=== PATIENT | female | born 1960 | race Caucasian/White ===

== ENCOUNTER → 2016-10-20 | Outpatient (CLI) | payer BC ==
[2016-10-20 17:54] LABS: Blood Urea Nitrogen 11 mg/dL (7-17); Non-African American GFR(MDRD) >60 (>60 ml/min/1.73 sqM)
--- NOTE | 2016-10-20 19:50 | CT ---
EXAMINATION TYPE: CT abdomen pelvis w con DATE OF EXAM: 10/20/2016 7:16 PM COMPARISON: 01/18/2014 HISTORY: Left sided abdominal pain x [address] DLP: 360.00 mGycm CONTRAST: CT scan of the abdomen and pelvis is performed with Oral Contrast and with IV Contrast, patient injec faith with 100 mL of Omnipaque 300. FINDINGS: LUNG BASES-: No visible nodule. No infiltrate. LIVER/GB: The gallbladder is surgically absent. No space occupying hepatic lesion. Biliary tree is of normal caliber. PANCREAS: No inflammation. No distinct mass. SPLEEN: No splenic enlargement. No lesion seen. ADRENALS: No nodule. No thickening. KIDNEYS/BLADDER: No hydronephrosis. No nephrolithiasis. No disctinct renal mass. Urinary bladder g rossly unremarkable. BOWEL: Normal appendix. Normal bowel caliber. No inflammation. GENITAL ORGANS: No gross abnormality. LYMPH NODES: No greater than 1cm abdominal or pelvic lymph nodes are appreciated. AORTA: Atheromatous changes without evidence for aneurysm. OSSEOUS STRUCTURES: Degenerative postoperative changes of the lumbar spine. OTHER: No significant additional abnormality is seen. IMPRESSION: 1. No significant abnormality to account for the patient's symptoms.
== END | disposition home or self-care (01) ==
LOC: RADCTMAIN 17:09
PROVIDERS: ATTEND Family Medicine
DX: R10.12 Left upper quadrant pain (principal); R11.10 Vomiting, unspecified
CPT/HCPCS: 82565; 84520; 74177; 36415; Q9967

== ENCOUNTER 2016-10-28 12:15 | Observation (INO) | payer BC ==
[2016-10-28] MEDS ORDERED: ASPIRIN 81 MG CHEW PO STA (12:43)
[2016-10-28] MEDS ORDERED: NITROGLYCERIN OINT 1 INCH/GM PACKET TOPICAL STA (12:43)
--- NOTE | 2016-10-28 12:46 | ED ---
General Adult HPI - General Chief complaint: Chest Pain Stated complaint: Abnormal Labs Time Seen by Provider: 10/28/16 12:30 Source: patient, RN notes reviewed Mode of arrival: wheelchair Limitations: no limitations - History of Present Illness Initial comments: This is a 55-year-old female who presents emergency Department complaining of chest pain. She has a past medical history significant for smoking which she continues to do also has diabetes and has had a heart attack with 4 stent placements in the past. Patient states this chest pain feels typical of her chest pain which she has had a heart attack. She states it's across her whole chest she has shortness of breath when it occurs and it goes into her back. Patient states currently she is chest pain-free. Patient denies any recent fever chills or cough. Patient denies any diaphoresis per patient denies any nausea. Patient denies abdominal pain patient denies any vomiting or diarrhea. Patient denies any near-syncopal episode dizziness or lightheadedness per patient denies any headache patient denies numbness weakness. - Related Data Home Medications Medication Instructions Recorded Confirmed QUEtiapine FUMARATE [SEROquel] 300 mg PO HS 02/15/14 10/28/16 Zolpidem [Ambien] 10 mg PO HS PRN 02/15/14 10/28/16 sitaGLIPtin PHOS/metFORMIN HCL 1 tab PO HS 02/15/14 10/28/16 [Janumet Xr 100-1,000 mg Tablet] buPROPion HCL [Wellbutrin XL] 300 mg PO QAM 04/10/14 10/28/16 Metaxalone [Skelaxin] 800 mg PO TID PRN 05/24/14 10/28/16 Levothyroxine Sodium [Synthroid] 88 mcg PO QAM 01/31/15 10/28/16 clonazePAM [KlonoPIN] 0.5 mg PO TID 10/23/15 10/28/16 ARIPiprazole [Abilify] 10 mg PO QAM 12/11/15 10/28/16 Calcium Carbonate [Tums] 500 mg PO TID PRN 12/11/15 10/28/16 Aspirin [Adult Low Dose Aspirin EC] 81 mg PO DAILY 03/31/16 10/28/16 Clopidogrel [Plavix] 75 mg PO DAILY 08/30/16 10/28/16 lamoTRIgine [LaMICtal] 200 mg PO BID 09/15/16 10/28/16 HYDROcodone/APAP 7.5-325MG [[place] 1 tab PO Q6H PRN 10/28/16 10/28/16 7.5] Allergies Allergy/AdvReac Type Severity Reaction Status Date / Time codeine Allergy nausea and Verified 10/28/16 13:49 "shakes" NSAIDS (Non-Steroidal Allergy Rash/Hives, Verified 10/28/16 13:49 Anti-Inflamma N/V diazepam [From Valium] AdvReac hallucinations Verified 10/28/16 13:49 and confusion morphine AdvReac Hallucinations Verified 10/28/16 13:49 and confusion Review of Systems ROS Statement: Those systems with pertinent positive or pertinent negative responses have been documented in the HPI. ROS Other: All systems not noted in ROS Statement are negative. Past Medical History Past Medical History: Coronary Artery Disease (CAD), Diabetes Mellitus, GERD/ Reflux, Hyperlipidemia, Myocardial Infarction (CA), Osteoarthritis (OA), Thyroid Disorder Additional Past Medical History / Comment(s): hx migraines, chronic back pain, degenerative disks, spinal stenosis, Last Myocardial Infarction Date:: 2007 History of Any Multi-Drug Resistant Organisms: None Reported Past Surgical History: Back Surgery, Cardiac Valve Replacement, Cholecystectomy , Heart Catheterization With Stent, Tubal Ligation Additional Past Surgical History / Comment(s): aortic valve replacement, 3 lower back surgeries, left carotid endarterectomy, disk replaced in neck, total 4 cardiac stents Past Anesthesia/Blood Transfusion Reactions: Motion Sickness Date of Last Stent Placement:: 01/2015 Past Psychological History: Anxiety, Bipolar, Depression Additional Psychological History / Comment(s): . Smoking Status: Current every day smoker Past Alcohol Use History: None Reported Additional Past Alcohol Use History / Comment(s): STARTED SMOKING 1973- 10 cigarettes daily; QUIT 2014. Past Drug Use History: None Reported - Past Family History Mother Family Medical History: Deep Vein Thrombosis (DVT) Additional Family Medical History / Comment(s): Blood clots in legs, Father Family Medical History: Diabetes Mellitus, Hypertension Additional Family Medical History / Comment(s): heart valve replacement, General Exam - General Exam Comments Initial Comments: GENERAL: Patient is well-developed and well-nourished. Patient is nontoxic and well- hydrated and is in no acute distress. ENT: Neck is soft and supple. No significant lymphadenopathy is noted. Oropharynx is clear. Moist mucous membranes. Neck has full range of motion without eliciting any pain. EYES: The sclera were anicteric and conjunctiva were pink and moist. Extraocular movements were intact and pupils were equal round and reactive to light. Eyelids were unremarkable. PULMONARY: Unlabored respirations. Good breath sounds bilaterally. No audible rales rhonchi or wheezing was noted. CARDIOVASCULAR: There is a regular rate and rhythm without any murmurs gallops or rubs. ABDOMEN: Soft and nontender with normal bowel sounds. No palpable organomegaly was noted. There is no palpable pulsatile mass. SKIN: Skin is clear with no lesions or rashes and otherwise unremarkable. NEUROLOGIC: Patient is alert and oriented x3. Cranial nerves II through XII are grossly intact. Motor and sensory are also intact. Normal speech, volume and content. Symmetrical smile. MUSCULOSKELETAL: Normal extremities with adequate strength and full range of motion. No lower extremity swelling or edema. No calf tenderness. LYMPHATICS: No significant lymphadenopathy is noted PSYCHIATRIC: Normal psychiatric evaluation. Limitations: no limitations Course Vital Signs 10/28/16 10/28/16 12:30 13:29 Temperature 97.8 F Pulse Rate 94 85 Respiratory 20 17 Rate Blood Pressure 140/72 129/72 O2 Sat by Pulse 99 98 Oximetry Medical Decision Making - Medical Decision Making EKG shows normal sinus rhythm at 88 bpm MO interval 270 QRS is 128 QT interval 410 QTC is 496. Patient's EKG shows no ST segment elevation or depression but does have a right bundle branch block which was seen in the last EKG but there are no significant new EKG changes when I compare. Because of the patient's history and clinical presentation that area felt the patient was having unstable angina started the patient on heparin I spoke with Dr. Orellana she agreed to admit the patient admitted the patient I wrote admitting orders and consult cardiology continue the heparin nitroglycerin and aspirin on the floor. - Lab Data Result diagrams: 10/28/16 12:52 10/28/16 12:52 Lab Results 10/28/16 10/28/16 10/28/16 Range/Units 12:52 12:52 12:52 WBC 6.5 (3.8-10.6) k/uL RBC 4.38 (3.80-5.40) m/uL Hgb 14.0 (11.4-16.0) gm/dL Hct 43.2 (34.0-46.0) % MCV 98.5 (80.0-100.0) fL MCH 32.0 (25.0-35.0) pg MCHC 32.5 (31.0-37.0) g/dL RDW 13.2 (11.5-15.5) % Plt Count 209 (150-450) k/uL Neutrophils % 63 % Lymphocytes % 26 % Monocytes % 7 % Eosinophils % 2 % Basophils % 1 % Neutrophils # 4.1 (1.3-7.7) k/uL Lymphocytes # 1.7 (1.0-4.8) k/uL Monocytes # 0.5 (0-1.0) k/uL Eosinophils # 0.1 (0-0.7) k/uL Basophils # 0.1 (0-0.2) k/uL PT (9.0-12.0) sec INR (<1.1) APTT (22.0-30.0) sec Sodium 141 (137-145) mmol/L Potassium 4.1 (3.5-5.1) mmol/L Chloride 106 (98-107) mmol/L Carbon Dioxide 24 (22-30) mmol/L Anion Gap 11 mmol/L BUN 13 (7-17) mg/dL Creatinine 0.70 (0.52-1.04) mg/dL Est GFR (MDRD) Af Amer >60 (>60 ml/min/1.73 sqM) Est GFR (MDRD) Non-Af >60 (>60 ml/min/1.73 sqM) Glucose 124 H (74-99) mg/dL Calcium 9.3 (8.4-10.2) mg/dL Magnesium 1.5 L (1.6-2.3) mg/dL Total Bilirubin 1.2 (0.2-1.3) mg/dL AST 401 H (14-36) U/L ALT 220 H (9-52) U/L Alkaline Phosphatase 270 H (38-126) U/L Total Creatine Kinase 39 (30-135) U/L CK-MB (CK-2) 1.0 (0.0-2.4) ng/mL CK-MB (CK-2) Rel Index 2.6 Troponin I <0.012 (0.000-0.034) ng/mL Total Protein 8.1 (6.3-8.2) g/dL Albumin 4.2 (3.5-5.0) g/dL 10/28/16 Range/Units 12:52 WBC (3.8-10.6) k/uL RBC (3.80-5.40) m/uL Hgb (11.4-16.0) gm/dL Hct (34.0-46.0) % MCV (80.0-100.0) fL MCH (25.0-35.0) pg MCHC (31.0-37.0) g/dL RDW (11.5-15.5) % Plt Count (150-450) k/uL Neutrophils % % Lymphocytes % % Monocytes % % Eosinophils % % Basophils % % Neutrophils # (1.3-7.7) k/uL Lymphocytes # (1.0-4.8) k/uL Monocytes # (0-1.0) k/uL Eosinophils # (0-0.7) k/uL Basophils # (0-0.2) k/uL PT 9.4 (9.0-12.0) sec INR 0.9 (<1.1) APTT 22.8 (22.0-30.0) sec Sodium (137-145) mmol/L Potassium (3.5-5.1) mmol/L Chloride (98-107) mmol/L Carbon Dioxide (22-30) mmol/L Anion Gap mmol/L BUN (7-17) mg/dL Creatinine (0.52-1.04) mg/dL Est GFR (MDRD) Af Amer (>60 ml/min/1.73 sqM) Est GFR (MDRD) Non-Af (>60 ml/min/1.73 sqM) Glucose (74-99) mg/dL Calcium (8.4-10.2) mg/dL Magnesium (1.6-2.3) mg/dL Total Bilirubin (0.2-1.3) mg/dL AST (14-36) U/L ALT (9-52) U/L Alkaline Phosphatase (38-126) U/L Total Creatine Kinase (30-135) U/L CK-MB (CK-2) (0.0-2.4) ng/mL CK-MB (CK-2) Rel Index Troponin I (0.000-0.034) ng/mL Total Protein (6.3-8.2) g/dL Albumin (3.5-5.0) g/dL Critical Care Time Critical Care Time: Yes Total Critical Care Time: 35 Disposition Clinical Impression: Unstable angina pectoris Disposition: ADMITTED IP TO THIS [facility] Time of Disposition: 14:31
[2016-10-28 13:17] LABS: Basophils # (A) 0.1 k/uL (0-0.2); Basophils % (A) 1 %; CH 32.8; CHCM 33.4; Eosinophils # (A) 0.1 k/uL (0-0.7); Eosinophils % (A) 2 %; HCT 43.2 % (34.0-46.0); HDW 2.39; Luc % (Auto) 2; Lymphocytes # (A) 1.7 k/uL (1.0-4.8); Lymphocytes % (A) 26 %; MCHC 32.5 g/dL (31.0-37.0); MCV 98.5 fL (80.0-100.0); Mean Platelet Volume 7.8; Monocytes # (A) 0.5 k/uL (0-1.0); Monocytes % (A) 7 %; Neutrophils # (A) 4.1 k/uL (1.3-7.7); Neutrophils % (A) 63 %; RBC 4.38 m/uL (3.80-5.40); RDW 13.2 % (11.5-15.5); WBC 6.5 k/uL (3.8-10.6); WBC (Perox) 6.32
[2016-10-28 13:27] LABS: INR 0.9 (<1.1); Partial Thromboplastin Time 22.8 sec (22.0-30.0); Prothrombin Time 9.4 sec (9.0-12.0)
[2016-10-28 13:35] LABS: ALT 220 U/L (9-52); AST 401 U/L (14-36); Alkaline Phosphatase 270 U/L (38-126); Anion Gap 11 mmol/L; Blood Urea Nitrogen 13 mg/dL (7-17); Calcium 9.3 mg/dL (8.4-10.2); Carbon Dioxide 24 mmol/L (22-30); Chloride 106 mmol/L (98-107); Glucose 124 mg/dL (74-99); Magnesium 1.5 mg/dL (1.6-2.3); Non-African American GFR(MDRD) >60 (>60 ml/min/1.73 sqM); Potassium 4.1 mmol/L (3.5-5.1); Sodium 141 mmol/L (137-145); Total Bilirubin 1.2 mg/dL (0.2-1.3); Total Protein 8.1 g/dL (6.3-8.2)
[2016-10-28 13:38] LABS: Creatine Kinase 39 U/L (30-135)
[2016-10-28 13:51] LABS: Troponin I <0.012 ng/mL (0.000-0.034)
[2016-10-28] MEDS ORDERED: HEPARIN SODIUM,PORCINE/D5W PMX 25,000 UNIT in DEXTROSE/WATER 1 500ML.BAG IV SCH (14:30)
[2016-10-28] MEDS ORDERED: HEPARIN SODIUM,PORCINE 5,000 UNIT/ML 1 ML VIAL IV ONE (14:30)
[2016-10-28] MEDS ORDERED: NITROGLYCERIN SL TABS 0.4 MG TAB SUBLINGUAL PRN (14:31)
--- NOTE | 2016-10-28 15:26 | XR ---
EXAMINATION TYPE: XR chest 2V DATE OF EXAM: 10/28/2016 1:20 PM COMPARISON: 12/30/2015 INDICATION: Chest pain TECHNIQUE: Frontal and lateral views of the chest are obtained. Images were presented 1520 hours for dictation. FINDINGS: The heart size is normal. The pulmonary vasculature is normal. The lungs are clear. Sternotomy wires from previous cardiac valve surgery are present. IMPRESSION: 1. No acute pulmonary process.
[2016-10-28 20:01] LABS: Creatine Kinase 35 U/L (30-135)
[2016-10-28 20:15] LABS: Creatine Kinase MB 0.9 ng/mL (0.0-2.4); Troponin I <0.012 ng/mL (0.000-0.034)
[2016-10-28 20:40] LABS: Amylase 66 U/L (30-110)
--- NOTE | 2016-10-28 22:23 | HP ---
CHIEF COMPLAINT: Chest pain. HISTORY OF PRESENT ILLNESS: This is a 55-year-old white female seen in my office with chest pain, nonspecific. After doing an EKG in my office, she has some ST depression across V1, V2 and III. Unfortunately, I had nothing to compare it to. So at this time, I sent her to the emergency room for evaluation. After evaluation with the emergency room physician, lab was completed including troponins, which were negative, but because of her long-standing history of coronary artery disease, she was placed in the hospital accordingly. PAST MEDICAL HISTORY: Previous coronary artery disease, diabetes mellitus, hyperlipidemia, previous myocardial infarction, osteoarthritis and ( ) disease. Additional history includes that of severe chronic back pain, including surgery and also spinal stenosis. Her surgery also includes aortic valve replacements, back surgery, cardiac cath with stents and tubal ligation and a left carotid endarterectomy. Her last stents were put in 2014. She also has a history of anxiety, depression, bipolar. She does see Dr. Mckee. SOCIAL HISTORY: She is a nondrinker, but she does smoke up to a pack a day. She stops and she quits, but at this point she is on roughly around 10 cigarettes a day. She has no illicit drug usage, but she does take medication for pain. Most recent medications include: 1. Abilify 5 mg 1/2 daily. 2. Klonopin 0.5 three times a day. 3. Metoprolol 25, 1/2 daily. 4. Furosemide 40. 5. Plavix 75. 6. 10 of Ambien. 7. Skelaxin 800 up to 3 times a day. 8. ( ) up to every 6 hours for severe back pain. 9. Ranexa 20 mg twice a day. 10. 81 aspirin. 11. Levothroid 0.88. 12. Lipitor 80. 13. Janumet XR 100,000 daily. 14. Wellbutrin XL 300 daily. 15. Seroquel 300 mg daily. REVIEW OF SYSTEMS: CARDIOPULMONARY: Describes chest pain, which is some type right in the precordial area and goes through with no radiation to the neck or to the back. GI: No hematemesis. No hematochezia. She does have some GE reflux. No diarrhea. No constipation. GENITOURINARY: She has had urinary tract infections, but no urination problems. NEUROMUSCULAR: She has severe back pain with multiple surgeries per Dr. Art. She is scheduled to have another back surgery sometime soon, according to her. To review the past reports to see if that I have the information about that accordingly. Integumentary has been normal. Physical examination at this time is an alert white female with no chest pain at this period. Her blood pressure is 154/85, her heart rate is in the 60s, temperature is 98.4. EYES: Pupils are equal, round and reactive to light and accommodation. ENT is within normal limits. She does have a carotid incision. NECK: Supple with no palpable masses. No carotid bruits. Chest at this time is essentially clear to auscultation. HEART: Sinus rhythm. She does have an aortic click. ABDOMEN: Soft, nontender. No organomegaly. EXTREMITIES: She does have some arthritis in the hands and the knees. Decreased range of motion of the lower extremities. ASSESSMENT: 1. Acute chest pain, rule out angina. 2. Previous history of cholecystectomy in September of this year with elevated liver function tests. 3. Long-standing history of bipolar disorder. 4. Aortic valve replacement. 5. Coronary artery disease with stent placement. 6. Type 2 diabetes. 7. Gastroesophageal reflux disease. 8. Hyperlipidemia. 9. Myocardial infarction previously. 10. Thyroid disorder. 11. Chronic lumbar stenosis. 12. Degenerative arthritis. 13. Spinal stenosis. PLAN: Will investigate the elevation of the liver function tests with amylase and lipase. Will follow her with troponins, Cardiology consultation. Please refer to my orders.
[2016-10-28] MEDS ORDERED: CALCIUM CARBONATE 500 MG CHEWABLE PO PRN (22:39)
[2016-10-28] MEDS ORDERED: CYCLOBENZAPRINE 10 MG TAB PO PRN (22:39)
[2016-10-28] MEDS ORDERED: ONDANSETRON 4 MG/2 ML VIAL IVP PRN (22:42)
[2016-10-28] MEDS: NITROGLYCERIN OINT 1 INCH/GM PACKET TOPICAL SCH (23:05)
[2016-10-28] MEDS: clonazePAM 0.5 MG TAB PO SCH ×2 (23:07→23:09)
[2016-10-28] MEDS: ZOLPIDEM 10 MG TAB PO PRN (23:09)
[2016-10-28] MEDS: HYDROcodone/APAP 7.5-325MG 1 EACH TAB PO PRN (23:09)
[2016-10-29] MEDS: metFORMIN 500 MG TAB PO SCH ×3 (00:05→17:19)
[2016-10-29] MEDS: lamoTRIgine 100 MG TAB PO SCH ×3 (00:05→19:47)
[2016-10-29] MEDS: LINAGLIPTIN 5 MG TABLET PO SCH ×2 (00:05→19:47)
[2016-10-29] MEDS: QUEtiapine 100 MG TAB PO SCH ×2 (00:05→19:47)
[2016-10-29] MEDS: NITROGLYCERIN OINT 1 INCH/GM PACKET TOPICAL SCH ×2 (00:07→05:17)
[2016-10-29] MEDS ORDERED: HEPARIN SODIUM,PORCINE 5,000 UNIT/ML 1 ML VIAL IV PRN (01:04)
[2016-10-29 02:48] LABS: Creatine Kinase 29 U/L (30-135)
[2016-10-29 03:01] LABS: Creatine Kinase MB 0.9 ng/mL (0.0-2.4); Troponin I <0.012 ng/mL (0.000-0.034)
[2016-10-29] MEDS: LEVOTHYROXINE 88 MCG TAB PO SCH (05:16)
[2016-10-29 06:41] LABS: Glucose,Whole Blood 135 mg/dL (75-99)
[2016-10-29 07:46] LABS: Cholesterol 224 mg/dL (<200); HDL Cholesterol 86 mg/dL (40-60); Triglycerides 167 mg/dL (<150)
[2016-10-29 08:16] LABS: Hemoglobin A1C 5.9 % (4.2-6.1)
[2016-10-29] MEDS ORDERED: REGADENOSON 0.4 MG/5 ML SYRINGE IV ONE (08:39)
[2016-10-29] MEDS ORDERED: AMINOPHYLLINE 500 MG/20 ML VIAL IV PRN (08:39)
--- NOTE | 2016-10-29 09:11 | CONS ---
DATE OF CONSULTATION: Yaz Lawson is a 55-year-old female who was sent by Dr. Mon after she was complaining of chest discomfort all across the chest in his noticed and he noticed ST depression in his office in V1, V2 and lead III. At this time, she is pain free. She denies any dizziness, lightheadedness. REVIEW OF SYSTEMS: No recent fever, chills or rigors. No cough or expectoration. No nausea, vomiting, or diarrhea. No hematuria or dysuria. No strokes or seizure. She simply complained of chest discomfort spreading all across the chest and she thought it was a bit different from when she had her coronary stents placed several years back. Past history of coronary artery disease, status post coronary stenting, adult onset diabetes, dyslipidemia. She also has back pain and had recent spinal surgery. She also has had an aortic valve replacement. PAST SURGERIES: Tubal ligation, carotid endarterectomy and aortic valve replacement. Her last stent was in 2014. She also has a history of bipolar disorder and sees Dr. Mckee. SOCIAL HISTORY: She smokes a 1/2 pack of cigarettes a day. No alcohol. No illicit drug use. She does take medications for pain medication. Medication list is reviewed. Recent medications are Abilify, Klonopin, metoprolol, furosemide, Plavix, Ambien, ( ), Lipitor, Janumet, Wellbutrin, Seroquel. I do not see statins on her medication list. On examination, her blood pressure upon admission was 154/85 mmHg and this morning it is 128/74 and 100/54 mmHg, heart rate is in the 70s. Head and neck examination is normal. Heart sounds S1 is normal. S2 is crisp. No S3 gallop. No murmurs. Breath sounds are reduced bilaterally but no rhonchi, no crackles. No JVD. No carotid bruits. Abdomen is soft, nontender. Extremities are warm. There is no lower extremity edema. The 12-lead ECG shows right bundle branch block secondary ST-T changes. IMPRESSION: 1. Known coronary disease, status post coronary stenting in 2014. 2. Aortic valve replacement for aortic valve disease. 3. Recent spine surgery. 4. Patient presenting with chest discomfort with normal cardiac enzymes and an abnormal ECG. SUGGEST: Lexiscan Cardiolite stress test this morning. If this is normal, she may go home. She should also be on a statin; unless there is a specific contraindication this lady should be on statins.
[2016-10-29] MEDS: ARIPiprazole 10 MG TAB PO SCH (09:30)
[2016-10-29] MEDS: ASPIRIN 81 MG CHEW PO SCH (09:30)
[2016-10-29] MEDS: clonazePAM 0.5 MG TAB PO SCH ×3 (09:30→19:51)
[2016-10-29] MEDS: buPROPion XL 300 MG TAB.ER.24H PO SCH (09:30)
[2016-10-29] MEDS: ASPIRIN 325 MG TAB PO SCH (09:33)
[2016-10-29] MEDS: HYDROcodone/APAP 7.5-325MG 1 EACH TAB PO PRN ×3 (09:36→21:26)
--- NOTE | 2016-10-29 11:09 | EST ---
DATE OF SERVICE: 10/29/2016 AGE: 55Y SEX: F HT: 65" WT: 135 lbs. Protocol [place]: Other: Lexiscan Cardiolite Stage: Dur. of Exercise: *Heart Rate Blood Pressure *Rest: 84 Rest: 116/75 * *Max. Achieved: 96 Maximum BP: 123/74 85% PMHR: 100% PMHR: *METS: INDICATIONS: Chest pain. MEDICATIONS: The test is being done to evaluate symptoms of chest pain. Baseline EKG showed sinus rhythm with a right bundle branch block pattern. Blood pressure at rest is 116/75 with pulse rate of 84. A standard dose of Lexiscan was infused. EKGs taken during and after the infusion did not reveal any significant changes from the baseline. FINAL IMPRESSION: 1. Negative Lexiscan stress test. 2. Report on the nuclear images to be given by the radiologist.
--- NOTE | 2016-10-29 11:20 | NM ---
EXAMINATION TYPE: NM stress lexiscan cardiolite DATE OF EXAM: 10/29/2016 11:04 AM COMPARISON: NONE HISTORY: Chest pain TECHNIQUE: After the intravenous administration of 11 mCi Tc 99m Sestamibi - Cardiolite resting SPEC T images acquired 40 minutes post injection. The patient received 0.4mg Lexiscan, 27.5 mCi Tc 99m Sestamibi - Stress images obtained [address] injection FINDINGS: Review of stress and rest SPECT images demonstrates no distinct perfusion abnormality. Gated analysi s shows reduced wall motion with an estimated left ventricular ejection fraction of 29% %. IMPRESSION: 1. No scintigraphic evidence for reversible ischemia. 2. Ejection fraction of 29% correlate clinically.
[2016-10-29 12:18] LABS: Glucose,Whole Blood 116 mg/dL (75-99)
[2016-10-29] MEDS: ATORVASTATIN 20 MG TAB PO SCH (14:43)
[2016-10-29] MEDS: CLOPIDOGREL 75 MG TAB PO SCH (14:43)
--- NOTE | 2016-10-29 16:35 | P.PN ---
Subjective Principal diagnosis: Chest pain Patient is a 55-year-old white female admitted with nonspecific chest pain and some EKG changes with ST depression across V1, V2 and III in the office setting. Troponins negative 3. Patient has been evaluated by cardiology service and has just returned from her stress test. Currently, patient denies chills, fevers, nausea, vomiting, shortness of breath, chest pain, cough, abdominal pain, or leg swelling. Afebrile. Hemodynamically stable. Objective - Vital Signs Vital signs: Vital Signs Temp 98.6 F 10/29/16 16:00 Pulse 86 10/29/16 16:00 Resp 16 10/29/16 16:00 BP 109/74 10/29/16 16:00 Pulse Ox 96 10/29/16 16:00 Intake & Output 10/28/16 10/29/16 10/29/16 18:59 06:59 18:59 Intake Total 855.888 Balance 855.888 Intake: IV 320 0.9 @ 20 220 Heparin Sodium,Porcine/ 100 D5w Pmx 25,000 unit In Dextrose/Water 1 500ml. bag @ 12 UNITS/KG/HR 14. 69 mls/hr IV .Q24H [facility]INIC Rx #:[id number] Intake, IV Titration 135.888 Amount Heparin Sodium,Porcine/ 135.888 D5w Pmx 25,000 unit In Dextrose/Water 1 500ml. bag @ 12 UNITS/KG/HR 14. 69 mls/hr IV .Q24H [facility]INIC Rx #:[id number] Oral 400 Other: Voiding Method Toilet Toilet # Voids 3 - Exam GENERAL: Pt awake and alert, well-appearing, well-nourished, and in no acute distress. HEAD: Atraumatic, normocephalic. EYES: Pupils equal, round, and reactive to light, extraocular movements intact, sclera anicteric, conjunctiva are normal. ENT: Oropharynx clear without exudates. Moist mucous membranes. NECK:Normal range of motion, supple without lymphadenopathy or JVD. No carotid bruits. Thyroid midline, small and firm without palpable masses. LUNGS: Breath sounds clear to auscultation bilaterally. No wheezes, rales, or rhonchi. HEART: Heart S1, S2, no S3 or S4. Regular rate and rhythm. Systolic murmur. ABDOMEN: Soft, nontender, nondistended, normoactive bowel sounds. No guarding, no rebound. No masses or organomegaly appreciated. EXTREMITIES: 2+ peripheral pulses. No edema. No calf tenderness. NEUROLOGICAL: Pt oriented x 3. Cranial nerves II through XII grossly intact. Strength and sensation grossly intact. PSYCH: Normal mood, normal affect. SKIN: Warm, dry, intact. Normal turgor. No rashes or lesions. - Labs CBC & Chem 7: 10/28/16 12:52 10/28/16 12:52 Labs: Abnormal Lab Results - Last 24 Hours (Table) 10/28/16 10/29/16 10/29/16 Range/Units 22:03 01:41 06:36 APTT 30.7 H (22.0-30.0) sec POC Glucose (mg/dL) 135 H (75-99) mg/dL Total Creatine Kinase 29 L (30-135) U/L Triglycerides (<150) mg/dL Cholesterol (<200) mg/dL LDL Cholesterol, Calc (0-99) mg/dL HDL Cholesterol (40-60) mg/dL 10/29/16 10/29/16 10/29/16 Range/Units 06:47 06:47 12:07 APTT 47.0 H (22.0-30.0) sec POC Glucose (mg/dL) 116 H (75-99) mg/dL Total Creatine Kinase (30-135) U/L Triglycerides 167 H (<150) mg/dL Cholesterol 224 H (<200) mg/dL LDL Cholesterol, Calc 105 H (0-99) mg/dL HDL Cholesterol 86 H (40-60) mg/dL Assessment and Plan Plan: Impression: 1. Acute chest pain, rule out angina, present on admission. 2. Elevated liver function tests, present on admission. Amylase and lipase within normal limits. 3. Coronary artery disease with stent placement. 4. Aortic valve replacement. 5. Long-standing history of bipolar disorder. 6. Type 2 diabetes mellitus. 8. GERD. 9. Hyperlipidemia. 10. History of myocardial infarction. 11. Thyroid disorder. 12. Chronic lumbar stenosis. 13. Degenerative arthritis. 14. Spinal stenosis. Plan: Continue to monitor patient. Await results of Lexiscan stress test with cardiology recommendations. Continue current medications. The above impression and plan have been discussed and directed by Dr. Mon. Dion CHAVEZ acting as scribe for Dr. Mon.
[2016-10-29 17:21] LABS: Glucose,Whole Blood 104 mg/dL (75-99)
[2016-10-29 20:11] LABS: Glucose,Whole Blood 122 mg/dL (75-99)
[2016-10-29] MEDS ORDERED: QUEtiapine 100 MG TAB PO SCH (21:00)
[2016-10-29] MEDS: ZOLPIDEM 10 MG TAB PO PRN (21:26)
[2016-10-30] MEDS: HYDROcodone/APAP 7.5-325MG 1 EACH TAB PO PRN ×2 (03:40→11:14)
[2016-10-30] MEDS: LEVOTHYROXINE 88 MCG TAB PO SCH (06:21)
[2016-10-30 06:51] LABS: Glucose,Whole Blood 159 mg/dL (75-99)
[2016-10-30] MEDS: ARIPiprazole 10 MG TAB PO SCH (08:26)
[2016-10-30] MEDS: metFORMIN 500 MG TAB PO SCH (08:26)
[2016-10-30] MEDS: ASPIRIN 81 MG CHEW PO SCH (08:26)
[2016-10-30] MEDS: buPROPion XL 300 MG TAB.ER.24H PO SCH (08:27)
[2016-10-30] MEDS: lamoTRIgine 100 MG TAB PO SCH (08:27)
[2016-10-30] MEDS: ATORVASTATIN 20 MG TAB PO SCH (08:27)
[2016-10-30] MEDS: CLOPIDOGREL 75 MG TAB PO SCH (08:27)
[2016-10-30] MEDS: clonazePAM 0.5 MG TAB PO SCH (08:34)
[2016-10-30 11:55] LABS: Glucose,Whole Blood 155 mg/dL (75-99)
[2016-10-30 11:58] VITALS: BP 97/64; PULSE 88; RESP 18; TEMP 98.6
[2016-10-30] MEDS: ASPIRIN 325 MG TAB PO SCH (12:58)
--- NOTE | 2016-10-31 10:36 | DS ---
DATE OF ADMISSION: 10/28/2016 DATE OF DISCHARGE: 10/30/2016 A 55-year-old white female that came in with moderately severe chest pain. Some unusual changes on her EKG with some ST depression. EKG showed pretty typical right bundle-branch block. At that period of time she was evaluated with a stress test, which appeared to be within normal limits. She also had history of recent aortic valve replacement and cholecystectomy only a month ago. The patient, at this point, has continued to improve with a minimal amount of a chest pain on follow up. She was with cardiology in follow up. She was also found to have liver function tests that were elevated but normal amylase and lipase. At this point she had some chest pain. DISCHARGE DIAGNOSES: 1. Acute chest pain, noncardiac. 2. Elevated liver function tests of questionable etiology. 3. Aortic valve replacement. 4. Bipolar disorder. 5. Type 2 diabetes. 6. Gastroesophageal reflux disease. 7. Hyperlipidemia. 8. Gout. 9. Previous history of myocardial infarction, thyroid disease and lumbar stenosis. She will be discharged after evaluation by cardiology. Further investigation with elevation of her liver function test will be handled on an outpatient basis. Prognosis is guarded. She will be on an 1500 to 1800 calorie ADA low lipid diet and she will follow up in my office within several days.
== END 2016-10-30 14:45 | disposition home or self-care (01) ==
LOC: EC 12:15 → 3OBS 14:31
PROVIDERS: ADMIT Family Medicine; ATTEND Family Medicine
DX: R07.89 Other chest pain (principal); I25.110 Atherosclerotic heart disease of native coronary artery with unstable angina pectoris; E78.5 Hyperlipidemia, unspecified; F17.210 Nicotine dependence, cigarettes, uncomplicated; E07.9 Disorder of thyroid, unspecified; E11.9 Type 2 diabetes mellitus without complications; F31.9 Bipolar disorder, unspecified; I25.2 Old myocardial infarction; I45.10 Unspecified right bundle-branch block; K21.9 Gastro-esophageal reflux disease without esophagitis; M48.06 Spinal stenosis, lumbar region; Z90.49 Acquired absence of other specified parts of digestive tract; Z95.2 Presence of prosthetic heart valve; Z95.5 Presence of coronary angioplasty implant and graft; R79.89 Other specified abnormal findings of blood chemistry; Z79.02 Long term (current) use of antithrombotics/antiplatelets; Z79.82 Long term (current) use of aspirin; Z88.6 Allergy status to analgesic agent; Z88.5 Allergy status to narcotic agent; G89.29 Other chronic pain; F41.9 Anxiety disorder, unspecified; M10.9 Gout, unspecified; Z79.84 Long term (current) use of oral hypoglycemic drugs; Z79.899 Other long term (current) drug therapy; M19.90 Unspecified osteoarthritis, unspecified site; Z79.890 Hormone replacement therapy
CPT/HCPCS: 99291 ×2; 96365 ×2; 96366 ×3; 96376 ×2; 36415; 93005; 93017; 80061; 80053; 82150; 83036; 82550 ×2; 82553 ×2; 83690; 83735; 84484 ×2; 85025; 85610; 85730 ×2; 71020; 78452; G0378 ×3; A9500; J1644 ×3; J2405; J2785; 96375

== ENCOUNTER → 2017-01-04 | Outpatient (CLI) | payer OTHER ==
--- NOTE | 2017-01-04 15:24 | XR ---
EXAMINATION TYPE: XR lumbar spine 2 or 3V DATE OF EXAM: 01/04/2017 1:38 PM COMPARISON: 08/18/2016 HISTORY: 56-year-old female lumbar spondylosis, chronic low back pain TECHNIQUE: 3 views FINDINGS: There is levoconvex curvature of the lumbar spine fixed with L2-L5 posterior lumbar fusion as well as lateral osseous fusion and corresponding laminectomies. There may be some interval bridging bony ank ylosis between L2 and L3 and anteriorly along L4 and L5. Alignment is stable with a grade 1 anterolis thesis at the fused L3-L4 level. Vertebral body heights are preserved. Dense atherosclerotic aortic c alcifications and a prosthetic cardiac valve. IMPRESSION: Levoconvex scoliosis with L2-L5 posterior lumbar and lateral osseous fusion and corresponding laminec tomies. There may be some interval bony bridging across the L2-L3 vertebral body and anteriorly at L4 -L5. A grade 1 anterolisthesis at L3-L4 is unchanged.
== END | disposition home or self-care (01) ==
LOC: RADXRMAIN 13:24
DX: M41.9 Scoliosis, unspecified (principal); Z98.1 Arthrodesis status
CPT/HCPCS: 72100

== ENCOUNTER → 2017-01-04 | Outpatient (CLI) | payer BC | END | disposition home or self-care (01) | LOC: LABWHC1 13:41 | PROVIDERS: ATTEND Psychiatry & Neurology Psychiatry | DX: F31.81 Bipolar II disorder (principal) | CPT/HCPCS: 36415; 80175 ==

== ENCOUNTER → 2017-02-22 | Outpatient (CLI) | payer BC ==
[2017-02-22 11:19] LABS: Basophils # (A) 0.1 k/uL (0-0.2); Basophils % (A) 1 %; CH 33.1; CHCM 34.2; Eosinophils % (A) 0 %; HCT 44.3 % (34.0-46.0); HDW 2.63; Luc # (Auto) 0.16; Luc % (Auto) 2; Lymphocytes # (A) 2.4 k/uL (1.0-4.8); Lymphocytes % (A) 31 %; MCHC 33.9 g/dL (31.0-37.0); MCV 97.4 fL (80.0-100.0); Mean Platelet Volume 7.3; Monocytes # (A) 0.4 k/uL (0-1.0); Monocytes % (A) 6 %; Neutrophils # (A) 4.7 k/uL (1.3-7.7); Neutrophils % (A) 61 %; RBC 4.55 m/uL (3.80-5.40); RDW 12.8 % (11.5-15.5); WBC 7.6 k/uL (3.8-10.6); WBC (Perox) 7.31
[2017-02-22 11:25] LABS: ALT 23 U/L (9-52); AST 21 U/L (14-36); Alkaline Phosphatase 125 U/L (38-126); Anion Gap 8 mmol/L; Blood Urea Nitrogen 16 mg/dL (7-17); Calcium 9.7 mg/dL (8.4-10.2); Carbon Dioxide 22 mmol/L (22-30); Chloride 111 mmol/L (98-107); Glucose 126 mg/dL (74-99); Non-African American GFR(MDRD) >60 (>60 ml/min/1.73 sqM); Potassium 4.8 mmol/L (3.5-5.1); Sodium 141 mmol/L (137-145); Total Bilirubin 0.6 mg/dL (0.2-1.3); Uric Acid 4.2 mg/dL (3.7-7.4)
== END | disposition home or self-care (01) ==
LOC: LABWHC1 10:47
PROVIDERS: ATTEND Family Medicine
DX: I10 Essential (primary) hypertension (principal); E11.9 Type 2 diabetes mellitus without complications; R07.1 Chest pain on breathing
CPT/HCPCS: 36415; 80053; 84165; 84550; 85025

== ENCOUNTER → 2017-03-18 | Outpatient (CLI) | payer BC ==
--- NOTE | 2017-03-19 15:49 | MR ---
EXAMINATION TYPE: MR lumbar spine wo con DATE OF EXAM: 03/18/2017 COMPARISON: 11/06/2015 HISTORY: other spondylosis w/radiculopathy lsp CONTRAST: 0 mL intravenous MultiHance. TECHNIQUE: Multiplanar, multisequence images of the lumbar spine were acquired. FINDINGS: There is metal artifact from rods and screws fusing posteriorly the lumbar spine from L2 to L5. Normal alignment. There is no sign of spinal stenosis. There is multilevel lumbar laminectomy defect. Detail is limited by the metal artifact. There is no sign of paraspinal mass. I see no focal bone de struction. There is narrowing of lumbar disc spaces from L2 to S1. IMPRESSION: 1. Multilevel posterior fusion surgery. There is additional posterior fusion at L2 level compared to old exam. There is clearing of the large posterior lumbar disc herniation at L2-3 compared to old exa m. No spinal stenosis. No fracture.
== END | disposition home or self-care (01) ==
LOC: RADMRIMAIN 12:03
DX: M47.26 Other spondylosis with radiculopathy, lumbar region (principal); Z98.890 Other specified postprocedural states
CPT/HCPCS: 72148

== ENCOUNTER 2017-05-31 14:33 | Inpatient (IN) | payer BC ==
[2017-05-31] MEDS ORDERED: SODIUM CHLORIDE 0.9% 1,000 ML IV STA (15:18)
[2017-05-31] MEDS ORDERED: SODIUM CHLORIDE 0.9% 500 ML IV STA (15:18)
[2017-05-31] MEDS ORDERED: LORazepam 2 MG/ML SYRINGE IV STA (15:19)
--- NOTE | 2017-05-31 15:23 | ED ---
Weakness HPI - General Chief complaint: Weakness Stated complaint: Weakness Time Seen by Provider: 05/31/17 14:59 Source: patient Mode of arrival: wheelchair Limitations: no limitations - History of Present Illness Initial comments: This 56-year-old white female presents complaining of weakness, shakiness, and diplopia which is been present for the past 4 days. She does relate that she fell out of bed a couple of days ago and may have hit her left head but denies any loss of consciousness. She relates having a recent bronchitis infection but is been off antibiotics for the past 2 weeks and has not had any fever since. She was seen at [facility] 2 days ago for similar symptomatology and had a full workup at that time without any known cause. She did receive some Ativan at that time which helped her shakiness but this then returned by the time she got home. He was sent to the hospital today by her primary care physician. She denies any chest pain or shortness of breath. She denies any other injuries. She denies any previous similar incidents. She denies any changes in her medications or stopping any of her medications. No other complaints or modifying factors. - Related Data Home Medications Medication Instructions Recorded Confirmed QUEtiapine FUMARATE [SEROquel] 300 mg PO HS 02/15/14 05/31/17 Zolpidem [Ambien] 10 mg PO HS PRN 02/15/14 05/31/17 sitaGLIPtin PHOS/metFORMIN HCL 1 tab PO HS 02/15/14 05/31/17 [Janumet Xr 100-1,000 mg Tablet] buPROPion HCL [Wellbutrin XL] 300 mg PO QAM 04/10/14 05/31/17 Metaxalone [Skelaxin] 800 mg PO TID PRN 05/24/14 05/31/17 Levothyroxine Sodium [Synthroid] 88 mcg PO QAM 01/31/15 05/31/17 clonazePAM [KlonoPIN] 0.5 mg PO TID 10/23/15 05/31/17 ARIPiprazole [Abilify] 10 mg PO QAM 12/11/15 05/31/17 Clopidogrel [Plavix] 75 mg PO DAILY 08/30/16 05/31/17 lamoTRIgine [LaMICtal] 200 mg PO BID 09/15/16 05/31/17 HYDROcodone/APAP 10-325MG [[place] 1 tab PO BID PRN 05/31/17 05/31/17 10-325] Allergies Allergy/AdvReac Type Severity Reaction Status Date / Time codeine Allergy nausea and Verified 05/31/17 15:59 "shakes" NSAIDS (Non-Steroidal Allergy Rash/Hives, Verified 05/31/17 15:59 Anti-Inflamma N/V diazepam [From Valium] AdvReac hallucinations Verified 05/31/17 15:59 and confusion morphine AdvReac Hallucinations Verified 05/31/17 15:59 and confusion Review of Systems ROS Statement: Those systems with pertinent positive or pertinent negative responses have been documented in the HPI. ROS Other: All systems not noted in ROS Statement are negative. Past Medical History Past Medical History: Coronary Artery Disease (CAD), Diabetes Mellitus, GERD/ Reflux, Hyperlipidemia, Myocardial Infarction ([place]), Osteoarthritis (OA), Thyroid Disorder Additional Past Medical History / Comment(s): hx migraines, chronic back pain, degenerative disks, spinal stenosis, Last Myocardial Infarction Date:: 2007 History of Any Multi-Drug Resistant Organisms: None Reported Past Surgical History: Back Surgery, Cardiac Valve Replacement, Cholecystectomy , Heart Catheterization With Stent, Tubal Ligation Additional Past Surgical History / Comment(s): aortic valve replacement, 3 lower back surgeries, left carotid endarterectomy, disk replaced in neck, total 4 cardiac stents Past Anesthesia/Blood Transfusion Reactions: Motion Sickness Date of Last Stent Placement:: 01/2015 Past Psychological History: Anxiety, Bipolar Smoking Status: Current every day smoker Past Alcohol Use History: None Reported Past Drug Use History: None Reported - Past Family History Mother Family Medical History: Deep Vein Thrombosis (DVT) Additional Family Medical History / Comment(s): Blood clots in legs Father Family Medical History: Coronary Artery Disease (CAD) Additional Family Medical History / Comment(s): heart valve replacement, General Exam - General Exam Comments Initial Comments: GENERAL: The patient is well nourished and well hydrated. VITAL SIGNS: Heart rate, blood pressure, respiratory rate reviewed as recorded in nurse's notes. EYES: Pupils are round and reactive. Extraocular movements are intact. No conjunctival / lid redness or swelling. ENT: No external evidence of injury, swelling, or ecchymosis. Airway is patent. Throat is clear. NECK: Nontender. No swelling or evidence of injury. No subcutaneous emphysema. Trachea is midline. No thyroid mass. HEART: Regular rate and rhythm. Good peripheral pulses. LUNGS/CHEST: Breath sounds clear and equal bilaterally. No rales, rhonchi, or wheezes. No ecchymosis, subcutaneous emphysema, or tenderness. ABDOMEN: Abdomen soft without tenderness. No palpable masses or organomegaly. No peritoneal signs. No abdominal wall swelling or ecchymosis. EXTREMITIES: No extremity tenderness. Normal muscle tone and function. No thoracolumbar tenderness. NEUROLOGIC: Sensation is grossly intact. Cranial nerve exam reveals face is symmetrical, tongue is midline, speech is clear. There is a mild tremor noted. SKIN: No abrasions or ecchymosis is noted. No induration or masses noted. PSYCHIATRIC: Alert and oriented. Appropriate behavior and judgment. Limitations: no limitations Course Vital Signs 05/31/17 14:41 Temperature 98.3 F Pulse Rate 91 Respiratory 20 Rate Blood Pressure 122/60 O2 Sat by Pulse 99 Oximetry Medical Decision Making - Medical Decision Making The patient was seen and examined. All diagnostics were reviewed. An IV is started and she is hydrated. She does receive some Ativan. The EKG shows a normal sinus rhythm at a rate of 93 with a first-degree AV block. There is a right bundle-branch block with associated ST-T wave changes noted in the anteroseptal leads. The MT interval is 218, the QRS duration is 136, and the QTc interval is elevated at 524. The chest x-ray does not show any acute processes. The computed tomography scan of the brain is negative for any acute processes. Laboratory is reviewed and is essentially within normal limits. The urinalysis shows a urinary tract infection. Her tremors potentially could be related to some Reiger's. She'll be given antibiotics intravenously. The exact cause of the diplopia is not determined. The weakness may be related to the urinary tract infection as well. The case is discussed with her primary care physician and he recommends admission with IV antibiotics and neurology consult. - Lab Data Result diagrams: 05/31/17 15:25 05/31/17 15:25 Lab Results 05/31/17 05/31/17 05/31/17 Range/Units 15:25 15:25 15:25 WBC 6.3 (3.8-10.6) k/uL RBC 4.02 (3.80-5.40) m/uL Hgb 13.7 (11.4-16.0) gm/dL Hct 40.4 (34.0-46.0) % MCV 100.6 H (80.0-100.0) fL MCH 34.1 (25.0-35.0) pg MCHC 33.9 (31.0-37.0) g/dL RDW 12.8 (11.5-15.5) % Plt Count 170 (150-450) k/uL Neutrophils % 75 % Lymphocytes % 19 % Monocytes % 4 % Eosinophils % 0 % Basophils % 1 % Neutrophils # 4.7 (1.3-7.7) k/uL Lymphocytes # 1.2 (1.0-4.8) k/uL Monocytes # 0.3 (0-1.0) k/uL Eosinophils # 0.0 (0-0.7) k/uL Basophils # 0.0 (0-0.2) k/uL PT (9.0-12.0) sec INR (<1.2) APTT (22.0-30.0) sec Sodium 139 (137-145) mmol/L Potassium 4.8 (3.5-5.1) mmol/L Chloride 106 (98-107) mmol/L Carbon Dioxide 25 (22-30) mmol/L Anion Gap 8 mmol/L BUN 15 (7-17) mg/dL Creatinine 0.71 (0.52-1.04) mg/dL Est GFR (MDRD) Af Amer >60 (>60 ml/min/1.73 sqM) Est GFR (MDRD) Non-Af >60 (>60 ml/min/1.73 sqM) Glucose 144 H (74-99) mg/dL Calcium 9.1 (8.4-10.2) mg/dL Phosphorus 3.5 (2.5-4.5) mg/dL Magnesium 1.6 (1.6-2.3) mg/dL Total Bilirubin 0.4 (0.2-1.3) mg/dL AST 228 H (14-36) U/L ALT 224 H (9-52) U/L Alkaline Phosphatase 246 H (38-126) U/L Total Creatine Kinase 53 (30-135) U/L CK-MB (CK-2) 1.2 (0.0-2.4) ng/mL CK-MB (CK-2) Rel Index 2.3 Troponin I <0.012 (0.000-0.034) ng/mL Total Protein 7.0 (6.3-8.2) g/dL Albumin 3.9 (3.5-5.0) g/dL TSH 1.320 (0.465-4.680) mIU/L Urine Color Urine Appearance (Clear) Urine pH (5.0-8.0) Ur Specific [place] (1.001-1.035) Urine Protein (Negative) Urine Glucose (UA) (Negative) Urine Ketones (Negative) Urine Blood (Negative) Urine Nitrite (Negative) Urine Bilirubin (Negative) Urine Urobilinogen (<2.0) mg/dL Ur Leukocyte Esterase (Negative) Urine RBC (0-5) /hpf Urine WBC (0-5) /hpf Ur Squamous Epith Cells (0-4) /hpf Urine Bacteria (None) /hpf Urine Mucus (None) /hpf 05/31/17 05/31/17 Range/Units 15:25 15:39 WBC (3.8-10.6) k/uL RBC (3.80-5.40) m/uL Hgb (11.4-16.0) gm/dL Hct (34.0-46.0) % MCV (80.0-100.0) fL MCH (25.0-35.0) pg MCHC (31.0-37.0) g/dL RDW (11.5-15.5) % Plt Count (150-450) k/uL Neutrophils % % Lymphocytes % % Monocytes % % Eosinophils % % Basophils % % Neutrophils # (1.3-7.7) k/uL Lymphocytes # (1.0-4.8) k/uL Monocytes # (0-1.0) k/uL Eosinophils # (0-0.7) k/uL Basophils # (0-0.2) k/uL PT 9.3 (9.0-12.0) sec INR 0.9 (<1.2) APTT 24.1 (22.0-30.0) sec Sodium (137-145) mmol/L Potassium (3.5-5.1) mmol/L Chloride (98-107) mmol/L Carbon Dioxide (22-30) mmol/L Anion Gap mmol/L BUN (7-17) mg/dL Creatinine (0.52-1.04) mg/dL Est GFR (MDRD) Af Amer (>60 ml/min/1.73 sqM) Est GFR (MDRD) Non-Af (>60 ml/min/1.73 sqM) Glucose (74-99) mg/dL Calcium (8.4-10.2) mg/dL Phosphorus (2.5-4.5) mg/dL Magnesium (1.6-2.3) mg/dL Total Bilirubin (0.2-1.3) mg/dL AST (14-36) U/L ALT (9-52) U/L Alkaline Phosphatase (38-126) U/L Total Creatine Kinase (30-135) U/L CK-MB (CK-2) (0.0-2.4) ng/mL CK-MB (CK-2) Rel Index Troponin I (0.000-0.034) ng/mL Total Protein (6.3-8.2) g/dL Albumin (3.5-5.0) g/dL TSH (0.465-4.680) mIU/L Urine Color Yellow Urine Appearance Clear (Clear) Urine pH 6.5 (5.0-8.0) Ur Specific [place] 1.009 (1.001-1.035) Urine Protein Negative (Negative) Urine Glucose (UA) Negative (Negative) Urine Ketones Negative (Negative) Urine Blood Trace H (Negative) Urine Nitrite Negative (Negative) Urine Bilirubin Negative (Negative) Urine Urobilinogen <2.0 (<2.0) mg/dL Ur Leukocyte Esterase Trace H (Negative) Urine RBC 2 (0-5) /hpf Urine WBC 1 (0-5) /hpf Ur Squamous Epith Cells 3 (0-4) /hpf Urine Bacteria Rare H (None) /hpf Urine Mucus Rare H (None) /hpf Disposition Clinical Impression: Diplopia, Weakness, Tremor, Prolonged Q-T interval on ECG, Head contusion, UTI (urinary tract infection) Disposition: ADMITTED IP TO THIS [facility] Condition: Fair Time of Disposition: 17:12 Decision Date: 05/31/17 Decision Time: 17:12
[2017-05-31 15:51] LABS: Basophils % (A) 1 %; CH 34.7; CHCM 34.7; Eosinophils % (A) 0 %; HCT 40.4 % (34.0-46.0); HDW 2.43; HGB 13.7 gm/dL (11.4-16.0); Luc % (Auto) 2; Lymphocytes # (A) 1.2 k/uL (1.0-4.8); Lymphocytes % (A) 19 %; MCH 34.1 pg (25.0-35.0); MCHC 33.9 g/dL (31.0-37.0); MCV 100.6 fL (80.0-100.0); Mean Platelet Volume 8.3; Monocytes # (A) 0.3 k/uL (0-1.0); Monocytes % (A) 4 %; Neutrophils # (A) 4.7 k/uL (1.3-7.7); Neutrophils % (A) 75 %; RBC 4.02 m/uL (3.80-5.40); RDW 12.8 % (11.5-15.5); WBC 6.3 k/uL (3.8-10.6); WBC (Perox) 6.25
[2017-05-31 15:52] LABS: Appearance,Urine Clear (Clear); Bacteria,Urine Rare /hpf; Bilirubin,Urine Negative (Negative); Glucose,Urine (UA) Negative (Negative); Ketones,Urine Negative (Negative); Leukocyte Esterase,Urine Trace (Negative); Mucus,Urine Rare /hpf; Nitrite,Urine Negative (Negative); PH, Urine 6.5 (5.0-8.0); Particle Count 1412; Protein,Urine Negative (Negative); RBC,Urine 2 /hpf (0-5); Specific Gravity,Urine 1.009 (1.001-1.035); Squamous Epithelial Cell,Urine 3 /hpf (0-4); UA Billing (MACRO vs. MICRO) MICRO; Urobilinogen,Urine <2.0 mg/dL (<2.0); WBC,Urine 1 /hpf (0-5)
[2017-05-31 15:53] LABS: INR 0.9 (<1.2); Partial Thromboplastin Time 24.1 sec (22.0-30.0); Prothrombin Time 9.3 sec (9.0-12.0)
[2017-05-31 15:58] LABS: ALT 224 U/L (9-52); AST 228 U/L (14-36); Alkaline Phosphatase 246 U/L (38-126); Anion Gap 8 mmol/L; Blood Urea Nitrogen 15 mg/dL (7-17); Calcium 9.1 mg/dL (8.4-10.2); Carbon Dioxide 25 mmol/L (22-30); Chloride 106 mmol/L (98-107); Glucose 144 mg/dL (74-99); Magnesium 1.6 mg/dL (1.6-2.3); Non-African American GFR(MDRD) >60 (>60 ml/min/1.73 sqM); Phosphorous 3.5 mg/dL (2.5-4.5); Potassium 4.8 mmol/L (3.5-5.1); Sodium 139 mmol/L (137-145); Total Bilirubin 0.4 mg/dL (0.2-1.3)
[2017-05-31 16:06] LABS: Creatine Kinase 53 U/L (30-135)
[2017-05-31 16:18] LABS: Creatine Kinase MB 1.2 ng/mL (0.0-2.4); Troponin I <0.012 ng/mL (0.000-0.034)
--- NOTE | 2017-05-31 16:22 | CT ---
EXAMINATION TYPE: CT brain wo con DATE OF EXAM: 05/31/2017 COMPARISON: 04/07/2015 HISTORY: Double vision, syncope and tremors x [address] DLP: 979.90 mGycm. Automated Exposure Control for Dose Reduction was Utilized. TECHNIQUE: CT scan of the head is performed without contrast. FINDINGS: There is no acute intracranial hemorrhage, mass effect, or midline shift identified. The ventricles and sulci are within normal limits in size. The globes are intact and the visualized sin uses are clear. Prominent perivascular spaces are noted at the level of the inferior basal ganglia on the right. Minimal atherosclerosis is seen of the intracranial vasculature. IMPRESSION: No acute intracranial hemorrhage, mass effect, or midline shift is seen.
--- NOTE | 2017-05-31 16:38 | XR ---
EXAMINATION TYPE: XR chest 2V DATE OF EXAM: 05/31/2017 COMPARISON: 10/28/2016 HISTORY: Weakness TECHNIQUE: Frontal and lateral views of the chest are obtained. FINDINGS: There is no focal air space opacity, pleural effusion, or pneumothorax seen. The cardiac silhouette size is within normal limits. The osseous structures are intact. Midline sternotomy wire s, cardiac prosthetic valve, and cervical fusion device are noted. Mild degenerative changes of the t horacic spine and partial visualization of lumbar fusion device is noted. IMPRESSION: No acute cardiopulmonary process.
[2017-05-31] MEDS ORDERED: ONDANSETRON 4 MG/2 ML VIAL IVP PRN (17:41)
[2017-05-31] MEDS ORDERED: NALOXONE 0.4 MG/ML 1 ML VIAL IV PRN (17:41)
[2017-05-31] MEDS ORDERED: ACETAMINOPHEN TAB 325 MG TAB PO PRN (17:41)
[2017-05-31] MEDS ORDERED: CYCLOBENZAPRINE 10 MG TAB PO PRN (17:43)
[2017-05-31] MEDS: lamoTRIgine 100 MG TAB PO SCH (20:33)
[2017-05-31] MEDS: LINAGLIPTIN 5 MG TABLET PO SCH (20:33)
[2017-05-31] MEDS: metFORMIN 500 MG TAB PO SCH (20:33)
[2017-05-31] MEDS: QUEtiapine 100 MG TAB PO SCH (20:35)
[2017-05-31] MEDS: HYDROcodone/APAP 10-325MG 1 EACH TAB PO PRN (20:35)
[2017-05-31 20:36] LABS: Glucose,Whole Blood 120 mg/dL (75-99)
[2017-05-31] MEDS: clonazePAM 0.5 MG TAB PO SCH (20:38)
[2017-05-31] MEDS: ZOLPIDEM 10 MG TAB PO PRN (23:26)
[2017-06-01] MEDS: HYDROcodone/APAP 10-325MG 1 EACH TAB PO PRN (05:29)
[2017-06-01 05:55] LABS: Glucose,Whole Blood 81 mg/dL (75-99)
[2017-06-01] MEDS: LEVOTHYROXINE 88 MCG TAB PO SCH (06:27)
[2017-06-01] MEDS: buPROPion XL 300 MG TAB.ER.24H PO SCH (09:05)
[2017-06-01] MEDS: clonazePAM 0.5 MG TAB PO SCH ×3 (09:05→22:17)
[2017-06-01] MEDS: ARIPiprazole 10 MG TAB PO SCH (09:05)
[2017-06-01] MEDS: CLOPIDOGREL 75 MG TAB PO SCH (09:05)
[2017-06-01] MEDS: lamoTRIgine 100 MG TAB PO SCH ×2 (09:06→21:24)
[2017-06-01] MEDS: PANTOPRAZOLE 40 MG/10 ML VIAL IV SCH (09:06)
[2017-06-01] MEDS: ENOXAPARIN 40 MG/0.4 ML SYRINGE SQ SCH (09:06)
[2017-06-01 09:36] LABS: Hepatitis B Surface Ag Index 0.07
[2017-06-01 09:42] LABS: Hepatitis B Core IgM Index 0.02
[2017-06-01 09:53] LABS: Hepatitis C Virus IgG Ab Negative (Negative); Hepatitis C Virus IgG Index 0.28
[2017-06-01] MEDS: HYDROmorphone 1 MG/ML 1 ML SYRINGE IVP PRN ×3 (13:36→21:30)
[2017-06-01 14:51] LABS: Glucose,Whole Blood 85 mg/dL (75-99)
--- NOTE | 2017-06-01 16:34 | US ---
EXAMINATION TYPE: US abdomen complete DATE OF EXAM: 06/01/2017 COMPARISON: CT abdomen and pelvis from October 20, 2016. CLINICAL HISTORY: Elevated liver enzymes. Epigastric pain, LUQ pain, elevated liver enzymes, cholecys tectomy EXAM MEASUREMENTS: Liver Length: 16.4 cm Gallbladder Wall: Surgically absent CBD: 1.0 cm Spleen: 9.7 cm Right Kidney: 10.1 X 4.5 X 4.4 cm Left Kidney: 9.8 X 5.3 X 3.6 cm Pancreas: visualized portions appear wnl Liver: appears wnl Gallbladder: Surgically absent Evidence for sonographic Crow's sign: no CBD: Upper limits of normal after cholecystectomy Spleen: wnl Right Kidney: no evidence of hydronephrosis or mass Left Kidney: no evidence of hydronephrosis or mass Upper IVC: wnl Abd Aorta: calcifications noted, bifurcation obscured The liver is homogenous. The intrahepatic portion of the IVC and visualized abdominal aorta are with in normal limits. Gallbladder is surgically absent. Common bile duct is unremarkable. The visualize d portions of the pancreas are homogenous. The spleen is unremarkable. Kidneys are symmetric and fr ee of hydronephrosis. No renal lesions are seen. IMPRESSION: No worrisome intrahepatic mass or intrahepatic ductal dilatation is seen.
[2017-06-01 17:22] LABS: Glucose,Whole Blood 108 mg/dL (75-99)
[2017-06-01 21:25] LABS: Glucose,Whole Blood 154 mg/dL (75-99)
[2017-06-01] MEDS: metFORMIN 500 MG TAB PO SCH (21:25)
[2017-06-01] MEDS: LINAGLIPTIN 5 MG TABLET PO SCH (21:25)
[2017-06-01] MEDS: QUEtiapine 100 MG TAB PO SCH (21:26)
[2017-06-01] MEDS: ZOLPIDEM 10 MG TAB PO PRN (22:55)
[2017-06-02] MEDS: HYDROmorphone 1 MG/ML 1 ML SYRINGE IVP PRN ×6 (02:25→22:45)
[2017-06-02] MEDS: LEVOTHYROXINE 88 MCG TAB PO SCH (06:22)
--- NOTE | 2017-06-02 08:17 | MR ---
EXAMINATION TYPE: MR brain wo con DATE OF EXAM: 06/02/2017 COMPARISON: 05/31/2017 CT brain HISTORY: Tremors TECHNIQUE: Multiplanar, multisequence images of the brain and brainstem is performed without intravenous contras t. FINDINGS: Diffusion weighted images demonstrate no evidence of a recent infarct or other diffusion ab normality. There is no extra-axial fluid collection. Scattered areas of T2/FLAIR hyperintensity are seen within the subcortical and periventricular white matter. No encephalomalacia is seen. The ventri cular system and cisternal spaces are normal in size and appearance. The brain volume is age appropr iate. Midline structures demonstrate normal morphology. The craniocervical junction appears within normal limits. Major intracranial flow voids are maintained. IMPRESSION: Nonspecific white matter changes, most commonly on the basis of chronic microangiopathy and mild in d egree. In a patient with history of tremors of Parkinson's is considered nuclear medicine VIRY scan co uld be performed for further evaluation.
[2017-06-02] MEDS: PANTOPRAZOLE 40 MG/10 ML VIAL IV SCH (08:19)
[2017-06-02] MEDS: ENOXAPARIN 40 MG/0.4 ML SYRINGE SQ SCH (08:20)
[2017-06-02] MEDS: CLOPIDOGREL 75 MG TAB PO SCH (08:20)
[2017-06-02] MEDS: lamoTRIgine 100 MG TAB PO SCH ×2 (08:20→21:04)
[2017-06-02] MEDS: ARIPiprazole 10 MG TAB PO SCH (08:20)
[2017-06-02] MEDS: buPROPion XL 300 MG TAB.ER.24H PO SCH (08:20)
[2017-06-02 08:21] LABS: Basophils % (A) 1 %; CH 34.1; CHCM 34.4; Eosinophils % (A) 0 %; HCT 39.5 % (34.0-46.0); HDW 2.54; HGB 13.4 gm/dL (11.4-16.0); Luc # (Auto) 0.12; Luc % (Auto) 2; Lymphocytes # (A) 1.6 k/uL (1.0-4.8); Lymphocytes % (A) 28 %; MCH 33.6 pg (25.0-35.0); MCHC 33.8 g/dL (31.0-37.0); MCV 99.6 fL (80.0-100.0); Mean Platelet Volume 7.8; Monocytes # (A) 0.4 k/uL (0-1.0); Monocytes % (A) 6 %; Neutrophils # (A) 3.6 k/uL (1.3-7.7); Neutrophils % (A) 63 %; RBC 3.97 m/uL (3.80-5.40); RDW 12.8 % (11.5-15.5); WBC 5.7 k/uL (3.8-10.6); WBC (Perox) 5.52
[2017-06-02 08:21] LABS: Glucose,Whole Blood 127 mg/dL (75-99)
[2017-06-02] MEDS: clonazePAM 0.5 MG TAB PO SCH ×3 (08:28→21:05)
[2017-06-02 08:34] LABS: Anion Gap 7 mmol/L; Calcium 9.2 mg/dL (8.4-10.2); Carbon Dioxide 23 mmol/L (22-30); Chloride 111 mmol/L (98-107); Glucose 108 mg/dL (74-99); Non-African American GFR(MDRD) >60 (>60 ml/min/1.73 sqM); Sodium 141 mmol/L (137-145); Total Bilirubin 0.5 mg/dL (0.2-1.3)
[2017-06-02 08:36] LABS: ALT 123 U/L (9-52); AST 80 U/L (14-36); Alkaline Phosphatase 190 U/L (38-126); Blood Urea Nitrogen 14 mg/dL (7-17); Potassium 4.8 mmol/L (3.5-5.1); Total Protein 6.6 g/dL (6.3-8.2)
[2017-06-02] MEDS ORDERED: INFLUENZA VACCINE (3YR+) 60 MCG/0.5 ML SYRINGE IM ONE (09:28)
--- NOTE | 2017-06-02 10:58 | HP ---
56 -year-old white female with history of weakness, shakiness and questionable double vision that had been going on for about four days. She had seen the emergency room over at [place]. She came and saw me in the office and neither one of us has found anything positive on her. The blood work was alls normal. The only change that we see on her coming to the emergency room is elevated liver function test. She has a past history of depression, severe manic depressive disorder and she comes from a very dysfunctional home and at periods of times she tends to come into the hospital and get hospitalized just to get away from the situation. At this period of time, she is complaining of weakness, shakiness and diplopia which was very similar to what she was seeing before. She had a recent bronchial infection and had been on antibiotics for two weeks and has felt quite well since that period of time until her complaints in the last four days. She has past medical history of coronary artery disease, diabetes, GERD, hyperlipidemia, myocardial infarction, osteoarthritis, hypothyroidism, Type 2 diabetes with insulin support, migraines, chronic back, degenerative disc disease, spinal stenosis and major depressive disorder. Her last myocardial infarction was 2007. Her past surgery history is that of back surgery. She has had cardiac valve replacement, cholecystectomy, heart catheterization with multiple stent placements and tubal ligation. She has had a left carotid endarterectomy and disc replaced in the neck and a total of four stents. She has had a longstanding history of cigarette smoking greater than 40 years and it is complimented by her stopping for very short periods of time and restarted. She is still an everyday smoker. SOCIAL HISTORY: Nondrinker, non use of drugs other than she is on [place] for pain of which I try to control how many she has. At this time, her and I have an agreement that she only sees me or else our agreement will end. FAMILY HISTORY: Mother has polymyalgia rheumatic, Type 2 diabetes, longstanding hypertension, her father has Type 2 diabetes, hypertension, coronary artery disease advanced along with carotid endarterectomies. Medications upon admission has been: 1. [place] 10/325 twice a day for back pain. 2. Abilify 10 mg daily. 3. Wellbutrin 300 mg daily. 4. Klonopin 0.5 three times a day. 5. Plavix 75 daily. 6. Flexeril 10 mg t.i.d. 7. 200 mg twice a day of Lamictal. 8. Synthroid 0.88 daily. 9. Tradjenta. 10. Januvia 100 mg a day. 11. Glucophage 1000 daily. 12. Protonix 40 mg daily. 13. Seroquel 300 daily. 14. Ambien at bedtime. ALLERGIES: NONSTEROIDAL ANTI-INFLAMMATORIES, in specifics she has hives and rashes. CODEINE SHE HAS HAD NAUSEA AND SHAKES. VALIUM SHE HAS HAD HALLUCINATIONS. MORPHINE WITH HALLUCINATIONS. Review of systems: Cardiopulmonary: No shortness of breath or chest pain. She has no orthopnea. No paroxysmal nocturnal dyspnea. GI: No hematemesis , melena or hematochezia. Decreased appetite. : Within normal limits. Neuromuscular: Just weakness in her legs and arms. Nonspecific back pain. She has severe back pain. She refuses to see Dr. Art anymore because he cannot do any surgery. Integument: Changes of her skin, over tanning. Endocrine: She has hypothyroidism disease which is under control PSYCHIATRIC: History of anxiety and depression. PHYSICAL EXAMINATION: Temperature 97.3, respiratory rate 16, blood pressure 130 /70. Pulse rate 69. Room air is 94. The patient is alert, well oriented to person, place and thing. She has minimal shaking at this period of time. Eyes: Pupils are equal, round and reactive to light and accommodation. ENT: Tympanic membranes and pharynx to be negative. Neck is supple with midline trachea. Chest is essentially clear to auscultation. Heart is sinus rhythm with no murmur. Abdomen soft, nontender with no organomegaly. No palpable masses. Lower extremities arthritis in her knees and hands. Her lower legs decreased pulses below. Lab work shows WBC 6.3, hemoglobin 13.7, sodium 139, potassium 4,8, creatinine 27, liver enzymes very elevated at 228, AST 224, ALT 246, alkaline phos, troponin was normal. ASSESSMENT: 1. Weakness of questionable etiology. 2. Psychosomatic disorder. 3. Elevated liver enzymes to rule out abuse of non-steroidal anti- inflammatories even though she denies. Rule out other causes of elevated liver function tests. 4. History of coronary artery disease. 5. Hypertension. 6. Longstanding Type 2 diabetes with insulin support. 7. Severe depression, depressive disorder. 8. Hypothyroid disease. 9. Previous coronary artery disease with stent placement. 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 11. Severe back pain. 12. Degenerative disc disease, inoperative at this time. PLAN: Ultrasound of the abdomen. We will repeat liver function tests. Complete hepatitis profile. Please refer to my orders. MTDD
[2017-06-02 12:31] LABS: Glucose,Whole Blood 134 mg/dL (75-99)
--- NOTE | 2017-06-02 14:48 | CONS ---
CONSULTATION Date of Consultation: DATE OF SERVICE: 06/01/2017 CHIEF COMPLAINT: Weakness and tremors. HISTORY OF PRESENT ILLNESS: Mrs Lawson is a pleasant 56-year-old, female, who was being evaluated by the Neurology Service per the request of Dr. Mon for the above-mentioned complaints. The patient was brought into [facility] emergency room after she had episodes where her upper and lower extremities were quite tremulous to the point where she was unable to bear weight and stand up. She states that she has been having these episodes for the past few days and they can last minutes to hours. She denies having any altered consciousness or loss of consciousness. In the Emergency Room, a CT scan of the brain was done which was normal. Her CBC, cardiac enzymes, and INR were reviewed and were normal. Her comprehensive metabolic profile showed significant hepatic insufficiency with an AST of 228 and an ALT of 224. A hepatitis panel was done which was negative. The patient denies any alcohol use. Her urinalysis showed 2 WBCs with trace leukocyte esterase. At the time of my evaluation, the patient is sitting in her bed and appears to be in no acute distress. She denies having any involuntary movements since her admission. The patient does take Tylenol as needed at home and also takes Powell as needed. She has a history of chronic low back pain with lower extremity pain. She does have history of lumbar spine surgery done by Dr. Art. She rates her pain at 8/10 in intensity at the time of my evaluation. PAST MEDICAL HISTORY: Bipolar disorder, chronic pain syndrome, history of lumbar spine surgery, coronary artery disease, diabetes, gastroesophageal reflux disease, dyslipidemia, history of myocardial infarction, osteoarthritis, history of spinal stenosis, history of cardiac valve replacement, cholecystectomy, coronary artery stent placement, tubal ligation, left carotid endarterectomy, anxiety disorder. SOCIAL HISTORY: The patient is a current every day smoker. She denies any alcohol or drug use. FAMILY HISTORY: Positive for deep venous thrombosis and heart disease. HOME MEDICATIONS: Reviewed in the chart. ALLERGIES: CODEINE, NSAIDS, VALIUM, MORPHINE. REVIEW OF SYSTEMS: CONSTITUTIONAL: Negative. EYES: Negative. ENT: Negative. CARDIOVASCULAR: Negative. RESPIRATORY: Negative. NEUROLOGICAL: As mentioned above. She denies any lateralizing numbness or weakness. GASTROINTESTINAL: Positive for occasional heartburn. GENITOURINARY: Negative. ENDOCRINE: Negative. MUSCULOSKELETAL: As mentioned above. DERMATOLOGICAL: Negative. PSYCHIATRIC: Positive for bipolar disorder and anxiety disorder. PHYSICAL EXAM: Vital signs show a temperature of 96.6, pulse 78, respirations 16, blood pressure 148/92. GENERAL APPEARANCE: The patient is a thin female who appears to be in no acute distress. HEENT: Normocephalic, atraumatic. No facial asymmetry is seen, extraocular muscles are intact. Neck is supple with no masses felt. CARDIOVASCULAR: Regular rate and rhythm. ABDOMEN: Nontender, nondistended. Extremities showed no edema or clubbing. NEUROLOGICAL EXAM: The patient is alert, aware and oriented x3. Speech and language are normal. Strength is full in all 4 extremities. Sensory exam was normal to light touch in all 4 extremities. No facial asymmetry is seen on cranial nerve testing. Asterixis is noticed in bilateral upper extremities. IMPRESSION: 1. Involuntary movements, recurrent. 2. Hepatic insufficiency. 3. Asterixis. 4. Chronic pain syndrome. 5. History of failed spine surgery. 6. RECOMMENDATION: The patient is not having any tremors that are resting at the time of my evaluation. She is having some asterixis which could be related to her hepatic insufficiency. Her hepatitis panel is negative. I do recommend further hepatic workup. I will discontinue the acetaminophen that the patient is on. I also recommend discontinuing Powell. I do recommend holding any of her home medications that can affect hepatic function. I will order an MRI of the brain and EEG to rule out any other etiologies. As for her chronic pain syndrome, further outpatient neurological workup and management will be discussed. Continue the rest of your current workup and management. I will continue to follow with you. Further recommendations to follow. Thank you, Dr. Mon for allowing me to participate in the care of your patient. If you have any questions, please feel free to contact me. MMODL / IJN: [id number] /
[2017-06-02 17:14] LABS: Glucose,Whole Blood 94 mg/dL (75-99)
--- NOTE | 2017-06-02 18:50 | PN ---
PROGRESS NOTE Date of Service: This is a 56-year-old, white female, complained of weakness, shakiness and diplopia. Came in. She relates that she fell out of bed a couple days ago and since that period of time she said she did hurt her left hip but she had no loss of consciousness since that time. She has felt shaking and sometimes weakness. CT scan of the brain was completed which was basically negative. Due to the shaking and unsteadiness she was placed in the hospital accordingly. She has a history of chronic urinary tract infections in the past. She has insulin-dependent diabetes, diabetic under fair control. Her compliance is questionable. She is still a heavy smoker with moderately severe COPD. She has had a myocardial infarction. GE reflux. Back surgery and she still has moderately severe spinal stenosis. She is not a candidate for surgery. She has also had cardiac valve replacement, cholecystectomy and heart catheterization with a stent. Family history of deep vein thrombosis and father has coronary artery disease, diabetes and valve replacement. She was evaluated by Dr. Clinton who has ordered an MRI. Today his progress notes is not yet in the chart. Still waiting for his dictation to occur. I see he has also ordered an EEG. Blood cultures and urine culture. Urine culture showing a positive gram-negative bacilli. Between 10 and 49,000, report is not back yet. The blood culture so far is negative. Her hepatitis profile that we did was negative. Abdominal ultrasound was within normal limits. She had elevated liver function tests. We will repeat labs today. At this point vital signs were stable. Awaiting for her to return from her MRI. ASSESSMENT: 1. Vertigo and shakiness of questionable etiology. 2. Elevated liver function tests. 3. Jky-hderjai-aohuphgji diabetes mellitus with insulin support. 4. Hypertension. 5. Coronary artery disease. 6. Chronic obstructive pulmonary disease. 7. Cigarette smoker continued. 8. Severe osteoarthritis. PLAN: EEG and MRI of the brain are being completed. See about neurological sequelae. We will repeat her liver enzymes and being the hepatitis is negative, we will consult GI, hepatic for hepatological evaluation. MMODL / IJN: [id number] /
--- NOTE | 2017-06-02 20:29 | P.PN ---
Subjective Principal diagnosis: diplopia, tremors, weakness patient is a 48-year-old female who is being followed by neurology for weakness and tremor. Patient brought to the emergency room after having episodes of upper and lower extremity tremor activity to the point where she is unable to bear weight and stand up. Episodes of been occurring for the past several days and can last minutes to hours. Patient denies any altered mental status or consciousness. CT of the brain was performed which was normal. CBC, cardiac enzymes and INR were reviewed and were normal. Patient was known to have hepatic insufficiency with AST of 228 and ALT of 224. Hepatitis panel was negative. Patient denied alcohol use. UA showed 2 WBCs with trace leukocyte esterase. Patient had MRI of the brain conductedwhich showed nonspecific white matter changes most commonly on the basis of chronic microangiopathy and mild in degree. The patient with a history of tremor of Parkinson's consider nuclear medicine VIRY scan for further evaluation. On contact today, the patient was ambulatory at the bedside, alert and oriented 3 and in no acute distress. Patient states she has returned to baseline and has not had any new or recurrent tremor activity, diplopia. Patient still has lower extremity weakness which she states has been present since her for lumbar surgeries /failed back surgery. Objective - Vital Signs Vital signs: Vital Signs Temp 98.4 F 06/02/17 15:00 Pulse 74 06/02/17 15:00 Resp 16 06/02/17 15:18 BP 153/77 06/02/17 15:00 Pulse Ox 100 06/02/17 15:00 Intake & Output 06/02/17 06/02/17 06/03/17 06:59 18:59 06:59 Intake Total 700 600 Balance 700 600 Intake: Oral 700 600 Other: Voiding Method Toilet Toilet # Voids 1 2 - Exam Constitutional: AOx3, cooperative HEENT: NC/AT, no facial asymmetry is seen. Throat: Supple, no masses Respiratory: No increased work of breathing Cardiac: Regular rate and Rhythm GI: non tender, non distended Musculoskeletal: Package [employer] Supervisor strengths are equal bilaterally in the upper extremities at 4+/5, Lower extremity strengths are equal bilaterally but weak at 4-/5. Neurological: CN II-XII in tact, patient was AOx3, speech and language are normal, no unilateralizing weakness, no seizure activity note on physical exam. Sensation was normal. Integementary: no rash, no erythema Psychiatric: mood and affect appropriate - Labs CBC & Chem 7: 06/02/17 08:02 06/02/17 08:02 Labs: Abnormal Lab Results - Last 24 Hours (Table) 06/01/17 06/02/17 06/02/17 Range/Units 21:09 08:02 08:07 Chloride 111 H (98-107) mmol/L Glucose 108 H (74-99) mg/dL POC Glucose (mg/dL) 154 H 127 H (75-99) mg/dL AST 80 H (14-36) U/L ALT 123 H (9-52) U/L Alkaline Phosphatase 190 H (38-126) U/L Albumin 3.4 L (3.5-5.0) g/dL 06/02/17 Range/Units 12:29 Chloride (98-107) mmol/L Glucose (74-99) mg/dL POC Glucose (mg/dL) 134 H (75-99) mg/dL AST (14-36) U/L ALT (9-52) U/L Alkaline Phosphatase (38-126) U/L Albumin (3.5-5.0) g/dL Microbiology - Last 24 Hours (Table) 05/31/17 15:25 Blood Culture - Preliminary Blood No Growth after 48 hours 05/31/17 15:54 Urine Culture - Final Urine,Voided Klebsiella pneumoniae Assessment and Plan (1) White matter changes Status: Acute (2) Diplopia Status: Acute (3) Tremor Status: Acute (4) Weakness Status: Acute Plan: Patient currently does not have any visible tremor either resting or action. Patient's only remaining complaint is her lower extremity weakness which she states is chronic after a history of 4 failed back surgeries to the lumbar region. Further workup for the patient's tremor etiology can be conducted outpatient which would include a VIRY scan and further diagnostic testing. On exam, the patient did not display evidence of tremor however, the patient stated that tremor in the past had a wax and waned. does appear that most of the patient's complaints are related to her decreased hepatic function. EEG is taken and not read. Status: If the patient's EEG is the only remaining testing prior to discharge, patient can be discharged. Results discussed outpatient. If patient is discharged, notify patient to follow-up in our office within 10-14 days. Any further questions please feel free to contact our office. Insert William Lindsey statement.
[2017-06-02 20:54] LABS: Glucose,Whole Blood 158 mg/dL (75-99)
[2017-06-02] MEDS: NICOTINE 21MG/24HR PATCH TRANSDERM SCH (21:04)
[2017-06-02] MEDS: LINAGLIPTIN 5 MG TABLET PO SCH (21:04)
[2017-06-02] MEDS: metFORMIN 500 MG TAB PO SCH (21:05)
[2017-06-02] MEDS: QUEtiapine 100 MG TAB PO SCH (21:05)
[2017-06-03 01:17] LABS: ANA w/Reflex to Titer NEGATIVE (NEGATIVE)
[2017-06-03] MEDS: HYDROmorphone 1 MG/ML 1 ML SYRINGE IVP PRN ×3 (02:59→11:27)
[2017-06-03] MEDS: LEVOTHYROXINE 88 MCG TAB PO SCH (06:30)
[2017-06-03 07:21] LABS: Glucose,Whole Blood 127 mg/dL (75-99)
[2017-06-03] MEDS ORDERED: PANTOPRAZOLE 40 MG TABLET PO SCH (07:30)
--- NOTE | 2017-06-03 07:40 | P.CONS ---
History of Present Illness - Reason for Consult Consult date: 06/02/17 elevated liver enzymes Requesting physician: Pako Mon - History of Present Illness 56-year-old female admitted with multiple complaints including midepigastric abdominal pain, weakness shakiness diplopia with recent fall. Consultation requested for elevated liver enzymes. Patient reports having an upper respiratory infection possible UTI earlier this month and was placed on azithromycin for 3 weeks. Prior to admission she was provided a different antibiotic which she cannot remember the name for ongoing upper respiratory infection. She has been experiencing mid epigastric pain sometimes radiating to the left upper abdomen since her gallbladder was removed. Interestingly a few weeks ago she had a few bowel movements that appeared white in color. Past medical history of diabetes mellitus, hypertension, hypercholesteremia, bovine aortic valve replacement, anxiety, acalculous cholecystectomy September 2016, nicotine cigarette dependency. No history of hepatitis, EtOH abuse, or IVDA. Hepatitis screen negative. No history of known liver disorders. Presently receiving ceftriaxone for Klebsiella pneumoniae UTI. Admission total bilirubin 0.4. AST 228. ALT 224. Alkaline phosphatase 246. INR 0.9. Hemoglobin her teen 0.7. MCV 100. Platelet 170. White count 6.3. Hepatitis screen negative. Today transaminases are improved total bilirubin 0.5. AST 80. ALT 123. Alkaline phosphatase 190. Upon review of previous medical records transaminases beginning of May were AST 29. ALT 67. alkaline phosphatase 244. Serum protein electrophoresis January 2017 unremarkable. Ultrasound abdomen CBD 1 cm within normal limits postcholecystectomy. liver length 16 cm. Liver appeared normal. No intra-ductal dilation mentioned. Denies fever or chills. No hematemesis hematochezia or melena. Few isolated episodes of nausea with a few nonbloody emesis. EGD prior to cholecystectomy last year with reports of gastritis. Review of Systems Constitutional: Denies fever, chills, sweats, weight gain, or loss. HEENT: History of migraines. Denies dysphagia, or odynophagia. CARDIAC: CAD. AVR. IN. Hyperlipidemia. Hypertension. Negative for chest pain, arrhythmias, or palpitation. RESPIRATORY: Nicotine cigarette dependency. COPD. Negative for shortness of breath, hemoptysis, cough, or sputum production. GI: See HPI for pertinent findings. : Negative for hematuria, urgency, frequency, polyuria, or dysuria. GYNc: Denies possibility of . Negative vaginal discharge. MUSCULOSKELETAL: Chronic back pain. Spinal stenosis. Osteoarthritis. Negative for muscle aches, swelling, arthritis, and arthralgias. NEUROLOGIC: Negative for stroke or TIA. ENDOCRINE: Hypothyroidism. Diabetes.. SKIN: Negative for rash or itching. PSYCHIATRIC: Anxiety bipolar. All systems: negative (see HPI) Past Medical History Past Medical History: Coronary Artery Disease (CAD), Diabetes Mellitus, GERD/ Reflux, Hyperlipidemia, Myocardial Infarction (IN), Osteoarthritis (OA), Thyroid Disorder Additional Past Medical History / Comment(s): hx migraines, chronic back pain, degenerative disks, spinal stenosis, Last Myocardial Infarction Date:: 2007 History of Any Multi-Drug Resistant Organisms: None Reported Past Surgical History: Back Surgery, Cardiac Valve Replacement, Cholecystectomy , Heart Catheterization With Stent, Tubal Ligation Additional Past Surgical History / Comment(s): aortic valve replacement, 3 lower back surgeries, left carotid endarterectomy, disk replaced in neck, total 4 cardiac stents Past Anesthesia/Blood Transfusion Reactions: Motion Sickness Date of Last Stent Placement:: 01/2015 Past Psychological History: Anxiety, Bipolar Additional Psychological History / Comment(s): . Smoking Status: Current some day smoker Past Alcohol Use History: None Reported Additional Past Alcohol Use History / Comment(s): STARTED SMOKING 1974- 10 cigarettes daily Past Drug Use History: None Reported - Past Family History Mother Family Medical History: Deep Vein Thrombosis (DVT) Additional Family Medical History / Comment(s): Blood clots in legs Father Family Medical History: Coronary Artery Disease (CAD) Additional Family Medical History / Comment(s): heart valve replacement, Medications and Allergies Home Medications Medication Instructions Recorded Confirmed Type QUEtiapine FUMARATE [SEROquel] 300 mg PO HS 02/15/14 05/31/17 History Zolpidem [Ambien] 10 mg PO HS PRN 02/15/14 05/31/17 History sitaGLIPtin PHOS/metFORMIN HCL 1 tab PO HS 02/15/14 05/31/17 History [Janumet Xr 100-1,000 mg Tablet] buPROPion HCL [Wellbutrin XL] 300 mg PO QAM 04/10/14 05/31/17 History Metaxalone [Skelaxin] 800 mg PO TID PRN 05/24/14 05/31/17 History Levothyroxine Sodium [Synthroid] 88 mcg PO QAM 01/31/15 05/31/17 History clonazePAM [KlonoPIN] 0.5 mg PO TID 10/23/15 05/31/17 History ARIPiprazole [Abilify] 10 mg PO QAM 12/11/15 05/31/17 History Clopidogrel [Plavix] 75 mg PO DAILY 08/30/16 05/31/17 History lamoTRIgine [LaMICtal] 200 mg PO BID 09/15/16 05/31/17 History HYDROcodone/APAP 10-325MG [[place] 1 tab PO BID PRN 05/31/17 05/31/17 History 10-325] Allergies Allergy/AdvReac Type Severity Reaction Status Date / Time codeine Allergy nausea and Verified 05/31/17 15:59 "shakes" NSAIDS (Non-Steroidal Allergy Rash/Hives, Verified 05/31/17 15:59 Anti-Inflamma N/V diazepam [From Valium] AdvReac hallucinations Verified 05/31/17 15:59 and confusion morphine AdvReac Hallucinations Verified 05/31/17 15:59 and confusion Physical Exam Vitals: Vital Signs Temp Pulse Resp BP Pulse Ox 06/02/17 15:18 16 06/02/17 08:00 16 06/02/17 07:00 97.3 F L 78 16 118/78 94 L 06/01/17 23:00 97.4 F L 77 20 131/79 95 Intake and Output 06/02/17 06/02/17 06/02/17 06:59 14:59 22:59 Intake Total 200 Balance 200 Intake: Oral 200 Other: Voiding Method Toilet Toilet Toilet # Voids 1 General appearance: The patient is alert, oriented, in no acute distress. HET: Head is normocephalic and atraumatic. Pupils are equal and reactive. Oropharynx is clear without lesions. Neck: Supple without lymphadenopathy. Trachea midline. Heart: S1 S2. Regular rate and rhythm. Lungs: No crackles or wheezes are heard. Abdomen: Soft, very mild midepigastric tenderness, nondistended with bowel sounds. No peritoneal signs. No palpable organomegaly or masses. Extremities: Normal skin color and turgor. No cyanosis, rash, ulceration, clubbing, or edema. Radial and pedal pulses are 2/4 bilaterally. Neurological: No focal deficits. Strength and sensation are grossly intact. Results CBC & Chem 7: 06/02/17 08:02 06/02/17 08:02 Labs: Abnormal Lab Results - Last 24 Hours (Table) 06/01/17 06/01/17 06/02/17 Range/Units 17:18 21:09 08:02 Chloride 111 H (98-107) mmol/L Glucose 108 H (74-99) mg/dL POC Glucose (mg/dL) 108 H 154 H (75-99) mg/dL AST 80 H (14-36) U/L ALT 123 H (9-52) U/L Alkaline Phosphatase 190 H (38-126) U/L Albumin 3.4 L (3.5-5.0) g/dL 06/02/17 06/02/17 Range/Units 08:07 12:29 Chloride (98-107) mmol/L Glucose (74-99) mg/dL POC Glucose (mg/dL) 127 H 134 H (75-99) mg/dL AST (14-36) U/L ALT (9-52) U/L Alkaline Phosphatase (38-126) U/L Albumin (3.5-5.0) g/dL Microbiology - Last 24 Hours (Table) 05/31/17 15:54 Urine Culture - Final Urine,Voided Klebsiella pneumoniae 05/31/17 15:25 Blood Culture - Preliminary Blood No Growth after 24 hours US - abdomen: report reviewed (Dr. Stephens) Assessment and Plan (1) Elevated liver enzymes Narrative/Plan: Suspect cholestatic elevation. Possible drug-induced possible nonalcoholic fatty liver disease steatohepatitis with risk factors of hypertension diabetes hypercholesteremia. Underlying chronic liver disease cannot be entirely excluded. Status: Acute (2) UTI (urinary tract infection) Status: Acute (3) Epigastric abdominal pain Narrative/Plan: several months duration Status: Chronic Plan: 1. Transaminases are slowly improving. Will obtain additional serologic workup for evaluation of chronic liver disease. Check lipase in regards to epigastric/LUQ pain to rule out pancreatitis. Avoid hepatotoxic medications. Repeat CMP in the a.m. Will follow closely with you. If transaminases worsen we'll consider MRI. Thank you for this kind referral and the opportunity to participate in the care of your patient. This consultation was discussed with Dr. Stephens. The impression and plan of care have been directed as dictated.
[2017-06-03] MEDS: NICOTINE 21MG/24HR PATCH TRANSDERM SCH (08:09)
[2017-06-03] MEDS: ENOXAPARIN 40 MG/0.4 ML SYRINGE SQ SCH (08:10)
[2017-06-03] MEDS: lamoTRIgine 100 MG TAB PO SCH (08:10)
[2017-06-03] MEDS: clonazePAM 0.5 MG TAB PO SCH (08:11)
[2017-06-03] MEDS: ARIPiprazole 10 MG TAB PO SCH (08:11)
[2017-06-03] MEDS: buPROPion XL 300 MG TAB.ER.24H PO SCH (08:11)
[2017-06-03] MEDS: CLOPIDOGREL 75 MG TAB PO SCH (08:11)
[2017-06-03 08:15] LABS: ALT 96 U/L (9-52); AST 40 U/L (14-36); Alkaline Phosphatase 211 U/L (38-126); Anion Gap 8 mmol/L; Blood Urea Nitrogen 15 mg/dL (7-17); Calcium 9.4 mg/dL (8.4-10.2); Carbon Dioxide 26 mmol/L (22-30); Chloride 108 mmol/L (98-107); Glucose 126 mg/dL (74-99); Non-African American GFR(MDRD) >60 (>60 ml/min/1.73 sqM); Potassium 4.7 mmol/L (3.5-5.1); Sodium 142 mmol/L (137-145); Total Bilirubin 0.3 mg/dL (0.2-1.3)
[2017-06-03 08:24] VITALS: BP 122/69; PULSE 73; RESP 18; TEMP 97.9
--- NOTE | 2017-06-03 10:35 | P.PN ---
Subjective Principal diagnosis: Elevated liver enzymes Liver enzymes improving. Minimal abdominal pain. Anticipate discharge. Tolerating diet. Hepatitis screen negative. Objective - Vital Signs Vital signs: Vital Signs Temp 97.9 F 06/03/17 07:00 Pulse 73 06/03/17 07:00 Resp 18 06/03/17 07:00 BP 122/69 06/03/17 07:00 Pulse Ox 95 06/03/17 07:00 Intake & Output 06/02/17 06/03/17 06/03/17 18:59 06:59 18:59 Intake Total 600 640 Balance 600 640 Intake: Oral 600 640 Other: Voiding Method Toilet Toilet # Voids 2 2 - Exam General appearance: The patient is alert, oriented, in no acute distress. HET: Head is normocephalic and atraumatic. Pupils are equal and reactive. Oropharynx is clear without lesions. Neck: Supple without lymphadenopathy. Trachea midline. Heart: S1 S2. Regular rate and rhythm. Lungs: No crackles or wheezes are heard. Abdomen: Soft, nontender, nondistended with bowel sounds. No peritoneal signs. No palpable organomegaly or masses. Extremities: Normal skin color and turgor. No cyanosis, rash, ulceration, clubbing, or edema. Radial and pedal pulses are 2/4 bilaterally. Neurological: No focal deficits. Strength and sensation are grossly intact. - Labs CBC & Chem 7: 06/02/17 08:02 06/03/17 07:40 Labs: Abnormal Lab Results - Last 24 Hours (Table) 06/02/17 06/02/17 06/03/17 Range/Units 12:29 20:50 07:17 Chloride (98-107) mmol/L Glucose (74-99) mg/dL POC Glucose (mg/dL) 134 H 158 H 127 H (75-99) mg/dL AST (14-36) U/L ALT (9-52) U/L Alkaline Phosphatase (38-126) U/L 06/03/17 Range/Units 07:40 Chloride 108 H (98-107) mmol/L Glucose 126 H (74-99) mg/dL POC Glucose (mg/dL) (75-99) mg/dL AST 40 H (14-36) U/L ALT 96 H (9-52) U/L Alkaline Phosphatase 211 H (38-126) U/L Microbiology - Last 24 Hours (Table) 05/31/17 15:25 Blood Culture - Preliminary Blood No Growth after 48 hours 05/31/17 15:54 Urine Culture - Final Urine,Voided Klebsiella pneumoniae Assessment and Plan (1) Elevated liver enzymes Narrative/Plan: Suspect cholestatic elevation. Possible drug-induced possible nonalcoholic fatty liver disease steatohepatitis with risk factors of hypertension diabetes hypercholesteremia. Underlying chronic liver disease cannot be entirely excluded. Status: Acute (2) UTI (urinary tract infection) Status: Acute (3) Epigastric abdominal pain Narrative/Plan: several months duration Status: Chronic Plan: 1. Discharge per medicine. Follow-up in GI office in 1-2 weeks if LFTs are still elevated. Recommend repeat LFTs in 5-7 days. Avoid hepatotoxic medications. Assessment and plan a care discussed with Dr. Mancilla
[2017-06-03 12:07] LABS: Glucose,Whole Blood 117 mg/dL (75-99)
--- NOTE | 2017-06-03 12:40 | EEG ---
ELECTROENCEPHALOGRAM REPORT Date of Service: DATE OF SERVICE: 06/02/2017. REASON FOR TESTING: Atypical jerking activity, rule out seizures. PROCEDURE: This EEG was performed using a 21 channel digital electroencephalograph, following international 10-20 system. DESCRIPTION OF THE RECORDING: From the beginning of the tracing, with patient's eyes closed, the background rhythm was mostly consisting of 8-9 hertz alpha frequency in the posterior occipital leads. No obvious asymmetry is seen. Photic stimulation was performed with a good driving response seen. No pathological waves were elicited. Occasional movement artifacts are seen. Hyperventilation was not performed. The patient remains awake throughout the tracing. No epileptiform discharges were seen. Her EKG lead showed a regular rate and rhythm. INTERPRETATION: This awake EEG can be considered within normal limits. There was no asymmetry seen. No epileptiform discharges were noticed. The absence of epileptiform discharges does not rule out the diagnosis of epilepsy, therefore clinical correlation is recommended. MMODL / IJN: [id number] /
--- NOTE | 2017-06-04 14:41 | DS ---
DISCHARGE SUMMARY DISCHARGE DIAGNOSIS: 1. Elevated liver enzymes probably secondary to medication. 2. Severe tremor, etiology unknown at this time. 3. Resolving vertigo, questionable viral. 4. Insulin-dependent diabetes mellitus. 5. Resolving diplopia. 6. Severe depression. 7. Anxiety disorder. 8. Euthyroid. 9. Previous transient ischemic attack. 10.Long-standing history of hypertension. 11.Coronary artery disease with stent placement. 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 13.Severe back pain. 14.Degenerative disc disease, inoperable. This is a 56-year-old white female who came in with weakness, shaking and some questionable double vision. She had been in the emergency room at another hospital and in the my office and her symptoms waxed and waned. Came into the emergency room with this weakness, shakiness and diplopia. While in the hospital she was evaluated by Neurology. MRI of the brain showed some demyelinating changes. The EEG was very nonspecific and because of the diplopia and decrease in dizziness she was discharged home. She also had elevated liver enzymes into the 200 range which are now into less than 100 range, of questionable etiology. There is always some suspicion with her, being that she has a very dysfunctional home life and there are times when she tries to be admitted just to get away from home. But with that said, the elevation of liver enzymes still remain a question. Ultrasound was completed which was totally normal. We also did other chemistries including amylase and lipase which were negative and her AST and ALT went from the mid 200s to 40 and 90 respectively. Alkaline phosphatase is still elevated at this time. Her basic CBC shows a WBC of 5.7, hemoglobin 13.4 and a platelet count of 180. REVIEW OF SYSTEMS: CONSTITUTION: She feels better. She is alert, well orientated to person, place, and thing. EYES: Patient's double vision is gone ENT: No complaints. RESPIRATORY: Occasional shortness of breath but she does have occasional wheezing. CARDIOVASCULAR: She is not having any heart pain. No orthopnea, no paroxysmal nocturnal dyspnea. GI: No hematemesis, melena or hematochezia. : Urination is normal without burning and no excessive frequency. ENDOCRINE: She does have thyroid that is being watched carefully. ALLERGY/IMMUNOLOGY: No new problems. MUSCULOSKELETAL: Just the weakness in the arms and legs which has been progressive especially with her degenerative disc disease. NEUROLOGIC: Diplopia is less. She is still having a little bit of dizziness. At this time no headache. HEMATOLOGY: There is no evidence of anemia. She did have some history of that previously. PSYCHIATRIC: She is still anxious about going home but she is not having any depression. PHYSICAL EXAMINATION: Her blood pressure today is 122/69, heart rate is in the 70s temperature is 97.6, respiratory rate is 18. EYES: Pupils are equal, round, react to light and accommodation. Good extraocular movements. EARS: Tympanic membranes are negative. NOSE: Normal. MOUTH: Dry. and no redness of the throat. NECK: Supple with a midline trachea. No palpable thyroid. Good carotid upstroke. HEART: Auscultation is clear, sinus rhythm. Negative S3, negative S4. CHEST: No palpation is completed. The incision is seen of previous cardiovascular surgery with valve replacement. RESPIRATORY: Chest is essentially clear to auscultation. ABDOMEN: Soft, with nontender to palpation. No masses. No organomegaly. No peritonitis type of symptomatology. : She has had normal urination. LYMPHATICS: There are no lymph nodes felt in her groin area at this time. SKIN: She is david so she has very dry skin with some stasis dermatitis in the lower legs. MUSCULOSKELETAL: Decreased range of motion of lower legs with decreased strength, fair amount of atrophy in the calf, hamstrings and quads. NEUROLOGIC: She has no diplopia with evaluation. Cranial nerves 2-12 grossly intact. Deep tendon reflexes are +1 in her lower extremities. PSYCHIATRIC: She is well orientated to person, place, and thing. She does have a fair amount of anxiety today. No depression and not suicidal. PLAN: She is being discharged home. MEDICATIONS ON DISCHARGE: Seroquel 300 mg at bedtime. Going back with her Janumet 100/1000 b.i.d., Ambien 10 at bedtime, Wellbutrin 300 at bedtime, Skelaxin 800 mg up to 3 times daily. Her thyroid is 0.88 mcg daily, Klonopin 0.5 t.i.d., Abilify 10 mg daily, Plavix 75 daily, Lamictal 200 daily and hydrocodone, [place] is 10/325 b.i.d. She will follow up with me in a week to 10 days. She is going to follow up with Dr. Mancilla in a week to 10 days and she will also follow up with neurology, Dr. Martinez and group. Her prognosis is guarded. Please refer to my orders. MMODL / IJN: [id number] /
== END 2017-06-03 13:12 | disposition home or self-care (01) | DRG 690 ==
LOC: EC 14:33 → 6SEL 17:41 → 4MS4W 06-01 10:29
PROVIDERS: ADMIT Family Medicine; ATTEND Family Medicine
DX: N39.0 Urinary tract infection, site not specified (principal); K76.0 Fatty (change of) liver, not elsewhere classified; I10 Essential (primary) hypertension; E11.9 Type 2 diabetes mellitus without complications; B96.1 Klebsiella pneumoniae [K. pneumoniae] as the cause of diseases classified elsewhere; R53.1 Weakness; F45.9 Somatoform disorder, unspecified; I25.10 Atherosclerotic heart disease of native coronary artery without angina pectoris; E03.9 Hypothyroidism, unspecified; F41.1 Generalized anxiety disorder; F17.210 Nicotine dependence, cigarettes, uncomplicated; K21.9 Gastro-esophageal reflux disease without esophagitis; E78.5 Hyperlipidemia, unspecified; M19.90 Unspecified osteoarthritis, unspecified site; H53.2 Diplopia; F31.9 Bipolar disorder, unspecified; R25.1 Tremor, unspecified; M51.34 Other intervertebral disc degeneration, thoracic region; E07.81 Sick-euthyroid syndrome; E78.00 Pure hypercholesterolemia, unspecified; G89.4 Chronic pain syndrome; I45.10 Unspecified right bundle-branch block; I44.0 Atrioventricular block, first degree; J44.9 Chronic obstructive pulmonary disease, unspecified; S00.93XA Contusion of unspecified part of head, initial encounter; R27.8 Other lack of coordination; L72.2 Steatocystoma multiplex; R10.13 Epigastric pain; Z88.6 Allergy status to analgesic agent; Z88.8 Allergy status to other drugs, medicaments and biological substances; Z95.3 Presence of xenogenic heart valve; Z87.440 Personal history of urinary (tract) infections; Z90.49 Acquired absence of other specified parts of digestive tract; Z95.5 Presence of coronary angioplasty implant and graft; Z79.4 Long term (current) use of insulin; Z79.84 Long term (current) use of oral hypoglycemic drugs; Z79.891 Long term (current) use of opiate analgesic; Z79.899 Other long term (current) drug therapy; Z79.02 Long term (current) use of antithrombotics/antiplatelets; Z83.3 Family history of diabetes mellitus; Z82.49 Family history of ischemic heart disease and other diseases of the circulatory system; I25.2 Old myocardial infarction; Z86.73 Personal history of transient ischemic attack (TIA), and cerebral infarction without residual deficits
CPT/HCPCS: 36415; 70450; 70551; 71020; 76700; 80053; 80074; 81001; 82103; 82105; 82390; 82550; 82553; 82728; 83516; 83690; 83735; 84100; 84443; 84484; 85025; 85610; 85730; 86038; 87040; 87077; 87086; 87186; 93005; 95819; 96361; 96365; 96375; 99285

== ENCOUNTER 2017-12-11 19:22 | Observation (INO) | payer BC ==
[2017-12-11] MEDS ORDERED: SODIUM CHLORIDE 0.9% 500 ML IV STA (19:31)
[2017-12-11] MEDS ORDERED: NITROGLYCERIN OINT 1 INCH/GM PACKET TOPICAL STA (19:31)
[2017-12-11 19:40] LABS: Basophils % (A) 1 %; Eosinophils # (A) 0.1 k/uL (0-0.7); Eosinophils % (A) 2 %; HCT 36.3 % (34.0-46.0); HGB 11.7 gm/dL (11.4-16.0); Lymphocytes # (A) 2.2 k/uL (1.0-4.8); Lymphocytes % (A) 33 %; MCH 30.9 pg (25.0-35.0); MCHC 32.1 g/dL (31.0-37.0); MCV 96.2 fL (80.0-100.0); Mean Platelet Volume 7.5; Monocytes # (A) 0.4 k/uL (0-1.0); Monocytes % (A) 5 %; Neutrophils % (A) 58 %; Platelet Count 205 k/uL (150-450); RBC 3.77 m/uL (3.80-5.40); RDW 12.5 % (11.5-15.5); WBC 6.8 k/uL (3.8-10.6)
--- NOTE | 2017-12-11 19:43 | ED ---
General Adult HPI - General Stated complaint: chest pain Time Seen by Provider: 12/11/17 19:22 Source: RN notes reviewed - History of Present Illness Initial comments: This is a 56-year-old female with past medical history significant for smoking high blood pressure high cholesterol and diabetes. Patient states that she started having chest pain for the last 3 days but it's been intermittent. Patient states today he got worse when under her left arm. Patient states she' s also short of breath. Patient states she took nitroglycerin in route and it helped and the morphine helped more. Patient states she still has some mild chest pain but it's much improved from earlier. Patient states she's had a catheterization in the past and had 4 stents placed. Patient denies any abdominal pain patient denies nausea vomiting diarrhea. Patient denies any episodes of diaphoresis. Patient denies any recent fever chills or cough. Eyes any patient denies numbness weakness. Patient denies lightheadedness dizziness or near syncopal episode. - Related Data Home Medications Medication Instructions Recorded Confirmed QUEtiapine FUMARATE [SEROquel] 300 mg PO HS 02/15/14 12/11/17 Zolpidem [Ambien] 10 mg PO HS 02/15/14 12/11/17 buPROPion HCL [Wellbutrin XL] 300 mg PO QAM 04/10/14 12/11/17 Metaxalone [Skelaxin] 800 mg PO TID PRN 05/24/14 12/11/17 Levothyroxine Sodium [Synthroid] 88 mcg PO QAM 01/31/15 12/11/17 clonazePAM [KlonoPIN] 0.5 mg PO BID PRN 10/23/15 12/11/17 ARIPiprazole [Abilify] 10 mg PO QAM 12/11/15 12/11/17 Clopidogrel [Plavix] 75 mg PO DAILY 08/30/16 12/11/17 lamoTRIgine [LaMICtal] 200 mg PO BID 09/15/16 12/11/17 HYDROcodone/APAP 10-325MG [[place] 1 tab PO BID PRN 05/31/17 12/11/17 10-325] Ezetimibe [Zetia] 10 mg PO DAILY 12/11/17 12/11/17 sitaGLIPtin PHOS/metFORMIN HCL 1 tab PO HS 12/11/17 12/11/17 [Janumet Xr 100-1,000 mg Tablet] Allergies Allergy/AdvReac Type Severity Reaction Status Date / Time codeine Allergy nausea and Verified 12/11/17 19:41 "shakes" NSAIDS (Non-Steroidal Allergy Rash/Hives, Verified 12/11/17 19:41 Anti-Inflamma N/V diazepam [From Valium] AdvReac hallucinations Verified 12/11/17 19:41 and confusion morphine AdvReac Hallucinations Verified 12/11/17 19:41 and confusion Review of Systems ROS Statement: Those systems with pertinent positive or pertinent negative responses have been documented in the HPI. ROS Other: All systems not noted in ROS Statement are negative. Past Medical History Past Medical History: Coronary Artery Disease (CAD), Diabetes Mellitus, GERD/ Reflux, Hyperlipidemia, Myocardial Infarction ([place]), Osteoarthritis (OA), Thyroid Disorder Additional Past Medical History / Comment(s): hx migraines, chronic back pain, degenerative disks, spinal stenosis, Last Myocardial Infarction Date:: 2007 History of Any Multi-Drug Resistant Organisms: None Reported Past Surgical History: Back Surgery, Cardiac Valve Replacement, Cholecystectomy , Heart Catheterization With Stent, Tubal Ligation Additional Past Surgical History / Comment(s): aortic valve replacement, 3 lower back surgeries, left carotid endarterectomy, disk replaced in neck, total 4 cardiac stents Past Anesthesia/Blood Transfusion Reactions: Motion Sickness Date of Last Stent Placement:: 01/2015 Past Psychological History: Anxiety, Bipolar Additional Psychological History / Comment(s): . Smoking Status: Current some day smoker Past Alcohol Use History: None Reported Additional Past Alcohol Use History / Comment(s): STARTED SMOKING 1974- 10 cigarettes daily Past Drug Use History: None Reported - Past Family History Mother Family Medical History: Deep Vein Thrombosis (DVT) Additional Family Medical History / Comment(s): Blood clots in legs Father Family Medical History: Coronary Artery Disease (CAD) Additional Family Medical History / Comment(s): heart valve replacement, General Exam - General Exam Comments Initial Comments: GENERAL: Patient is well-developed and well-nourished. Patient is nontoxic and well- hydrated and is in mild distress. ENT: Neck is soft and supple. No significant lymphadenopathy is noted. Oropharynx is clear. Moist mucous membranes. Neck has full range of motion without eliciting any pain. EYES: The sclera were anicteric and conjunctiva were pink and moist. Extraocular movements were intact and pupils were equal round and reactive to light. Eyelids were unremarkable. PULMONARY: Patient has crackles in the left base CARDIOVASCULAR: There is a regular rate and rhythm without any murmurs gallops or rubs. ABDOMEN: Soft and nontender with normal bowel sounds. SKIN: Skin is clear with no lesions or rashes and otherwise unremarkable. NEUROLOGIC: Patient is alert and oriented x3. Cranial nerves II through XII are grossly intact. Motor and sensory are also intact. Normal speech, volume and content. Symmetrical smile. MUSCULOSKELETAL: Normal extremities with adequate strength and full range of motion. LYMPHATICS: No significant lymphadenopathy is noted PSYCHIATRIC: Normal psychiatric evaluation. Course Vital Signs 12/11/17 19:33 Temperature 99.3 F Pulse Rate 96 Respiratory 18 Rate Blood Pressure 149/75 O2 Sat by Pulse 96 Oximetry Medical Decision Making - Medical Decision Making EKG shows normal sinus rhythm at 67 bpm PA interval is 174 QRS is 134 QT interval 444 QTC is 469. Patient's EKG shows no ST segment elevation or depression. Patient has a right bundle branch block. I compared this EKG to an old EKG in no acute abnormalities are noted. Chest x-ray shows no acute abnormality. Because of the patient's symptoms and history I started the patient on heparin for unstable angina admitted the patient and spoke with Dr. Sewell and admitted the patient consult cardiology. I continued heparin Nitropaste and aspirin on the floor. - Lab Data Result diagrams: 12/11/17 19:30 12/11/17 19:30 Lab Results 12/11/17 12/11/17 12/11/17 Range/Units 19:30 19:30 19:30 WBC 6.8 (3.8-10.6) k/uL RBC 3.77 L (3.80-5.40) m/uL Hgb 11.7 (11.4-16.0) gm/dL Hct 36.3 (34.0-46.0) % MCV 96.2 (80.0-100.0) fL MCH 30.9 (25.0-35.0) pg MCHC 32.1 (31.0-37.0) g/dL RDW 12.5 (11.5-15.5) % Plt Count 205 (150-450) k/uL Neutrophils % 58 % Lymphocytes % 33 % Monocytes % 5 % Eosinophils % 2 % Basophils % 1 % Neutrophils # 4.0 (1.3-7.7) k/uL Lymphocytes # 2.2 (1.0-4.8) k/uL Monocytes # 0.4 (0-1.0) k/uL Eosinophils # 0.1 (0-0.7) k/uL Basophils # 0.0 (0-0.2) k/uL PT (9.0-12.0) sec INR (<1.2) APTT (22.0-30.0) sec Sodium 142 (137-145) mmol/L Potassium 4.2 (3.5-5.1) mmol/L Chloride 108 H (98-107) mmol/L Carbon Dioxide 25 (22-30) mmol/L Anion Gap 9 mmol/L BUN 12 (7-17) mg/dL Creatinine 0.70 (0.52-1.04) mg/dL Est GFR (CKD-EPI)AfAm >90 (>60 ml/min/1.73 sqM) Est GFR (CKD-EPI)NonAf >90 (>60 ml/min/1.73 sqM) Glucose 107 H (74-99) mg/dL Calcium 10.4 H (8.4-10.2) mg/dL Magnesium 1.2 L (1.6-2.3) mg/dL Total Bilirubin 0.5 (0.2-1.3) mg/dL AST 88 H (14-36) U/L ALT 89 H (9-52) U/L Alkaline Phosphatase 172 H (38-126) U/L Total Creatine Kinase 78 (30-135) U/L CK-MB (CK-2) 1.5 (0.0-2.4) ng/mL CK-MB (CK-2) Rel Index 1.9 Troponin I <0.012 (0.000-0.034) ng/mL Total Protein 6.9 (6.3-8.2) g/dL Albumin 3.7 (3.5-5.0) g/dL 12/11/17 Range/Units 19:30 WBC (3.8-10.6) k/uL RBC (3.80-5.40) m/uL Hgb (11.4-16.0) gm/dL Hct (34.0-46.0) % MCV (80.0-100.0) fL MCH (25.0-35.0) pg MCHC (31.0-37.0) g/dL RDW (11.5-15.5) % Plt Count (150-450) k/uL Neutrophils % % Lymphocytes % % Monocytes % % Eosinophils % % Basophils % % Neutrophils # (1.3-7.7) k/uL Lymphocytes # (1.0-4.8) k/uL Monocytes # (0-1.0) k/uL Eosinophils # (0-0.7) k/uL Basophils # (0-0.2) k/uL PT 9.5 (9.0-12.0) sec INR 1.0 (<1.2) APTT 21.8 L (22.0-30.0) sec Sodium (137-145) mmol/L Potassium (3.5-5.1) mmol/L Chloride (98-107) mmol/L Carbon Dioxide (22-30) mmol/L Anion Gap mmol/L BUN (7-17) mg/dL Creatinine (0.52-1.04) mg/dL Est GFR (CKD-EPI)AfAm (>60 ml/min/1.73 sqM) Est GFR (CKD-EPI)NonAf (>60 ml/min/1.73 sqM) Glucose (74-99) mg/dL Calcium (8.4-10.2) mg/dL Magnesium (1.6-2.3) mg/dL Total Bilirubin (0.2-1.3) mg/dL AST (14-36) U/L ALT (9-52) U/L Alkaline Phosphatase (38-126) U/L Total Creatine Kinase (30-135) U/L CK-MB (CK-2) (0.0-2.4) ng/mL CK-MB (CK-2) Rel Index Troponin I (0.000-0.034) ng/mL Total Protein (6.3-8.2) g/dL Albumin (3.5-5.0) g/dL Disposition Clinical Impression: Unstable angina pectoris Disposition: ADMITTED IP TO THIS [facility] Referrals: Pako Mon MD [Primary Care Provider] - 1-2 days Time of Disposition: 20:40
[2017-12-11 19:50] LABS: ALT 89 U/L (9-52); AST 88 U/L (14-36); Albumin 3.7 g/dL (3.5-5.0); Alkaline Phosphatase 172 U/L (38-126); Anion Gap 9 mmol/L; Blood Urea Nitrogen 12 mg/dL (7-17); Calcium 10.4 mg/dL (8.4-10.2); Carbon Dioxide 25 mmol/L (22-30); Chloride 108 mmol/L (98-107); Glucose 107 mg/dL (74-99); Magnesium 1.2 mg/dL (1.6-2.3); Potassium 4.2 mmol/L (3.5-5.1); Sodium 142 mmol/L (137-145); Total Bilirubin 0.5 mg/dL (0.2-1.3); Total Protein 6.9 g/dL (6.3-8.2)
[2017-12-11 20:01] LABS: Creatine Kinase 78 U/L (30-135)
--- NOTE | 2017-12-11 20:04 | XR ---
EXAMINATION TYPE: XR chest 2V DATE OF EXAM: 12/11/2017 COMPARISON: 05/31/2017 HISTORY: Chest pain TECHNIQUE: Frontal and lateral views of the chest are obtained. FINDINGS: There is no focal air space opacity, pleural effusion, or pneumothorax seen. There is new interstitial prominence seen throughout in comparison to the prior exam. Post CABG changes are seen o f the chest with prominent cardiac silhouette that is upper limits of normal. Partial visualization o f cervical fusion device is seen. The osseous structures are intact. IMPRESSION: No focal consolidation, however new interstitial prominence is seen in comparison to the prior exam and could represent mild interstitial pulmonary edema or atypical pneumonitis.
[2017-12-11 20:12] LABS: Creatine Kinase MB 1.5 ng/mL (0.0-2.4); Troponin I <0.012 ng/mL (0.000-0.034)
[2017-12-11 20:17] LABS: Prothrombin Time 9.5 sec (9.0-12.0)
[2017-12-11 20:30] LABS: Partial Thromboplastin Time 21.8 sec (22.0-30.0)
[2017-12-11] MEDS ORDERED: MAGNESIUM SULFATE-D5W PMX 1 GM in DEXTROSE/WATER 1 100ML.BAG IVPB ONE (20:36)
[2017-12-11] MEDS ORDERED: HEPARIN SODIUM,PORCINE 5,000 UNIT/ML 1 ML VIAL IV ONE (20:38)
[2017-12-11] MEDS ORDERED: NITROGLYCERIN SL TABS 0.4 MG TAB SUBLINGUAL PRN (20:40)
[2017-12-11] MEDS ORDERED: HEPARIN SOD,PORK IN 0.45% NACL 25,000 UNIT in 0.45% NACL 1 500ML.BAG IV SCH (20:45)
[2017-12-11 21:30] LABS: Glucose,Whole Blood 114 mg/dL (75-99)
[2017-12-11] MEDS ORDERED: CYCLOBENZAPRINE 10 MG TAB PO PRN (21:35)
[2017-12-11] MEDS ORDERED: clonazePAM 0.5 MG TAB PO PRN (21:35)
[2017-12-11] MEDS ORDERED: QUEtiapine 100 MG TAB PO SCH (21:45)
[2017-12-11] MEDS ORDERED: LINAGLIPTIN 5 MG TABLET PO SCH (21:45)
[2017-12-11] MEDS ORDERED: ZOLPIDEM 10 MG TAB PO SCH (21:45)
[2017-12-11 21:54] VITALS: BMI 24.7
[2017-12-11] MEDS: lamoTRIgine 100 MG TAB PO SCH (22:17)
[2017-12-11] MEDS: HYDROcodone/APAP 10-325MG 1 EACH TAB PO PRN (22:21)
[2017-12-11] MEDS: metFORMIN 500 MG TAB PO SCH (22:40)
[2017-12-12 03:49] LABS: Cholesterol 164 mg/dL (<200); HDL Cholesterol 64 mg/dL (40-60); LDL Cholesterol,Calculated 69 mg/dL (0-99); Triglycerides 157 mg/dL (<150)
[2017-12-12 03:54] LABS: Creatine Kinase 60 U/L (30-135)
[2017-12-12] MEDS: NITROGLYCERIN OINT 1 INCH/GM PACKET TOPICAL SCH ×2 (04:01→05:40)
[2017-12-12 04:07] LABS: Creatine Kinase MB 1.3 ng/mL (0.0-2.4); Troponin I <0.012 ng/mL (0.000-0.034)
[2017-12-12 04:39] VITALS: RESP 16; TEMP 98
[2017-12-12] MEDS ORDERED: LEVOTHYROXINE 88 MCG TAB PO SCH (06:30)
[2017-12-12 06:45] LABS: Glucose,Whole Blood 129 mg/dL (75-99)
[2017-12-12 07:45] VITALS: BP 137/72; PULSE 73
[2017-12-12] MEDS ORDERED: AMINOPHYLLINE 500 MG/20 ML VIAL IV PRN (08:41)
[2017-12-12] MEDS ORDERED: REGADENOSON 0.4 MG/5 ML SYRINGE IV ONE (08:41)
[2017-12-12] MEDS ORDERED: buPROPion XL 300 MG TAB.ER.24H PO SCH (09:00)
[2017-12-12] MEDS ORDERED: EZETIMIBE 10 MG TAB PO SCH (09:00)
[2017-12-12] MEDS ORDERED: ASPIRIN 325 MG TAB PO SCH (09:00)
[2017-12-12] MEDS ORDERED: ARIPiprazole 10 MG TAB PO SCH (09:00)
[2017-12-12] MEDS ORDERED: CLOPIDOGREL 75 MG TAB PO SCH (09:00)
[2017-12-12] MEDS: HYDROcodone/APAP 10-325MG 1 EACH TAB PO PRN (09:27)
[2017-12-12 09:41] LABS: Creatine Kinase 63 U/L (30-135)
[2017-12-12 09:53] LABS: Creatine Kinase MB 1.3 ng/mL (0.0-2.4); Troponin I <0.012 ng/mL (0.000-0.034)
[2017-12-12] MEDS ORDERED: ASPIRIN 81 MG PO SCH (10:30)
[2017-12-12] MEDS ORDERED: LISINOPRIL 2.5 MG TAB PO SCH (10:30)
[2017-12-12] MEDS ORDERED: AMINOPHYLLINE 250 MG/10 ML VIAL IV ONE (11:25)
--- NOTE | 2017-12-12 12:27 | P.CRDCN ---
History of Present Illness Consult date: 12/12/17 Consult reason: chest pain History of present illness: Mrs. Lawson is a pleasant 56-year-old female past medical history significant for coronary artery disease s/p stenting of mid and distal RCA, hypertension, bioprosthetic aortic valve replacement 2016, dyslipidemia, diabetes mellitus, peripheral vascular disease, COPD, gastroesophageal reflux disease, carotid artery disease s/p endartectomy left side, anxiety, bipolar and chronic tobacco abuse. She follows with Dr. Elena in the office. We have been asked to see her in consultation for chest pain. She states intermittently for the last 3 days she has felt symptoms of chest pain. The pains are described as sharp and remain localized to anterior chest. However yesterday while sitting on the couch watching TV she felt an acute sharp pain in the left anterior chest wall that radiated around under the left breast and into the left axilla. She became short of breath, nauseated and felt her heart racing. This episode lasted for over an hour until EMS was called and she was given SL nitroglycerin x3 and IV morphine. She has had no reoccurrence of symptoms since admission. EKG on arrival reveals sinus mechanism with right bundle branch block. No evidence of ST or T-wave changes. This is consistent with multiple old EKG's. Chest xray reveals mild pulmonary edema vs pneumonitis. Laboratory data reviewed, hemoglobin 11.7, platelets 205, potassium 4.2, magnesium 1.2, creatinine 0.7, AST 88, ALP 89, alkaline phosphatase 172, cardiac enzymes negative 3, LDL 69, HDL 64. Current cardiac medications include Villa at 10 mg daily, aspirin 81 mg daily, lisinopril 2.5 mg daily and Plavix 75 mg daily. Most recent cardiac catheterization was performed in November 2015 reveals 20% disease in the mid LAD, 100% disease in the distal circumflex artery, 30% disease in the mid RCA. Most recent echocardiogram performed November 2016 revealed normal ejection fraction with prosthetic aortic valve. Most recent stress test performed in October 2016 revealed no evidence of reversible ischemia. Review of Systems At the time of my exam: CONSTITUTIONAL: Denies fever. Denies chills. EYES: Denies blurred vision. Denies vision changes. Denies eye pain. EARS, NOSE, MOUTH & THROAT: Denies headache. Denies sore throat. Denies ear pain. CARDIOVASCULAR: Denies chest pain. Denies shortness of breath. Denies orthopnea. Denies PND. Denies palpitations. RESPIRATORY: Denies cough. GASTROINTESTINAL: Denies abdominal pain. Denies diarrhea. Denies constipation. Denies nausea. Denies vomiting. MUSCULOSKELETAL: Denies myalgias. INTEGUMENTARY: Denies pruitis. Denies rash. NEUROLOGIC: Denies numbness. Denies tingling. Denies weakness. PSYCHIATRIC: Denies anxiety. Denies depression. ENDOCRINE: Denies fatigue. Denies weight change. Denies polydipsia. Denies polyurina. GENITOURINARY: Denies burning, hematuria or urgency with micturation. HEMATOLOGIC: Denies history of anemia. Denies bleeding. Past Medical History Past Medical History: Coronary Artery Disease (CAD), COPD, Diabetes Mellitus, GERD/Reflux, Hyperlipidemia, Myocardial Infarction ([place]), Osteoarthritis (OA), Thyroid Disorder Additional Past Medical History / Comment(s): hx migraines, chronic back pain, degenerative disks, spinal stenosis, Last Myocardial Infarction Date:: 2007 History of Any Multi-Drug Resistant Organisms: None Reported Past Surgical History: Back Surgery, Cardiac Valve Replacement, Cholecystectomy , Heart Catheterization With Stent, Tubal Ligation Additional Past Surgical History / Comment(s): aortic valve replacement, 3 lower back surgeries, left carotid endarterectomy, disk replaced in neck, total 4 cardiac stents Past Anesthesia/Blood Transfusion Reactions: Motion Sickness Date of Last Stent Placement:: 01/2015 Past Psychological History: Anxiety, Bipolar Additional Psychological History / Comment(s): . Smoking Status: Current every day smoker Past Alcohol Use History: None Reported Additional Past Alcohol Use History / Comment(s): STARTED SMOKING 1973- 10 cigarettes daily Past Drug Use History: None Reported - Past Family History Mother Family Medical History: Deep Vein Thrombosis (DVT) Additional Family Medical History / Comment(s): Blood clots in legs Father Family Medical History: Coronary Artery Disease (CAD) Additional Family Medical History / Comment(s): heart valve replacement, Medications and Allergies Home Medications Medication Instructions Recorded Confirmed Type QUEtiapine FUMARATE [SEROquel] 300 mg PO HS 02/15/14 12/11/17 History Zolpidem [Ambien] 10 mg PO HS 02/15/14 12/11/17 History buPROPion HCL [Wellbutrin XL] 300 mg PO QA 04/10/14 12/11/17 History Metaxalone [Skelaxin] 800 mg PO TID PRN 05/24/14 12/11/17 History Levothyroxine Sodium [Synthroid] 88 mcg PO QAM 01/31/15 12/11/17 History clonazePAM [KlonoPIN] 0.5 mg PO BID PRN 10/23/15 12/11/17 History ARIPiprazole [Abilify] 10 mg PO QAM 12/11/15 12/11/17 History Clopidogrel [Plavix] 75 mg PO DAILY 08/30/16 12/11/17 History lamoTRIgine [LaMICtal] 200 mg PO BID 09/15/16 12/11/17 History HYDROcodone/APAP 10-325MG [[place] 1 tab PO BID PRN 05/31/17 12/11/17 History 10-325] Ezetimibe [Zetia] 10 mg PO DAILY 12/11/17 12/11/17 History sitaGLIPtin PHOS/metFORMIN HCL 1 tab PO HS 12/11/17 12/11/17 History [Janumet Xr 100-1,000 mg Tablet] Aspirin [Adult Low Dose Aspirin EC] 81 mg PO 12/12/17 History Lisinopril [Zestril] 2.5 mg PO DAILY 12/12/17 History Allergies Allergy/AdvReac Type Severity Reaction Status Date / Time codeine Allergy nausea and Verified 12/11/17 19:41 "shakes" NSAIDS (Non-Steroidal Allergy Rash/Hives, Verified 12/11/17 19:41 Anti-Inflamma N/V diazepam [From Valium] AdvReac Confusion Verified 12/11/17 21:42 morphine AdvReac Confusion Verified 12/11/17 21:42 Physical Exam Vitals: Vital Signs Temp Pulse Pulse Resp BP BP BP 12/12/17 07:44 73 16 137/72 12/12/17 04:00 98.0 F 69 16 101/60 12/12/17 03:33 64 18 12/12/17 00:00 82 17 12/11/17 23:55 97.9 F 96 17 145/71 12/11/17 22:53 18 12/11/17 21:34 74 18 136/62 12/11/17 21:32 97.7 F 70 15 179/85 12/11/17 19:33 99.3 F 96 18 149/75 Pulse Ox 12/12/17 07:44 97 12/12/17 04:00 97 12/12/17 03:33 12/12/17 00:00 12/11/17 23:55 96 12/11/17 22:53 12/11/17 21:34 98 12/11/17 21:32 96 12/11/17 19:33 96 Intake and Output 12/11/17 12/12/17 12/12/17 22:59 06:59 14:59 Intake Total 720.432 Balance 720.432 Intake: IV 310 0.9 NS @ KVO 160 Heparin Sod,Pork in 0.45% 150 NaCl 25,000 unit In 0.45 % NaCl 1 500ml.bag @ 12 UNITS/KG/HR 16.32 mls/hr IV .Q24H [facility] Rx#: [id number] Intake, IV Titration 210.432 Amount Heparin Sod,Pork in 0.45% 110.432 NaCl 25,000 unit In 0.45 % NaCl 1 500ml.bag @ 12 UNITS/KG/HR 16.32 mls/hr IV .Q24H [facility] Rx#: [id number] Magnesium Sulfate-D5w Pmx 100 1 gm In Dextrose/Water 1 100ml.bag @ 100 mls/hr IVPB ONCE ONE Rx#: [id number] Oral 200 Other: Voiding Method Toilet Toilet # Voids 1 2 Weight 67.9 kg Blood pressure 137/72 heart rate 73 afebrile maintaining oxygen saturation on room air GENERAL: This is a 56-year-old female in no apparent distress at the time of my examination. HEENT: Head is atraumatic, normocephalic. Pupils are equal, round. Sclerae anicteric. Conjunctivae are clear. Mucous membranes of the mouth are moist. Neck is supple. There is no jugular venous distention. No carotid bruit is heard. LUNGS: Clear to auscultation no wheezes, rales or rhonchi. No chest wall tenderness is noted on palpation or with deep breathing. Diminished. HEART: Regular rate and rhythm with systolic ejection murmur at the base, no rubs or gallops. S1 and S2 heard. ABDOMEN: Soft, nontender. Bowel sounds are heard. No organomegaly noted. EXTREMITIES: No evidence of peripheral edema and no calf tenderness noted. VASCULAR: Radial and dorsalis pedis pulses palpated, no evidence of clubbing. NEUROLOGIC: Patient is awake, alert and oriented x3. Results 12/11/17 19:30 12/11/17 19:30 Cardiac Enzymes 12/11/17 12/11/17 12/12/17 Range/Units 19:30 19:30 02:35 AST 88 H (14-36) U/L CK-MB (CK-2) 1.5 1.3 (0.0-2.4) ng/mL Troponin I <0.012 <0.012 (0.000-0.034) ng/mL Coagulation 12/11/17 12/12/17 Range/Units 19:30 03:02 PT 9.5 (9.0-12.0) sec APTT 21.8 L 36.4 H (22.0-30.0) sec Lipids 12/12/17 Range/Units 02:35 Triglycerides 157 H (<150) mg/dL Cholesterol 164 (<200) mg/dL HDL Cholesterol 64 H (40-60) mg/dL CBC 12/11/17 Range/Units 19:30 WBC 6.8 (3.8-10.6) k/uL RBC 3.77 L (3.80-5.40) m/uL Hgb 11.7 (11.4-16.0) gm/dL Hct 36.3 (34.0-46.0) % Plt Count 205 (150-450) k/uL Comprehensive Metabolic Panel 12/11/17 Range/Units 19:30 Sodium 142 (137-145) mmol/L Potassium 4.2 (3.5-5.1) mmol/L Chloride 108 H (98-107) mmol/L Carbon Dioxide 25 (22-30) mmol/L BUN 12 (7-17) mg/dL Creatinine 0.70 (0.52-1.04) mg/dL Glucose 107 H (74-99) mg/dL Calcium 10.4 H (8.4-10.2) mg/dL AST 88 H (14-36) U/L ALT 89 H (9-52) U/L Alkaline Phosphatase 172 H (38-126) U/L Total Protein 6.9 (6.3-8.2) g/dL Albumin 3.7 (3.5-5.0) g/dL Current Medications Generic Name Dose Route Start Last Admin Trade Name Freq PRN Reason Stop Dose Admin Hydrocodone Bitart/Acetaminophen 1 each 12/11/17 21:35 12/11/17 22:21 [place] 10 PO 1 each BID PRN Administration Pain Aripiprazole 10 mg 12/12/17 09:00 Abilify PO QAM [facility] Aspirin 325 mg 12/12/17 09:00 Aspirin PO DAILY [facility] Bupropion HCl 300 mg 12/12/17 09:00 Wellbutrin Xl PO QAM [facility] Clonazepam 0.5 mg 12/11/17 21:35 12/12/17 07:30 Klonopin PO 0.5 mg BID PRN Administration Anxiety Clopidogrel Bisulfate 75 mg 12/12/17 09:00 Plavix PO DAILY [facility] Cyclobenzaprine HCl 10 mg 12/11/17 21:35 12/11/17 22:17 Flexeril PO 10 mg TID PRN Administration Muscle Spasm Ezetimibe 10 mg 12/12/17 09:00 Zetia PO DAILY [facility] Heparin Sodium/Sodium Chloride 500 mls @ 16.32 mls/hr 12/11/17 20:45 03:57 25,000 unit/ Sodium Chloride IV 15 units/kg/hr .Q24H [facility] 20.41 mls/hr Protocol Titration 12 UNITS/KG/HR Lamotrigine 200 mg 12/11/17 21:45 12/11/17 22:17 Lamictal PO 200 mg BID [facility] Administration Levothyroxine Sodium 88 mcg 12/12/17 06:30 12/12/17 05:40 Synthroid PO 88 mcg DAILY@0630 [facility] Administration Linagliptin 5 mg 12/11/17 21:45 12/11/17 22:17 Tradjenta PO 5 mg HS [facility] Administration Metformin HCl 500 mg 12/11/17 22:00 12/11/17 22:40 Glucophage PO 500 mg BID [facility] Administration Nitroglycerin 1 inch 12/12/17 00:00 12/12/17 05:40 Nitro-Bid Oint TOPICAL Not Given Q6HR [facility] Nitroglycerin 0.4 mg 12/11/17 20:40 Nitrostat SUBLINGUAL Q5M PRN Chest Pain Quetiapine Fumarate 300 mg 12/11/17 21:45 12/11/17 22:17 Seroquel PO 300 mg HS [facility] Administration Zolpidem Tartrate 10 mg 12/11/17 21:45 12/11/17 22:21 Ambien PO 10 mg HS [facility] Administration Intake and Output 12/11/17 12/12/17 12/12/17 22:59 06:59 14:59 Intake Total 720.432 Balance 720.432 Intake: IV 310 0.9 NS @ KVO 160 Heparin Sod,Pork in 0.45% 150 NaCl 25,000 unit In 0.45 % NaCl 1 500ml.bag @ 12 UNITS/KG/HR 16.32 mls/hr IV .Q24H [facility] Rx#: [id number] Intake, IV Titration 210.432 Amount Heparin Sod,Pork in 0.45% 110.432 NaCl 25,000 unit In 0.45 % NaCl 1 500ml.bag @ 12 UNITS/KG/HR 16.32 mls/hr IV .Q24H [facility] Rx#: [id number] Magnesium Sulfate-D5w Pmx 100 1 gm In Dextrose/Water 1 100ml.bag @ 100 mls/hr IVPB ONCE ONE Rx#: [id number] Oral 200 Other: Voiding Method Toilet Toilet # Voids 1 2 Weight 67.9 kg 12/11/17 19:30 12/11/17 19:30 Assessment and Plan Assessment: ASSESSMENT 1. Chest pain at rest, atypical for angina. No EKG changes indicative of ischemia and negative cardiac enzymes. 2. History of coronary artery disease 3. Aortic valve replacement 2015 4. Hypertension 5. Dyslipidemia 6. Carotid artery disease s/p left endartectomy 7. Diabetes melltius 8. Hypomagnesemia PLAN Obtain 2D echocardiogram and doppler study to assess cardiac structure and function. Perform Lexiscan stress test to assess for reversible cardiac ischemia. Continue with aspirin, plavix, lisinopril and zetia. Further recommendations to follow based on diagnostic test findings. Thank you kindly for this consultation. Nurse Practitioner note has been reviewed, I agree with a documented findings and plan of care. Patient was seen and examined.
[2017-12-12 12:29] LABS: Glucose,Whole Blood 123 mg/dL (75-99)
[2017-12-12] MEDS: lamoTRIgine 100 MG TAB PO SCH (12:29)
[2017-12-12] MEDS: metFORMIN 500 MG TAB PO SCH (12:30)
--- NOTE | 2017-12-12 12:41 | NM ---
EXAMINATION TYPE: NM stress lexiscan cardiolite DATE OF EXAM: 12/12/2017 COMPARISON: 10/29/2016 HISTORY: 56-year-old female with chest pain TECHNIQUE: After the intravenous administration of 10.44 mCi Tc 99m Sestamibi - Cardiolite resting S PECT images acquired 45 minutes post injection. The patient received 0.4mg Lexiscan, 26.4 mCi Tc 99m Sestamibi - Stress images obtained [address] injection. 100 mg aminophylline was also administered. FINDINGS: Review of stress and rest SPECT images demonstrates decreased perfusion along the lateral apex. Howev er, there appears to be normal wall motion and appropriate wall augmentation here on the gated images . Otherwise, no distinct perfusion abnormality. Gated analysis shows an estimated left ventricular e jection fraction of 48 %. TID is calculated at 1.34, elevated. IMPRESSION: 1. Mildly decreased LVEF of 48%. 2. While no convincing reversibility is seen, TID is elevated at 1.34 and can be seen in the setting of stress-induced multivessel balanced ischemia. Further clinical and EKG correlation recommended.
--- NOTE | 2017-12-12 14:14 | P.HPIM ---
History of Present Illness H&P Date: 12/12/17 Chief Complaint: angina We are covering for Dr. Mon This is a 56-year-old patient being seen examined and evaluated today. The patient came in to the [facility] emergency room complaining of persistent chest pain that had been lasting over the last 3 days and became more sharp and severe in her anterior chest. That radiated to her left axilla. She became short of breath and nauseated and her heart was racing. She had the symptoms for about our EMS was called and she was given sublingual nitroglycerin 3 and IV morphine which did resolve the chest pain. Her EKG on arrival in the emergency room did show sinus with a right bundle branch block. Chest x-ray did show mild pulmonary edema versus pneumonitis. She did have a heart catheterization in November 2015 and echocardiogram in November 2018. She also had a stress test in October 2016 per cardiology. She is follows closely with Dr. Elena in the cardiology office. Of note the patient is a current smoker and has smoked for approximately 30-40 years and she has cut back to half a pack of cigarettes per day. Review of Systems 14 point review of systems was completed and is negative unless noted above in the HPI. Past Medical History Past Medical History: Coronary Artery Disease (CAD), COPD, Diabetes Mellitus, GERD/Reflux, Hyperlipidemia, Myocardial Infarction ([place]), Osteoarthritis (OA), Thyroid Disorder Additional Past Medical History / Comment(s): hx migraines, chronic back pain, degenerative disks, spinal stenosis, Last Myocardial Infarction Date:: 2007 History of Any Multi-Drug Resistant Organisms: None Reported Past Surgical History: Back Surgery, Cardiac Valve Replacement, Cholecystectomy , Heart Catheterization With Stent, Tubal Ligation Additional Past Surgical History / Comment(s): aortic valve replacement, 3 lower back surgeries, left carotid endarterectomy, disk replaced in neck, total 4 cardiac stents Past Anesthesia/Blood Transfusion Reactions: Motion Sickness Date of Last Stent Placement:: 01/2015 Past Psychological History: Anxiety, Bipolar Additional Psychological History / Comment(s): . Smoking Status: Current every day smoker Past Alcohol Use History: None Reported Additional Past Alcohol Use History / Comment(s): STARTED SMOKING 1973- 10 cigarettes daily Past Drug Use History: None Reported - Past Family History Mother Family Medical History: Deep Vein Thrombosis (DVT) Additional Family Medical History / Comment(s): Blood clots in legs Father Family Medical History: Coronary Artery Disease (CAD) Additional Family Medical History / Comment(s): heart valve replacement, Medications and Allergies Home Medications Medication Instructions Recorded Confirmed Type QUEtiapine FUMARATE [SEROquel] 300 mg PO HS 02/15/14 12/11/17 History Zolpidem [Ambien] 10 mg PO HS 02/15/14 12/11/17 History buPROPion HCL [Wellbutrin XL] 300 mg PO QAM 04/10/14 12/11/17 History Metaxalone [Skelaxin] 800 mg PO TID PRN 05/24/14 12/11/17 History Levothyroxine Sodium [Synthroid] 88 mcg PO QAM 01/31/15 12/11/17 History clonazePAM [KlonoPIN] 0.5 mg PO BID PRN 10/23/15 12/11/17 History ARIPiprazole [Abilify] 10 mg PO QAM 12/11/15 12/11/17 History Clopidogrel [Plavix] 75 mg PO DAILY 08/30/16 12/11/17 History lamoTRIgine [LaMICtal] 200 mg PO BID 09/15/16 12/11/17 History HYDROcodone/APAP 10-325MG [[place] 1 tab PO BID PRN 05/31/17 12/11/17 History 10-325] Ezetimibe [Zetia] 10 mg PO DAILY 12/11/17 12/11/17 History sitaGLIPtin PHOS/metFORMIN HCL 1 tab PO HS 12/11/17 12/11/17 History [Janumet Xr 100-1,000 mg Tablet] Aspirin [Adult Low Dose Aspirin EC] 81 mg PO 12/12/17 History Lisinopril [Zestril] 2.5 mg PO DAILY 12/12/17 History Allergies Allergy/AdvReac Type Severity Reaction Status Date / Time codeine Allergy nausea and Verified 12/11/17 19:41 "shakes" NSAIDS (Non-Steroidal Allergy Rash/Hives, Verified 12/11/17 19:41 Anti-Inflamma N/V diazepam [From Valium] AdvReac Confusion Verified 12/11/17 21:42 morphine AdvReac Confusion Verified 12/11/17 21:42 Physical Exam Vitals: Vital Signs Temp Pulse Pulse Resp BP BP BP 12/12/17 12:00 73 16 12/12/17 08:00 73 16 12/12/17 07:44 73 16 137/72 12/12/17 04:00 98.0 F 69 16 101/60 12/12/17 03:33 64 18 12/12/17 00:00 82 17 12/11/17 23:55 97.9 F 96 17 145/71 12/11/17 22:53 18 12/11/17 21:34 74 18 136/62 12/11/17 21:32 97.7 F 70 15 179/85 12/11/17 19:33 99.3 F 96 18 149/75 Pulse Ox 12/12/17 12:00 12/12/17 08:00 12/12/17 07:44 97 12/12/17 04:00 97 12/12/17 03:33 12/12/17 00:00 12/11/17 23:55 96 12/11/17 22:53 12/11/17 21:34 98 12/11/17 21:32 96 12/11/17 19:33 96 Intake and Output 12/11/17 12/12/17 12/12/17 22:59 06:59 14:59 Intake Total 720.432 Balance 720.432 Intake: IV 310 0.9 NS @ KVO 160 Heparin Sod,Pork in 0.45% 150 NaCl 25,000 unit In 0.45 % NaCl 1 500ml.bag @ 12 UNITS/KG/HR 16.32 mls/hr IV .Q24H [facility] Rx#: [id number] Intake, IV Titration 210.432 Amount Heparin Sod,Pork in 0.45% 110.432 NaCl 25,000 unit In 0.45 % NaCl 1 500ml.bag @ 12 UNITS/KG/HR 16.32 mls/hr IV .Q24H [facility] Rx#: [id number] Magnesium Sulfate-D5w Pmx 100 1 gm In Dextrose/Water 1 100ml.bag @ 100 mls/hr IVPB ONCE ONE Rx#: [id number] Oral 200 Other: Voiding Method Toilet Toilet Toilet # Voids 1 2 Weight 67.9 kg GENERAL EXAM: Alert, active, comfortable in no apparent distress. HEAD: Normocephalic. EYES: Normal reaction of pupils, equal size. NOSE: Clear with pink turbinates. THROAT: No erythema or exudates. NECK: No masses, no JVD. CHEST: No chest wall deformity. LUNGS: Equal air entry with no crackles, wheeze, rhonchi or dullness. Bases diminished CVS: S1 and S2 normal with no audible mumurs, regular rhythm. ABDOMEN: No hepatosplenomegaly, normal bowel sounds, no guarding or rigidity. EXTREMITIES: No edema noted, pedal pulses palpable. CENTRAL NERVOUS SYSTEM: No focal deficits, tone is normal in all 4 extremities. Results CBC & Chem 7: 12/11/17 19:30 12/11/17 19:30 Labs: Abnormal Lab Results - Last 24 Hours (Table) 12/11/17 12/11/17 12/11/17 Range/Units 19:30 19:30 19:30 RBC 3.77 L (3.80-5.40) m/uL APTT 21.8 L (22.0-30.0) sec Chloride 108 H (98-107) mmol/L Glucose 107 H (74-99) mg/dL POC Glucose (mg/dL) (75-99) mg/dL Calcium 10.4 H (8.4-10.2) mg/dL Magnesium 1.2 L (1.6-2.3) mg/dL AST 88 H (14-36) U/L ALT 89 H (9-52) U/L Alkaline Phosphatase 172 H (38-126) U/L Triglycerides (<150) mg/dL HDL Cholesterol (40-60) mg/dL 12/11/17 12/12/17 12/12/17 Range/Units 21:28 02:35 02:35 RBC (3.80-5.40) m/uL APTT (22.0-30.0) sec Chloride (98-107) mmol/L Glucose (74-99) mg/dL POC Glucose (mg/dL) 114 H (75-99) mg/dL Calcium (8.4-10.2) mg/dL Magnesium 1.5 L (1.6-2.3) mg/dL AST (14-36) U/L ALT (9-52) U/L Alkaline Phosphatase (38-126) U/L Triglycerides 157 H (<150) mg/dL HDL Cholesterol 64 H (40-60) mg/dL 12/12/17 12/12/17 12/12/17 Range/Units 03:02 06:40 08:46 RBC (3.80-5.40) m/uL APTT 36.4 H 31.6 H (22.0-30.0) sec Chloride (98-107) mmol/L Glucose (74-99) mg/dL POC Glucose (mg/dL) 129 H (75-99) mg/dL Calcium (8.4-10.2) mg/dL Magnesium (1.6-2.3) mg/dL AST (14-36) U/L ALT (9-52) U/L Alkaline Phosphatase (38-126) U/L Triglycerides (<150) mg/dL HDL Cholesterol (40-60) mg/dL 12/12/17 Range/Units 12:23 RBC (3.80-5.40) m/uL APTT (22.0-30.0) sec Chloride (98-107) mmol/L Glucose (74-99) mg/dL POC Glucose (mg/dL) 123 H (75-99) mg/dL Calcium (8.4-10.2) mg/dL Magnesium (1.6-2.3) mg/dL AST (14-36) U/L ALT (9-52) U/L Alkaline Phosphatase (38-126) U/L Triglycerides (<150) mg/dL HDL Cholesterol (40-60) mg/dL Chest x-ray: report reviewed, image reviewed Thrombosis Risk Factor Assmnt - Choose All That Apply Each Factor Represents 1 point: Age 41-60 years Thrombosis Risk Factor Assessment Total Risk Factor Score: 1 Thrombosis Risk Factor Assessment Level: Low Risk Assessment and Plan Assessment: Assessment Unstable angina History of CAD Nicotine dependence COPD Hypertension Dyslipidemia CAD with left endarterectomy Diabetes mellitus Hypomagnesemia Plan Medications have been reviewed and will be continued as ordered. Cardiology on consult and will obtain echo and stress test. Continue with home meds. May be discharged this afternoon pending results and cardiology recommendations. Increase activity as tolerated. Smoking cessation discussed. We'll continue to follow this patient. I performed an examination of the patient and discussed their management with the nurse practitioner. I have reviewed the nurse practitioner's note and agree with the documented findings and plan of care.
--- NOTE | 2017-12-12 14:23 | P.DS ---
Providers Date of admission: 12/11/17 20:40 Expected date of discharge: 12/12/17 Attending physician: Marcus Sewell Consults: 12/11/17 20:40 Consult Physician Urgent Consulting Provider: [facility] Consult Reason/Comments: Unstable angina Do you want consulting provider notified?: Yes Primary care physician: [facility] Course: This is a 56-year-old patient being seen examined and evaluated today. The patient came in to the [facility] emergency room complaining of persistent chest pain that had been lasting over the last 3 days and became more sharp and severe in her anterior chest. That radiated to her left axilla. She became short of breath and nauseated and her heart was racing. She had the symptoms for about our EMS was called and she was given sublingual nitroglycerin 3 and IV morphine which did resolve the chest pain. Her EKG on arrival in the emergency room did show sinus with a right bundle branch block. Chest x-ray did show mild pulmonary edema versus pneumonitis. She did have a heart catheterization in November 2015 and echocardiogram in November 2018. She also had a stress test in October 2016 per cardiology. She is follows closely with Dr. Elena in the cardiology office. Of note the patient is a current smoker and has smoked for approximately 30-40 years and she has cut back to half a pack of cigarettes per day. After patients cardiology work up, echo and stress test were reviewed, she has been cleared from them for discharge and will follow up in office this week. Pertinent Studies: Stress Test Echo Chest Xray Patient Condition at Discharge: Stable Plan - Discharge Summary Discharge Rx Participant: No New Discharge Prescriptions: Continue QUEtiapine FUMARATE [SEROquel] 300 mg PO HS Zolpidem [Ambien] 10 mg PO HS buPROPion HCL [Wellbutrin XL] 300 mg PO QAM Metaxalone [Skelaxin] 800 mg PO TID PRN PRN Reason: Muscle Spasm Levothyroxine Sodium [Synthroid] 88 mcg PO QAM clonazePAM [KlonoPIN] 0.5 mg PO BID PRN PRN Reason: Anxiety ARIPiprazole [Abilify] 10 mg PO QAM Clopidogrel [Plavix] 75 mg PO DAILY lamoTRIgine [LaMICtal] 200 mg PO BID HYDROcodone/APAP 10-325MG [[place] 10-325] 1 tab PO BID PRN PRN Reason: Pain Ezetimibe [Zetia] 10 mg PO DAILY sitaGLIPtin PHOS/metFORMIN HCL [Janumet Xr 100-1,000 mg Tablet] 1 tab PO HS Aspirin [Adult Low Dose Aspirin EC] 81 mg PO Lisinopril [Zestril] 2.5 mg PO DAILY #30 tab Discharge Medication List QUEtiapine FUMARATE [SEROquel] 300 mg PO HS 02/15/14 [History] Zolpidem [Ambien] 10 mg PO HS 02/15/14 [History] buPROPion HCL [Wellbutrin XL] 300 mg PO QAM 04/10/14 [History] Metaxalone [Skelaxin] 800 mg PO TID PRN 05/24/14 [History] Levothyroxine Sodium [Synthroid] 88 mcg PO QAM 01/31/15 [History] clonazePAM [KlonoPIN] 0.5 mg PO BID PRN 10/23/15 [History] ARIPiprazole [Abilify] 10 mg PO QAM 12/11/15 [History] Clopidogrel [Plavix] 75 mg PO DAILY 08/30/16 [History] lamoTRIgine [LaMICtal] 200 mg PO BID 09/15/16 [History] HYDROcodone/APAP 10-325MG [[place] 10-325] 1 tab PO BID PRN 05/31/17 [History] Ezetimibe [Zetia] 10 mg PO DAILY 12/11/17 [History] sitaGLIPtin PHOS/metFORMIN HCL [Janumet Xr 100-1,000 mg Tablet] 1 tab PO HS 08/20 [History] Aspirin [Adult Low Dose Aspirin EC] 81 mg PO 12/12/17 [History] Lisinopril [Zestril] 2.5 mg PO DAILY #30 tab 12/12/17 [Rx] Follow up Appointment(s)/Referral(s): Gloria Elena MD [STAFF PHYSICIAN] - 1 Week (Office will call patient at home..Per [facility]) Pako Mon MD [Primary Care Provider] - 1-2 days Discharge Disposition: HOME SELF-CARE
--- NOTE | 2017-12-13 11:35 | EST ---
- Stress Test Note Stress Test Results/Findings: Exam Performed: NM stress lexiscan cardiolite Exam Date: 12/12/17 Reason for Exam: Chest Oain Height: 5 ft 5 in Weight: 67.9 kg Protocol: Milka Scan Stage: na Duration of Exercise: na Resting Heart Rate: 67 Resting Blood Pressure: 132/68 Maximum Achieved Heart Rate: 85 Maximum Achieved Blood Pressure: 137/65 85% PMHR: na 100% PMHR: na METS: na Technologist Comment: Stress Test Results/Findings: This is a 56-year-old female being evaluated for chest pains and shortness of breath. She has history of hypertension, diabetes, hypercholesterolemia, family history and also smoking history. There is history of a previous cardiac catheterization and stent placement. Baseline EKG showed sinus rhythm with evidence of right bundle-branch block pattern with nonspecific ST-T wave normalities.. A standard dose of Lexiscan was infused .. Patient did not experience any chest pain.EKGs taken during and after the infusion did not reveal any significant changes from baseline. Final impression: #1. Negative Lexiscan stress test #2. Report of the nuclear images to begin with the radiologist. LEO
--- NOTE | 2017-12-13 18:38 | ECHOF ---
Referral Reason:cp MEASUREMENTS -------- HEIGHT: 165.1 cm WEIGHT: 67.6 kg BP: RVIDd: 2.2 cm (< 3.3) IVSd: 1.2 cm (0.6 - 1.1) LVIDd: 4.5 cm (3.9 - 5.3) LVPWd: 1.1 cm (0.6 - 1.1) IVSs: 1.7 cm LVIDs: 3.2 cm LVPWs: 1.5 cm LAESV Index (A-L): 31.20 ml/m Ao Diam: 3.1 cm (2.0 - 3.7) AV Cusp: 1.5 cm (1.5 - 2.6) LA Diam: 2.9 cm (2.7 - 3.8) MV E García: 1.20 m/s MV DecT: 214 ms MV A García: 0.84 m/s MV E/A Ratio: 1.43 AV maxP.30 mmHg AV meanP.72 mmHg RAP: 5.00 mmHg RVSP: 20.40 mmHg FINDINGS -------- Sinus rhythm. This was a technically good study. The left ventricular size is normal. There is mild concentric left ventricular hypertrophy. Overa ll left ventricular systolic function is normal with, an EF between 55 - 60 %. The right ventricle is normal in size and function. LA is midly dilated 29-33ml/m2. The right atrium is normal in size. There is no evidence of aortic regurgitation. There is no evidence of aortic stenosis. Normally f unctioning bioprosthetic valve. The mitral valve leaflets are mildly thickened. There is trace to mild mitral regurgitation. Trace tricuspid regurgitation present. Right ventricular systolic pressure is normal at < 35 mmHg. There is no evidence of pulmonary hypertension. The pulmonic valve is normal. The aortic root size is normal. Normal inferior vena cava with normal inspiratory collapse consistent with estimated right atrial pre ssure of 5 mmHg. The pericardium is normal. There is no pericardial effusion. CONCLUSIONS -------- 1. Sinus rhythm. 2. This was a technically good study. 3. The left ventricular size is normal. 4. There is mild concentric left ventricular hypertrophy. 5. Overall left ventricular systolic function is normal with, an EF between 55 - 60 %. 6. LA is midly dilated 29-33ml/m2. 7. Normally functioning bioprosthetic valve. 8. The mitral valve leaflets are mildly thickened. 9. There is trace to mild mitral regurgitation. 10. Trace tricuspid regurgitation present. 11. Right ventricular systolic pressure is normal at < 35 mmHg. 12. There is no evidence of pulmonary hypertension. 13. The aortic root size is normal. 14. There is no pericardial effusion. PROPERTY ASSISTANT: Jeff Christianson RDCS
== END 2017-12-12 14:16 | disposition home or self-care (01) ==
LOC: EC 19:22 → 3OBS 20:40
PROVIDERS: ADMIT Internal Medicine Pulmonary Disease; ATTEND Internal Medicine Pulmonary Disease
DX: R07.89 Other chest pain (principal); I25.10 Atherosclerotic heart disease of native coronary artery without angina pectoris; Z95.5 Presence of coronary angioplasty implant and graft; Z95.3 Presence of xenogenic heart valve; I10 Essential (primary) hypertension; E78.5 Hyperlipidemia, unspecified; R06.02 Shortness of breath; E83.42 Hypomagnesemia; R00.0 Tachycardia, unspecified; R11.0 Nausea; J44.9 Chronic obstructive pulmonary disease, unspecified; F17.210 Nicotine dependence, cigarettes, uncomplicated; I45.10 Unspecified right bundle-branch block; F31.9 Bipolar disorder, unspecified; F41.9 Anxiety disorder, unspecified; G43.909 Migraine, unspecified, not intractable, without status migrainosus; M48.00 Spinal stenosis, site unspecified; I25.2 Old myocardial infarction; K21.9 Gastro-esophageal reflux disease without esophagitis; M19.90 Unspecified osteoarthritis, unspecified site; M54.9 Dorsalgia, unspecified; E11.51 Type 2 diabetes mellitus with diabetic peripheral angiopathy without gangrene; E07.9 Disorder of thyroid, unspecified; G89.29 Other chronic pain; Z79.899 Other long term (current) drug therapy; Z79.82 Long term (current) use of aspirin; Z88.8 Allergy status to other drugs, medicaments and biological substances; Z79.02 Long term (current) use of antithrombotics/antiplatelets; Z79.84 Long term (current) use of oral hypoglycemic drugs; Z88.5 Allergy status to narcotic agent
CPT/HCPCS: 99285 ×2; 96361 ×2; 96376 ×2; 96368 ×2; 96365 ×2; 96366 ×2; 36415; 93005; 93017; 93306; 80061; 80053; 82550 ×2; 82553 ×2; 83735 ×2; 84484 ×2; 85025; 85610; 85730 ×2; 71046; 78452; G0378 ×2; A9500; J1644 ×2; J3475; J2785; J0280

== ENCOUNTER 2018-01-19 10:40 | Inpatient (IN) | payer BC ==
[2018-01-19] MEDS ORDERED: VANCOMYCIN IV PER PHARMACY 1 EACH MISC MISCELLANE PRN ×2 (15:48)
[2018-01-19] MEDS ORDERED: VANCOMYCIN 1,250 MG in SODIUM CHLORIDE 0.9% 250 ML IVPB ONE (16:00)
[2018-01-19 16:14] VITALS: BMI 23.1
[2018-01-19] MEDS ORDERED: ACETAMINOPHEN TAB 325 MG TAB PO PRN (16:15)
[2018-01-19] MEDS: cefTRIAXone IN SWFI 1,000 MG/10 ML SYRINGE IVP SCH (16:23)
[2018-01-19] MEDS: SODIUM CHLORIDE 0.9% 1,000 ML IV SCH (16:23)
[2018-01-19] MEDS ORDERED: ALBUTEROL NEBULIZED 2.5 MG/3 ML INHALATION PRN (16:25)
[2018-01-19] MEDS: HYDROcodone/APAP 10-325MG 1 EACH TAB PO PRN (16:34)
[2018-01-19] MEDS: clonazePAM 0.5 MG TAB PO PRN (16:34)
[2018-01-19] MEDS: NICOTINE 14MG/24HR PATCH TRANSDERM SCH (16:38)
[2018-01-19 17:11] LABS: Basophils # (A) 0.1 k/uL (0-0.2); Basophils % (A) 1 %; Eosinophils # (A) 0.3 k/uL (0-0.7); Eosinophils % (A) 4 %; HCT 35.9 % (34.0-46.0); HGB 12.3 gm/dL (11.4-16.0); Lymphocytes % (A) 30 %; MCH 31.3 pg (25.0-35.0); MCHC 34.1 g/dL (31.0-37.0); MCV 91.8 fL (80.0-100.0); Mean Platelet Volume 7.3; Monocytes # (A) 0.3 k/uL (0-1.0); Monocytes % (A) 5 %; Neutrophils # (A) 3.8 k/uL (1.3-7.7); Neutrophils % (A) 58 %; Platelet Count 180 k/uL (150-450); RBC 3.91 m/uL (3.80-5.40); RDW 11.8 % (11.5-15.5); WBC 6.6 k/uL (3.8-10.6)
[2018-01-19 17:21] LABS: Albumin 4.3 g/dL (3.5-5.0); Calcium 10.6 mg/dL (8.4-10.2); Total Bilirubin 0.2 mg/dL (0.2-1.3); Total Protein 7.1 g/dL (6.3-8.2)
[2018-01-19 17:36] LABS: Glucose,Whole Blood 136 mg/dL (75-99)
[2018-01-19] MEDS: INSULIN ASPART 100 UNIT/ML 1 ML 10 ML VIAL SQ SCH ×2 (17:42→23:01)
[2018-01-19] MEDS: ASPIRIN 81 MG PO SCH (20:11)
[2018-01-19] MEDS: lamoTRIgine 100 MG TAB PO SCH (20:12)
[2018-01-19] MEDS: ATORVASTATIN 80 MG TAB PO SCH (20:12)
[2018-01-19] MEDS: QUEtiapine 100 MG TAB PO SCH (20:12)
[2018-01-19] MEDS: ZOLPIDEM 10 MG TAB PO PRN (20:20)
[2018-01-19 21:10] LABS: Glucose,Whole Blood 170 mg/dL (75-99)
[2018-01-20] MEDS: SODIUM CHLORIDE 0.9% 1,000 ML IV SCH ×3 (05:40→20:50)
[2018-01-20] MEDS: VANCOMYCIN 1,250 MG in SODIUM CHLORIDE 0.9% 250 ML IVPB SCH (06:27)
[2018-01-20] MEDS: LEVOTHYROXINE 88 MCG TAB PO SCH (06:28)
[2018-01-20 07:07] LABS: Glucose,Whole Blood 160 mg/dL (75-99)
[2018-01-20] MEDS: PANTOPRAZOLE 40 MG TABLET PO SCH (08:13)
[2018-01-20] MEDS: LISINOPRIL 2.5 MG TAB PO SCH (08:13)
[2018-01-20] MEDS: lamoTRIgine 100 MG TAB PO SCH ×2 (08:13→20:07)
[2018-01-20] MEDS: INSULIN ASPART 100 UNIT/ML 1 ML 10 ML VIAL SQ SCH ×4 (08:13→20:49)
[2018-01-20] MEDS: EZETIMIBE 10 MG TAB PO SCH (08:13)
[2018-01-20] MEDS: buPROPion XL 300 MG TAB.ER.24H PO SCH (08:13)
[2018-01-20] MEDS: CLOPIDOGREL 75 MG TAB PO SCH (08:13)
[2018-01-20] MEDS: ARIPiprazole 10 MG TAB PO SCH (08:13)
[2018-01-20] MEDS: HYDROcodone/APAP 10-325MG 1 EACH TAB PO PRN ×3 (08:16→20:50)
--- NOTE | 2018-01-20 08:31 | HP ---
HISTORY AND PHYSICAL CHIEF COMPLAINT: Weakness, rigors and temperature up to 101 over a 48 hour period of time. This 57-year-old white female came to my office 2 days prior to admission with some rigors, weakness, and fatigue. Extensive physical examination was completed in the office, which showed no evidence of infection at that period of time except for perhaps a little cough. Chest x-ray was negative and so was the urine even though there were some white blood cells and some WBCs and some bacteria. Urine was cultured. Blood cultures were completed. The lab was completed and patient was sent home on Levaquin due to the fact that she has had E coli infections in her urine before. She actually returns to the office 2 days later at which time the blood culture came back positive gram-positive cocci in clumps and was placed in the hospital. She was not any worse as far as her condition and yet she was not any better. She did have some nausea. Did have so weakness. She did have some decrease in strength. PAST MEDICAL HISTORY: She has a past medical history of advanced coronary artery disease, COPD, diabetes mellitus, GE reflux, hyperlipidemia. She had a myocardial infarction, osteoarthritis, and thyroid. She has also history of some migraines, chronic back pain, degenerative disc disease, spinal stenosis. Her myocardial infarction was in 2007. PAST SURGICAL HISTORY: Her past surgical history is that of back surgery, cardiac valve. She had an aortic valve replacement. She has had a cholecystectomy, heart catheterization, stent, and tubal ligation. She has also had a left carotid endarterectomy. PAST PSYCHIATRIC HISTORY: Past psychiatric history is that of anxiety and bipolar disorder. She is a current smoker, about a half a pack a day. She does not drink any alcohol. SOCIAL HISTORY: Her social history is that she does live with her who is in poor condition due to his diabetes and severe obesity and their relationship is very dysfunctional. She also has a son who is living with her at this period of time too. FAMILY HISTORY: She has a mother and father with both diabetes mellitus and mother also has hypoadrenalism. Her dad has had carotid endarterectomy and stent placements also. MEDICATIONS: Medications upon admission include: 1. [place] 10/325 p.r.n. for back pain. 2. Albuterol updrafts up to 4 times a day. 3. Abilify 10 mg a day. 4. Aspirin 81 daily. 5. Lipitor 80 daily. 6. Wellbutrin 300 daily. 7. Klonopin 0.5 b.i.d. 8. Plavix 75 daily. 9. Flexeril 10 three times a day. 10.Zetia 10 daily. 11.Insulin to scale. 12.Lamictal 200 b.i.d. 13.Thyroid 0.88 daily. 14.Zestril 2.5 daily. 15.Protonix 40 daily. 16.Seroquel 300 daily. 17.Ambien 10 mg daily. LABORATORY: Her CBC shows a 6.6 white blood cell, 12.5 hemoglobin. Retic count is 3.5. She has a 25 sedimentation rate. Her creatinine is 1.3 with a 23 BUN. Her calcium is at 10.6. Alk is at 194 with a ALT of 66. Sodium 142, potassium is 4. ALLERGIES: Allergies are CODEINE. REVIEW OF SYSTEMS: CONSTITUTIONAL: She is just weak with a decrease in appetite. EYES: The patient is seeing well. ENT: She has a dry mouth. NECK: She has no pain swallowing. CHEST: She has had some cough and some shortness of breath. HEART: No chest pain. No palpitations. GI: Decreased appetite. No hematemesis, melena, hematochezia. No diarrhea. No constipation. URINARY: She is having no problems with urination. MUSCULOSKELETAL: She has decreased strength in her arms, especially over the last few days, but considerable loss of strength in the legs due to her severe lumbar stenosis. INTEGUMENTARY: She has some pigmentation changes throughout, not indicative of melanoma. UPPER CUTTER MACHINE: Just had weakness in general. She has had multiple workups for MS, myasthenia gravis, accordingly, which have all come back negative. PSYCHIATRIC: She is anxious and denies depression at this time. PHYSICAL EXAMINATION: VITAL SIGNS: Blood pressure is 109/69, heart rate is in the 60s, respiratory rate 17, temperature is 97.9. EYES: Pupils are equal, round, react to light accommodation. ENT showed tympanic membranes and pharynx to be negative. NECK: Supple with a midline trachea. Chest is essentially clear except for some rhonchi. HEART: Sinus rhythm with no murmur. The chest incision scar is seen. ABDOMEN: Soft, nontender with no organomegaly. LOWER EXTREMITIES: Just weakness with poor peripheral pulses. INTEGUMENTARY: She has some stasis dermatitis changes on her legs. Also multiple bruises on her arm. ALLERGY: She has a stuffy nose continuously and rhinorrhea, has a long-time problem with allergies. PSYCHIATRIC: She appears to be well orientated to person, place, and thing. No apparent anxiety or depression, but she is very upset because we admitted her directly from the office and she had to sit in the waiting room waiting for a bed hours up to 6 hours before she finally got a bed. ASSESSMENT: 1. Septicemia, questionable bacteremia with a positive blood culture of gram-positive cocci in clusters. 2. Possible urinary tract infection. 3. Pneumonia, still to be ruled out. 4. Advanced coronary artery disease. 5. History of nicotine dependence. 6. Chronic obstructive pulmonary disease. 7. Hypertension. 8. Dyslipidemia. 9. Left carotid endarterectomy. 10.Aortic valve replacement. 11.Type 2 diabetes with insulin support. 12.Bipolar depression. PLAN: Continue with vancomycin and Rocephin. Consultation with Infectious Disease. We will also repeat chest x-ray today and we are still waiting on urine culture. MMODL / IJN: [id number] /
[2018-01-20 09:36] LABS: Basophils # (A) 0.1 k/uL (0-0.2); Basophils % (A) 1 %; Eosinophils # (A) 0.3 k/uL (0-0.7); Eosinophils % (A) 5 %; HCT 34.6 % (34.0-46.0); HGB 11.2 gm/dL (11.4-16.0); Lymphocytes # (A) 1.9 k/uL (1.0-4.8); Lymphocytes % (A) 28 %; MCH 30.5 pg (25.0-35.0); MCHC 32.4 g/dL (31.0-37.0); MCV 94.2 fL (80.0-100.0); Mean Platelet Volume 8.4; Monocytes # (A) 0.3 k/uL (0-1.0); Monocytes % (A) 4 %; Neutrophils # (A) 4.1 k/uL (1.3-7.7); Neutrophils % (A) 61 %; Platelet Count 182 k/uL (150-450); RBC 3.67 m/uL (3.80-5.40); WBC 6.7 k/uL (3.8-10.6)
[2018-01-20 10:13] LABS: Albumin 3.5 g/dL (3.5-5.0); Calcium 9.5 mg/dL (8.4-10.2); Potassium 4.2 mmol/L (3.5-5.1); Total Bilirubin 0.2 mg/dL (0.2-1.3); Total Protein 6.3 g/dL (6.3-8.2)
[2018-01-20] MEDS: clonazePAM 0.5 MG TAB PO PRN (11:27)
[2018-01-20 12:06] LABS: Glucose,Whole Blood 174 mg/dL (75-99)
[2018-01-20] MEDS: CYCLOBENZAPRINE 10 MG TAB PO PRN ×2 (12:17→21:26)
--- NOTE | 2018-01-20 13:57 | XR ---
EXAMINATION TYPE: XR chest 2V DATE OF EXAM: 01/20/2018 COMPARISON: 12/11/2017 HISTORY: Shortness of breath TECHNIQUE: Frontal and lateral views of the chest are obtained. FINDINGS: Scattered senescent parenchymal changes noted. No evidence for infiltrate. No evidence for atelectasis. Heart size is stable. Mediastinal structures are stable and grossly unremarkable. No evidence for hilar prominence. Degenerative changes dorsal spine. IMPRESSION: 1. No evidence for acute pulmonary disease.
[2018-01-20] MEDS: cefTRIAXone IN SWFI 1,000 MG/10 ML SYRINGE IVP SCH (16:05)
[2018-01-20] MEDS: NICOTINE 14MG/24HR PATCH TRANSDERM SCH (16:05)
[2018-01-20 17:33] LABS: Glucose,Whole Blood 163 mg/dL (75-99)
[2018-01-20] MEDS: ASPIRIN 81 MG PO SCH (20:06)
[2018-01-20] MEDS: QUEtiapine 100 MG TAB PO SCH (20:07)
[2018-01-20] MEDS: ATORVASTATIN 80 MG TAB PO SCH (20:07)
[2018-01-20 20:42] LABS: Glucose,Whole Blood 161 mg/dL (75-99)
[2018-01-21] MEDS: HYDROcodone/APAP 10-325MG 1 EACH TAB PO PRN ×3 (06:20→19:56)
[2018-01-21] MEDS: CYCLOBENZAPRINE 10 MG TAB PO PRN ×2 (06:20→15:57)
[2018-01-21] MEDS: VANCOMYCIN 1,250 MG in SODIUM CHLORIDE 0.9% 250 ML IVPB SCH (06:39)
[2018-01-21] MEDS: LEVOTHYROXINE 88 MCG TAB PO SCH (06:40)
[2018-01-21 08:07] LABS: Glucose,Whole Blood 193 mg/dL (75-99)
[2018-01-21] MEDS: INSULIN ASPART 100 UNIT/ML 1 ML 10 ML VIAL SQ SCH ×4 (08:10→21:30)
[2018-01-21] MEDS: buPROPion XL 300 MG TAB.ER.24H PO SCH (08:11)
[2018-01-21] MEDS: lamoTRIgine 100 MG TAB PO SCH ×2 (08:11→19:56)
[2018-01-21] MEDS: PANTOPRAZOLE 40 MG TABLET PO SCH (08:11)
[2018-01-21] MEDS: ARIPiprazole 10 MG TAB PO SCH (08:11)
[2018-01-21] MEDS: LISINOPRIL 2.5 MG TAB PO SCH (08:11)
[2018-01-21] MEDS: CLOPIDOGREL 75 MG TAB PO SCH (08:11)
[2018-01-21] MEDS: EZETIMIBE 10 MG TAB PO SCH (08:11)
[2018-01-21] MEDS: SODIUM CHLORIDE 0.9% 1,000 ML IV SCH ×2 (08:12→18:00)
[2018-01-21] MEDS: NICOTINE 14MG/24HR PATCH TRANSDERM SCH (08:16)
[2018-01-21 12:05] LABS: Glucose,Whole Blood 134 mg/dL (75-99)
[2018-01-21 13:19] LABS: Basophils % (A) 1 %; Eosinophils # (A) 0.3 k/uL (0-0.7); Eosinophils % (A) 5 %; HGB 10.7 gm/dL (11.4-16.0); Lymphocytes # (A) 2.1 k/uL (1.0-4.8); Lymphocytes % (A) 37 %; MCH 30.5 pg (25.0-35.0); MCHC 32.4 g/dL (31.0-37.0); MCV 94.3 fL (80.0-100.0); Mean Platelet Volume 8.3; Monocytes # (A) 0.3 k/uL (0-1.0); Monocytes % (A) 5 %; Neutrophils # (A) 2.8 k/uL (1.3-7.7); Neutrophils % (A) 50 %; Platelet Count 166 k/uL (150-450); WBC 5.6 k/uL (3.8-10.6)
--- NOTE | 2018-01-21 15:24 | PN ---
PROGRESS NOTE DATE OF SERVICE: 01/21/2018. I am covering for Dr. Mon. HISTORY OF PRESENT ILLNESS: This is 57-year-old woman was admitted with possible UTI and possible sepsis. The gram- positive cocci was grown from the cultures. The repeat blood cultures are negative so far. The initial blood cultures showed Staph hominis suspicious. Urine culture showed E coli and Klebsiella last year. No chest pain. No palpitations. No fever. The patient also complains of dysphagia also occasionally. EXAM: Alert and oriented x3. Pulse 59, blood pressure 150/94, respiration 18, temperature 98.2, pulse ox 100% on room air. HEENT: Conjunctivae normal. Examination of the throat, no congestion. NECK: No jugular venous distention. CARDIOVASCULAR: S1, S2. RESPIRATORY: Breath sounds diminished in the bases. No rhonchi, no crackles. ABDOMEN: Soft, nontender. No mass palpable. LEGS: No edema. NERVOUS SYSTEM: No focal deficits. LABS: WBC 5.2, hemoglobin 10.7, creatinine is 1.10. ASSESSMENT: 1. Septicemia with possible bacteremia with gram-positive cocci in clusters and Staph hominis. 2. Possible urinary tract infection. 3. Pneumonia to be ruled out. 4. Advanced coronary disease. 5. Nicotine dependence. 6. Chronic obstructive pulmonary disease. 7. Dysphagia for evaluation. 8. Hypertension. 9. Hyperlipidemia. 10.Left carotid endarterectomy. 11.Aortic valve replacement. 12.Diabetes mellitus type 2. 13.Bipolar depression. RECOMMENDATIONS AND DISCUSSION: I recommend to continue current management, continue symptomatic treatment. Follow closely with Infectious Disease. Await final cultures. Continue the current antibiotics, otherwise monitor the dysphagia closely which is intermittent in character. Dr. Mon will follow tomorrow. MMODL / IJN: [id number] /
[2018-01-21] MEDS: clonazePAM 0.5 MG TAB PO PRN (15:57)
[2018-01-21] MEDS: cefTRIAXone IN SWFI 1,000 MG/10 ML SYRINGE IVP SCH (15:57)
[2018-01-21 17:19] LABS: Glucose,Whole Blood 218 mg/dL (75-99)
--- NOTE | 2018-01-21 17:23 | P.CONS ---
History of Present Illness - Reason for Consult Consult date: 01/20/18 - Chief Complaint fever and weakness - History of Present Illness 57-year-old female who has many medical troubles that include coronary artery disease COPD and diabetes mellitus type 2 presented to the outpatient office not feeling well for a couple of days. She felt that she was having a fever and some chills and generalized malaise. She was seen in the outpatient setting and there was no evidence of any pneumonia, urinalysis is mildly abnormal and blood and urine cultures were sent to the laboratory and the patient was begun on Levaquin with concerns for urinary infection. She relates that she was started feels slightly better however she was then called because of his positive blood culture for admission and further intervention. At this time she is feeling better than she did at home. She's had no further fever or chills. Still has some fatigue and malaise that is not completely resolved. She is denying further high-grade fever and no rigors. Denies other acute symptoms such as nausea or emesis, no melena or hematochezia, and no skin rashes. She is denying flank pain. Review of Systems As per the HPI was having some fever and chill at home that is improving HEENT:Denies headache or acute visual change. Denies sinus or mouth discomforts. Denies neck stiffness or pain. Denies significant oral cavity pain. Denies difficulty on swallowing. Lungs: Denies significant shortness of breath, cough, sputum production, or hemoptysis. Cardiovascular: Denies significant shortness of breath, chest pain, chest wall pain, orthopnea, dyspnea on exertion, syncope Gastrointestinal:Denies nausea, vomiting, diarrhea, constipation, hematemesis, melena, hematochezia. No no significant change of bowel habit noticed. Musculoskeletal: denies significant myalgias or arthralgias. No new joint swelling. Denies new back pain. Skin: Denies new rash or lesions. No new ulcers or wounds are related.. Neuro: Denies headache or visual change. Denies any new onset weakness or difficulty with ambulation. Denies falls or seizures. Psychiatric:Denies anxiety or depression. Endocrine: Significant fatigue but weight is been stable Past Medical History Past Medical History: Coronary Artery Disease (CAD), COPD, Diabetes Mellitus, GERD/Reflux, Hyperlipidemia, Myocardial Infarction ([place]), Osteoarthritis (OA), Thyroid Disorder Additional Past Medical History / Comment(s): hx migraines, chronic back pain, degenerative disks, spinal stenosis, Last Myocardial Infarction Date:: 2007 History of Any Multi-Drug Resistant Organisms: None Reported Past Surgical History: Back Surgery, Cardiac Valve Replacement, Cholecystectomy , Heart Catheterization With Stent, Tubal Ligation Additional Past Surgical History / Comment(s): aortic valve replacement, 3 lower back surgeries, left carotid endarterectomy, disk replaced in neck, total 4 cardiac stents Past Anesthesia/Blood Transfusion Reactions: Motion Sickness Date of Last Stent Placement:: 01/2015 Past Psychological History: Anxiety, Bipolar Smoking Status: Current every day smoker Past Alcohol Use History: None Reported Additional Past Alcohol Use History / Comment(s): STARTED SMOKING 1974- 10 cigarettes daily Past Drug Use History: None Reported - Past Family History Mother Family Medical History: Deep Vein Thrombosis (DVT) Additional Family Medical History / Comment(s): Blood clots in legs Father Family Medical History: Coronary Artery Disease (CAD) Additional Family Medical History / Comment(s): heart valve replacement, Medications and Allergies Home Medications and Allergies Comment(s): Current Medications Acetaminophen (Tylenol Tab) 650 mg PO Q4HR PRN PRN Reason: Fever and/ or Mild Pain Last Admin: 01/20/18 02:42 Dose: 650 mg Hydrocodone Bitart/Acetaminophen ([place] 10) 1 each PO Q6H PRN PRN Reason: Moderate Pain Last Admin: 01/21/18 12:28 Dose: 1 each Albuterol Sulfate (Ventolin Nebulized) 2.5 mg INHALATION RT-Q1H PRN PRN Reason: Shortness Of Breath Or Wheezing [facility]) [facility] [place] Admin: 01/21/18 08:11 Dose: 10 mg Aspirin (Aspirin) 81 mg PO [facility] Last Admin: 01/20/18 20:06 Dose: 81 mg Atorvastatin Calcium (Lipitor) 80 mg PO [facility] Last Admin: 01/20/18 20:07 Dose: 80 mg Bupropion HCl (Wellbutrin Xl) [facility] [place] Admin: 01/21/18 08:11 Dose: 300 mg Ceftriaxone Sodium (Rocephin) 1,000 mg IVP Q24H [facility] Last Admin: 01/21/18 15:57 Dose: 1,000 mg Clonazepam (Klonopin) 0.5 mg PO BID PRN PRN Reason: Anxiety Last Admin: 01/21/18 15:57 Dose: 0.5 mg Clopidogrel Bisulfate (Plavix) 75 mg PO DAILY [facility] Last Admin: 01/21/18 08:11 Dose: 75 mg Cyclobenzaprine HCl (Flexeril) 10 mg PO TID PRN PRN Reason: Muscle Spasm Last Admin: 01/21/18 15:57 Dose: 10 mg Ezetimibe (Zetia) 10 mg PO DAILY [facility] Last Admin: 01/21/18 08:11 Dose: 10 mg Sodium Chloride (Saline 0.9%) 1,000 mls @ 100 mls/hr IV .Q10H [facility] Last Admin: 01/21/18 08:12 Dose: 100 mls/hr Vancomycin HCl 1,250 mg/ (Sodium Chloride) 250 mls @ 125 mls/hr IVPB Q24H [facility] Last Admin: 01/21/18 06:39 Dose: 125 mls/hr Insulin Aspart (Novolog) 0 unit SQ ACHS [facility] PRN Reason: Protocol Last Admin: 01/21/18 12:29 Dose: 1 unit Lamotrigine (Lamictal) 200 mg PO BID [facility] Last Admin: 01/21/18 08:11 Dose: 200 mg Levothyroxine Sodium (Synthroid) 88 mcg PO 0630 [facility] Last Admin: 01/21/18 06:40 Dose: 88 mcg Lisinopril (Zestril) 2.5 mg PO DAILY [facility] Last Admin: 01/21/18 08:11 Dose: 2.5 mg Nicotine (Habitrol 14mg/24hr Patch) 1 patch TRANSDERM Q24H [facility] Last Admin: 01/21/18 08:16 Dose: 1 patch Pantoprazole Sodium (Protonix) 40 mg PO AC-BRKFST [facility] Last Admin: 01/21/18 08:11 Dose: 40 mg Quetiapine Fumarate (Seroquel) 300 mg PO HS [facility] Last Admin: 01/20/18 20:07 Dose: 300 mg Zolpidem Tartrate (Ambien) 10 mg PO HS PRN PRN Reason: Insomnia Last Admin: 01/19/18 20:20 Dose: 10 mg Home Medications Medication Instructions Recorded Confirmed Type QUEtiapine FUMARATE [SEROquel] 300 mg PO HS 02/15/14 01/19/18 History Zolpidem [Ambien] 10 mg PO HS PRN 02/15/14 01/19/18 History buPROPion HCL [Wellbutrin XL] 300 mg PO QAM 04/10/14 01/19/18 History Metaxalone [Skelaxin] 800 mg PO TID PRN 05/24/14 01/19/18 History Levothyroxine Sodium [Synthroid] 88 mcg PO QAM 01/31/15 01/19/18 History clonazePAM [KlonoPIN] 0.5 mg PO BID PRN 10/23/15 01/19/18 History ARIPiprazole [Abilify] 10 mg PO QAM 12/11/15 01/19/18 History Clopidogrel [Plavix] 75 mg PO DAILY 08/30/16 01/19/18 History lamoTRIgine [LaMICtal] 200 mg PO BID 09/15/16 01/19/18 History HYDROcodone/APAP 10-325MG [[place] 1 tab PO BID PRN 05/31/17 01/19/18 History 10-325] Ezetimibe [Zetia] 10 mg PO DAILY 12/11/17 01/19/18 History sitaGLIPtin PHOS/metFORMIN HCL 1 tab PO HS 12/11/17 01/19/18 History [Janumet Xr 100-1,000 mg Tablet] Aspirin [Adult Low Dose Aspirin EC] 81 mg PO HS 12/12/17 01/19/18 History Lisinopril [Zestril] 2.5 mg PO DAILY #30 tab 12/12/17 01/19/18 Rx Allergies Allergy/AdvReac Type Severity Reaction Status Date / Time codeine Allergy nausea and Verified 01/19/18 16:24 "shakes" NSAIDS (Non-Steroidal Allergy Rash/Hives, Verified 01/19/18 16:24 Anti-Inflamma N/V diazepam [From Valium] AdvReac Confusion Verified 01/19/18 16:24 Physical Exam Vitals: Vital Signs Temp Pulse Pulse Resp BP BP Pulse Ox 01/21/18 15:00 97.9 F 76 18 121/67 100 01/21/18 07:00 98.2 F 59 L 18 153/94 100 01/20/18 22:00 97.1 F L 69 16 109/60 98 01/20/18 18:36 67 16 Intake and Output 01/21/18 01/21/18 01/21/18 06:59 14:59 22:59 Intake Total 100 1520 Balance 100 1520 Intake: IV 800 Sodium Chloride 0.9% 1, 800 000 ml @ 100 mls/hr IV . Q10H [facility] Rx#:[id number] Oral 100 720 Other: # Voids 1 HEENT: Anicteric conjunctiva are pink and moist nasal mucosa grossly intact without significant lesions, there is no thrush. Neck: The neck is supple without significant lymphadenopathy or thyromegaly. Lungs: Good bilateral air entry without significant crackles or wheezing. There is no significant bronchial sounds. There is no egophony or dullness. Heart: Regular rate and rhythm with an audible S1-S2, soft S4 click of aortic valve is heard Abdomen: Positive bowel sounds soft and nontender without palpable masses or organomegaly. There was no guarding or rebound. Extremities: The upper extremities have excellent pulses they are symmetric, no significant petechiae or telangiectasia. No splinter hemorrhages were noted. The lower extremities are free from significant edema. The peripheral pulses were 2+ and symmetric. Neuro: Awake alert oriented to person place and time. There are no acute new gross focal sensory motor deficits. Results CBC & Chem 7: 01/21/18 12:52 01/21/18 12:52 Labs: Abnormal Lab Results - Last 24 Hours (Table) 01/20/18 01/20/18 01/21/18 Range/Units 17:05 20:37 06:56 RBC (3.80-5.40) m/uL Hgb (11.4-16.0) gm/dL Hct (34.0-46.0) % Chloride (98-107) mmol/L Creatinine (0.52-1.04) mg/dL Glucose (74-99) mg/dL POC Glucose (mg/dL) 163 H 161 H 193 H (75-99) mg/dL 01/21/18 01/21/18 01/21/18 Range/Units 11:52 12:52 12:52 RBC 3.50 L (3.80-5.40) m/uL Hgb 10.7 L (11.4-16.0) gm/dL Hct 33.0 L (34.0-46.0) % Chloride 112 H (98-107) mmol/L Creatinine 1.10 H (0.52-1.04) mg/dL Glucose 127 H (74-99) mg/dL POC Glucose (mg/dL) 134 H (75-99) mg/dL Microbiology - Last 24 Hours (Table) 01/19/18 17:10 Blood Culture - Preliminary Blood No Growth after 24 hours 01/19/18 16:52 Blood Culture - Preliminary Blood No Growth after 24 hours Laboratory Results WBC 5.6 k/uL (3.8-10.6) 01/21/18 12:52 RBC 3.50 m/uL (3.80-5.40) L 01/21/18 12:52 Hgb 10.7 gm/dL (11.4-16.0) L 01/21/18 12:52 Hct 33.0 % (34.0-46.0) L 01/21/18 12:52 MCV 94.3 fL (80.0-100.0) 01/21/18 12:52 MCH 30.5 pg (25.0-35.0) 01/21/18 12:52 MCHC 32.4 g/dL (31.0-37.0) 01/21/18 12:52 RDW 12.0 % (11.5-15.5) 01/21/18 12:52 Plt Count 166 k/uL (150-450) 01/21/18 12:52 Neutrophils % 50 % 01/21/18 12:52 Lymphocytes % 37 % 01/21/18 12:52 Monocytes % 5 % 01/21/18 12:52 Eosinophils % 5 % 01/21/18 12:52 Basophils % 1 % 01/21/18 12:52 Neutrophils # 2.8 k/uL (1.3-7.7) 01/21/18 12:52 Lymphocytes # 2.1 k/uL (1.0-4.8) 01/21/18 12:52 Monocytes # 0.3 k/uL (0-1.0) 01/21/18 12:52 Eosinophils # 0.3 k/uL (0-0.7) 01/21/18 12:52 Basophils # 0.0 k/uL (0-0.2) 01/21/18 12:52 Sodium 145 mmol/L (137-145) 01/21/18 12:52 Potassium 4.0 mmol/L (3.5-5.1) 01/21/18 12:52 Chloride 112 mmol/L (98-107) H 01/21/18 12:52 Carbon Dioxide 22 mmol/L (22-30) 01/21/18 12:52 Anion Gap 11 mmol/L 01/21/18 12:52 BUN 15 mg/dL (7-17) 01/21/18 12:52 Creatinine 1.10 mg/dL (0.52-1.04) H 01/21/18 12:52 Est GFR (CKD-EPI)AfAm 64 (>60 ml/min/1.73 sqM) 01/21/18 12:52 Est GFR (CKD-EPI)NonAf 55 (>60 ml/min/1.73 sqM) 01/21/18 12:52 Glucose 127 mg/dL (74-99) H 01/21/18 12:52 POC Glucose (mg/dL) 218 mg/dL (75-99) H 01/21/18 17:16 POC Glu Patient Support Partner ID Cherelle Inman 01/21/18 17:[address] Glu mg/dL 183 01/19/18 16:52 Hemoglobin A1c 8.0 % (4.0-6.0) H 01/19/18 16:52 Calcium 9.0 mg/dL (8.4-10.2) 01/21/18 12:52 Total Bilirubin 0.2 mg/dL (0.2-1.3) 01/20/18 08:46 AST 27 U/L (14-36) 01/20/18 08:46 ALT 55 U/L (9-52) H 01/20/18 08:46 Alkaline Phosphatase 165 U/L (38-126) H 01/20/18 08:46 Total Protein 6.3 g/dL (6.3-8.2) 01/20/18 08:46 Albumin 3.5 g/dL (3.5-5.0) 01/20/18 08:46 Microbiology 01/19/18 17:10 Blood Blood Culture - Preliminary No Growth after 24 hours 01/19/18 16:52 Blood Blood Culture - Preliminary No Growth after 24 hours Outpatient blood cultures reveal evidence of coagulase-negative staph Assessment and Plan (1) Fever Current Visit: Yes Status: Acute Code(s): R50.9 - FEVER, UNSPECIFIED SNOMED Code(s): 407733177 (2) UTI (urinary tract infection) Current Visit: No Status: Acute Code(s): N39.0 - URINARY TRACT INFECTION, SITE NOT SPECIFIED SNOMED Code(s): 44827495 (3) Positive blood culture Narrative/Plan: 57-year-old female presents to Hospital from home with several-day history of not feeling well with fever and generalized malaise and chills. She was started feels somewhat better boson evidence of a possible culture and was brought into hospital for further intervention. At this time she is feeling somewhat better but still have an occasional chill. The blood cultures been evaluated and is a coagulase-negative staph will not need further treatment or vancomycin may be discontinued. We will complete a 5 day course of levofloxacin for probable urinary tract infection that was etiology of her symptoms since she is starting to feel better after that treatment. She's not has significant fever here and her white count is normal. For now ongoing supportive care fluids and adequate nutrition will all be helpful. We discussed smoking cessation would be very helpful. Current Visit: No Status: Acute Code(s): R78.81 - BACTEREMIA SNOMED Code(s ): 148055843
[2018-01-21] MEDS: LEVOFLOXACIN 500 MG TAB PO SCH (17:59)
[2018-01-21] MEDS: ATORVASTATIN 80 MG TAB PO SCH (19:56)
[2018-01-21] MEDS: QUEtiapine 100 MG TAB PO SCH (19:56)
[2018-01-21] MEDS: ASPIRIN 81 MG PO SCH (19:56)
[2018-01-21] MEDS: ZOLPIDEM 10 MG TAB PO PRN (21:30)
[2018-01-21 21:31] LABS: Glucose,Whole Blood 95 mg/dL (75-99)
[2018-01-22] MEDS: HYDROcodone/APAP 10-325MG 1 EACH TAB PO PRN ×4 (04:13→21:59)
[2018-01-22] MEDS: LEVOTHYROXINE 88 MCG TAB PO SCH (06:36)
[2018-01-22] MEDS: CYCLOBENZAPRINE 10 MG TAB PO PRN ×2 (06:36→14:32)
[2018-01-22] MEDS: SODIUM CHLORIDE 0.9% 1,000 ML IV SCH ×2 (06:37→14:33)
[2018-01-22 07:09] LABS: Glucose,Whole Blood 145 mg/dL (75-99)
[2018-01-22] MEDS: lamoTRIgine 100 MG TAB PO SCH ×2 (07:53→20:37)
[2018-01-22] MEDS: NICOTINE 14MG/24HR PATCH TRANSDERM SCH (07:53)
[2018-01-22] MEDS: INSULIN ASPART 100 UNIT/ML 1 ML 10 ML VIAL SQ SCH ×4 (07:53→21:55)
[2018-01-22] MEDS: EZETIMIBE 10 MG TAB PO SCH (07:54)
[2018-01-22] MEDS: LISINOPRIL 2.5 MG TAB PO SCH (07:54)
[2018-01-22] MEDS: ARIPiprazole 10 MG TAB PO SCH (07:54)
[2018-01-22] MEDS: CLOPIDOGREL 75 MG TAB PO SCH (07:54)
[2018-01-22] MEDS: buPROPion XL 300 MG TAB.ER.24H PO SCH (07:54)
[2018-01-22] MEDS: PANTOPRAZOLE 40 MG TABLET PO SCH (07:54)
[2018-01-22 09:17] LABS: Basophils % (A) 1 %; Eosinophils # (A) 0.3 k/uL (0-0.7); Eosinophils % (A) 6 %; HCT 31.7 % (34.0-46.0); HGB 10.6 gm/dL (11.4-16.0); Lymphocytes # (A) 1.9 k/uL (1.0-4.8); Lymphocytes % (A) 34 %; MCH 31.4 pg (25.0-35.0); MCHC 33.3 g/dL (31.0-37.0); Mean Platelet Volume 8.3; Monocytes # (A) 0.3 k/uL (0-1.0); Monocytes % (A) 5 %; Neutrophils # (A) 2.9 k/uL (1.3-7.7); Neutrophils % (A) 51 %; Platelet Count 157 k/uL (150-450); RBC 3.37 m/uL (3.80-5.40); WBC 5.6 k/uL (3.8-10.6)
[2018-01-22 09:30] LABS: Calcium 8.6 mg/dL (8.4-10.2); Potassium 4.2 mmol/L (3.5-5.1)
[2018-01-22] MEDS ORDERED: KETOROLAC 30 MG/ML 1 ML VIAL IVP STA (11:45)
[2018-01-22 11:58] LABS: Glucose,Whole Blood 211 mg/dL (75-99)
--- NOTE | 2018-01-22 12:37 | PN ---
PROGRESS NOTE CHIEF COMPLAINT: Today she has severe lower back pain which is in the lower back going down her legs but also having some middle back pain too. This is a 57-year-old admitted from my office post 2 days of admission, where she had walked into my office with rigors, fever, and fatigue at that time. After careful evaluation of her urine and careful evaluation of her chest x-ray was negative with minimal amount of cough, she was sent home on Levaquin. Awaiting results of her CBC, complete metabolic profile, urine culture and blood culture. I received a call that she had gram-positive cocci in clumps and she was re-evaluated in the office 2 days later. She felt minimally better, but she was still very weak, decreased strength with lower blood pressure. At that time, she was placed in the hospital accordingly. PAST MEDICAL HISTORY: Advanced coronary artery disease, COPD, diabetes mellitus, GE reflux, hyperlipidemia, had previous myocardial infarction, osteoarthritis, and thyroid. She has also had a history of chronic migraines, chronic back pain, degenerative disc disease and spinal stenosis and myocardial infarction. PAST SURGICAL HISTORY: Is that of having multiple back surgeries. She recently had an aortic valve replaced. She has had coronary catheterization, stent placement and multiple stent placements and also she had a left carotid endarterectomy. She has had a longstanding history of chronic bipolar disorder, which has been stable. Also a fair amount of anxiety and she has a very dysfunctional relationship at home with her . SOCIAL HISTORY: Smoking: She still smokes about a half a pack of cigarettes a day. No alcohol. No illicit drugs. She lives with her . Again, the condition is poor. He has severe obesity, diabetes, and he is very dysfunctional. She also says son lives with her for a good period of time FAMILY HISTORY: Has a family history of mother and father both have diabetes. Mother also has hypoadrenalism. Father has had carotid endarterectomy and multiple stent placements and he does have type 2 diabetes. MEDICATIONS: Is [place] 10/325 p.r.n. back pain, albuterol updrafts 4 times a day, Abilify 10 mg daily, and aspirin 81 mg daily, Lipitor 80 daily, Wellbutrin 300 daily, Klonopin 0.5 b.i.d., Plavix 75 daily, Flexeril 10 3 times a day, Zetia 10 daily, insulin to scale a.c. meals and bedtime, Lamictal 200 mg b.i.d., Synthroid 0.88 daily, Zestril 2.5 daily, Protonix 40 mg a day. Seroquel 300 mg a day and Ambien 10 at bedtime also. Patient here has been on Levaquin. LABORATORY DATA: There is no new lab today. ALLERGIES: ARE TO CODEINE. REVIEW OF SYSTEMS: Constitutional: Patient is weak, has decrease in appetite, now has lower back and mid back pain. Eyes: Patient is seeing well. ENT: She has a dry mouth. Neck: No pain or swelling. No felt masses. Chest: Some cough, some occasional shortness of breath. Heart: No chest pain or palpitations. GI is decreased appetite. No hematemesis, melena, hematochezia. No diarrhea. No constipation. Urinary: She has had no problems with urination but has a longstanding history of E coli resistant organisms that have grown in her urine in the past. Musculoskeletal: Much decreased strength in her arms with especially over the lower extremities due to severe lumbar stenosis and multiple degenerative disc disease which is nonoperable. Integumentary: She has had had hyperpigmentation throughout. EVENTS SPECIALIST: She has had weakness in her general legs, also some vertigo from time to time of unknown etiology. She has had workup for MS, myasthenia gravis and other mixed collagen disease and rheumatological diseases which have come back negative. Psychiatric: Again she has a longstanding history of bipolar disease. She is anxious and depressed from time to time, but most of . PHYSICAL EXAMINATION: Alert, white female. Constitutional: Also at this time she says she has more back pain in the lower back than she usually does and also into the upper back, upper middle back here. Her blood pressure at this point is 140/70, O2 saturation 100 on room air, 67 heart rate, respiratory rate is 20, temperature is 97.4. EYES: Pupils are equal, round, react to light and accommodation. ENT showed tympanic membranes and pharynx to be negative. NECK: Supple. Midline trachea. Chest at this time, some rhonchi. Minimal wheezes. Heart is sinus rhythm with no murmur. ABDOMEN: Soft, nontender with no organomegaly. She does have pain on palpation of both the right and left kidney with questionable Crow punch. She also has decreased range of motion of lumbar spine, which she refers to her lower back. Straight leg raising positive at 70 degrees on the right, which causes pain go down the right leg. Good great toe strength at this time, poor peripheral lower extremity pulses. Skin has hyperpigmentation throughout. Allergy: She does have a runny nose and she does clear that, allergies seem to be bad right now. Psychiatric: She is alert and oriented to person, place, and thing. She is anxious but there is no manic episode or severe depression at this period. ENDOCRINE: She does have a history of hypothyroid disease. Medications seem to be and her thyroid seem to be doing well. ASSESSMENT: 1. Bacteremia with Staph, felt to be normal hussain per Infectious Disease. 2. History of pyelonephritis, chronic, acute upper back pain to rule out pyelonephritis. 3. Possible urinary tract infection. 4. Pneumonia to be ruled out. 5. Advanced coronary artery disease. 6. Nicotine dependence. 7. Septicemia ruled out. 8. History of chronic obstructive pulmonary disease. 9. Type 2 diabetes. 10.Dyslipidemia. 11.Left carotid endarterectomy. 12.Aortic valve replacement. At this time, we will continue with the antibiotic until I get the ultrasound of the kidneys. We will give her Toradol 1 time for the amount of pain she is having. Please refer to my orders. I doubt that she is having any acute discitis. We will follow her accordingly. Please refer to my orders. MMODL / IJN: [id number] /
--- NOTE | 2018-01-22 13:56 | US ---
EXAMINATION TYPE: US kidneys/renal and bladder DATE OF EXAM: 01/22/2018 COMPARISON: US CLINICAL HISTORY: pyelonephritis. Pt states back pain, admitted for possible infection EXAM MEASUREMENTS: Right Kidney: 9.7 x 5.3 x 4.5 cm Left Kidney: 10.0 x 4.2 x 4.3 cm Right Kidney: Appeared wnl, no hydro, lower pole gassed out Left Kidney: Appeared wnl, no hydro, lower pole gassed out Bladder: Not fully distended, pt voided just prior to exam Bilateral Jets seen: No IMPRESSION: NORMAL RENAL ULTRASOUND.
[2018-01-22] MEDS: cefTRIAXone IN SWFI 1,000 MG/10 ML SYRINGE IVP SCH (15:19)
[2018-01-22] MEDS: LEVOFLOXACIN 500 MG TAB PO SCH (17:04)
[2018-01-22 17:15] LABS: Glucose,Whole Blood 104 mg/dL (75-99)
[2018-01-22] MEDS: QUEtiapine 100 MG TAB PO SCH (20:36)
[2018-01-22] MEDS: clonazePAM 0.5 MG TAB PO PRN (20:36)
[2018-01-22] MEDS: ZOLPIDEM 10 MG TAB PO PRN (20:37)
[2018-01-22] MEDS: ASPIRIN 81 MG PO SCH (20:37)
[2018-01-22 21:11] LABS: Glucose,Whole Blood 247 mg/dL (75-99)
[2018-01-22] MEDS: ATORVASTATIN 80 MG TAB PO SCH (21:55)
[2018-01-23] MEDS: CYCLOBENZAPRINE 10 MG TAB PO PRN ×2 (01:57→09:29)
[2018-01-23] MEDS: SODIUM CHLORIDE 0.9% 1,000 ML IV SCH ×2 (02:18→10:18)
[2018-01-23] MEDS: HYDROcodone/APAP 10-325MG 1 EACH TAB PO PRN ×2 (04:16→09:29)
[2018-01-23] MEDS: LEVOTHYROXINE 88 MCG TAB PO SCH (05:43)
[2018-01-23 05:55] VITALS: BP 140/69; PULSE 74; RESP 14; TEMP 96.4
[2018-01-23 07:08] LABS: Glucose,Whole Blood 120 mg/dL (75-99)
[2018-01-23] MEDS: INSULIN ASPART 100 UNIT/ML 1 ML 10 ML VIAL SQ SCH (07:20)
[2018-01-23] MEDS: CLOPIDOGREL 75 MG TAB PO SCH (07:49)
[2018-01-23] MEDS: PANTOPRAZOLE 40 MG TABLET PO SCH (07:49)
[2018-01-23] MEDS: lamoTRIgine 100 MG TAB PO SCH (07:49)
[2018-01-23] MEDS: buPROPion XL 300 MG TAB.ER.24H PO SCH (07:49)
[2018-01-23] MEDS: NICOTINE 14MG/24HR PATCH TRANSDERM SCH (07:49)
[2018-01-23] MEDS: ARIPiprazole 10 MG TAB PO SCH (07:49)
[2018-01-23] MEDS: LISINOPRIL 2.5 MG TAB PO SCH (07:49)
[2018-01-23] MEDS: EZETIMIBE 10 MG TAB PO SCH (07:50)
[2018-01-23] MEDS: clonazePAM 0.5 MG TAB PO PRN (07:53)
--- NOTE | 2018-01-23 11:17 | P.DS ---
Providers Date of admission: 01/19/18 15:05 Expected date of discharge: 01/23/18 Attending physician: Pako Mon Consults: 01/20/18 07:55 Consult Physician Urgent Consulting Provider: Krunal Cat Reason/Comments: blood culture positive Do you want consulting provider notified?: Yes Primary care physician: Pako Mon [facility] Course: 57-year-old female who was originally seen on an outpatient basis by Dr. Mon for weakness, rigors, and fever. Chest x-ray was completed at that time which was negative and so was the patient's urine although there were some white blood cells and some bacteria. Urine was cultured. Blood cultures were completed. The patient was prescribed Levaquin at that time. She returned to Dr. Mon's office 2 days later at which time her blood cultures were positive for gram-positive cocci. She was directly admitted to [facility]. infectious disease was consulted to evaluate the patient. Her blood cultures revealed coagulase negative staph, likely representing contamination and did not require IV antibiotics. Her vancomycin was discontinued. Repeat blood cultures were ordered during hospitalization and are negative at the 72 hour aneta. the patient complained of back pain during hospitalization and she also has a history of pyelonephritis. An ultrasound of kidneys and bladder was completed which was unremarkable. the patient has been afebrile. Blood pressure has been stable. Heart rate is in the 60s and 70s. She was deemed stable for discharge per Dr. Mon. She is to follow up on an outpatient basis. The patient was given a prescription for Levaquin last week by Dr. Mon. Patient has only taken 2 days of the prescription. Per Dr. Mon, the patient may continue her levaquin script that she has at home and does not require a new prescription at the time of discharge DISCHARGE DIAGNOSIS: Positive blood cultures on an outpatient basis, final report positive for coagulase negative staph, likely contamination Urinary tract infection, present on admission Septicemia, ruled out History of pyelonephritis Coronary artery disease Chronic obstructive pulmonary disease Hypertension Dyslipidemia History of Left carotid endarterectomy History of aortic valve replacement Diabetes mellitus, type II Nurse practitioner note has been reviewed by physician. Signing provider agrees with the documented findings, assessment, and plan of care. Patient Condition at Discharge: Good Plan - Discharge Summary Discharge Rx Participant: Yes New Discharge Prescriptions: New Acetaminophen Tab [Tylenol] 650 mg PO Q4HR PRN tab PRN Reason: Fever and/ or Mild Pain Atorvastatin [Lipitor] 80 mg PO HS tab Continue QUEtiapine FUMARATE [SEROquel] 300 mg PO HS Zolpidem [Ambien] 10 mg PO HS PRN PRN Reason: Insomnia buPROPion HCL [Wellbutrin XL] 300 mg PO QAM Metaxalone [Skelaxin] 800 mg PO TID PRN PRN Reason: Muscle Spasm Levothyroxine Sodium [Synthroid] 88 mcg PO QAM clonazePAM [KlonoPIN] 0.5 mg PO BID PRN PRN Reason: Anxiety ARIPiprazole [Abilify] 10 mg PO QAM Clopidogrel [Plavix] 75 mg PO DAILY lamoTRIgine [LaMICtal] 200 mg PO BID HYDROcodone/APAP 10-325MG [[place] 10-325] 1 tab PO BID PRN PRN Reason: Pain Ezetimibe [Zetia] 10 mg PO DAILY sitaGLIPtin PHOS/metFORMIN HCL [Janumet Xr 100-1,000 mg Tablet] 1 tab PO HS Aspirin [Adult Low Dose Aspirin EC] 81 mg PO HS Lisinopril [Zestril] 2.5 mg PO DAILY #30 tab Discharge Medication List QUEtiapine FUMARATE [SEROquel] 300 mg PO HS 02/15/14 [History] Zolpidem [Ambien] 10 mg PO HS PRN 02/15/14 [History] buPROPion HCL [Wellbutrin XL] 300 mg PO QAM 04/10/14 [History] Metaxalone [Skelaxin] 800 mg PO TID PRN 05/24/14 [History] Levothyroxine Sodium [Synthroid] 88 mcg PO QAM 01/31/15 [History] clonazePAM [KlonoPIN] 0.5 mg PO BID PRN 10/23/15 [History] ARIPiprazole [Abilify] 10 mg PO QAM 12/11/15 [History] Clopidogrel [Plavix] 75 mg PO DAILY 08/30/16 [History] lamoTRIgine [LaMICtal] 200 mg PO BID 09/15/16 [History] HYDROcodone/APAP 10-325MG [[place] 10-325] 1 tab PO BID PRN 05/31/17 [History] Ezetimibe [Zetia] 10 mg PO DAILY 12/11/17 [History] sitaGLIPtin PHOS/metFORMIN HCL [Janumet Xr 100-1,000 mg Tablet] 1 tab PO HS 08/20 [History] Aspirin [Adult Low Dose Aspirin EC] 81 mg PO HS 12/12/17 [History] Lisinopril [Zestril] 2.5 mg PO DAILY #30 tab 12/12/17 [Rx] Acetaminophen Tab [Tylenol] 650 mg PO Q4HR PRN tab 01/23/18 [Rx] Atorvastatin [Lipitor] 80 mg PO HS tab 01/23/18 [Rx] Follow up Appointment(s)/Referral(s): Pako Mon MD [Primary Care Provider] - 01/30/18 11:45 am Patient Instructions/Handouts: How to Stop Smoking (DC), Type 2 Diabetes in Adults (DC) Activity/Diet/Wound Care/Special Instructions: Lipitor is not a new prescription, but was not listed in patients home medication list Patient has a prescription for Levaquin that was filled last week. patient is to continue the rest of the prescription at the time of discharge. Patient does not require a new prescription per Dr. Mon. Discharge Disposition: HOME SELF-CARE
== END 2018-01-23 10:32 | disposition home or self-care (01) | DRG 690 ==
LOC: 4MS4W 15:05
PROVIDERS: ADMIT Family Medicine; ATTEND Family Medicine
DX: N39.0 Urinary tract infection, site not specified (principal); R13.10 Dysphagia, unspecified; F17.200 Nicotine dependence, unspecified, uncomplicated; F31.9 Bipolar disorder, unspecified; I10 Essential (primary) hypertension; I25.10 Atherosclerotic heart disease of native coronary artery without angina pectoris; I25.2 Old myocardial infarction; J44.9 Chronic obstructive pulmonary disease, unspecified; K21.9 Gastro-esophageal reflux disease without esophagitis; E78.5 Hyperlipidemia, unspecified; E11.9 Type 2 diabetes mellitus without complications; Z79.02 Long term (current) use of antithrombotics/antiplatelets; Z79.4 Long term (current) use of insulin; Z79.82 Long term (current) use of aspirin; Z79.899 Other long term (current) drug therapy; Z82.49 Family history of ischemic heart disease and other diseases of the circulatory system; Z83.3 Family history of diabetes mellitus; Z95.2 Presence of prosthetic heart valve; Z95.5 Presence of coronary angioplasty implant and graft; Z87.440 Personal history of urinary (tract) infections; F41.9 Anxiety disorder, unspecified; Z83.2 Family history of diseases of the blood and blood-forming organs and certain disorders involving the immune mechanism; Z88.6 Allergy status to analgesic agent; Z88.5 Allergy status to narcotic agent; M48.00 Spinal stenosis, site unspecified; G89.29 Other chronic pain; E07.9 Disorder of thyroid, unspecified; Z79.890 Hormone replacement therapy
CPT/HCPCS: 71046; 76770; 80048; 80053; 83036; 85025; 87040

== ENCOUNTER 2018-06-23 11:35 | Emergency (ER) | payer BC ==
[2018-06-23 12:18] VITALS: RESP 18
[2018-06-23] MEDS ORDERED: SODIUM CHLORIDE 0.9% 1,000 ML IV STA (14:28)
[2018-06-23 14:42] LABS: Basophils # (A) 0.1 k/uL (0-0.2); Basophils % (A) 1 %; Eosinophils % (A) 1 %; HCT 45.5 % (34.0-46.0); HGB 15.6 gm/dL (11.4-16.0); Lymphocytes % (A) 35 %; MCH 33.1 pg (25.0-35.0); MCHC 34.3 g/dL (31.0-37.0); MCV 96.5 fL (80.0-100.0); Mean Platelet Volume 7.7; Monocytes # (A) 0.3 k/uL (0-1.0); Monocytes % (A) 4 %; Neutrophils # (A) 5.1 k/uL (1.3-7.7); Neutrophils % (A) 59 %; Platelet Count 238 k/uL (150-450); RBC 4.72 m/uL (3.80-5.40); RDW 12.7 % (11.5-15.5); WBC 8.7 k/uL (3.8-10.6)
[2018-06-23 14:43] LABS: Appearance,Urine Clear (Clear); Bilirubin,Urine Negative (Negative); Blood,Urine Negative (Negative); Color,Urine Light Yellow; Glucose,Urine (UA) Negative (Negative); Ketones,Urine Negative (Negative); Leukocyte Esterase,Urine Negative (Negative); Nitrite,Urine Negative (Negative); PH, Urine 6.5 (5.0-8.0); Protein,Urine Negative (Negative); Specific Gravity,Urine 1.008 (1.001-1.035); Urobilinogen,Urine <2.0 mg/dL (<2.0)
--- NOTE | 2018-06-23 14:44 | ED ---
General Adult HPI - General Chief complaint: Nausea/Vomiting/Diarrhea Stated complaint: NVD Time Seen by Provider: 06/23/18 14:32 Source: patient Mode of arrival: ambulatory Limitations: no limitations - History of Present Illness Initial comments: Dictation was produced using [employer] dictation software. please excuse any grammatical, word or spelling errors. Chief Complaint: 57-year-old female past medical history of psychiatric disease, dyslipidemia presents with nausea, vomiting and diarrhea and 20 pound weight loss. History of Present Illness: She is a 57-year-old female states she's been having nausea vomiting diarrhea for the last 2 weeks. Patient states she lost approximately 15-20 pounds within that time. Denies any recent hospitalization. Fever, chills or night sweats. She doesn't complain of any abdominal pain. She states she has some mild back pain however states that she is unable to take her [place] secondary to vomiting. Patient is able to keep ice water down however unable to tolerate solid foods. Denies any constitutional symptoms. The ROS documented in this emergency department record has been reviewed and confirmed by me. Those systems with pertinent positive or negative responses have been documented in the HPI. All other systems are other negative and/or noncontributory. - Related Data Home Medications Medication Instructions Recorded Confirmed QUEtiapine FUMARATE [SEROquel] 300 mg PO HS 02/15/14 01/19/18 Zolpidem [Ambien] 10 mg PO HS PRN 02/15/14 01/19/18 buPROPion HCL [Wellbutrin XL] 300 mg PO QAM 04/10/14 01/19/18 Metaxalone [Skelaxin] 800 mg PO TID PRN 05/24/14 01/19/18 Levothyroxine Sodium [Synthroid] 88 mcg PO QAM 01/31/15 01/19/18 clonazePAM [KlonoPIN] 0.5 mg PO BID PRN 10/23/15 01/19/18 ARIPiprazole [Abilify] 10 mg PO QAM 12/11/15 01/19/18 Clopidogrel [Plavix] 75 mg PO DAILY 08/30/16 01/19/18 lamoTRIgine [LaMICtal] 200 mg PO BID 09/15/16 01/19/18 HYDROcodone/APAP 10-325MG [[place] 1 tab PO BID PRN 05/31/17 01/19/18 10-325] Ezetimibe [Zetia] 10 mg PO DAILY 12/11/17 01/19/18 sitaGLIPtin PHOS/metFORMIN HCL 1 tab PO HS 12/11/17 01/19/18 [Janumet Xr 100-1,000 mg Tablet] Aspirin [Adult Low Dose Aspirin EC] 81 mg PO HS 12/12/17 01/19/18 Previous Rx's Medication Instructions Recorded Lisinopril [Zestril] 2.5 mg PO DAILY #30 tab 12/12/17 Acetaminophen Tab [Tylenol] 650 mg PO Q4HR PRN tab 01/23/18 Atorvastatin [Lipitor] 80 mg PO HS tab 01/23/18 Loperamide [Imodium] 2 mg PO QID PRN #20 capsule 06/23/18 Ondansetron Odt [Zofran Odt] 4 mg PO Q8HR PRN #12 tab 06/23/18 Allergies Allergy/AdvReac Type Severity Reaction Status Date / Time codeine Allergy nausea and Verified 06/23/18 12:18 "shakes" NSAIDS (Non-Steroidal Allergy Rash/Hives, Verified 06/23/18 12:18 Anti-Inflamma N/V Review of Systems ROS Statement: Those systems with pertinent positive or pertinent negative responses have been documented in the HPI. ROS Other: All systems not noted in ROS Statement are negative. Past Medical History Past Medical History: Coronary Artery Disease (CAD), COPD, Diabetes Mellitus, GERD/Reflux, Hyperlipidemia, Myocardial Infarction ([place]), Osteoarthritis (OA), Thyroid Disorder Additional Past Medical History / Comment(s): hx migraines, chronic back pain, degenerative disks, spinal stenosis, Last Myocardial Infarction Date:: 2007 History of Any Multi-Drug Resistant Organisms: None Reported Past Surgical History: Back Surgery, Cardiac Valve Replacement, Cholecystectomy , Heart Catheterization With Stent, Tubal Ligation Additional Past Surgical History / Comment(s): aortic valve replacement, 3 lower back surgeries, left carotid endarterectomy, disk replaced in neck, total 4 cardiac stents Past Anesthesia/Blood Transfusion Reactions: Motion Sickness Date of Last Stent Placement:: 01/2015 Past Psychological History: Anxiety, Bipolar Smoking Status: Current every day smoker Past Alcohol Use History: None Reported Past Drug Use History: None Reported - Past Family History Mother Family Medical History: Deep Vein Thrombosis (DVT) Additional Family Medical History / Comment(s): Blood clots in legs Father Family Medical History: Coronary Artery Disease (CAD) Additional Family Medical History / Comment(s): heart valve replacement, General Exam - General Exam Comments Initial Comments: PHYSICAL EXAM: General Impression: Alert and oriented x3, not in acute distress HEENT: Normocephalic atraumatic, extra-ocular movements intact, pupils equal and reactive to light bilaterally, mucous membranes moist. Cardiovascular: Heart regular rate and rhythm, S1&S2 audible, no murmurs, rubs or gallops Chest: Lungs clear to auscultation bilaterally, no rhonchi, no wheeze, no rales Abdomen: Bowel sounds present, abdomen soft, non-tender, non-distended, no organomegaly Musculoskeletal: Pulses present and equal in all extremities, no peripheral edema Motor: Power 5/5 bilaterally, no focal deficits noted Neurological: CN II-XII grossly intact, no focal motor or sensory deficits noted Skin: Intact with no visualized rashes Psych: Normal affect and mood Limitations: no limitations Course Vital Signs 06/23/18 12:16 Temperature 98.3 F Pulse Rate 103 H Respiratory 18 Rate Blood Pressure 118/74 O2 Sat by Pulse 100 Oximetry Medical Decision Making - Medical Decision Making ED course: 57-year-old female presents with nausea, vomiting diarrhea and weight loss. As upon arrival shows tachycardia 103, rest of vital signs within normal limits.Laboratory evaluation obtained. CBC unremarkable, metabolic panel is unremarkable. Urinalysis is negative. Abdominal x-ray shows no acute processes. Patient tolerating by mouth at bedside. She is given intravenous fluids and Zofran with improvement of symptoms. Patient advised follow up with primary care physician upon discharge. At this point patient not overwhelmingly dehydrated. Patient is comfortable with discharge. Patient provided prescription for by mouth Zofran and loperamide. - Lab Data Result diagrams: 06/23/18 14:10 06/23/18 14:10 Lab Results 06/23/18 06/23/18 06/23/18 Range/Units 14:10 14:10 14:10 WBC 8.7 (3.8-10.6) k/uL RBC 4.72 (3.80-5.40) m/uL Hgb 15.6 (11.4-16.0) gm/dL Hct 45.5 (34.0-46.0) % MCV 96.5 (80.0-100.0) fL MCH 33.1 (25.0-35.0) pg MCHC 34.3 (31.0-37.0) g/dL RDW 12.7 (11.5-15.5) % Plt Count 238 (150-450) k/uL Neutrophils % 59 % Lymphocytes % 35 % Monocytes % 4 % Eosinophils % 1 % Basophils % 1 % Neutrophils # 5.1 (1.3-7.7) k/uL Lymphocytes # 3.0 (1.0-4.8) k/uL Monocytes # 0.3 (0-1.0) k/uL Eosinophils # 0.0 (0-0.7) k/uL Basophils # 0.1 (0-0.2) k/uL Sodium 143 (137-145) mmol/L Potassium 4.7 (3.5-5.1) mmol/L Chloride 112 H (98-107) mmol/L Carbon Dioxide 22 (22-30) mmol/L Anion Gap 9 mmol/L BUN 17 (7-17) mg/dL Creatinine 0.83 (0.52-1.04) mg/dL Est GFR (CKD-EPI)AfAm 90 (>60 ml/min/1.73 sqM) Est GFR (CKD-EPI)NonAf 78 (>60 ml/min/1.73 sqM) Glucose 121 H (74-99) mg/dL Calcium 9.9 (8.4-10.2) mg/dL Total Bilirubin 0.5 (0.2-1.3) mg/dL AST 25 (14-36) U/L ALT 19 (9-52) U/L Alkaline Phosphatase 138 H (38-126) U/L Total Protein 7.6 (6.3-8.2) g/dL Albumin 4.0 (3.5-5.0) g/dL Amylase 58 (30-110) U/L Lipase 35 (23-300) U/L Urine Color Light Yellow Urine Appearance Clear (Clear) Urine pH 6.5 (5.0-8.0) Ur Specific [place] 1.008 (1.001-1.035) Urine Protein Negative (Negative) Urine Glucose (UA) Negative (Negative) Urine Ketones Negative (Negative) Urine Blood Negative (Negative) Urine Nitrite Negative (Negative) Urine Bilirubin Negative (Negative) Urine Urobilinogen <2.0 (<2.0) mg/dL Ur Leukocyte Esterase Negative (Negative) Disposition Clinical Impression: Diarrhea Disposition: HOME SELF-CARE Condition: Good Instructions: Acute Nausea and Vomiting (ED) Prescriptions: Loperamide [Imodium] 2 mg PO QID PRN #20 capsule PRN Reason: Diarrhea Ondansetron Odt [Zofran Odt] 4 mg PO Q8HR PRN #12 tab PRN Reason: Vomiting Is patient prescribed a controlled substance at d/c from ED?: No Referrals: Pako Mon MD [Primary Care Provider] - 1-2 days Time of Disposition: 15:44
[2018-06-23 14:52] LABS: Calcium 9.9 mg/dL (8.4-10.2); Potassium 4.7 mmol/L (3.5-5.1); Total Bilirubin 0.5 mg/dL (0.2-1.3); Total Protein 7.6 g/dL (6.3-8.2)
[2018-06-23] MEDS ORDERED: ONDANSETRON 4 MG/2 ML VIAL IVP STA (14:56)
--- NOTE | 2018-06-23 14:59 | XR ---
EXAMINATION TYPE: XR KUB DATE OF EXAM: 06/23/2018 COMPARISON: NONE HISTORY: Pain TECHNIQUE: Single supine KUB image of the abdomen is obtained FINDINGS: Small bowel demonstrates no evidence for dilatation or air fluid levels. Gas and fecal material is seen in non-distended colon. No convincing evidence for pneumoperitoneum. No unusual calcifications. The lung bases are clear. Scoliotic curvature thoracolumbar spine. Postoperative changes lumbar spine. IMPRESSION: 1. Overall nonobstructive bowel gas pattern.
[2018-06-23 16:14] VITALS: BP 122/70; PULSE 92; TEMP 98
== END 2018-06-23 16:08 | disposition home or self-care (01) ==
LOC: EC 11:35
DX: R19.7 Diarrhea, unspecified (principal); R00.0 Tachycardia, unspecified; R11.2 Nausea with vomiting, unspecified; R63.4 Abnormal weight loss; M54.9 Dorsalgia, unspecified; E78.5 Hyperlipidemia, unspecified; I25.10 Atherosclerotic heart disease of native coronary artery without angina pectoris; E11.9 Type 2 diabetes mellitus without complications; E07.9 Disorder of thyroid, unspecified; M19.90 Unspecified osteoarthritis, unspecified site; F31.9 Bipolar disorder, unspecified; F41.9 Anxiety disorder, unspecified; F17.200 Nicotine dependence, unspecified, uncomplicated; Z88.5 Allergy status to narcotic agent; Z88.6 Allergy status to analgesic agent; Z79.02 Long term (current) use of antithrombotics/antiplatelets; Z79.82 Long term (current) use of aspirin; Z79.84 Long term (current) use of oral hypoglycemic drugs; Z79.899 Other long term (current) drug therapy; Z90.49 Acquired absence of other specified parts of digestive tract; Z98.890 Other specified postprocedural states
CPT/HCPCS: 36415; 80053; 82150; 83690; 85025; 81003; 74018; 99284; 96374; 96361; J2405

== ENCOUNTER 2018-07-13 11:15 | Observation (INO) | payer BC ==
--- NOTE | 2018-07-13 11:58 | ED ---
General Adult HPI - General Chief complaint: Shortness of Breath Stated complaint: Chest pain Time Seen by Provider: 07/13/18 11:22 Source: patient, RN notes reviewed Mode of arrival: ambulatory Limitations: no limitations - History of Present Illness Initial comments: 57-year-old female presented emergency department with chief complaint of chest pain or shortness of breath. Patient has been sick over the last 1 week with cough and cold like symptoms. She does have underlying COPD. Patient states started having chest pain yesterday has been intermittent today. Patient was signed by Dr. stone her PCP for possible EKG changes. Patient states that she has had aortic valve replacement by Dr. Bailey states that she has a history of hyperlipidemia and diabetes. Patient continues to smoke. Patient states she feels fatigued, run down. Patient denies any nausea vomiting, fever or chills. - Related Data Home Medications Medication Instructions Recorded Confirmed QUEtiapine FUMARATE [SEROquel] 300 mg PO HS 02/15/14 07/13/18 buPROPion HCL [Wellbutrin XL] 300 mg PO QAM 04/10/14 07/13/18 Metaxalone [Skelaxin] 800 mg PO TID PRN 05/24/14 07/13/18 clonazePAM [KlonoPIN] 0.5 mg PO TID 10/23/15 07/13/18 Clopidogrel [Plavix] 75 mg PO DAILY 08/30/16 07/13/18 HYDROcodone/APAP 10-325MG [[place] 1 tab PO Q6H PRN 05/31/17 07/13/18 10-325] sitaGLIPtin PHOS/metFORMIN HCL 1 tab PO HS 12/11/17 07/13/18 [Janumet Xr 100-1,000 mg Tablet] Levothyroxine Sodium [Synthroid] 100 mcg PO DAILY 07/13/18 07/13/18 Allergies Allergy/AdvReac Type Severity Reaction Status Date / Time codeine Allergy nausea and Verified 07/13/18 11:30 "shakes" NSAIDS (Non-Steroidal Allergy Rash/Hives, Verified 07/13/18 11:30 Anti-Inflamma N/V Review of Systems ROS Statement: Those systems with pertinent positive or pertinent negative responses have been documented in the HPI. ROS Other: All systems not noted in ROS Statement are negative. Past Medical History Past Medical History: Coronary Artery Disease (CAD), COPD, Diabetes Mellitus, GERD/Reflux, Hyperlipidemia, Myocardial Infarction ([place]), Osteoarthritis (OA), Thyroid Disorder Additional Past Medical History / Comment(s): hx migraines, chronic back pain, degenerative disks, spinal stenosis, Last Myocardial Infarction Date:: 2007 History of Any Multi-Drug Resistant Organisms: None Reported Past Surgical History: Back Surgery, Cardiac Valve Replacement, Cholecystectomy , Heart Catheterization With Stent, Tubal Ligation Additional Past Surgical History / Comment(s): aortic valve replacement, 3 lower back surgeries, left carotid endarterectomy, disk replaced in neck, total 4 cardiac stents Past Anesthesia/Blood Transfusion Reactions: Motion Sickness Date of Last Stent Placement:: 01/2015 Past Psychological History: Anxiety, Bipolar Smoking Status: Current every day smoker Past Alcohol Use History: None Reported Past Drug Use History: None Reported - Past Family History Mother Family Medical History: Deep Vein Thrombosis (DVT) Additional Family Medical History / Comment(s): Blood clots in legs Father Family Medical History: Coronary Artery Disease (CAD) Additional Family Medical History / Comment(s): heart valve replacement, General Exam Limitations: no limitations Head exam: Present: atraumatic, normocephalic, normal inspection Eye exam: Present: normal appearance, PERRL, EOMI. Absent: scleral icterus, conjunctival injection, periorbital swelling ENT exam: Present: normal exam, normal oropharynx, mucous membranes moist, TM's normal bilaterally, normal external ear exam Neck exam: Present: normal inspection, full ROM. Absent: tenderness, meningismus, lymphadenopathy Respiratory exam: Present: wheezes, rhonchi (Mild left). Absent: normal lung sounds bilaterally, respiratory distress, rales, stridor Cardiovascular Exam: Present: regular rate, normal rhythm, normal heart sounds. Absent: systolic murmur, diastolic murmur, rubs, gallop, clicks Course Vital Signs 07/13/18 07/13/18 07/13/18 11:16 13:13 13:37 Temperature 98.3 F Pulse Rate 96 84 82 Respiratory 18 18 19 Rate Blood Pressure 137/76 145/68 148/68 O2 Sat by Pulse 99 96 98 Oximetry EKG Findings - EKG Comments: EKG Findings:: EKG performed at 11:52 normal sinus rhythm with rate of 85 TX 174 QRS 128 QT/QTC 410/487 Medical Decision Making - Lab Data Result diagrams: 07/13/18 11:45 07/13/18 11:45 Lab Results 07/13/18 07/13/18 07/13/18 Range/Units 11:45 11:45 11:45 WBC 9.4 (3.8-10.6) k/uL RBC 4.38 (3.80-5.40) m/uL Hgb 14.1 (11.4-16.0) gm/dL Hct 43.5 (34.0-46.0) % MCV 99.4 (80.0-100.0) fL MCH 32.1 (25.0-35.0) pg MCHC 32.3 (31.0-37.0) g/dL RDW 12.9 (11.5-15.5) % Plt Count 297 (150-450) k/uL Neutrophils % 81 % Lymphocytes % 14 % Monocytes % 3 % Eosinophils % 0 % Basophils % 1 % Neutrophils # 7.6 (1.3-7.7) k/uL Lymphocytes # 1.4 (1.0-4.8) k/uL Monocytes # 0.3 (0-1.0) k/uL Eosinophils # 0.0 (0-0.7) k/uL Basophils # 0.1 (0-0.2) k/uL PT (9.0-12.0) sec INR (<1.2) APTT (22.0-30.0) sec D-Dimer (<0.60) mg/L FEU Sodium 141 (137-145) mmol/L Potassium 4.3 (3.5-5.1) mmol/L Chloride 108 H (98-107) mmol/L Carbon Dioxide 24 (22-30) mmol/L Anion Gap 9 mmol/L BUN 12 (7-17) mg/dL Creatinine 0.84 (0.52-1.04) mg/dL Est GFR (CKD-EPI)AfAm 88 (>60 ml/min/1.73 sqM) Est GFR (CKD-EPI)NonAf 76 (>60 ml/min/1.73 sqM) Glucose 127 H (74-99) mg/dL Calcium 10.4 H (8.4-10.2) mg/dL Magnesium 1.3 L (1.6-2.3) mg/dL Total Bilirubin 0.5 (0.2-1.3) mg/dL AST 26 (14-36) U/L ALT 57 H (9-52) U/L Alkaline Phosphatase 179 H (38-126) U/L Total Creatine Kinase 45 (30-135) U/L CK-MB (CK-2) 1.1 (0.0-2.4) ng/mL CK-MB (CK-2) Rel Index 2.4 Troponin I <0.012 (0.000-0.034) ng/mL Total Protein 8.1 (6.3-8.2) g/dL Albumin 4.3 (3.5-5.0) g/dL 07/13/18 Range/Units 11:45 WBC (3.8-10.6) k/uL RBC (3.80-5.40) m/uL Hgb (11.4-16.0) gm/dL Hct (34.0-46.0) % MCV (80.0-100.0) fL MCH (25.0-35.0) pg MCHC (31.0-37.0) g/dL RDW (11.5-15.5) % Plt Count (150-450) k/uL Neutrophils % % Lymphocytes % % Monocytes % % Eosinophils % % Basophils % % Neutrophils # (1.3-7.7) k/uL Lymphocytes # (1.0-4.8) k/uL Monocytes # (0-1.0) k/uL Eosinophils # (0-0.7) k/uL Basophils # (0-0.2) k/uL PT 9.3 (9.0-12.0) sec INR 0.9 (<1.2) APTT 23.9 (22.0-30.0) sec D-Dimer 2.39 H (<0.60) mg/L FEU Sodium (137-145) mmol/L Potassium (3.5-5.1) mmol/L Chloride (98-107) mmol/L Carbon Dioxide (22-30) mmol/L Anion Gap mmol/L BUN (7-17) mg/dL Creatinine (0.52-1.04) mg/dL Est GFR (CKD-EPI)AfAm (>60 ml/min/1.73 sqM) Est GFR (CKD-EPI)NonAf (>60 ml/min/1.73 sqM) Glucose (74-99) mg/dL Calcium (8.4-10.2) mg/dL Magnesium (1.6-2.3) mg/dL Total Bilirubin (0.2-1.3) mg/dL AST (14-36) U/L ALT (9-52) U/L Alkaline Phosphatase (38-126) U/L Total Creatine Kinase (30-135) U/L CK-MB (CK-2) (0.0-2.4) ng/mL CK-MB (CK-2) Rel Index Troponin I (0.000-0.034) ng/mL Total Protein (6.3-8.2) g/dL Albumin (3.5-5.0) g/dL Disposition Clinical Impression: Chest pain, Hypomagnesemia, COPD (chronic obstructive pulmonary disease) Disposition: ADMITTED IP TO THIS [facility] Condition: Fair Referrals: Pako Mon MD [Primary Care Provider] - 1-2 days
[2018-07-13 12:08] LABS: Basophils # (A) 0.1 k/uL (0-0.2); Basophils % (A) 1 %; Eosinophils % (A) 0 %; HCT 43.5 % (34.0-46.0); HGB 14.1 gm/dL (11.4-16.0); Lymphocytes # (A) 1.4 k/uL (1.0-4.8); Lymphocytes % (A) 14 %; MCH 32.1 pg (25.0-35.0); MCHC 32.3 g/dL (31.0-37.0); MCV 99.4 fL (80.0-100.0); Mean Platelet Volume 7.2; Monocytes # (A) 0.3 k/uL (0-1.0); Monocytes % (A) 3 %; Neutrophils # (A) 7.6 k/uL (1.3-7.7); Neutrophils % (A) 81 %; Platelet Count 297 k/uL (150-450); RBC 4.38 m/uL (3.80-5.40); RDW 12.9 % (11.5-15.5); WBC 9.4 k/uL (3.8-10.6)
[2018-07-13 12:21] LABS: Albumin 4.3 g/dL (3.5-5.0); Calcium 10.4 mg/dL (8.4-10.2); INR 0.9 (<1.2); Magnesium 1.3 mg/dL (1.6-2.3); Partial Thromboplastin Time 23.9 sec (22.0-30.0); Potassium 4.3 mmol/L (3.5-5.1); Prothrombin Time 9.3 sec (9.0-12.0); Total Bilirubin 0.5 mg/dL (0.2-1.3); Total Protein 8.1 g/dL (6.3-8.2)
--- NOTE | 2018-07-13 12:35 | XR ---
EXAMINATION TYPE: XR chest 2V DATE OF EXAM: 07/13/2018 COMPARISON: Prior chest x-ray 01/20/2018, 07/11/2018 HISTORY: Difficulty breathing TECHNIQUE: Frontal and lateral views of the chest are obtained. FINDINGS: Patient is post median sternotomy and aortic valve replacement, postop change noted to the cervical thoracic spine region. Nodular density superimposed over the anterior right second rib is in determinate, may been present on prior exam January 2018, may be superimposed skin lesion. Patient is r otated. No pneumothorax or pleural effusion. Cardiac mediastinal silhouette, pulmonary vascularity an d ekaterina show no significant interval change. IMPRESSION: No acute cardiopulmonary process. Nodular density as described, correlate, follow-up as indicated
[2018-07-13 12:47] LABS: Creatine Kinase 45 U/L (30-135)
[2018-07-13 12:52] LABS: D-Dimer 2.39 mg/L FEU (<0.60)
[2018-07-13 13:01] LABS: Creatine Kinase MB 1.1 ng/mL (0.0-2.4); Troponin I <0.012 ng/mL (0.000-0.034)
[2018-07-13] MEDS ORDERED: MAGNESIUM SULFATE-D5W PMX 1 GM in DEXTROSE/WATER 1 100ML.BAG IVPB ONE (13:05)
[2018-07-13] MEDS ORDERED: SODIUM CHLORIDE 0.9% 500 ML 500 ML IV ONE (13:16)
--- NOTE | 2018-07-13 14:00 | CT ---
EXAMINATION TYPE: CT chest angio for PE DATE OF EXAM: 07/13/2018 COMPARISON: NONE HISTORY: Chest pain, R/O PE CT DLP: 381 mGycm. Automated Exposure Control for Dose Reduction was Utilized. CONTRAST: CTA scan of the thorax is performed without and with IV Contrast, patient injected with 100 ml mL of Isovue 370, pulmonary embolism protocol. MIP Images are created on CT scanner and reviewed. FINDINGS: LUNGS: The lungs are grossly clear, there is no concerning parenchymal mass or nodule identified. T here is left basilar subsegmental dependent atelectasis. There is no pleural effusion or pneumothorax seen. The tracheobronchial tree is patent. MEDIASTINUM: There is satisfactory enhancement of the pulmonary artery and its branches, there is no CT evidence for pulmonary embolism. There are no greater than 1 cm hilar or mediastinal lymph nodes. Ascending thoracic aorta is within normal limits of size measuring 3.9 cm although approaching cri teria for aneurysm. Main pulmonary artery is within normal limits. There are prominent mediastinal ly mph nodes with the largest subcarinal lymph node measuring 1 cm in short axis. No cardiomegaly or per icardial effusion is seen. Severe three-vessel coronary artery calcifications are noted. OTHER: There is partial visualization of a cervical fusion device. Mild multilevel degenerative adame es of the spine are seen. Median sternotomy wires are seen from aortic valvular replacement. Coronary calcifications are noted. IMPRESSION: 1. No evidence of pulmonary embolism. 2. Prominent size of the ascending thoracic aorta approaching aneurysmal dilatation. 3. Left basilar subsegmental atelectasis.
[2018-07-13] MEDS ORDERED: HEPARIN SODIUM,PORCINE 5,000 UNIT/ML 1 ML VIAL IV ONE (14:22)
[2018-07-13] MEDS ORDERED: ASPIRIN 81 MG PO STA (14:22)
[2018-07-13] MEDS ORDERED: NITROGLYCERIN SL TABS 0.4 MG TAB SUBLINGUAL PRN (14:22)
[2018-07-13] MEDS ORDERED: HEPARIN SOD,PORK IN 0.45% NACL 25,000 UNIT in 0.45% NACL 1 500ML.BAG IV SCH (14:30)
[2018-07-13] MEDS: IPRATROPIUM-ALBUTEROL 3 ML NEB INHALATION SCH ×2 (15:45→19:54)
[2018-07-13 18:32] LABS: Creatine Kinase MB 1.2 ng/mL (0.0-2.4); Troponin I 0.023 ng/mL (0.000-0.034)
[2018-07-13] MEDS ORDERED: CYCLOBENZAPRINE 10 MG TAB PO PRN (18:33)
[2018-07-13] MEDS: INSULIN ASPART 100 UNIT/ML 1 ML 10 ML VIAL SQ SCH ×2 (18:53→21:07)
[2018-07-13] MEDS: metFORMIN 500 MG TAB PO SCH (19:56)
[2018-07-13 20:35] LABS: Glucose,Whole Blood 109 mg/dL (75-99)
[2018-07-13] MEDS ORDERED: METFORMIN HCL PO SCH (21:00)
[2018-07-13] MEDS ORDERED: [UNRECOGNIZED DRUG - OTHER] PO SCH (21:00)
[2018-07-13] MEDS ORDERED: LINAGLIPTIN 5 MG TABLET PO SCH (21:00)
[2018-07-13] MEDS ORDERED: SITAGLIPTIN PHOS PO SCH (21:00)
[2018-07-13] MEDS ORDERED: QUEtiapine 100 MG TAB PO SCH (21:00)
[2018-07-13] MEDS: HYDROcodone/APAP 10-325MG 1 EACH TAB PO PRN (21:15)
[2018-07-13] MEDS: clonazePAM 0.5 MG TAB PO SCH (21:16)
[2018-07-13] MEDS: ONDANSETRON 4 MG/2 ML VIAL IVP PRN (21:36)
[2018-07-13] MEDS: lamoTRIgine 100 MG TAB PO SCH (21:36)
[2018-07-14] MEDS: IPRATROPIUM-ALBUTEROL 3 ML NEB INHALATION SCH ×4 (00:10→11:54)
[2018-07-14 00:53] LABS: Creatine Kinase MB 0.9 ng/mL (0.0-2.4); Troponin I 0.027 ng/mL (0.000-0.034)
[2018-07-14 04:49] LABS: Cholesterol 244 mg/dL (<200); HDL Cholesterol 53 mg/dL (40-60); LDL Cholesterol,Calculated 143 mg/dL (0-99); Triglycerides 238 mg/dL (<150)
[2018-07-14] MEDS: HYDROcodone/APAP 10-325MG 1 EACH TAB PO PRN (06:12)
[2018-07-14] MEDS: ONDANSETRON 4 MG/2 ML VIAL IVP PRN (06:13)
[2018-07-14] MEDS ORDERED: LEVOTHYROXINE 100 MCG TAB PO SCH (06:30)
[2018-07-14 06:33] LABS: Glucose,Whole Blood 135 mg/dL (75-99)
[2018-07-14 07:44] VITALS: RESP 18
[2018-07-14] MEDS ORDERED: METOPROLOL TARTRATE 25 MG TAB PO SCH (09:00)
[2018-07-14] MEDS ORDERED: ASPIRIN 325 MG TAB PO SCH (09:00)
[2018-07-14] MEDS ORDERED: ATORVASTATIN 40 MG TAB PO SCH (09:00)
[2018-07-14] MEDS ORDERED: ASPIRIN 81 MG PO SCH (09:00)
[2018-07-14] MEDS ORDERED: CLOPIDOGREL 75 MG TAB PO SCH (09:00)
[2018-07-14] MEDS ORDERED: buPROPion XL 300 MG TAB.ER.24H PO SCH (09:00)
[2018-07-14] MEDS: lamoTRIgine 100 MG TAB PO SCH (09:13)
[2018-07-14] MEDS: INSULIN ASPART 100 UNIT/ML 1 ML 10 ML VIAL SQ SCH ×2 (09:13→12:26)
[2018-07-14] MEDS: clonazePAM 0.5 MG TAB PO SCH (09:13)
[2018-07-14 09:15] LABS: Anion Gap 8 mmol/L; Blood Urea Nitrogen 13 mg/dL (7-17); Calcium 9.2 mg/dL (8.4-10.2); Carbon Dioxide 24 mmol/L (22-30); Chloride 109 mmol/L (98-107); Glucose 109 mg/dL (74-99); Magnesium 1.6 mg/dL (1.6-2.3); Potassium 3.8 mmol/L (3.5-5.1); Sodium 141 mmol/L (137-145)
[2018-07-14] MEDS: metFORMIN 500 MG TAB PO SCH (09:18)
[2018-07-14 11:33] VITALS: BP 97/60; PULSE 61; TEMP 98.8
[2018-07-14 12:08] LABS: Glucose,Whole Blood 101 mg/dL (75-99)
--- NOTE | 2018-07-14 13:06 | CONS ---
CONSULTATION This is a 57-year-old lady with type 2 diabetes, hypertension, hyperlipidemia, known CAD, previous chronic circumflex occlusion. She sees Dr. Elena in the outpatient setting but has not been very compliant. She developed significant aortic stenosis as a result of bicuspid aortic valve and underwent aortic valve replacement with a tissue valve but this was performed sometime in 2016. As recently as December of this year, she had a Lexiscan stress test which did not reveal any clear-cut ischemia. Ejection fraction was about 48%. There was transient ischemic dilatation, but the patient was advised to follow up with Dr. Elena, but did not do so. She presents here to the hospital with complaints of having sharp pain in the chest, lasting about 1 or 2 minutes that came and went unrelated to physical activity consistently. However, the first episode of pain occurred when she was walking. The quality of the pain seems very atypical. She has no recurrence. The troponin profile does not suggest any myocardial injury. She had an elevated D-dimer, but the CT angio was negative for pulmonary embolism and there was mild dilatation of ascending aorta. She has not been compliant with medications. She is not taking a statin and an aspirin on a regular basis. I am recommending that we will initiate her on beta margie, Lopressor 25 mg b.i.d., atorvastatin 40 mg daily, and also aspirin 81 mg daily in addition to Plavix. She is advised smoking cessation and she can be discharged later on today after she ambulates and is asymptomatic and to see Dr. Elena as scheduled next Tuesday in the office. PAST MEDICAL HISTORY: 1. Hypertension. 2. Type 2 diabetes mellitus. 3. Smoking and COPD. 4. Bicuspid aortic valve, status post aortic valve replacement with a tissue valve [place] [address] Hinojosa. 5. History of CAD, known chronic circumflex occlusion. The patient had noncritical CAD, chronically occluded mid circumflex at the time of her aortic valve replacement in December. MEDICATIONS: Medications at home include Plavix 75 mg daily, Wellbutrin, [place], Skelaxin, Synthroid, Janumet, and also takes some Klonopin. ALLERGIES: She is allergic to CODEINE and NON-STEROIDAL ANTI-INFLAMMATORY AGENTS. PHYSICAL EXAMINATION: On examination, blood pressure is 112/70, pulse rate is 80 per minute. HEENT: Unremarkable. Fundus was not examined by me. Neck is supple. There is no JVD. I do not hear a carotid bruit. Heart exam reveals S1, S2 heard normally with a short systolic murmur. Slight tachycardia is noted. Lungs reveal scattered rhonchi. Abdomen and lower extremity exam is unchanged. LABORATORY DATA: Suggests no clear-cut elevation of troponin. IMPRESSION: 1. Atypical chest pain. 2. Known coronary artery disease. 3. Status post aortic valve replacement for bicuspid aortic valve. 4. Diabetes. 5. Hyperlipidemia. RECOMMENDATION: I am recommending that we will initiate her on metoprolol tartrate 25 mg b.i.d., atorvastatin 40 mg daily, and aspirin 81 mg daily. She is advised to increase activity. If she has no further symptoms, she can be discharged and see Dr. Elena as scheduled next Tuesday. Thank you very much for the consult. IRENE / SHORTYN: [id number] /
--- NOTE | 2018-07-14 13:48 | P.HPIM ---
History of Present Illness H&P Date: 07/14/18 Chief Complaint: chest pain document serves as H&P and discharge summary 57-year-old female who presented to emergency room with a chief complaint of chest pain. Patient reports she has been sick over the last week and has had intermittent episodes of nausea and vomiting. She then developed chest pain with mild shortness of breath. Troponins have been negative. Chest x-ray completed in the emergency room was negative for an acute process. CTA of the chest was completed which was negative for pulmonary embolus. The patient did undergo a cardiac catheterization in November 2015 with a stent placement to the mid and distal RCA. She also underwent stress testing in December 2017 which was negative. She was evaluated by cardiology and patient was started on aspirin 81 mg daily, Lipitor 40 mg daily, and metoprolol 25 mg twice a day. The patient states she has not had any further episodes of vomiting but does occasionally feel nauseous. She is tolerating PO intake. The patient was cleared for discharge per Dr. Mon. She is to follow up on an outpatient basis. DISCHARGE DIAGNOSIS: Chest pain, troponins negative 4, acute coronary syndrome ruled out Nausea and vomiting 7 days, possible viral gastroenteritis, improved at discharge History of coronary artery disease with stent placement to the RCA Diabetes mellitus, type II Nurse practitioner note has been reviewed by physician. Signing provider agrees with the documented findings, assessment, and plan of care. Past Medical History Past Medical History: Coronary Artery Disease (CAD), COPD, Diabetes Mellitus, GERD/Reflux, Hyperlipidemia, Myocardial Infarction (MT), Osteoarthritis (OA), Renal Disease, Thyroid Disorder Additional Past Medical History / Comment(s): hx migraines, chronic back pain, degenerative disks, spinal stenosis, Last Myocardial Infarction Date:: 2007 History of Any Multi-Drug Resistant Organisms: Other MDRO Past Surgical History: Back Surgery, Cardiac Valve Replacement, Cholecystectomy , Heart Catheterization With Stent, Tubal Ligation Additional Past Surgical History / Comment(s): aortic valve replacement, 4 lower back surgeries, left carotid endarterectomy, disk replaced in neck, total 4 cardiac stents Past Anesthesia/Blood Transfusion Reactions: Motion Sickness Date of Last Stent Placement:: 01/2015 Smoking Status: Current every day smoker - Past Family History Mother Family Medical History: Deep Vein Thrombosis (DVT) Additional Family Medical History / Comment(s): Blood clots in legs Father Family Medical History: Coronary Artery Disease (CAD) Additional Family Medical History / Comment(s): heart valve replacement, Medications and Allergies Home Medications Medication Instructions Recorded Confirmed Type QUEtiapine FUMARATE [SEROquel] 300 mg PO HS 02/15/14 07/13/18 History buPROPion HCL [Wellbutrin XL] 300 mg PO QAM 04/10/14 07/13/18 History Metaxalone [Skelaxin] 800 mg PO TID PRN 05/24/14 07/13/18 History clonazePAM [KlonoPIN] 0.5 mg PO TID 10/23/15 07/13/18 History Clopidogrel [Plavix] 75 mg PO DAILY 08/30/16 07/13/18 History HYDROcodone/APAP 10-325MG [[place] 1 tab PO Q6H PRN 05/31/17 07/13/18 History 10-325] sitaGLIPtin PHOS/metFORMIN HCL 1 tab PO HS 12/11/17 07/13/18 History [Janumet Xr 100-1,000 mg Tablet] Levothyroxine Sodium [Synthroid] 100 mcg PO DAILY 07/13/18 07/13/18 History lamoTRIgine 200 mg PO BID 07/13/18 07/13/18 History Aspirin 81 mg PO DAILY #30 chew 07/14/18 Rx Atorvastatin [Lipitor] 40 mg PO DAILY #30 tab 07/14/18 Rx Metoprolol Tartrate [Lopressor] 25 mg PO BID #60 tab 07/14/18 Rx Ondansetron Odt [Zofran Odt] 4 mg PO Q8HR PRN #30 tab 07/14/18 Rx Allergies Allergy/AdvReac Type Severity Reaction Status Date / Time codeine Allergy nausea and Verified 07/13/18 11:30 "shakes" NSAIDS (Non-Steroidal Allergy Rash/Hives, Verified 07/13/18 11:30 Anti-Inflamma N/V Physical Exam Vitals: Vital Signs Temp Pulse Pulse Resp BP BP Pulse Ox 07/14/18 11:15 98.8 F 61 18 97/60 96 07/14/18 08:39 89 07/14/18 08:29 88 07/14/18 07:20 98.6 F 74 18 100/65 95 07/14/18 03:40 98.9 F 82 16 100/64 95 07/14/18 03:24 16 07/14/18 00:00 98.2 F 76 16 94/60 94 L 07/13/18 20:00 98.2 F 84 16 158/89 97 07/13/18 15:53 84 07/13/18 15:50 98.2 F 84 18 172/96 99 07/13/18 15:45 80 07/13/18 15:17 77 18 141/83 98 07/13/18 13:37 82 19 148/68 98 07/13/18 13:13 84 18 145/68 96 Intake and Output 07/13/18 07/14/18 07/14/18 22:59 06:59 14:59 Intake Total 347.425 240 Balance 347.425 240 Intake: Intake, IV Titration 107.425 Amount Heparin Sod,Pork in 0.45% 107.425 NaCl 25,000 unit In 0.45 % NaCl 1 500ml.bag @ 12 UNITS/KG/HR 14.26 mls/hr IV .Q24H DOMINIC Rx#: [id number] Oral 240 240 Other: Voiding Method Toilet Toilet # Voids 1 Weight 59.3 kg Results CBC & Chem 7: 07/13/18 11:45 07/14/18 04:06 Labs: Abnormal Lab Results - Last 24 Hours (Table) 07/13/18 07/13/18 07/13/18 Range/Units 11:45 11:45 20:25 APTT (22.0-30.0) sec D-Dimer 2.39 H (<0.60) mg/L FEU Chloride 108 H (98-107) mmol/L Glucose 127 H (74-99) mg/dL POC Glucose (mg/dL) 109 H (75-99) mg/dL Calcium 10.4 H (8.4-10.2) mg/dL Magnesium 1.3 L (1.6-2.3) mg/dL ALT 57 H (9-52) U/L Alkaline Phosphatase 179 H (38-126) U/L Triglycerides (<150) mg/dL Cholesterol (<200) mg/dL LDL Cholesterol, Calc (0-99) mg/dL 07/13/18 07/14/18 07/14/18 Range/Units 20:40 04:06 04:06 APTT 35.4 H 36.8 H (22.0-30.0) sec D-Dimer (<0.60) mg/L FEU Chloride (98-107) mmol/L Glucose (74-99) mg/dL POC Glucose (mg/dL) (75-99) mg/dL Calcium (8.4-10.2) mg/dL Magnesium (1.6-2.3) mg/dL ALT (9-52) U/L Alkaline Phosphatase (38-126) U/L Triglycerides 238 H (<150) mg/dL Cholesterol 244 H (<200) mg/dL LDL Cholesterol, Calc 143 H (0-99) mg/dL 07/14/18 07/14/18 Range/Units 04:06 06:32 APTT (22.0-30.0) sec D-Dimer (<0.60) mg/L FEU Chloride 109 H (98-107) mmol/L Glucose 109 H (74-99) mg/dL POC Glucose (mg/dL) 135 H (75-99) mg/dL Calcium (8.4-10.2) mg/dL Magnesium (1.6-2.3) mg/dL ALT (9-52) U/L Alkaline Phosphatase (38-126) U/L Triglycerides (<150) mg/dL Cholesterol (<200) mg/dL LDL Cholesterol, Calc (0-99) mg/dL Thrombosis Risk Factor Assmnt - Choose All That Apply Each Factor Represents 1 point: Abnormal pulmonary function (COPD), Age 41-60 years Thrombosis Risk Factor Assessment Total Risk Factor Score: 2 Thrombosis Risk Factor Assessment Level: Low Risk
[2018-07-14 15:25] LABS: Hemoglobin A1C 6.2 % (4.0-6.0)
== END 2018-07-14 15:56 | disposition home or self-care (01) ==
LOC: EC 11:15 → 3OBS 14:34
PROVIDERS: ADMIT Family Medicine; ATTEND Family Medicine
DX: R07.89 Other chest pain (principal); E11.9 Type 2 diabetes mellitus without complications; I25.10 Atherosclerotic heart disease of native coronary artery without angina pectoris; F17.200 Nicotine dependence, unspecified, uncomplicated; E78.5 Hyperlipidemia, unspecified; E83.42 Hypomagnesemia; I10 Essential (primary) hypertension; J44.9 Chronic obstructive pulmonary disease, unspecified; K21.9 Gastro-esophageal reflux disease without esophagitis; R79.1 Abnormal coagulation profile; I25.2 Old myocardial infarction; Z79.02 Long term (current) use of antithrombotics/antiplatelets; Z79.82 Long term (current) use of aspirin; Z71.6 Tobacco abuse counseling; Z95.2 Presence of prosthetic heart valve; Z95.5 Presence of coronary angioplasty implant and graft; Z82.49 Family history of ischemic heart disease and other diseases of the circulatory system; Z90.49 Acquired absence of other specified parts of digestive tract; Z79.899 Other long term (current) drug therapy; Z91.14 Patient's other noncompliance with medication regimen; Z95.3 Presence of xenogenic heart valve
CPT/HCPCS: 93005 ×2; 96366 ×2; 96375; 96376 ×2; 96365; 99285; 36415; 94640 ×2; 85379; 80061; 80053; 80048; 82550; 82553; 83735 ×2; 84484 ×2; 85025; 85610; 85730 ×2; 87040; 83036; 71046; 71275; G0378 ×2; J1644 ×2; J2405 ×2; J3475; Q9967

== ENCOUNTER 2021-09-15 12:00 | Day surgery (SDC) | payer BC ==
[2021-09-11 11:47] VITALS: BMI 18.3
[~2021-09-15 12:00] MED LIST: ALBUTEROL NEB (CONC) 2.5 MG/0.5 ML INHALATION ONE; ATROPINE SULFATE 0.4 MG/ML 1 ML VIAL IM ONE; LACTATED RINGERS 1,000 ML IV SCH; LIDOCAINE 2% (PF) 20 MG/ML 5 ML VIAL INHALATION ONE; LIDOCAINE VISCOUS 300 MG/15 ML CUP MUCOUS MEM ONE; SODIUM CHLORIDE 0.9% 1,000 ML IV SCH
[2021-09-15 12:49] VITALS: TEMP 98.7
[2021-09-15] MEDS ORDERED: KETAMINE 10 MG/ML 20 ML VIAL ONE (13:18)
[2021-09-15] MEDS ORDERED: MIDAZOLAM 2 MG/2 ML VIAL ONE (13:18)
[2021-09-15] MEDS ORDERED: GLYCOPYRROLATE 0.2 MG/ML 2 ML VIAL ONE (13:18)
[2021-09-15] MEDS ORDERED: PROPOFOL 10 MG/ML 20 ML VIAL IV ONE (13:18)
[2021-09-15] MEDS ORDERED: LIDOCAINE 1% INJ 10MG/ML (20 ML MDV) ONE (13:18)
[2021-09-15] MEDS ORDERED: LIDOCAINE 2% INJ 20 MG/ML INTRATRACH ONE (13:25)
[2021-09-15 14:13] VITALS: BP 125/94; PULSE 82; RESP 18
[2021-09-15 16:56] LABS: Appearance,BF Cloudy; Color,BF Colorless; Nucleated Cells, Body Fluid 615 /uL; RBC, Body Fluid 150 /uL
[2021-09-15 16:58] LABS: Mononuclear WBC,Body Fluid 21 %; Polynuclear WBC,Body Fluid 79 %; Total Cells Counted,Body Fluid 100
--- NOTE | 2021-09-15 22:07 | PCN ---
PROCEDURE NOTE PULMONARY/CRITICAL CARE PROCEDURE NOTE: PROCEDURE PERFORMED: Bronchoscopy, airway examination, therapeutic lavage, BAL left lower lobe. PREOPERATIVE DIAGNOSIS: Bronchiectasis, left lower lobe. POSTOPERATIVE DIAGNOSIS: Bronchiectasis, left lower lobe. The patient's procedure was done in room #1 [facility]. There was informed consent and universal timeout. SHIPPING HAND: Dr. Mccann. ANESTHESIA: Anesthesia provided general anesthesia. PROCEDURE DESCRIPTION: Once the patient was adequately sedated and being fully monitored, the bronchoscope was inserted through the right nostril. It passed through the right nasopharynx into the oropharynx. The hypopharynx was identified. The hypopharyngeal structures, including anterior commissure, true cords, false cords, arytenoids, piriform sinuses, right and left valleculae and epiglottis all appeared relatively normal. The glottic opening was then topicalized with lidocaine. The bronchoscope was pushed through the glottic opening into the trachea. Trachea appeared normal. Tracheal ranjit was sharp. We did a thorough evaluation of both lungs after topicalization. The right upper lobe and its 3 segments, right middle lobe and its 2 segments, and the right lower lobe and its 5 segments all appeared relatively normal. There was some diffuse airway erythema and hyperemia. I would grade it as being between mild to moderate in severity. There was no mass or tumor. There were some secretions noted on the right side. On the left side, there were thick, very viscous secretions, particularly in the left lower lobe. They were difficult to suction. I had to remove them with the bronchoscope. Next, the bronchoscope was wedged into the left lower lobe. BAL took place. About 30 mL of fluid was recovered. It will be sent to the laboratory for analysis. The left upper lobe proper and lingula appeared relatively normal, although there was diffuse airway erythema and hyperemia throughout the left side. It was slightly more significant than on the right side. There was no mass or tumor. The bronchoscope was withdrawn. The patient tolerated the procedure well. MMODL / IJN: [id number] /
== END 2021-09-15 14:30 | disposition home or self-care (01) ==
LOC: ORWHC2ENDO 12:00
PROVIDERS: ATTEND Internal Medicine Critical Care Medicine
DX: J47.9 Bronchiectasis, uncomplicated (principal); G89.29 Other chronic pain; M54.9 Dorsalgia, unspecified; F31.9 Bipolar disorder, unspecified; M51.36 Other intervertebral disc degeneration, lumbar region; F32.A Depression, unspecified; E03.9 Hypothyroidism, unspecified; I25.10 Atherosclerotic heart disease of native coronary artery without angina pectoris; I35.0 Nonrheumatic aortic (valve) stenosis; I25.2 Old myocardial infarction; Z83.3 Family history of diabetes mellitus; Z82.5 Family history of asthma and other chronic lower respiratory diseases; Z81.8 Family history of other mental and behavioral disorders; F17.210 Nicotine dependence, cigarettes, uncomplicated; Z95.5 Presence of coronary angioplasty implant and graft; Z90.49 Acquired absence of other specified parts of digestive tract; Z98.51 Tubal ligation status; Z79.890 Hormone replacement therapy; Z79.891 Long term (current) use of opiate analgesic; Z79.899 Other long term (current) drug therapy; Z88.5 Allergy status to narcotic agent
CPT/HCPCS: 88108; 88305; 89050; 87252; 87070; 87205; 87116; 87102; 87206; 31624; J2001 ×2; J2250; J2704; 87496; 87498; 87502; 87529; 87634; 87798

== ENCOUNTER 2021-11-11 08:36 | Inpatient (IN) | payer BC ==
[2021-11-11] MEDS ORDERED: SODIUM CHLORIDE 0.9% 1,000 ML IV STA (08:40)
[2021-11-11] MEDS ORDERED: methylPREDNISolone SOD SUCCI 125 MG/2 ML VIAL IV STA (08:40)
[2021-11-11] MEDS ORDERED: SODIUM CHLORIDE 0.9% 500 ML 500 ML IV STA (08:40)
--- NOTE | 2021-11-11 08:47 | ED ---
SOB HPI - General Stated Complaint: EMELIA Time Seen by Provider: 11/11/21 08:36 Source: patient, EMS, RN notes reviewed, old records reviewed Mode of arrival: EMS - History of Present Illness Initial Comments: 60-year-old female with a history of COPD CHF heart valve replacement who states she is quit smoking about one half months ago who presents by EMS with complaints of shortness of breath which started yesterday she also complains of chest heaviness as severe as 8/10 severity no fevers chills sweats a dry cough. She took 4 of her own treatments at home without relief brought in by EMS she did improve after treatment up to 97% but then quickly desaturated down to 90- 93% she is not on home oxygen. She does complain of some sweats with all this. No other modifying factors MD Complaint: shortness of breath - Related Data Home Medications Medication Instructions Recorded Confirmed buPROPion HCL [Wellbutrin XL] 300 mg PO QAM 04/10/14 11/11/21 Levothyroxine Sodium [Synthroid] 100 mcg PO DAILY 07/13/18 11/11/21 lamoTRIgine 200 mg PO BID 07/13/18 11/11/21 oxyCODONE-APAP 10-325MG [Percocet 1 tab PO Q6H PRN 01/02/21 11/11/21 10-325 mg] Albuterol Inhaler [Ventolin Hfa 1 - 2 puff INHALATION RT-QID PRN 11/11/21 11/11/21 Inhaler] Albuterol Nebulized [Ventolin 2.5 mg INHALATION RT-QID PRN 11/11/21 11/11/21 Nebulized] Ipratropium-Albuterol Nebulize 3 ml INHALATION RT-QID 11/11/21 11/11/21 [Duoneb 0.5 mg-3 mg/3 ml Soln] Nitroglycerin Sl Tabs [Nitrostat] 0.4 mg SUBLINGUAL Q5M PRN 11/11/21 11/11/21 Previous Rx's Medication Instructions Recorded Aspirin 81 mg PO DAILY #30 chew 07/14/18 Atorvastatin [Lipitor] 40 mg PO DAILY 30 Days #30 tab 10/12/21 Furosemide [Lasix] 40 mg PO DAILY 30 Days #30 tab 10/12/21 Metoprolol Tartrate [Lopressor] 12.5 mg PO BID 30 Days #60 tab 10/12/21 Nicotine 21Mg/24Hr Patch [Habitrol] 1 patch TRANSDERM DAILY #20 patch 10/12/21 Potassium Chloride ER [K-Dur 10] 10 meq PO DAILY #30 tab 10/12/21 QUEtiapine FUMARATE [SEROquel] 150 mg PO HS #15 tab 10/12/21 Allergies Allergy/AdvReac Type Severity Reaction Status Date / Time NSAIDS (Non-Steroidal Allergy Rash/Hives, Verified 11/11/21 10:24 Anti-Inflamma N/V codeine AdvReac nausea and Verified 11/11/21 10:24 "shakes" Review of Systems ROS Statement: Those systems with pertinent positive or pertinent negative responses have been documented in the HPI. ROS Other: All systems not noted in ROS Statement are negative. Past Medical History Past Medical History: COPD Additional Past Medical History / Comment(s): HX MIGRAINES., CHRONIC BACK PAIN, DDD, SPINAL STENOSIS., STATES PAIN RADIATES TO LEFT HIP AND DOWN BOTH LEGS., MILD COPD-NO RX, DENIES DIABETES-STATES BORDERLINE IN THE PAST., KIDNEY DISEASE STAGE 3, USES ROLLING WALKER. Last Myocardial Infarction Date:: 2007 History of Any Multi-Drug Resistant Organisms: Other MDRO Past Surgical History: Back Surgery, Cardiac Valve Replacement, Cholecystectomy, Heart Catheterization With Stent, Tubal Ligation Additional Past Surgical History / Comment(s): aortic valve replacement, 4 lower back surgeries, left carotid endarterectomy, disk replaced in neck, total 4 cardiac stents Past Anesthesia/Blood Transfusion Reactions: Postoperative Nausea & Vomiting (PONV) Date of Last Stent Placement:: 01/2015 Past Psychological History: Anxiety, Bipolar, Depression Smoking Status: Current every day smoker - Past Family History Mother Family Medical History: Deep Vein Thrombosis (DVT) Additional Family Medical History / Comment(s): Blood clots in legs Father Family Medical History: Coronary Artery Disease (CAD) Additional Family Medical History / Comment(s): heart valve replacement, General Exam - General Exam Comments Initial Comments: This is a well-developed well-thin appearing awake alert oriented 3 female General appearance: alert, anxious, in distress Head exam: Present: atraumatic, normocephalic, normal inspection Eye exam: Present: normal appearance, PERRL, EOMI. Absent: scleral icterus, conjunctival injection, periorbital swelling ENT exam: Present: mucous membranes dry Neck exam: Present: normal inspection, full ROM, other. Absent: tenderness, meningismus, lymphadenopathy Respiratory exam: Present: accessory muscle use, decreased breath sounds (No stridor or bruits). Absent: respiratory distress, wheezes, rales, rhonchi, stridor, chest wall tenderness Cardiovascular Exam: Present: regular rate, normal rhythm, normal heart sounds. Absent: systolic murmur, diastolic murmur, rubs, gallop, clicks GI/Abdominal exam: Present: soft, normal bowel sounds. Absent: distended, tenderness, guarding, rebound, rigid Extremities exam: Present: normal inspection, full ROM, normal capillary refill. Absent: tenderness, pedal edema, joint swelling, calf tenderness Back exam: Present: normal inspection Neurological exam: Present: alert, oriented X3, CN II-XII intact Psychiatric exam: Present: normal affect, normal mood Skin exam: Present: warm, dry, intact, normal color. Absent: rash Course Vital Signs 11/11/21 11/11/21 11/11/21 08:37 09:33 10:27 Temperature 97.8 F Pulse Rate 108 H 114 H Respiratory 16 22 22 Rate Blood Pressure 149/109 O2 Sat by Pulse 85 L Oximetry 11/11/21 11/11/21 11/11/21 10:32 10:36 12:02 Temperature Pulse Rate 113 H 114 H 114 H Respiratory 26 H 22 24 Rate Blood Pressure 179/126 143/103 O2 Sat by Pulse 87 L 94 L Oximetry - Reevaluation(s) Reevaluation #1: 11/11/21 13:40 Patient was reevaluated multiple occasions she was placed on BiPAP some sedation and IV steroids IV magnesium. Medical Decision Making - Medical Decision Making I did discuss the case with Dr. May who did come the emergency department see the patient this time we will continue to see the patient is on BiPAP. She's had a contact family members states patient is at this time a full code - Lab Data Result diagrams: 11/11/21 09:03 11/11/21 09:03 Lab Results 11/11/21 11/11/21 11/11/21 Range/Units 09:03 09:03 09:03 WBC 9.8 (3.8-10.6) k/uL RBC 3.36 L (3.80-5.40) m/uL Hgb 10.8 L (11.4-16.0) gm/dL Hct 34.2 (34.0-46.0) % MCV 101.9 H (80.0-100.0) fL MCH 32.2 (25.0-35.0) pg MCHC 31.6 (31.0-37.0) g/dL RDW 13.0 (11.5-15.5) % Plt Count 195 (150-450) k/uL MPV 8.2 Neutrophils % 83 % Lymphocytes % 9 % Monocytes % 5 % Eosinophils % 2 % Basophils % 1 % Neutrophils # 8.1 H (1.3-7.7) k/uL Lymphocytes # 0.8 L (1.0-4.8) k/uL Monocytes # 0.5 (0-1.0) k/uL Eosinophils # 0.2 (0-0.7) k/uL Basophils # 0.1 (0-0.2) k/uL Macrocytosis Slight PT 9.5 (9.0-12.0) sec INR 0.8 (<1.2) APTT 21.3 L (22.0-30.0) sec D-Dimer 4.50 H (<0.60) mg/L FEU Sodium 135 L (137-145) mmol/L Potassium 4.0 (3.5-5.1) mmol/L Chloride 104 (98-107) mmol/L Carbon Dioxide 26 (22-30) mmol/L Anion Gap 5 mmol/L BUN 24 H (7-17) mg/dL Creatinine 0.86 (0.52-1.04) mg/dL Est GFR (CKD-EPI)AfAm 84 (>60 ml/min/1.73 sqM) Est GFR (CKD-EPI)NonAf 73 (>60 ml/min/1.73 sqM) Glucose 230 H (74-99) mg/dL Plasma Lactic Acid Leandro (0.7-2.0) mmol/L Calcium 8.6 (8.4-10.2) mg/dL Magnesium 1.6 (1.6-2.3) mg/dL Total Bilirubin 0.6 (0.2-1.3) mg/dL AST 90 H (14-36) U/L ALT 37 H (4-34) U/L Alkaline Phosphatase 407 H (38-126) U/L Troponin I (0.000-0.034) ng/mL NT-Pro-B Natriuret Pep pg/mL Total Protein 7.1 (6.3-8.2) g/dL Albumin 3.2 L (3.5-5.0) g/dL Influenza Type A (PCR) (Not Detectd) Influenza Type B (PCR) (Not Detectd) RSV (PCR) (Not Detectd) SARS-CoV-2 (PCR) (Not Detectd) 11/11/21 11/11/21 11/11/21 Range/Units 09:03 09:03 09:03 WBC (3.8-10.6) k/uL RBC (3.80-5.40) m/uL Hgb (11.4-16.0) gm/dL Hct (34.0-46.0) % MCV (80.0-100.0) fL MCH (25.0-35.0) pg MCHC (31.0-37.0) g/dL RDW (11.5-15.5) % Plt Count (150-450) k/uL MPV Neutrophils % % Lymphocytes % % Monocytes % % Eosinophils % % Basophils % % Neutrophils # (1.3-7.7) k/uL Lymphocytes # (1.0-4.8) k/uL Monocytes # (0-1.0) k/uL Eosinophils # (0-0.7) k/uL Basophils # (0-0.2) k/uL Macrocytosis PT (9.0-12.0) sec INR (<1.2) APTT (22.0-30.0) sec D-Dimer (<0.60) mg/L FEU Sodium (137-145) mmol/L Potassium (3.5-5.1) mmol/L Chloride (98-107) mmol/L Carbon Dioxide (22-30) mmol/L Anion Gap mmol/L BUN (7-17) mg/dL Creatinine (0.52-1.04) mg/dL Est GFR (CKD-EPI)AfAm (>60 ml/min/1.73 sqM) Est GFR (CKD-EPI)NonAf (>60 ml/min/1.73 sqM) Glucose (74-99) mg/dL Plasma Lactic Acid Leandro 1.7 (0.7-2.0) mmol/L Calcium (8.4-10.2) mg/dL Magnesium (1.6-2.3) mg/dL Total Bilirubin (0.2-1.3) mg/dL AST (14-36) U/L ALT (4-34) U/L Alkaline Phosphatase (38-126) U/L Troponin I 0.149 H* (0.000-0.034) ng/mL NT-Pro-B Natriuret Pep 52806 pg/mL Total Protein (6.3-8.2) g/dL Albumin (3.5-5.0) g/dL Influenza Type A (PCR) (Not Detectd) Influenza Type B (PCR) (Not Detectd) RSV (PCR) (Not Detectd) SARS-CoV-2 (PCR) (Not Detectd) 11/11/21 Range/Units 09:03 WBC (3.8-10.6) k/uL RBC (3.80-5.40) m/uL Hgb (11.4-16.0) gm/dL Hct (34.0-46.0) % MCV (80.0-100.0) fL MCH (25.0-35.0) pg MCHC (31.0-37.0) g/dL RDW (11.5-15.5) % Plt Count (150-450) k/uL MPV Neutrophils % % Lymphocytes % % Monocytes % % Eosinophils % % Basophils % % Neutrophils # (1.3-7.7) k/uL Lymphocytes # (1.0-4.8) k/uL Monocytes # (0-1.0) k/uL Eosinophils # (0-0.7) k/uL Basophils # (0-0.2) k/uL Macrocytosis PT (9.0-12.0) sec INR (<1.2) APTT (22.0-30.0) sec D-Dimer (<0.60) mg/L FEU Sodium (137-145) mmol/L Potassium (3.5-5.1) mmol/L Chloride (98-107) mmol/L Carbon Dioxide (22-30) mmol/L Anion Gap mmol/L BUN (7-17) mg/dL Creatinine (0.52-1.04) mg/dL Est GFR (CKD-EPI)AfAm (>60 ml/min/1.73 sqM) Est GFR (CKD-EPI)NonAf (>60 ml/min/1.73 sqM) Glucose (74-99) mg/dL Plasma Lactic Acid Leandro (0.7-2.0) mmol/L Calcium (8.4-10.2) mg/dL Magnesium (1.6-2.3) mg/dL Total Bilirubin (0.2-1.3) mg/dL AST (14-36) U/L ALT (4-34) U/L Alkaline Phosphatase (38-126) U/L Troponin I (0.000-0.034) ng/mL NT-Pro-B Natriuret Pep pg/mL Total Protein (6.3-8.2) g/dL Albumin (3.5-5.0) g/dL Influenza Type A (PCR) Not Detected (Not Detectd) Influenza Type B (PCR) Not Detected (Not Detectd) RSV (PCR) Not Detected (Not Detectd) SARS-CoV-2 (PCR) Not Detected (Not Detectd) - EKG Data -: EKG Interpreted by Ut EKG shows normal: sinus rhythm EKG Comments: Sinus rhythm rate 99. Interval 132 QRS 144 QT since QTC 47/463 left atrial enlargement indeterminate axis right bundle-branch block pattern. This is compared with one dated 07/14/18 - Radiology Data Radiology results: report reviewed (Imaging reviewed evidence of left pleural effusion no definitive PE seen evidence of some pulmonary vascular congestion), image reviewed Critical Care Time Critical Care Time: Yes Total Critical Care Time: 47 Critical Care Time: Critical care time includes initial presentation with history physical labs x- rays multiple reevaluation patient responsive therapy review of old charts available discussed with the beta physician admission orders. Admission orders documentation the above Disposition Clinical Impression: Acute respiratory distress syndrome in adult, Pleural effusion, Diastolic congestive heart failure, COPD (chronic obstructive pulmonary disease) Disposition: ADMITTED IP TO THIS [facility] Condition: Serious Referrals: Lizy Soliman DO [Primary Care Provider] - 1-2 days
[2021-11-11] MEDS ORDERED: LORazepam 2 MG/ML INJ IV STA ×2 (09:13→10:20)
[2021-11-11 09:23] LABS: Basophils # (A) 0.1 k/uL (0-0.2); Basophils % (A) 1 %; Eosinophils # (A) 0.2 k/uL (0-0.7); Eosinophils % (A) 2 %; HCT 34.2 % (34.0-46.0); HGB 10.8 gm/dL (11.4-16.0); Lymphocytes # (A) 0.8 k/uL (1.0-4.8); Lymphocytes % (A) 9 %; MCH 32.2 pg (25.0-35.0); MCHC 31.6 g/dL (31.0-37.0); MCV 101.9 fL (80.0-100.0); Macrocytosis Slight; Mean Platelet Volume 8.2; Monocytes # (A) 0.5 k/uL (0-1.0); Monocytes % (A) 5 %; Neutrophils # (A) 8.1 k/uL (1.3-7.7); Neutrophils % (A) 83 %; Platelet Count 195 k/uL (150-450); RBC 3.36 m/uL (3.80-5.40); WBC 9.8 k/uL (3.8-10.6)
[2021-11-11 09:39] LABS: Albumin 3.2 g/dL (3.5-5.0); Calcium 8.6 mg/dL (8.4-10.2); Magnesium 1.6 mg/dL (1.6-2.3); Total Bilirubin 0.6 mg/dL (0.2-1.3); Total Protein 7.1 g/dL (6.3-8.2)
[2021-11-11 10:00] LABS: INR 0.8 (<1.2); Prothrombin Time 9.5 sec (9.0-12.0)
[2021-11-11 10:02] LABS: Influenza A Not Detected (Not Detectd); Influenza B Not Detected (Not Detectd)
[2021-11-11] MEDS ORDERED: IPRATROPIUM-ALBUTEROL 3 ML NEB INHALATION STA (10:11)
[2021-11-11 10:15] LABS: Partial Thromboplastin Time 21.3 sec (22.0-30.0)
--- NOTE | 2021-11-11 10:22 | XR ---
EXAMINATION TYPE: XR chest 2V DATE OF EXAM: 11/11/2021 COMPARISON: 10/10/2021 HISTORY: 60 year-old female shortness of breath, difficulty breathing TECHNIQUE: AP and lateral views FINDINGS: ACDF hardware. Median sternotomy wires prosthetic aortic valve. Heart upper limits of normal in size. Diffuse interstitial passages. There is a [id number] left effusion which persists when left b asilar opacity. No appreciable pneumothorax. IMPRESSION: 1. Borderline heart size and increased diffuse interstitial changes. Correlate for developing interst itial pulmonary edema. 2. Continued small to moderate left effusion with adjacent atelectasis and/or consolidation.
[2021-11-11] MEDS ORDERED: FUROSEMIDE 10 MG/ML 4 ML VIAL IV STA ×2 (10:53→15:29)
[2021-11-11] MEDS: MAGNESIUM SULFATE-D5W PMX 1 GM in DEXTROSE/WATER 1 100ML.BAG IVPB SCH ×2 (11:16→12:45)
--- NOTE | 2021-11-11 12:17 | CT ---
EXAMINATION TYPE: CT angio chest DATE OF EXAM: 11/11/2021 COMPARISON: Radiograph same day HISTORY: 60-year-old female shortness of breath, PE suspected, ELEVATED D DIMER TECHNIQUE: Contiguous axial scanning of the chest performed with IV Contrast, patient injected with 8 0 mL of Isovue 370. Coronal/sagittal MIP reconstructions performed. CT DLP: 302.5 mGycm Automated exposure control for dose reduction was used. FINDINGS: Median sternotomy wires with prosthetic aortic valve. Areas of bony bridging are present inferiorly. Chronic nonunion along the sternotomy at the level of the manubrium. Severe generalized anasarca change. Heart borderline enlarged. No flattening of the interventricular septum. Minimal reflux of contrast i nto the left hepatic vein. Ascending aorta is ectatic at 3.9 cm versus 3.8 cm, previously. Bovine configuration to the aortic ar ch. There is mediastinal edema and suspected underlying mediastinal lymph nodes measuring up to 1.2 cm AP window, 1.0 cm lower right paratracheal, probably up to 1.5 cm lower left paratracheal. 1.8 cm right hilum. Mildly enlarged caliber to the main right and left pulmonary arteries at 2.6 and 2.7 cm, respectively , suggesting underlying pulmonary arterial hypertension. There is breathing motion which degrades assessment for pulmonary embolus. No large central or lobar branch pulmonary embolus. No definite embolus in the upper lungs. Segmental and more distal arterial branches of the lower lungs are nondiagnostic and emboli in these locations would be difficult to exc lude on the basis of this exam. There is significant dynamic narrowing of the mid to lower trachea and mainstem bronchi. Moderate left and [id number] right pleural effusions. There are diffuse septal lines and patch y bilateral groundglass opacities. Prominent atelectasis involving some of the segments of the basilar left lower lobe. Lesser degree of adjacent atelectasis of the right base. Visualized upper abdomen is limited. Unable to exclude gastrohepatic ligament and tammi hepatic lymph adenopathy, reference axial image 165. Bones: Degenerative grade 1 anterolisthesis C7-T1 with ACDF at C6-C7. Additional grade 1 anterolisthe sis T1-T2 and T2-T3. Partially visualized posterior lumbar fusion hardware. IMPRESSION: 1. BREATHING MOTION ARTIFACT. NO LARGE CENTRAL OR LOBAR BRANCH PULMONARY EMBOLUS. NO DEFINITE PULMONA RY EMBOLUS IN THE UPPER OR MID LUNGS. SEGMENTAL AND MORE DISTAL ARTERIAL BRANCHES OF THE LOWER LUNGS ARE NONDIAGNOSTIC AND EMBOLI IN THESE LOCATIONS CANNOT BE EXCLUDED ON THE BASIS OF THIS EXAM. 2. MODERATE LEFT AND [id number] RIGHT PLEURAL EFFUSIONS WITH ADJACENT ATELECTASIS, LEFT GREATE R THAN RIGHT. 3. MARKED GENERALIZED ANASARCA, PULMONARY ARTERIAL HYPERTENSION, DIFFUSE SEPTAL LINES, AND PATCHY YAMINI UNDGLASS OPACITIES. CORRELATE FOR CHF AND DEVELOPING PULMONARY EDEMA. 4. SUGGESTION OF UNDERLYING MEDIASTINAL/HILAR AND UPPER ABDOMINAL LYMPHADENOPATHY MEASURING UP TO 1.8 CM WHICH MAY BE REACTIVE. THREE-MONTH FOLLOW-UP CT TO ENSURE STABILITY/RESOLUTION.
[2021-11-11] MEDS ORDERED: NITROGLYCERIN OINT 1 INCH/GM PACKET TOPICAL STA (12:23)
[2021-11-11] MEDS ORDERED: diphenhydrAMINE 50 MG/ML 1 ML VIAL IVP STA (12:24)
[2021-11-11] MEDS ORDERED: HEPARIN SODIUM 1,000 UN/ML (10ML VL) IV ONE (12:26)
[2021-11-11] MEDS: HEPARIN SOD,PORK IN 0.45% NACL 25,000 UNIT in 0.45% NACL 1 250ML.BAG IV SCH ×2 (12:48→16:18)
--- NOTE | 2021-11-11 13:43 | ED ---
Medical Decision Making - Lab Data Result diagrams: 11/11/21 09:03 11/11/21 09:03 Lab Results 11/11/21 11/11/21 11/11/21 Range/Units 09:03 09:03 09:03 WBC 9.8 (3.8-10.6) k/uL RBC 3.36 L (3.80-5.40) m/uL Hgb 10.8 L (11.4-16.0) gm/dL Hct 34.2 (34.0-46.0) % MCV 101.9 H (80.0-100.0) fL MCH 32.2 (25.0-35.0) pg MCHC 31.6 (31.0-37.0) g/dL RDW 13.0 (11.5-15.5) % Plt Count 195 (150-450) k/uL MPV 8.2 Neutrophils % 83 % Lymphocytes % 9 % Monocytes % 5 % Eosinophils % 2 % Basophils % 1 % Neutrophils # 8.1 H (1.3-7.7) k/uL Lymphocytes # 0.8 L (1.0-4.8) k/uL Monocytes # 0.5 (0-1.0) k/uL Eosinophils # 0.2 (0-0.7) k/uL Basophils # 0.1 (0-0.2) k/uL Macrocytosis Slight PT 9.5 (9.0-12.0) sec INR 0.8 (<1.2) APTT 21.3 L (22.0-30.0) sec D-Dimer 4.50 H (<0.60) mg/L FEU Sodium 135 L (137-145) mmol/L Potassium 4.0 (3.5-5.1) mmol/L Chloride 104 (98-107) mmol/L Carbon Dioxide 26 (22-30) mmol/L Anion Gap 5 mmol/L BUN 24 H (7-17) mg/dL Creatinine 0.86 (0.52-1.04) mg/dL Est GFR (CKD-EPI)AfAm 84 (>60 ml/min/1.73 sqM) Est GFR (CKD-EPI)NonAf 73 (>60 ml/min/1.73 sqM) Glucose 230 H (74-99) mg/dL Plasma Lactic Acid Leandro (0.7-2.0) mmol/L Calcium 8.6 (8.4-10.2) mg/dL Magnesium 1.6 (1.6-2.3) mg/dL Total Bilirubin 0.6 (0.2-1.3) mg/dL AST 90 H (14-36) U/L ALT 37 H (4-34) U/L Alkaline Phosphatase 407 H (38-126) U/L Troponin I (0.000-0.034) ng/mL NT-Pro-B Natriuret Pep pg/mL Total Protein 7.1 (6.3-8.2) g/dL Albumin 3.2 L (3.5-5.0) g/dL Influenza Type A (PCR) (Not Detectd) Influenza Type B (PCR) (Not Detectd) RSV (PCR) (Not Detectd) SARS-CoV-2 (PCR) (Not Detectd) 11/11/21 11/11/21 11/11/21 Range/Units 09:03 09:03 09:03 WBC (3.8-10.6) k/uL RBC (3.80-5.40) m/uL Hgb (11.4-16.0) gm/dL Hct (34.0-46.0) % MCV (80.0-100.0) fL MCH (25.0-35.0) pg MCHC (31.0-37.0) g/dL RDW (11.5-15.5) % Plt Count (150-450) k/uL MPV Neutrophils % % Lymphocytes % % Monocytes % % Eosinophils % % Basophils % % Neutrophils # (1.3-7.7) k/uL Lymphocytes # (1.0-4.8) k/uL Monocytes # (0-1.0) k/uL Eosinophils # (0-0.7) k/uL Basophils # (0-0.2) k/uL Macrocytosis PT (9.0-12.0) sec INR (<1.2) APTT (22.0-30.0) sec D-Dimer (<0.60) mg/L FEU Sodium (137-145) mmol/L Potassium (3.5-5.1) mmol/L Chloride (98-107) mmol/L Carbon Dioxide (22-30) mmol/L Anion Gap mmol/L BUN (7-17) mg/dL Creatinine (0.52-1.04) mg/dL Est GFR (CKD-EPI)AfAm (>60 ml/min/1.73 sqM) Est GFR (CKD-EPI)NonAf (>60 ml/min/1.73 sqM) Glucose (74-99) mg/dL Plasma Lactic Acid Leandro 1.7 (0.7-2.0) mmol/L Calcium (8.4-10.2) mg/dL Magnesium (1.6-2.3) mg/dL Total Bilirubin (0.2-1.3) mg/dL AST (14-36) U/L ALT (4-34) U/L Alkaline Phosphatase (38-126) U/L Troponin I 0.149 H* (0.000-0.034) ng/mL NT-Pro-B Natriuret Pep 04752 pg/mL Total Protein (6.3-8.2) g/dL Albumin (3.5-5.0) g/dL Influenza Type A (PCR) (Not Detectd) Influenza Type B (PCR) (Not Detectd) RSV (PCR) (Not Detectd) SARS-CoV-2 (PCR) (Not Detectd) 11/11/21 Range/Units 09:03 WBC (3.8-10.6) k/uL RBC (3.80-5.40) m/uL Hgb (11.4-16.0) gm/dL Hct (34.0-46.0) % MCV (80.0-100.0) fL MCH (25.0-35.0) pg MCHC (31.0-37.0) g/dL RDW (11.5-15.5) % Plt Count (150-450) k/uL MPV Neutrophils % % Lymphocytes % % Monocytes % % Eosinophils % % Basophils % % Neutrophils # (1.3-7.7) k/uL Lymphocytes # (1.0-4.8) k/uL Monocytes # (0-1.0) k/uL Eosinophils # (0-0.7) k/uL Basophils # (0-0.2) k/uL Macrocytosis PT (9.0-12.0) sec INR (<1.2) APTT (22.0-30.0) sec D-Dimer (<0.60) mg/L FEU Sodium (137-145) mmol/L Potassium (3.5-5.1) mmol/L Chloride (98-107) mmol/L Carbon Dioxide (22-30) mmol/L Anion Gap mmol/L BUN (7-17) mg/dL Creatinine (0.52-1.04) mg/dL Est GFR (CKD-EPI)AfAm (>60 ml/min/1.73 sqM) Est GFR (CKD-EPI)NonAf (>60 ml/min/1.73 sqM) Glucose (74-99) mg/dL Plasma Lactic Acid Leandro (0.7-2.0) mmol/L Calcium (8.4-10.2) mg/dL Magnesium (1.6-2.3) mg/dL Total Bilirubin (0.2-1.3) mg/dL AST (14-36) U/L ALT (4-34) U/L Alkaline Phosphatase (38-126) U/L Troponin I (0.000-0.034) ng/mL NT-Pro-B Natriuret Pep pg/mL Total Protein (6.3-8.2) g/dL Albumin (3.5-5.0) g/dL Influenza Type A (PCR) Not Detected (Not Detectd) Influenza Type B (PCR) Not Detected (Not Detectd) RSV (PCR) Not Detected (Not Detectd) SARS-CoV-2 (PCR) Not Detected (Not Detectd) Disposition Clinical Impression: Acute respiratory distress syndrome in adult, Pleural effusion, Diastolic congestive heart failure, COPD (chronic obstructive pulmonary disease), NSTEMI (non-ST elevated myocardial infarction), Elevated d-dimer Disposition: ADMITTED IP TO THIS HOSP Condition: Serious Referrals: Lizy Soliman DO [Primary Care Provider] - 1-2 days
[2021-11-11] MEDS ORDERED: SODIUM CHLORIDE 0.9% 1,000 ML IV SCH (13:45)
[2021-11-11] MEDS ORDERED: oxyCODONE-APAP 10-325MG 1 EACH TAB PO PRN (14:17)
[2021-11-11] MEDS ORDERED: ALBUTEROL HFA INHALER INHALATION PRN (14:17)
[2021-11-11] MEDS ORDERED: ALBUTEROL NEBULIZED 2.5 MG/3 ML INHALATION PRN (14:17)
[2021-11-11] MEDS ORDERED: propofoL 100 ML IV ONE (14:52)
--- NOTE | 2021-11-11 14:54 | XR ---
EXAMINATION TYPE: XR chest 1V confirm line plcmt, XR chest 1V DATE OF EXAM: 11/11/2021 COMPARISON: Chest x-ray 11/11/2021 and earlier time HISTORY: Postintubation TECHNIQUE: frontal view of the chest is obtained on 2 images. FINDINGS: There has been interval placement of an endotracheal tube, distal tip is in the right main stem bronchus, NG tube is present coursing into the stomach. There is blunting of the right costophre solange angle, diffuse airspace disease on the right, there is obscured left hemidiaphragm, blunting left costophrenic angle as on prior. No evident pneumothorax. Cardiac mediastinal silhouette is likely st able, patient is post aortic valve replacement. Airspace disease may develop somewhat in the interval in the right lung where there may be atelectatic change. Patient is post median sternotomy. Intersti tium is increased. Postop change noted to the cervical thoracic spine level. Postop changes also note d to the lumbar spine. IMPRESSION: Selective intubation right mainstem bronchus, consider interstitial edema Immediate follow-up chest x-ray was performed Frontal view of the chest on 2 images There has been repositioning of the endotracheal tube which is overlying the tracheal air column. Que stion some increased perihilar airspace disease. No other significant interval change. IMPRESSION: Correlate for possible congestive heart failure, pulmonary edema
[2021-11-11 14:56] LABS: Glucose,Whole Blood 359 mg/dL (75-99)
--- NOTE | 2021-11-11 15:22 | XR ---
EXAMINATION TYPE: XR chest 1V portable DATE OF EXAM: 11/11/2021 Comparison: Correlation CT Chest earlier today Clinical History: 60-year-old female ET tube placement Findings: ET tube tip at the medial clavicular heads. NG tube courses below the diaphragm. ACDF hardware. Media n sternotomy wires. Prosthetic aortic valve. Heart borderline in size. Hyperinflation. Right-sided co nsolidation throughout the lung. Interstitial changes throughout the left lung with dense retrocardia c and left basilar opacity. Known underlying moderate effusions better seen on CT. Lumbar fusion hard kwon partially visualized. Impression: 1. Note the dynamic tracheal and mainstem bronchus narrowing seen on CT. Findings can be seen with tr acheobronchomalacia. 2. Overall stable exam with asymmetric pulmonary edema. Moderate effusions with adjacent atelectasis and/or consolidation, greater on the left and better demonstrated on CT.
[2021-11-11] MEDS ORDERED: CISATRACURIUM 2 MG/ML 5 ML VIAL IV ONE ×2 (15:25→15:29)
[2021-11-11 16:00] LABS: ABG Base Excess -0.9 mmol/L; ABG HCO3 27 mmol/L (21-25); ABG Oxygen Saturation 88.6 % (94-97); ABG PO2 73 mmHg (83-108); ABG TCO2 30 mmol/L (19-24)
[2021-11-11 16:02] LABS: ABG PCO2 72 mmHg (35-45); ABG PH 7.19 (7.35-7.45); Allen Test Performed? no
--- NOTE | 2021-11-11 16:08 | P.CNPUL ---
History of Present Illness Consult date: 11/11/21 Requesting physician: Aubree Ferrara Reason for consult: dyspnea History of present illness: This is a 60-year-old white female patient with known extensive cardiac history including severe aortic stenosis with previous history of aortic valve replacement and evidence of restenosis of the bioprosthetic aortic valve, ch ronic CHF with systolic dysfunction although her most recent echocardiogram showed improved left ventricular systolic function with an EF of 55-60%. Other medical history includes hypertension, diabetes with this type II, poorly controlled, coronary artery disease with previous stent placement, hyp othyroidism, ongoing nicotine dependence, anxiety, depression, chronic back pain. Patient was recently hospitalized for acute exacerbation of CHF, bilateral pleural effusions status post thoracentesis of the left lung, pleural fluid was not sent for analysis, although was suspected to be transudate. She was discharged on 10/13/2021 in stable but guarded condition in view of her multiple comorbidities. 11/11/2021 patient was brought in by EMS to the emergency department for evaluation of worsening shortness of breath since yesterday, chest heaviness as severe as 8 out of 10. There were no reported fever, chills, no sweats. Patient apparently did endorse a dry cough. Patient took 4 breathing treatments at home without significant relief. She was brought to the ER, she was noted to be desaturating, and was noted to be diaphoretic. Her chest x-ray showed developing interstitial pulmonary edema, small to moderate left pleural effusion with adjacent atelectasis and/or consolidation. CTA chest showed no evidence of a large central or lobar branch pulmonary embolus, no definite pulmonary embolus in the upper or mid lungs. Segmental and more distal branches of the lower lungs were nondiagnostic. There was moderate left and small to moderate right pleural effusion with adjacent atelectasis. There was marked generalized anasarca, pulmonary arterial hypertension, patchy groundglass opacities correlate for CHF and developing pulmonary edema. There was a suggestion of underlying mediastinal hilar and upper abdominal lymphadenopathy, with a 3 months follow-up CT recommendation. Admission blood work showed white blood cell count 9.8, hemoglobin was 10.8, d-dimer is 4.5, cory ctrolytes and renal profile were unremarkable on admission, proBNP was 30,100, troponin was 0.149, AST was 90, ALT was 37, alk phos was 407, COVID-19 PCR was negative, RSV and influenza screens were also negative. Patient was placed on BiPAP support, she was started on IV Lasix, nebulized bronchodilators, and she was awaiting a bed on monitored bed on 3 S. a short while later she suffered a cardiac arrest, with a bradycardia and PEA, she was emergently intubated, ACLS was administered with CPR, no defibrillation shocks were administered please refer to the code sheet, ROSC was achieved after 15 minutes, patient was admitted to the intensive care unit. Review of Systems ROS unobtainable: due to mental status All systems: negative Constitutional: Denies chills, Denies fever Eyes: denies blurred vision, denies pain Ears, nose, mouth and throat: Denies headache, Denies sore throat Cardiovascular: Denies chest pain, Denies shortness of breath Respiratory: Reports dyspnea, Denies cough Gastrointestinal: Denies abdominal pain, Denies diarrhea, Denies nausea, Denies vomiting Genitourinary: Denies dysuria, Denies hematuria Musculoskeletal: Denies myalgias Integumentary: Denies pruritus, Denies rash Neurological: Denies numbness, Denies weakness Psychiatric: Denies anxiety, Denies depression Endocrine: Denies fatigue, Denies weight change Past Medical History Past Medical History: COPD Additional Past Medical History / Comment(s): HX MIGRAINES., CHRONIC BACK PAIN, DDD, SPINAL STENOSIS., STATES PAIN RADIATES TO LEFT HIP AND DOWN BOTH LEGS., MILD COPD-NO RX, DENIES DIABETES-STATES BORDERLINE IN THE PAST., KIDNEY DISEASE STAGE 3, USES ROLLING WALKER. Last Myocardial Infarction Date:: 2007 History of Any Multi-Drug Resistant Organisms: Other MDRO Past Surgical History: Back Surgery, Cardiac Valve Replacement, Cholecystectomy, Heart Catheterization With Stent, Tubal Ligation Additional Past Surgical History / Comment(s): aortic valve replacement, 4 lower back surgeries, left carotid endarterectomy, disk replaced in neck, total 4 cardiac stents Past Anesthesia/Blood Transfusion Reactions: Postoperative Nausea & Vomiting (PONV) Date of Last Stent Placement:: 01/2015 Past Psychological History: Anxiety, Bipolar, Depression Smoking Status: Current every day smoker - Past Family History Mother Family Medical History: Deep Vein Thrombosis (DVT) Additional Family Medical History / Comment(s): Blood clots in legs Father Family Medical History: Coronary Artery Disease (CAD) Additional Family Medical History / Comment(s): heart valve replacement, Medications and Allergies Home Medications Medication Instructions Recorded Confirmed Type buPROPion HCL [Wellbutrin XL] 300 mg PO QAM 04/10/14 11/11/21 History Levothyroxine Sodium [Synthroid] 100 mcg PO DAILY 07/13/18 11/11/21 History lamoTRIgine 200 mg PO BID 07/13/18 11/11/21 History Aspirin 81 mg PO DAILY #30 chew 07/14/18 11/11/21 Rx oxyCODONE-APAP 10-325MG [Percocet 1 tab PO Q6H PRN 01/02/21 11/11/21 History 10-325 mg] Atorvastatin [Lipitor] 40 mg PO DAILY 30 Days #30 tab 10/12/21 11/11/21 Rx Furosemide [Lasix] 40 mg PO DAILY 30 Days #30 tab 10/12/21 11/11/21 Rx Metoprolol Tartrate [Lopressor] 12.5 mg PO BID 30 Days #60 tab 10/12/21 11/11/21 Rx Nicotine 21Mg/24Hr Patch [Habitrol] 1 patch TRANSDERM DAILY #20 patch 10/12/21 11/11/21 Rx Potassium Chloride ER [K-Dur 10] 10 meq PO DAILY #30 tab 10/12/21 11/11/21 Rx QUEtiapine FUMARATE [SEROquel] 150 mg PO HS #15 tab 10/12/21 11/11/21 Rx Albuterol Inhaler [Ventolin Hfa 1 - 2 puff INHALATION RT-QID PRN 11/11/21 11/11/21 History Inhaler] Albuterol Nebulized [Ventolin 2.5 mg INHALATION RT-QID PRN 11/11/21 11/11/21 History Nebulized] Ipratropium-Albuterol Nebulize 3 ml INHALATION RT-QID 11/11/21 11/11/21 History [Duoneb 0.5 mg-3 mg/3 ml Soln] Nitroglycerin Sl Tabs [Nitrostat] 0.4 mg SUBLINGUAL Q5M PRN 11/11/21 11/11/21 History Allergies Allergy/AdvReac Type Severity Reaction Status Date / Time NSAIDS (Non-Steroidal Allergy Rash/Hives, Verified 11/11/21 10:24 Anti-Inflamma N/V codeine AdvReac nausea and Verified 11/11/21 10:24 "shakes" Physical Exam Vitals: Vital Signs Temp Pulse Resp BP Pulse Ox 11/11/21 12:02 114 H 24 143/103 94 L 11/11/21 10:36 114 H 22 11/11/21 10:32 113 H 26 H 179/126 87 L 11/11/21 10:27 114 H 22 11/11/21 09:33 22 11/11/21 08:37 97.8 F 108 H 16 149/109 85 L Intake and Output 11/11/21 11/11/21 11/11/21 06:59 14:59 22:59 Other: Weight 45.359 kg GENERAL EXAM: Intubated, sedated, cachectic 60-year-old white female, on assist control mode of ventilation with FiO2 100% and PEEP of 5 and his extremely dyssynchronous with the ventilator right now, with tugging respirations and accessory muscle use, ventilator adjustments have been made, patient has been paralyzed with 10 mg of Nimbex, and she will be started on Nimbex drip HEAD: Normocephalic/atraumatic. EYES: Normal reaction of pupils, equal size. Conjunctiva pink, sclera white. NOSE: Clear with pink turbinates. THROAT: No erythema or exudates. NECK: No masses, no JVD, no thyroid enlargement, no adenopathy. CHEST: No chest wall deformity. Symmetrical expansion. LUNGS: Equal air entry with diffuse crackles CVS: Regular rate and rhythm, normal S1 and S2, no gallops, no murmurs, no rubs ABDOMEN: Soft, nontender. No hepatosplenomegaly, normal bowel sounds, no guarding or rigidity. EXTREMITIES: No clubbing, no edema, no cyanosis, 2+ pulses and upper and lower extremities. MUSCULOSKELETAL: Muscle strength and tone normal. SPINE: No scoliosis or deformity SKIN: No rashes CENTRAL NERVOUS SYSTEM: Intubated, and sedated No focal deficits, tone is normal in all 4 extremities. Results - Laboratory Findings CBC and BMP: 11/11/21 09:03 11/11/21 09:03 PT/INR, D-dimer PT 9.5 sec (9.0-12.0) 11/11/21 09:03 INR 0.8 (<1.2) 11/11/21 09:03 D-Dimer 4.50 mg/L FEU (<0.60) H 11/11/21 09:03 Abnormal lab findings: Abnormal Labs 11/11/21 11/11/21 11/11/21 09:03 09:03 09:03 RBC 3.36 L Hgb 10.8 L MCV 101.9 H Neutrophils # 8.1 H Lymphocytes # 0.8 L APTT 21.3 L D-Dimer 4.50 H Sodium 135 L BUN 24 H Glucose 230 H POC Glucose (mg/dL) AST 90 H ALT 37 H Alkaline Phosphatase 407 H Troponin I Albumin 3.2 L 11/11/21 11/11/21 09:03 14:54 RBC Hgb MCV Neutrophils # Lymphocytes # APTT D-Dimer Sodium BUN Glucose POC Glucose (mg/dL) 359 H AST ALT Alkaline Phosphatase Troponin I 0.149 H* Albumin - Diagnostic Findings Chest x-ray: report reviewed, image reviewed CT scan - chest: report reviewed, image reviewed Assessment and Plan Plan: Assessment: #1. Acute cardiac arrest, PEA, witnessed, related to acute decompensated CHF with diastolic dysfunction, and acute on chronic hypoxic respiratory failure, with return of spontaneous circulation after 15 minutes of ACLS interventions. Patient was intubated and placed on mechanical ventilator on 11/11/2021. COVID- 19 PCR is negative, proBNP was significantly elevated at 30,001 100 on admission, chest x-ray is consistent with changes of pulmonary edema, bilateral pleural effusions, right greater than left. CTA chest showed no evidence of a large central pulmonary embolism. #2. Recent hospitalization for acute exacerbation of diastolic CHF, discharged home on 10/13/2021 #3. Severe aortic stenosis, with previous history of aortic valve replacement and recent echocardiogram showed restenosis of the bioprosthetic aortic valve. There was a significant peak and mean gradient of 72 and 42 respectively the most recent echocardiogram #4. Abnormal troponin related to acute exacerbation of CHF, expected to rise related to acute cardiac arrest #5. History of CAD with previous PCI stenting #6. Hyperlipidemia #7. Diabetes mellitus type 2 #8. COPD #9. History of nicotine dependence #10. Hypothyroidism #11. Chronic back pain and spinal stenosis #12. Elevated d-dimer, with no CTA evidence of a large central pulmonary embo lism #13. Anxiety/depression #14. Cachexia #15. Chronic stage III kidney disease Plan: Chest x-ray has been reviewed, ET tube has been adjusted and pulled back 4 cm as it was in the right mainstem bronchus initially Ventilator settings have been adjusted, assist-control rate was increased to 26, tidal volume was 300, FiO2 is 100% and PEEP of 5 Patient was adequately sedated and paralyzed, and is now more synchronous with the ventilator Blood gases pending Right IJ triple-lumen central catheter has been placed and left radial arterial line has been placed Continue with 0.9 at KVO, continue with diuretics at 40 mg twice daily Patient continues on heparin infusion Cardiology has been consulted Nebulized bronchodilators with DuoNeb 4 times a day and every 2 hours when necessary Follow-up chest x-ray, follow-up blood gases, CBC, CMP, serial troponins Overall prognosis is guarded Initiate nutritional support We'll continue to follow I performed a history & physical examination of the patient and discussed their management with my nurse practitioner, Jennifer Craft. I reviewed the nurse practitioner's note and agree with the documented findings and plan of care. Lung sounds are positive for dim breath sounds throughout the lung latif. The findings and the impression was discussed with the patient. I attest to the documentation by the nurse practitioner. Time with Patient: Greater than 30
--- NOTE | 2021-11-11 16:10 | XR ---
EXAMINATION TYPE: XR chest 1V portable DATE OF EXAM: 11/11/2021 Comparison: Earlier today Clinical History: 60-year-old female Line placement Findings: ET tube tip at the level of the medial clavicular head. NG tube courses below the diaphragm. ACDF migdalia dware partially visualized. Right CVC tip in the right atrium. Median sternotomy wires and prosthetic aortic valve. Heart size. Hyperinflation. Moderate left effusion and retrocardiac opacity. Consolidation throughout the right lung. Small right effusion. Impression: 1. New right CVC, tip in the right atrium. 2. Otherwise, similar exam with consolidation throughout the right lung with small effusion. Moderate left effusion with retrocardiac airspace disease.
[2021-11-11 17:00] LABS: Basophils # (A) 0.1 k/uL (0-0.2); Basophils % (A) 0 %; Eosinophils % (A) 0 %; HCT 33.4 % (34.0-46.0); HGB 10.1 gm/dL (11.4-16.0); Hypochromasia Marked; Lymphocytes # (A) 0.5 k/uL (1.0-4.8); Lymphocytes % (A) 4 %; MCH 32.4 pg (25.0-35.0); MCHC 30.1 g/dL (31.0-37.0); Macrocytosis Moderate; Mean Platelet Volume 9.5; Monocytes # (A) 0.3 k/uL (0-1.0); Monocytes % (A) 3 %; Neutrophils # (A) 11.9 k/uL (1.3-7.7); Neutrophils % (A) 93 %; Platelet Count 237 k/uL (150-450); RBC 3.11 m/uL (3.80-5.40); RDW 12.6 % (11.5-15.5); WBC 12.8 k/uL (3.8-10.6)
[2021-11-11 17:10] LABS: Albumin 2.7 g/dL (3.5-5.0); Calcium 7.5 mg/dL (8.4-10.2); Magnesium 2.5 mg/dL (1.6-2.3); Potassium 4.5 mmol/L (3.5-5.1); Total Bilirubin 0.6 mg/dL (0.2-1.3); Total Protein 5.8 g/dL (6.3-8.2)
[2021-11-11 17:18] LABS: MCV 107.6 fL (80.0-100.0)
[2021-11-11] MEDS: CISATRACURIUM 200 MG in SODIUM CHLORIDE 0.9% 180 ML IV SCH (17:20)
[2021-11-11] MEDS: IPRATROPIUM-ALBUTEROL 3 ML NEB INHALATION SCH ×2 (18:12→20:18)
[2021-11-11] MEDS: PANTOPRAZOLE 40 MG/10 ML VIAL IVP SCH (18:12)
[2021-11-11 19:48] LABS: Glucose,Whole Blood 288 mg/dL (75-99)
[2021-11-11] MEDS ORDERED: FUROSEMIDE 40 MG TAB PO SCH (20:00)
--- NOTE | 2021-11-11 20:21 | OP ---
OPERATIVE REPORT OPERATIVE REPORT: Placement of left radial arterial line. PREOPERATIVE DIAGNOSIS: Acute hypoxic respiratory failure and cardiac arrest. This line was placed in an emergent situation. PROCEDURE DESCRIPTION: Patient was placed in supine position. Left wrist was prepared in a sterile fashion and drapes were applied. The left radial artery was palpated, cannulated, and a guidewire was placed. A Cook's catheter was inserted over the guidewire, and the guidewire was removed. Good blood flow and good waveform were noted. No complications. Line was secured using 3.0 silk sutures. MMODL / IJN: [id number] /
--- NOTE | 2021-11-11 20:21 | PCN ---
PROCEDURE NOTE OPERATIVE REPORT: Placement of the right internal jugular triple-lumen catheter. PREOPERATIVE DIAGNOSIS: Acute cardiac arrest and hypoxic respiratory failure. POSTOPERATIVE DIAGNOSIS: Acute cardiac arrest and hypoxic respiratory failure. ANESTHESIA USED: 2 mL of 1% lidocaine. PROCEDURE: The patient was placed in the Trendelenburg position, and this line had to be done in an emergent situation. The right cervical region was prepared in a sterile fashion and drapes were applied. An area behind the posterior belly of the sternocleidomastoid was anesthetized using lidocaine. Then, using the posterior approach, the right internal jugular vein was easily cannulated, and a guidewire was placed. The area of the guidewire was dilated, then a triple-lumen catheter was inserted over the guidewire, and the guidewire was removed. Good blood flow noted in the 3 different ports of the triple-lumen catheter. The line was secured using 3.0 silk sutures. The chest x-ray postoperatively showed no complications and adequate placement of the central line. MMODL / IJN: [id number] /
[2021-11-11] MEDS: CHLORHEXIDINE GLUCONATE 15 ML CUP MUCOUS MEM SCH (21:08)
[2021-11-11] MEDS: FUROSEMIDE 10 MG/ML 4 ML VIAL IV SCH (21:08)
[2021-11-11] MEDS: INSULIN ASPART (NovoLOG) 100 UNIT/ML VIAL SQ SCH (21:08)
[2021-11-11] MEDS: METOPROLOL TARTRATE 12.5 MG TAB PO SCH (21:09)
[2021-11-11] MEDS: lamoTRIgine 100 MG TAB PO SCH (21:09)
[2021-11-11 23:13] LABS: INR 0.9 (<1.2)
[2021-11-11] MEDS: QUEtiapine 50 MG TAB PO SCH (23:16)
[2021-11-12 00:06] LABS: Glucose,Whole Blood 153 mg/dL (75-99)
[2021-11-12] MEDS: HEPARIN SODIUM 1,000 UN/ML (10ML VL) IV PRN ×3 (00:08→16:03)
[2021-11-12 05:16] LABS: Basophils % (A) 0 %; Eosinophils % (A) 0 %; HCT 32.1 % (34.0-46.0); HGB 10.3 gm/dL (11.4-16.0); Lymphocytes # (A) 0.9 k/uL (1.0-4.8); Lymphocytes % (A) 4 %; MCH 33.2 pg (25.0-35.0); MCHC 32.1 g/dL (31.0-37.0); MCV 103.3 fL (80.0-100.0); Macrocytosis Slight; Monocytes % (A) 5 %; Neutrophils % (A) 90 %; Platelet Count 277 k/uL (150-450); RBC 3.11 m/uL (3.80-5.40); WBC 21.1 k/uL (3.8-10.6)
[2021-11-12 05:38] LABS: INR 0.9 (<1.2); Prothrombin Time 9.7 sec (9.0-12.0)
[2021-11-12 05:46] LABS: ABG HCO3 28 mmol/L (21-25); ABG Oxygen Saturation 89.9 % (94-97); ABG PCO2 55 mmHg (35-45); ABG PH 7.32 (7.35-7.45); ABG PO2 64 mmHg (83-108); ABG TCO2 30 mmol/L (19-24); Allen Test Performed? Yes
--- NOTE | 2021-11-12 05:47 | XR ---
EXAMINATION TYPE: XR chest 1V portable DATE OF EXAM: 11/12/2021 CLINICAL HISTORY: Difficulty breathing progress study. TECHNIQUE: Single AP portable semiupright view of the chest is obtained. COMPARISON: Chest x-ray from one day earlier and older studies. FINDINGS: Stable endotracheal and orogastric tubes. Stable right internal jugular central venous cat heter. Overlying sternal wires redemonstrated. Metallic aortic valve again seen. Anterior fusion plate lower cervical spine redemonstrated. Partial visualization of surgical change in the lumbar spine. Underly ing scoliotic curvature. Stable small left pleural effusion. Persistent right midlung central opacity . Cardiac sludge size stable and within normal limits. IMPRESSION: Stable small to moderate-sized left pleural effusion. Stable diffuse central right lung e kirby and/or infiltrates. No significant change from one day earlier.
[2021-11-12] MEDS: LEVOTHYROXINE 100 MCG TAB PO SCH (06:12)
[2021-11-12 06:23] LABS: Glucose,Whole Blood 141 mg/dL (75-99)
[2021-11-12] MEDS: INSULIN ASPART (NovoLOG) 100 UNIT/ML VIAL SQ SCH ×3 (06:24→23:42)
[2021-11-12 06:32] LABS: Albumin 3.1 g/dL (3.5-5.0); Calcium 8.4 mg/dL (8.4-10.2); Potassium 4.8 mmol/L (3.5-5.1); Total Bilirubin 0.5 mg/dL (0.2-1.3); Total Protein 6.6 g/dL (6.3-8.2)
[2021-11-12] MEDS: IPRATROPIUM-ALBUTEROL 3 ML NEB INHALATION SCH ×4 (07:37→21:08)
[2021-11-12] MEDS: ATORVASTATIN 40 MG TAB PO SCH (09:39)
[2021-11-12] MEDS: ASPIRIN 81 MG PO SCH (09:39)
[2021-11-12] MEDS: METOPROLOL TARTRATE 12.5 MG TAB PO SCH ×2 (09:39→21:12)
[2021-11-12] MEDS: buPROPion XL 300 MG TAB.ER.24H PO SCH (09:39)
[2021-11-12] MEDS: POTASSIUM CHLORIDE ER 10 MEQ TAB.ER.PRT PO SCH (09:40)
[2021-11-12] MEDS: NICOTINE 21MG/24HR PATCH TRANSDERM SCH (09:40)
[2021-11-12] MEDS: PANTOPRAZOLE 40 MG/10 ML VIAL IVP SCH (09:40)
[2021-11-12] MEDS: FUROSEMIDE 10 MG/ML 4 ML VIAL IV SCH ×2 (09:40→21:12)
[2021-11-12] MEDS: lamoTRIgine 100 MG TAB PO SCH ×2 (09:40→21:12)
[2021-11-12] MEDS: CHLORHEXIDINE GLUCONATE 15 ML CUP MUCOUS MEM SCH ×2 (09:41→21:12)
--- NOTE | 2021-11-12 10:41 | P.CRDCN ---
History of Present Illness History of present illness: HISTORY OF PRESENTING ILLNESS This is a pleasant 60-year-old female past medical history significant for coronary artery disease status post PCI mid RCA in 2007, PCI to the distal RCA in 2014, severe aortic stenosis status post aortic valve replacement in 2016 with restenosis, hypertension, hyperlipidemia, type 2 diabetes, chronic nicotine dependence, COPD, left-sided carotid endarterectomy, hypothyroidism. She follows in the office with Dr. Elena. Patient has had a number of admissions to the hospital for heart failure as well as COPD exacerbation over the last 2 months. She presented to 06/22/2022 secondary to worsening shortness breath which started the day before as well as reported chest heaviness and 8 out of 10. Patient is currently intubated and sedated and history is supplied by chart. There is apparently no recent fevers, chills however did have a dry cough. She did had prior thoracentesis last admission which was felt related to her heart failure. She had a CTA performed which showed no pulmonary embolism with moderate left and small to moderate right pleural effusion with atelectasis. There is also a report of anasarca and patchy groundglass opacities and correlate for heart failure versus pulmonary edema. There is also mediastinal hilar and abdominal lymphadenopathy. Patient was admitted and placed on BiPAP however apparently decompensated with worsening respiratory distress and bradycardi and loss of pulses and CPR was performed for approximately 15 minutes without any VT noted and eventual ROSC. Patient was having a hard time oxygenating and therefore was paralyzed and on ventilator. Currently on 45% FiO2. Blood work initially showed white blood cell count 9.8, hemoglobin 10.8, d-dimer 4.5, sodium 135, BUN 24, creatinine 0.86, AST 90, ALT 37, troponin 0.149, 0.132, albumin 3.2, proBNP 30,100. Last echo from 10/01/2021 showed EF 55-60%, severe stenosis of the bioprosthetic aortic valve with a mean gradient of 46, mild aortic regurgitation, mild mitral regurgitation, mild tricuspid regurgitation with a small generalized pericardial effusion and a large pleural effusion. Last Cardiac Catheterization 11/2015 revealed normal EF, 20% mid LAD, 100% distal circumflex, 30% mid RCA, right dominant, severe aortic stenosis REVIEW OF SYSTEMS At the time of my exam: Unable to obtain secondary to sedation, paralyzed PHYSICAL EXAMINATION Vital signs reviewed. CONSTITUTIONAL: No apparent distress, sedated and paralyzed on vent, frail HEENT: Head is normocephalic. Pupils are equal, round. Sclerae anicteric. Mucous membranes of the mouth are moist. No JVD. No carotid bruit. CHEST EXAMINATION: Lungs are clear to auscultation. No chest wall tenderness is noted on palpation or with deep breathing. HEART EXAMINATION: Regular rate and rhythm. S1, S2 heard. +3/6 murmur, no gallops or rub. ABDOMEN: Soft, nontender. Positive bowel sounds. EXTREMITIES: 2+ peripheral pulses, no lower extremity edema and no calf tenderness. NEUROLOGIC EXAMINATION: Patient is sedated and ventilated ASSESSMENT 1. Status post cardiac arrest for approximately 15 minutes with bradycardia. Suspect pulmonary etiology with worsening pulmonary status area 2. Acute on chronic respiratory failure likely component of heart failure with chronic COPD component as well as 3. Acute on chronic diastolic heart failure 4. Severe bioprosthetic aortic valve stenosis 5. Non-STEMI likely type II mechanism related to heart failure, hypoxia 6. Coronary artery disease with prior history of PCI 7. Prior small generalized pericardial effusion 8. Bilateral pleural effusions status post previous thoracentesis 9. Hilar adenopathy, no obvious infectious symptoms recently 10. Tobacco abuse 11. Frailty 12. Protein calorie malnutrition PLAN Majority of symptoms appear related to decompensated heart failure. Continue with diuretics. Check 2-D echo. Monitor creatinine closely with increased creatinine likely related to acute tubular necrosis from cardiac arrest. Rule out infectious etiology and check pro-calcitonin given adenopathy noted. Continue to assess if patient would be a good candidate for aortic valve replacement. Continue heart failure regimen, beta margie as able, monitor hemodynamics closely. Prognosis guarded. Past Medical History Past Medical History: COPD Additional Past Medical History / Comment(s): HX MIGRAINES., CHRONIC BACK PAIN, DDD, SPINAL STENOSIS., STATES PAIN RADIATES TO LEFT HIP AND DOWN BOTH LEGS., MILD COPD-NO RX, DENIES DIABETES-STATES BORDERLINE IN THE PAST., KIDNEY DISEASE STAGE 3, USES ROLLING WALKER. Last Myocardial Infarction Date:: 2007 History of Any Multi-Drug Resistant Organisms: Other MDRO Past Surgical History: Back Surgery, Cardiac Valve Replacement, Cholecystectomy, Heart Catheterization With Stent, Tubal Ligation Additional Past Surgical History / Comment(s): aortic valve replacement, 4 lower back surgeries, left carotid endarterectomy, disk replaced in neck, total 4 cardiac stents Past Anesthesia/Blood Transfusion Reactions: Postoperative Nausea & Vomiting (PONV) Date of Last Stent Placement:: 01/2015 Past Psychological History: Anxiety, Bipolar, Depression Smoking Status: Current every day smoker - Past Family History Mother Family Medical History: Deep Vein Thrombosis (DVT) Additional Family Medical History / Comment(s): Blood clots in legs Father Family Medical History: Coronary Artery Disease (CAD) Additional Family Medical History / Comment(s): heart valve replacement, Medications and Allergies Home Medications Medication Instructions Recorded Confirmed Type buPROPion HCL [Wellbutrin XL] 300 mg PO QAM 04/10/14 11/11/21 History Levothyroxine Sodium [Synthroid] 100 mcg PO DAILY 07/13/18 11/11/21 History lamoTRIgine 200 mg PO BID 07/13/18 11/11/21 History Aspirin 81 mg PO DAILY #30 chew 07/14/18 11/11/21 Rx oxyCODONE-APAP 10-325MG [Percocet 1 tab PO Q6H PRN 01/02/21 11/11/21 History 10-325 mg] Atorvastatin [Lipitor] 40 mg PO DAILY 30 Days #30 tab 10/12/21 11/11/21 Rx Furosemide [Lasix] 40 mg PO DAILY 30 Days #30 tab 10/12/21 11/11/21 Rx Metoprolol Tartrate [Lopressor] 12.5 mg PO BID 30 Days #60 tab 10/12/21 11/11/21 Rx Nicotine 21Mg/24Hr Patch [Habitrol] 1 patch TRANSDERM DAILY #20 patch 10/12/21 11/11/21 Rx Potassium Chloride ER [K-Dur 10] 10 meq PO DAILY #30 tab 10/12/21 11/11/21 Rx QUEtiapine FUMARATE [SEROquel] 150 mg PO HS #15 tab 10/12/21 11/11/21 Rx Albuterol Inhaler [Ventolin Hfa 1 - 2 puff INHALATION RT-QID PRN 11/11/21 11/11/21 History Inhaler] Albuterol Nebulized [Ventolin 2.5 mg INHALATION RT-QID PRN 11/11/21 11/11/21 History Nebulized] Ipratropium-Albuterol Nebulize 3 ml INHALATION RT-QID 11/11/21 11/11/21 History [Duoneb 0.5 mg-3 mg/3 ml Soln] Nitroglycerin Sl Tabs [Nitrostat] 0.4 mg SUBLINGUAL Q5M PRN 11/11/21 11/11/21 History Allergies Allergy/AdvReac Type Severity Reaction Status Date / Time NSAIDS (Non-Steroidal Allergy Rash/Hives, Verified 11/11/21 10:24 Anti-Inflamma N/V codeine AdvReac nausea and Verified 11/11/21 10:24 "shakes" Physical Exam Vitals: Vital Signs Temp Pulse Resp BP Pulse Ox 11/12/21 07:46 99 11/12/21 07:38 102 H 11/12/21 07:00 101 H 32 H 94 L 11/12/21 06:30 101 H 32 H 94 L 11/12/21 06:00 101 H 32 H 94 L 11/12/21 05:30 100 32 H 93 L 11/12/21 05:00 99 32 H 96 11/12/21 04:30 98 32 H 143/100 94 L 11/12/21 04:00 98.2 F 98 32 H 95 11/12/21 03:30 97 32 H 98 11/12/21 03:00 96 32 H 97 11/12/21 02:30 95 32 H 98 11/12/21 02:00 94 32 H 97 11/12/21 01:30 93 32 H 97 11/12/21 01:00 92 32 H 99 11/12/21 00:30 91 32 H 99 11/12/21 00:01 99.2 F 90 32 H 99 11/12/21 00:00 99.8 F H 90 32 H 98 11/11/21 23:30 87 32 H 100 11/11/21 23:00 87 32 H 100 11/11/21 22:30 87 32 H 100 11/11/21 22:00 95 32 H 93 L 11/11/21 21:30 105 H 33 H 96 11/11/21 21:00 105 H 33 H 97 11/11/21 20:34 99 11/11/21 20:30 103 H 32 H 97 11/11/21 20:18 105 H 11/11/21 20:00 98.2 F 105 H 26 H 96 11/11/21 19:30 105 H 31 H 146/104 94 L 11/11/21 19:00 105 H 21 99 11/11/21 18:30 104 H 32 H 148/104 98 11/11/21 18:00 102 H 32 H 139/98 96 11/11/21 17:30 99 32 H 139/98 96 11/11/21 17:00 96 38 H 116/83 99 11/11/21 16:30 96 24 116/83 97 11/11/21 16:00 97 25 H 110/75 90 L 11/11/21 15:30 96 26 H 89/71 90 L 11/11/21 15:15 99 17 98/68 83 L 11/11/21 15:00 101 H 16 116/87 72 L 11/11/21 12:02 114 H 24 143/103 94 L 11/11/21 10:36 114 H 22 11/11/21 10:32 113 H 26 H 179/126 87 L 11/11/21 10:27 114 H 22 Intake and Output 11/11/21 11/12/21 11/12/21 22:59 06:59 14:59 Intake Total 146.502 361.234 167.058 Output Total 2090 230 Balance -1943.498 131.234 167.058 Intake: IV 60 180 Sodium Chloride 0.9% 1, 60 180 000 ml @ 20 mls/hr IV . Q24H [facility]IC Rx#:[id number] Intake, IV Titration 86.502 181.234 167.058 Amount Cisatracurium 200 mg In 91.987 Sodium Chloride 0.9% 180 ml @ 2 MCG/KG/MIN 5.443 mls/hr IV .Q24H [facility]INIC Rx#: [id number] Heparin Sod,Pork in 0.45% 19.051 85.751 NaCl 25,000 unit In 0.45 % NaCl 1 250ml.bag @ 12 UNITS/KG/HR 5.443 mls/hr IV .Q24H [facility]INIC Rx#: [id number] propofoL 1,000 mg In 67.451 95.483 75.071 Empty Bag 1 bag @ Titrate IV .Q0M DOMINIC Rx#: [id number] Output: Urine 2089 230 Other: Voiding Method Indwelling Catheter Indwelling Catheter Weight 45.359 kg 45.359 kg ABP, PAP, CO, CI - Last 8 Hours Arterial Blood Pressure 137/84 Arterial Blood Pressure 138/84 Arterial Blood Pressure 139/85 Arterial Blood Pressure 136/82 Arterial Blood Pressure 137/81 Arterial Blood Pressure 139/82 Arterial Blood Pressure 138/80 Arterial Blood Pressure 138/81 Arterial Blood Pressure 139/80 Arterial Blood Pressure 138/80 Results 11/12/21 05:00 11/12/21 05:00 Cardiac Enzymes 11/11/21 11/11/21 11/12/21 Range/Units 14:25 14:52 05:00 AST 68 H 56 H (14-36) U/L Troponin I 0.132 H* (0.000-0.034) ng/mL Coagulation 11/11/21 11/11/21 11/12/21 Range/Units 23:00 23:00 05:00 PT 10.0 9.7 (9.0-12.0) sec APTT 27.1 (22.0-30.0) sec 11/12/21 Range/Units 05:00 PT (9.0-12.0) sec APTT 33.2 H (22.0-30.0) sec CBC 11/11/21 11/12/21 Range/Units 14:25 05:00 WBC 12.8 H 21.1 H (3.8-10.6) k/uL RBC 3.11 L 3.11 L (3.80-5.40) m/uL Hgb 10.1 L 10.3 L (11.4-16.0) gm/dL Hct 33.4 L 32.1 L (34.0-46.0) % Plt Count 237 277 (150-450) k/uL Comprehensive Metabolic Panel 11/11/21 11/12/21 Range/Units 14:25 05:00 Sodium 136 L 139 (137-145) mmol/L Potassium 4.5 4.8 (3.5-5.1) mmol/L Chloride 102 107 (98-107) mmol/L Carbon Dioxide 21 L 25 (22-30) mmol/L BUN 24 H 32 H (7-17) mg/dL Creatinine 1.01 1.21 H (0.52-1.04) mg/dL Glucose 382 H 140 H (74-99) mg/dL Calcium 7.5 L 8.4 (8.4-10.2) mg/dL AST 68 H 56 H (14-36) U/L ALT 30 33 (4-34) U/L Alkaline Phosphatase 310 H 256 H (38-126) U/L Total Protein 5.8 L 6.6 (6.3-8.2) g/dL Albumin 2.7 L 3.1 L (3.5-5.0) g/dL Current Medications Generic Name Dose Route Start Last Admin Trade Name Freq PRN Reason Stop Dose Admin Albuterol Sulfate 2 puff 11/11/21 14:17 Albuterol Hfa Inhaler INHALATION RT-QID PRN Shortness Of Breath Albuterol Sulfate 2.5 mg 11/11/21 14:17 Albuterol Nebulized 2.5 Mg/3 Ml INHALATION RT-QID PRN Shortness Of Breath Albuterol/Ipratropium 3 ml 11/11/21 16:00 11/12/21 07:37 Ipratropium-Albuterol 3 Ml Neb INHALATION 3 ml RT-QID [facility]INIC Administration Aspirin 81 mg 11/12/21 09:00 11/12/21 09:39 Aspirin 81 Mg PO 81 mg DAILY [facility]INIC Administration Atorvastatin Calcium 40 mg 11/12/21 09:00 11/12/21 09:39 Atorvastatin 40 Mg Tab PO 40 mg DAILY [facility]INIC Administration Bupropion HCl 300 mg 11/12/21 09:00 11/12/21 09:39 Bupropion Xl 300 Mg Tab.Er.24h PO 300 mg QAM [facility]IC Administration Chlorhexidine Gluconate 15 ml 11/11/21 21:00 11/12/21 09:41 Chlorhexidine Gluconate 15 Ml Cup MUCOUS MEM 15 ml BID [facility]IC Administration Furosemide 40 mg 11/11/21 21:00 11/12/21 09:40 Furosemide 10 Mg/Ml 4 Ml Vial IV 40 mg BID [facility]IN[facility] Administration Heparin Sodium (Porcine) 0 unit 11/11/21 12:26 11/12/21 06:28 Heparin Sodium 1,000 Un/Ml (10ml Vl) IV 2,250 unit PER PROTOCOL PRN Administration Low PTT Protocol Heparin Sodium/Sodium Chloride 250 mls @ 5.443 mls/hr 11/11/21 12:30 11/12/21 06:28 25,000 unit/ Sodium Chloride IV 18 units/kg/hr .Q24H [facility] 8.165 mls/hr Titration Protocol 12 UNITS/KG/HR Propofol 1,000 mg/ IV Solution 100 mls @ 0 mls/hr 11/11/21 15:45 11/12/21 09:39 IV 50 mcg/kg/min .Q0M [facility] 13.608 mls/hr Administration Protocol Titrate Cisatracurium Besylate 200 mg/ 200 mls @ 5.443 mls/hr 11/11/21 16:00 11/12/21 10:14 Sodium Chloride IV 0 mcg/kg/min .Q24H [facility]IC 0 mls/hr Titration Protocol 2 MCG/KG/MIN Piperacillin Sod/Tazobactam 100 mls @ 25 mls/hr 11/12/21 11:00 Sod 3.375 gm/ Sodium Chloride IVPB Q12H [facility] Insulin Aspart 0 unit 11/11/21 21:00 11/12/21 06:24 Insulin Aspart (Novolog) 100 Unit/Ml Vial SQ 1 unit ACHS [facility] Administration Protocol Lamotrigine 200 mg 11/11/21 21:00 11/12/21 09:40 Lamotrigine 100 Mg Tab PO 200 mg BID [facility] Administration Levothyroxine Sodium 100 mcg 11/12/21 06:30 11/12/21 06:12 Levothyroxine 100 Mcg Tab PO 100 mcg DAILY@0630 [facility] Administration Metoprolol Tartrate 12.5 mg 11/11/21 21:00 11/12/21 09:39 Metoprolol Tartrate 12.5 Mg Tab PO 12.5 mg BID [facility] Administration Nicotine 1 patch 11/12/21 09:00 11/12/21 09:40 Nicotine 21mg/24hr Patch TRANSDERM 1 patch DAILY [facility] Administration Oxycodone/Acetaminophen 1 each 11/11/21 14:17 Oxycodone-Apap 10-325mg 1 Each Tab PO Q6H PRN Pain Pantoprazole Sodium 40 mg 11/11/21 16:15 11/12/21 09:40 Pantoprazole 40 Mg/10 Ml Vial IVP 40 mg DAILY [facility] Administration Potassium Chloride 10 meq 11/12/21 09:00 11/12/21 09:40 Potassium Chloride Er 10 Meq Tab.Er.Prt PO 10 meq DAILY [facility] Administration Quetiapine Fumarate 150 mg 11/11/21 21:00 11/11/21 23:16 Quetiapine 50 Mg Tab PO 150 mg HS [facility] Administration Sodium Chloride 10 ml 11/12/21 21:00 Sodium Chloride 0.9% Flush 10 Ml Syringe IV Q12HR [facility] Sodium Chloride 10 ml 11/12/21 13:52 Sodium Chloride 0.9% Flush 10 Ml Syringe IV DIRECTED PRN FLUSH Intake and Output 11/11/21 11/12/21 11/12/21 22:59 06:59 14:59 Intake Total 146.502 361.234 167.058 Output Total 2090 230 Balance -1943.498 131.234 167.058 Intake: IV 60 180 Sodium Chloride 0.9% 1, 60 180 000 ml @ 20 mls/hr IV . Q24H [facility] Rx#:[id number] Intake, IV Titration 86.502 181.234 167.058 Amount Cisatracurium 200 mg In 91.987 Sodium Chloride 0.9% 180 ml @ 2 MCG/KG/MIN 5.443 mls/hr IV .Q24H [facility] Rx#: [id number] Heparin Sod,Pork in 0.45% 19.051 85.751 NaCl 25,000 unit In 0.45 % NaCl 1 250ml.bag @ 12 UNITS/KG/HR 5.443 mls/hr IV .Q24H [facility] Rx#: [id number] propofoL 1,000 mg In 67.451 95.483 75.071 Empty Bag 1 bag @ Titrate IV .Q0M [facility] Rx#: [id number] Output: Urine 0 230 Other: Voiding Method Indwelling Catheter Indwelling Catheter Weight 45.359 kg 45.359 kg Patient Weight 11/13/21 06:59 Weight 45.359 kg 11/12/21 05:00 11/12/21 05:00
--- NOTE | 2021-11-12 10:48 | P.HPIM ---
History of Present Illness Patient is 60-year-old female came in with comments of shortness of breath patient has a history of severe aortic stenosis patient had any of around 50- 55%. Patient had bilateral pleural effusions and pulmonary edema on the CT kristina os the chest. Patient was started on BiPAP. Patient was receiving IV fluids to discuss reviewed and the patient was started on IV Lasix patient had bilateral pleural effusions patient had a recent hospitalization for which patient underwent thoracentesis. Patient does have history of smoking does have history of COPD. Shortly after my evaluation patient decompensated cold blue was called patient was subsequently intubated and transferred to ICU. ABG was opted at that time which showed hypercapnia. Pulmonary was consulted. REVIEW OF SYSTEMS: Unable to obtain due to her clinical condition PHYSICAL EXAMINATION: GENERAL: Patient on BiPAP and unable to provide any history to me is in respiratory distress in spite of BiPAP . Thin built. HEENT: Pupils are round and equally reacting to light. EOMI. No scleral icterus. No conjunctival pallor. Normocephalic, atraumatic. No pharyngeal erythema. No thyromegaly. CARDIOVASCULAR: S1 and S2 present. No rubs, or gallops. Unable to assess JVD because of BiPAP status and accessory muscle breathing. Patient has a systolic murmur and diuretic area PULMONARY: Diffuse bilateral rhonchi as well as wheezing ABDOMEN: Soft, nontender, nondistended, normoactive bowel sounds. No palpable organomegaly. MUSCULOSKELETAL: No joint swelling or deformity. EXTREMITIES: No cyanosis, clubbing, or pedal edema. NEUROLOGICAL: Gross neurological examination did not reveal any focal deficits. SKIN: No rashes. Assessment and plan Acute hypoxic respiratory failure as well as hypercapnic respiratory failure secondary to congestive heart failure exacerbation and a competent of COPD exacerbation as well respectively. Patient was continued on BiPAP later was intubated. Patient has significantly elevated BNP, patient was started on IV Lasix this can urine IV fluids. -Status post cardiac respiratory arrest with pulseless electrical activity with 15 minutes of CPR and does respond to treatment of spontaneous circulation presently intubated. -Cut his heart failure chronic diastolic dysfunction with acute exacerbation -Severity of stenosis -Mild elevation of troponin secondary to CHF -History of coronary artery disease with stenting in the past -Hyperlipidemia -Diabetes mellitus -COPD with acute exacerbation -Hypothyroidism -Chronic back pain with spinal stenosis -Depression -Cachexia secondary to chronic smoking history patient presently doesn't smoke quit about a month ago. -Chronic kidney disease stage II secondary to diabetic nephropathy -Hyperlipidemia - DVT prophylaxis: Presently IV heparin once cardio evaluates probably can be transitioned to subcutaneous heparin Past Medical History Past Medical History: COPD Additional Past Medical History / Comment(s): HX MIGRAINES., CHRONIC BACK PAIN, DDD, SPINAL STENOSIS., STATES PAIN RADIATES TO LEFT HIP AND DOWN BOTH LEGS., MILD COPD-NO RX, DENIES DIABETES-STATES BORDERLINE IN THE PAST., KIDNEY DISEASE STAGE 3, USES ROLLING WALKER. Last Myocardial Infarction Date:: 2007 History of Any Multi-Drug Resistant Organisms: Other MDRO Past Surgical History: Back Surgery, Cardiac Valve Replacement, Cholecystectomy, Heart Catheterization With Stent, Tubal Ligation Additional Past Surgical History / Comment(s): aortic valve replacement, 4 lower back surgeries, left carotid endarterectomy, disk replaced in neck, total 4 cardiac stents Past Anesthesia/Blood Transfusion Reactions: Postoperative Nausea & Vomiting (PONV) Date of Last Stent Placement:: 01/2015 Past Psychological History: Anxiety, Bipolar, Depression Smoking Status: Current every day smoker - Past Family History Mother Family Medical History: Deep Vein Thrombosis (DVT) Additional Family Medical History / Comment(s): Blood clots in legs Father Family Medical History: Coronary Artery Disease (CAD) Additional Family Medical History / Comment(s): heart valve replacement, Medications and Allergies Home Medications Medication Instructions Recorded Confirmed Type buPROPion HCL [Wellbutrin XL] 300 mg PO QAM 04/10/14 11/11/21 History Levothyroxine Sodium [Synthroid] 100 mcg PO DAILY 07/13/18 11/11/21 History lamoTRIgine 200 mg PO BID 07/13/18 11/11/21 History Aspirin 81 mg PO DAILY #30 chew 07/14/18 11/11/21 Rx oxyCODONE-APAP 10-325MG [Percocet 1 tab PO Q6H PRN 01/02/21 11/11/21 History 10-325 mg] Atorvastatin [Lipitor] 40 mg PO DAILY 30 Days #30 tab 10/12/21 11/11/21 Rx Furosemide [Lasix] 40 mg PO DAILY 30 Days #30 tab 10/12/21 11/11/21 Rx Metoprolol Tartrate [Lopressor] 12.5 mg PO BID 30 Days #60 tab 10/12/21 11/11/21 Rx Nicotine 21Mg/24Hr Patch [Habitrol] 1 patch TRANSDERM DAILY #20 patch 10/12/21 11/11/21 Rx Potassium Chloride ER [K-Dur 10] 10 meq PO DAILY #30 tab 10/12/21 11/11/21 Rx QUEtiapine FUMARATE [SEROquel] 150 mg PO HS #15 tab 10/12/21 11/11/21 Rx Albuterol Inhaler [Ventolin Hfa 1 - 2 puff INHALATION RT-QID PRN 11/11/21 11/11/21 History Inhaler] Albuterol Nebulized [Ventolin 2.5 mg INHALATION RT-QID PRN 11/11/21 11/11/21 History Nebulized] Ipratropium-Albuterol Nebulize 3 ml INHALATION RT-QID 11/11/21 11/11/21 History [Duoneb 0.5 mg-3 mg/3 ml Soln] Nitroglycerin Sl Tabs [Nitrostat] 0.4 mg SUBLINGUAL Q5M PRN 11/11/21 11/11/21 History Allergies Allergy/AdvReac Type Severity Reaction Status Date / Time NSAIDS (Non-Steroidal Allergy Rash/Hives, Verified 11/11/21 10:24 Anti-Inflamma N/V codeine AdvReac nausea and Verified 11/11/21 10:24 "shakes" Physical Exam Vitals: Vital Signs Temp Pulse Resp BP Pulse Ox 11/12/21 07:46 99 11/12/21 07:38 102 H 11/12/21 07:00 101 H 32 H 94 L 11/12/21 06:30 101 H 32 H 94 L 11/12/21 06:00 101 H 32 H 94 L 11/12/21 05:30 100 32 H 93 L 11/12/21 05:00 99 32 H 96 11/12/21 04:30 98 32 H 143/100 94 L 11/12/21 04:00 98.2 F 98 32 H 95 11/12/21 03:30 97 32 H 98 11/12/21 03:00 96 32 H 97 11/12/21 02:30 95 32 H 98 11/12/21 02:00 94 32 H 97 11/12/21 01:30 93 32 H 97 11/12/21 01:00 92 32 H 99 11/12/21 00:30 91 32 H 99 11/12/21 00:01 99.2 F 90 32 H 99 11/12/21 00:00 99.8 F H 90 32 H 98 11/11/21 23:30 87 32 H 100 11/11/21 23:00 87 32 H 100 11/11/21 22:30 87 32 H 100 11/11/21 22:00 95 32 H 93 L 11/11/21 21:30 105 H 33 H 96 11/11/21 21:00 105 H 33 H 97 11/11/21 20:34 99 11/11/21 20:30 103 H 32 H 97 11/11/21 20:18 105 H 11/11/21 20:00 98.2 F 105 H 26 H 96 11/11/21 19:30 105 H 31 H 146/104 94 L 11/11/21 19:00 105 H 21 99 11/11/21 18:30 104 H 32 H 148/104 98 11/11/21 18:00 102 H 32 H 139/98 96 11/11/21 17:30 99 32 H 139/98 96 11/11/21 17:00 96 38 H 116/83 99 11/11/21 16:30 96 24 116/83 97 11/11/21 16:00 97 25 H 110/75 90 L 11/11/21 15:30 96 26 H 89/71 90 L 11/11/21 15:15 99 17 98/68 83 L 11/11/21 15:00 101 H 16 116/87 72 L 11/11/21 12:02 114 H 24 143/103 94 L Intake and Output 11/11/21 11/12/21 11/12/21 22:59 06:59 14:59 Intake Total 146.502 361.234 167.058 Output Total 2090 230 Balance -1943.498 131.234 167.058 Intake: IV 60 180 Sodium Chloride 0.9% 1, 60 180 000 ml @ 20 mls/hr IV . Q24H DOMINIC Rx#:[id number] Intake, IV Titration 86.502 181.234 167.058 Amount Cisatracurium 200 mg In 91.987 Sodium Chloride 0.9% 180 ml @ 2 MCG/KG/MIN 5.443 mls/hr IV .Q24H DOMINIC Rx#: [id number] Heparin Sod,Pork in 0.45% 19.051 85.751 NaCl 25,000 unit In 0.45 % NaCl 1 250ml.bag @ 12 UNITS/KG/HR 5.443 mls/hr IV .Q24H DOMINIC Rx#: [id number] propofoL 1,000 mg In 67.451 95.483 75.071 Empty Bag 1 bag @ Titrate IV .Q0M DOMINIC Rx#: [id number] Output: Urine 2090 230 Other: Voiding Method Indwelling Catheter Indwelling Catheter Weight 45.359 kg 45.359 kg ABP, PAP, CO, CI - Last 8 Hours Arterial Blood Pressure 137/84 Arterial Blood Pressure 138/84 Arterial Blood Pressure 139/85 Arterial Blood Pressure 136/82 Arterial Blood Pressure 137/81 Arterial Blood Pressure 139/82 Arterial Blood Pressure 138/80 Arterial Blood Pressure 138/81 Arterial Blood Pressure 139/80 Results CBC & Chem 7: 11/12/21 05:00 11/12/21 05:00 Labs: Abnormal Lab Results - Last 24 Hours (Table) 11/11/21 11/11/21 11/11/21 Range/Units 14:25 14:25 14:52 WBC 12.8 H (3.8-10.6) k/uL RBC 3.11 L (3.80-5.40) m/uL Hgb 10.1 L (11.4-16.0) gm/dL Hct 33.4 L (34.0-46.0) % MCV 107.6 H D (80.0-100.0) fL MCHC 30.1 L (31.0-37.0) g/dL Neutrophils # 11.9 H (1.3-7.7) k/uL Lymphocytes # 0.5 L (1.0-4.8) k/uL APTT (22.0-30.0) sec ABG pH (7.35-7.45) ABG pCO2 (35-45) mmHg ABG pO2 (83-108) mmHg ABG HCO3 (21-25) mmol/L ABG Total CO2 (19-24) mmol/L ABG O2 Saturation (94-97) % Sodium 136 L (137-145) mmol/L Carbon Dioxide 21 L (22-30) mmol/L BUN 24 H (7-17) mg/dL Creatinine (0.52-1.04) mg/dL Glucose 382 H (74-99) mg/dL POC Glucose (mg/dL) (75-99) mg/dL Calcium 7.5 L (8.4-10.2) mg/dL Magnesium 2.5 H (1.6-2.3) mg/dL AST 68 H (14-36) U/L Alkaline Phosphatase 310 H (38-126) U/L Troponin I 0.132 H* (0.000-0.034) ng/mL Total Protein 5.8 L (6.3-8.2) g/dL Albumin 2.7 L (3.5-5.0) g/dL 11/11/21 11/11/21 11/11/21 Range/Units 14:54 15:59 19:47 WBC (3.8-10.6) k/uL RBC (3.80-5.40) m/uL Hgb (11.4-16.0) gm/dL Hct (34.0-46.0) % MCV (80.0-100.0) fL MCHC (31.0-37.0) g/dL Neutrophils # (1.3-7.7) k/uL Lymphocytes # (1.0-4.8) k/uL APTT (22.0-30.0) sec ABG pH 7.19 L* (7.35-7.45) ABG pCO2 72 H* (35-45) mmHg ABG pO2 73 L (83-108) mmHg ABG HCO3 27 H (21-25) mmol/L ABG Total CO2 30 H (19-24) mmol/L ABG O2 Saturation 88.6 L (94-97) % Sodium (137-145) mmol/L Carbon Dioxide (22-30) mmol/L BUN (7-17) mg/dL Creatinine (0.52-1.04) mg/dL Glucose (74-99) mg/dL POC Glucose (mg/dL) 359 H 288 H (75-99) mg/dL Calcium (8.4-10.2) mg/dL Magnesium (1.6-2.3) mg/dL AST (14-36) U/L Alkaline Phosphatase (38-126) U/L Troponin I (0.000-0.034) ng/mL Total Protein (6.3-8.2) g/dL Albumin (3.5-5.0) g/dL 11/12/21 11/12/21 11/12/21 Range/Units 00:04 05:00 05:00 WBC 21.1 H (3.8-10.6) k/uL RBC 3.11 L (3.80-5.40) m/uL Hgb 10.3 L (11.4-16.0) gm/dL Hct 32.1 L (34.0-46.0) % MCV 103.3 H (80.0-100.0) fL MCHC (31.0-37.0) g/dL Neutrophils # 19.0 H (1.3-7.7) k/uL Lymphocytes # 0.9 L (1.0-4.8) k/uL APTT (22.0-30.0) sec ABG pH (7.35-7.45) ABG pCO2 (35-45) mmHg ABG pO2 (83-108) mmHg ABG HCO3 (21-25) mmol/L ABG Total CO2 (19-24) mmol/L ABG O2 Saturation (94-97) % Sodium (137-145) mmol/L Carbon Dioxide (22-30) mmol/L BUN 32 H (7-17) mg/dL Creatinine 1.21 H (0.52-1.04) mg/dL Glucose 140 H (74-99) mg/dL POC Glucose (mg/dL) 153 H (75-99) mg/dL Calcium (8.4-10.2) mg/dL Magnesium (1.6-2.3) mg/dL AST 56 H (14-36) U/L Alkaline Phosphatase 256 H (38-126) U/L Troponin I (0.000-0.034) ng/mL Total Protein (6.3-8.2) g/dL Albumin 3.1 L (3.5-5.0) g/dL 11/12/21 11/12/21 11/12/21 Range/Units 05:00 05:42 06:20 WBC (3.8-10.6) k/uL RBC (3.80-5.40) m/uL Hgb (11.4-16.0) gm/dL Hct (34.0-46.0) % MCV (80.0-100.0) fL MCHC (31.0-37.0) g/dL Neutrophils # (1.3-7.7) k/uL Lymphocytes # (1.0-4.8) k/uL APTT 33.2 H (22.0-30.0) sec ABG pH 7.32 L (7.35-7.45) ABG pCO2 55 H (35-45) mmHg ABG pO2 64 L (83-108) mmHg ABG HCO3 28 H (21-25) mmol/L ABG Total CO2 30 H (19-24) mmol/L ABG O2 Saturation 89.9 L (94-97) % Sodium (137-145) mmol/L Carbon Dioxide (22-30) mmol/L BUN (7-17) mg/dL Creatinine (0.52-1.04) mg/dL Glucose (74-99) mg/dL POC Glucose (mg/dL) 141 H (75-99) mg/dL Calcium (8.4-10.2) mg/dL Magnesium (1.6-2.3) mg/dL AST (14-36) U/L Alkaline Phosphatase (38-126) U/L Troponin I (0.000-0.034) ng/mL Total Protein (6.3-8.2) g/dL Albumin (3.5-5.0) g/dL Thrombosis Risk Factor Assmnt - Choose All That Apply Any of the Below Risk Factors Present?: Yes Each Factor Represents 1 point: Abnormal pulmonary function (COPD), Heart failure (<1month), Medical pt on bed rest, Serious lung disease incl. pneumonia (< 1month) Other Risk Factors: Yes Each Risk Factor Represents 2 Points: Age 61-74 years, Patient confined to bed Other congenital or acquired thrombophilia - If yes, enter type in comment: No Thrombosis Risk Factor Assessment Total Risk Factor Score: 8 Thrombosis Risk Factor Assessment Level: High Risk
--- NOTE | 2021-11-12 11:00 | ECHOF ---
Referral Reason:acute cardiac arrest MEASUREMENTS -------- HEIGHT: 165.1 cm WEIGHT: 45.4 kg BP: 139/83 RVIDd: 2.9 cm (< 3.3) IVSd: 1.4 cm (0.6 - 1.1) LVIDd: 4.8 cm (3.9 - 5.3) LVPWd: 1.2 cm (0.6 - 1.1) IVSs: 1.6 cm LVIDs: 3.4 cm LVPWs: 1.4 cm LA Diam: 4.0 cm (2.7 - 3.8) LAESV Index (A-L): 45.68 ml/m Ao Diam: 3.4 cm (2.0 - 3.7) MV EXCURSION: 20.347 mm (> 18.000) MV EF SLOPE: 95 mm/s (70 - 150) EPSS: 0.9 cm MV E García: 1.21 m/s MV DecT: 175 ms MV A García: 1.03 m/s MV E/A Ratio: 1.17 AV maxP.16 mmHg AV meanP.18 mmHg RAP: 15.00 mmHg RVSP: 50.81 mmHg FINDINGS -------- Sinus rhythm. This was a technically adequate study. The left ventricular size is normal. There is moderate concentric left ventricular hypertrophy. O verall left ventricular systolic function is mild-moderately impaired with, an EF between 40 - 45 %. Basal inferior LV wall motion is hypokinetic. Mid inferior LV wall motion is hyperkinetic. Mi d inferoseptal LV wall motion is hypokinetic. The right ventricle is normal in size. LA is severely dilated >40 ml/m2 The right atrium is normal in size. Interatrial and interventricular septum intact. Peak/mean gradient across the Aortic Valve is 49.16mmHg / 32.18mmHg. There is mild regurgitation of the bioprosthetic aortic valve. There is mild-moderate stenosis of the bioprosthetic aortic valve. The mitral valve leaflets are mildly thickened. Mild mitral annular calcification present. Mild m itral regurgitation is present. Mild tricuspid regurgitation present. There is moderate pulmonary hypertension. The right ventric ular systolic pressure, as measured by Doppler, is 50.81mmHg. Trace/mild (physiologic) pulmonic regurgitation. The aortic root size is normal. Normal inferior vena cava with less than 50% inspiratory collapse consistent with estimated right atr ial pressure of 15 mmHg. There is no pericardial effusion. Large Pleural Effusion. Pleural Effusion with Fibrin. CONCLUSIONS -------- 1. The left ventricular size is normal. 2. There is moderate concentric left ventricular hypertrophy. 3. Overall left ventricular systolic function is mild-moderately impaired with, an EF between 40 - 45 %. 4. Basal inferior LV wall motion is hypokinetic. 5. Mid inferior LV wall motion is hyperkinetic. 6. Mid inferoseptal LV wall motion is hypokinetic. 7. LA is severely dilated >40 ml/m2 8. Peak/mean gradient across the Aortic Valve is 49.16mmHg / 32.18mmHg. 9. There is mild regurgitation of the bioprosthetic aortic valve. 10. There is mild-moderate stenosis of the bioprosthetic aortic valve. 11. The mitral valve leaflets are mildly thickened. 12. Mild mitral annular calcification present. 13. Mild mitral regurgitation is present. 14. Mild tricuspid regurgitation present. 15. There is moderate pulmonary hypertension. 16. The right ventricular systolic pressure, as measured by Doppler, is 50.81mmHg. 17. Trace/mild (physiologic) pulmonic regurgitation. 18. Normal inferior vena cava with less than 50% inspiratory collapse consistent with estimated right atrial pressure of 15 mmHg. 19. There is no pericardial effusion. 20. Large Pleural Effusion. 21. Pleural Effusion with Fibrin. AML ANALYST: Jaclyn Hartley RDCS
[2021-11-12 11:08] LABS: Glucose,Whole Blood 121 mg/dL (75-99)
[2021-11-12] MEDS: PIPERACILLIN-TAZOBACTAM 3.375 GM in SODIUM CHLORIDE 0.9% 100 ML IVPB SCH ×2 (11:30→22:16)
--- NOTE | 2021-11-12 12:46 | P.PN ---
Subjective Progress Note Date: 11/12/21 Principal diagnosis: Acute hypoxic reported failure and cardiac arrest This is a 60-year-old white female patient with known extensive cardiac history including severe aortic stenosis with previous history of aortic valve replacement and evidence of restenosis of the bioprosthetic aortic valve, chronic CHF with systolic dysfunction although her most recent echocardiogram showed improved left ventricular systolic function with an EF of 55-60%. Other medical history includes hypertension, diabetes with this type II, poorly controlled, coronary artery disease with previous stent placement, hypothyroidism, ongoing nicotine dependence, anxiety, depression, chronic back pain. Patient was recently hospitalized for acute exacerbation of CHF, bilateral pleural effusions status post thoracentesis of the left lung, pleural fluid was not sent for analysis, although was suspected to be transudate. She was discharged on 10/13/2021 in stable but guarded condition in view of her multiple comorbidities. 11/11/2021 patient was brought in by EMS to the emergency department for evaluation of worsening shortness of breath since yesterday, chest heaviness as severe as 8 out of 10. There were no reported fever, chills, no sweats. Patient apparently did endorse a dry cough. Patient took 4 breathing treatments at home without significant relief. She was brought to the ER, she was noted to be desaturating, and was noted to be diaphoretic. Her chest x-ray showed developing interstitial pulmonary edema, small to moderate left pleural effusion with adjacent atelectasis and/or consolidation. CTA chest showed no evidence of a large central or lobar branch pulmonary embolus, no definite pulmonary embolus in the upper or mid lungs. Segmental and more distal branches of the lower lungs were nondiagnostic. There was moderate left and small to moderate right pleural effusion with adjacent atelectasis. There was marked generalized anasarca, pulmonary arterial hypertension, patchy groundglass opacities correlate for CHF and developing pulmonary edema. There was a suggestion of underlying mediastinal hilar and upper abdominal lymphadenopathy, with a 3 months follow-up CT recommendation. Admission blood work showed white blood cell count 9.8, hemoglobin was 10.8, d-dimer is 4.5, electrolytes and renal profile were unremarkable on admission, proBNP was 30,100, troponin was 0.149, AST was 90, ALT was 37, alk phos was 407, COVID-19 PCR was negative, RSV and influenza screens were also negative. Patient was placed on BiPAP support, she was started on IV Lasix, nebulized bronchodilators, and she was awaiting a bed on monitored bed on 3 S. a short while later she suffered a cardiac arrest, with a bradycardia and PEA, she was emergently intubated, ACLS was administered with CPR, no defibrillation shocks were administered please refer to the code sheet, ROSC was achieved after 15 minutes, patient was admitted to the intensive care unit. Reevaluated today on 11/12/2021, patient remains in the ICU, intubated and mechanically ventilated. She is now on assist control rate of 32, tidal volume 325, FiO2 40% and PEEP of 5. ABG showed a pO2 of 64 pCO2 55 pH of 7.32. Patient is on propofol at 50 mcg/kg/m, which is also on Nimbex at 2 mcg/kg/m, I recommended stopping the Nimbex. And hopefully we could assess her mental status today. As the patient sustained a cardiac arrest and she may have sustained anoxic brain injury. Her WBC count today is 21.1 hemoglobin is 10.3 electrolytes are normal renal profile showed a BUN of 32 creatinine 1.21. Patient is sedated, and I plan to hold sedation today, and assess mental status off propofol and off Nimbex. Chest x-ray continues to show pulmonary edema, and possibly some component of pneumonia and I'm recommending adding Zosyn as the patient may have sustained some aspiration. Will also start enteral feeding on this patient today. Objective - Vital Signs Vital signs: Vital Signs Temp 98.2 F 11/12/21 04:00 Pulse 87 11/12/21 11:47 Resp 32 H 11/12/21 07:00 BP 143/100 11/12/21 04:30 Pulse Ox 94 L 11/12/21 07:00 Intake & Output 11/11/21 11/12/21 11/12/21 18:59 06:59 18:59 Intake Total 484.965 167.058 Output Total 1999 320 Balance -1977.229 164.965 167.058 Weight 45.359 kg 45.359 kg Intake: IV 240 Sodium Chloride 0.9% 1, 240 000 ml @ 20 mls/hr IV . Q24H [facility] Rx#:[id number] Intake, IV Titration .77 244.965 167.058 Amount Cisatracurium 200 mg In 91.987 Sodium Chloride 0.9% 180 ml @ 2 MCG/KG/MIN 5.443 mls/hr IV .Q24H [facility] Rx#: [id number] Heparin Sod,Pork in 0.45% 19.051 85.751 NaCl 25,000 unit In 0.45 % NaCl 1 250ml.bag @ 12 UNITS/KG/HR 5.443 mls/hr IV .Q24H [facility] Rx#: [id number] propofoL 1,000 mg In 3.720 159.214 75.071 Empty Bag 1 bag @ Titrate IV .Q0M [facility] Rx#: [id number] Output: Urine 2000 320 Other: Voiding Method Indwelling Catheter ABP, PAP, CO, CI - Last Documented Arterial Blood Pressure 137/84 - Exam GENERAL EXAM: Revealed a 60-year-old female cachectic, intubated, sedated, and paralyzed HEAD: Atraumatic, normocephalic. Endotracheal tube and orogastric tube are in tact. EYES: Normal reaction of pupils, equal size. Conjunctiva pink, sclera white. NOSE: Clear with pink turbinates. THROAT: No erythema or exudates. NECK: No masses, no JVD, no thyroid enlargement, no adenopathy. CHEST:. Symmetrical expansion. LUNGS: Rhonchi bilaterally. CVS: Normal S1 and S2, no S3 gallop. ABDOMEN: Nontender no megaly no rebound. EXTREMITIES: No clubbing, no edema, no cyanosis, 2+ pulses and upper and lower extremities. SKIN: No rashes CENTRAL NERVOUS SYSTEM: Not assessed, patient is sedated and intubated. - Labs CBC & Chem 7: 11/12/21 05:00 11/12/21 05:00 Labs: Abnormal Lab Results - Last 24 Hours (Table) 11/11/21 11/11/21 11/11/21 Range/Units 14:25 14:25 14:52 WBC 12.8 H (3.8-10.6) k/uL RBC 3.11 L (3.80-5.40) m/uL Hgb 10.1 L (11.4-16.0) gm/dL Hct 33.4 L (34.0-46.0) % MCV 107.6 H D (80.0-100.0) fL MCHC 30.1 L (31.0-37.0) g/dL Neutrophils # 11.9 H (1.3-7.7) k/uL Lymphocytes # 0.5 L (1.0-4.8) k/uL APTT (22.0-30.0) sec ABG pH (7.35-7.45) ABG pCO2 (35-45) mmHg ABG pO2 (83-108) mmHg ABG HCO3 (21-25) mmol/L ABG Total CO2 (19-24) mmol/L ABG O2 Saturation (94-97) % Sodium 136 L (137-145) mmol/L Carbon Dioxide 21 L (22-30) mmol/L BUN 24 H (7-17) mg/dL Creatinine (0.52-1.04) mg/dL Glucose 382 H (74-99) mg/dL POC Glucose (mg/dL) (75-99) mg/dL Calcium 7.5 L (8.4-10.2) mg/dL Magnesium 2.5 H (1.6-2.3) mg/dL AST 68 H (14-36) U/L Alkaline Phosphatase 310 H (38-126) U/L Troponin I 0.132 H* (0.000-0.034) ng/mL Total Protein 5.8 L (6.3-8.2) g/dL Albumin 2.7 L (3.5-5.0) g/dL 11/11/21 11/11/21 11/11/21 Range/Units 14:54 15:59 19:47 WBC (3.8-10.6) k/uL RBC (3.80-5.40) m/uL Hgb (11.4-16.0) gm/dL Hct (34.0-46.0) % MCV (80.0-100.0) fL MCHC (31.0-37.0) g/dL Neutrophils # (1.3-7.7) k/uL Lymphocytes # (1.0-4.8) k/uL APTT (22.0-30.0) sec ABG pH 7.19 L* (7.35-7.45) ABG pCO2 72 H* (35-45) mmHg ABG pO2 73 L (83-108) mmHg ABG HCO3 27 H (21-25) mmol/L ABG Total CO2 30 H (19-24) mmol/L ABG O2 Saturation 88.6 L (94-97) % Sodium (137-145) mmol/L Carbon Dioxide (22-30) mmol/L BUN (7-17) mg/dL Creatinine (0.52-1.04) mg/dL Glucose (74-99) mg/dL POC Glucose (mg/dL) 359 H 288 H (75-99) mg/dL Calcium (8.4-10.2) mg/dL Magnesium (1.6-2.3) mg/dL AST (14-36) U/L Alkaline Phosphatase (38-126) U/L Troponin I (0.000-0.034) ng/mL Total Protein (6.3-8.2) g/dL Albumin (3.5-5.0) g/dL 11/12/21 11/12/21 11/12/21 Range/Units 00:04 05:00 05:00 WBC 21.1 H (3.8-10.6) k/uL RBC 3.11 L (3.80-5.40) m/uL Hgb 10.3 L (11.4-16.0) gm/dL Hct 32.1 L (34.0-46.0) % MCV 103.3 H (80.0-100.0) fL MCHC (31.0-37.0) g/dL Neutrophils # 19.0 H (1.3-7.7) k/uL Lymphocytes # 0.9 L (1.0-4.8) k/uL APTT (22.0-30.0) sec ABG pH (7.35-7.45) ABG pCO2 (35-45) mmHg ABG pO2 (83-108) mmHg ABG HCO3 (21-25) mmol/L ABG Total CO2 (19-24) mmol/L ABG O2 Saturation (94-97) % Sodium (137-145) mmol/L Carbon Dioxide (22-30) mmol/L BUN 32 H (7-17) mg/dL Creatinine 1.21 H (0.52-1.04) mg/dL Glucose 140 H (74-99) mg/dL POC Glucose (mg/dL) 153 H (75-99) mg/dL Calcium (8.4-10.2) mg/dL Magnesium (1.6-2.3) mg/dL AST 56 H (14-36) U/L Alkaline Phosphatase 256 H (38-126) U/L Troponin I (0.000-0.034) ng/mL Total Protein (6.3-8.2) g/dL Albumin 3.1 L (3.5-5.0) g/dL 11/12/21 11/12/21 11/12/21 Range/Units 05:00 05:42 06:20 WBC (3.8-10.6) k/uL RBC (3.80-5.40) m/uL Hgb (11.4-16.0) gm/dL Hct (34.0-46.0) % MCV (80.0-100.0) fL MCHC (31.0-37.0) g/dL Neutrophils # (1.3-7.7) k/uL Lymphocytes # (1.0-4.8) k/uL APTT 33.2 H (22.0-30.0) sec ABG pH 7.32 L (7.35-7.45) ABG pCO2 55 H (35-45) mmHg ABG pO2 64 L (83-108) mmHg ABG HCO3 28 H (21-25) mmol/L ABG Total CO2 30 H (19-24) mmol/L ABG O2 Saturation 89.9 L (94-97) % Sodium (137-145) mmol/L Carbon Dioxide (22-30) mmol/L BUN (7-17) mg/dL Creatinine (0.52-1.04) mg/dL Glucose (74-99) mg/dL POC Glucose (mg/dL) 141 H (75-99) mg/dL Calcium (8.4-10.2) mg/dL Magnesium (1.6-2.3) mg/dL AST (14-36) U/L Alkaline Phosphatase (38-126) U/L Troponin I (0.000-0.034) ng/mL Total Protein (6.3-8.2) g/dL Albumin (3.5-5.0) g/dL 11/12/21 Range/Units 11:07 WBC (3.8-10.6) k/uL RBC (3.80-5.40) m/uL Hgb (11.4-16.0) gm/dL Hct (34.0-46.0) % MCV (80.0-100.0) fL MCHC (31.0-37.0) g/dL Neutrophils # (1.3-7.7) k/uL Lymphocytes # (1.0-4.8) k/uL APTT (22.0-30.0) sec ABG pH (7.35-7.45) ABG pCO2 (35-45) mmHg ABG pO2 (83-108) mmHg ABG HCO3 (21-25) mmol/L ABG Total CO2 (19-24) mmol/L ABG O2 Saturation (94-97) % Sodium (137-145) mmol/L Carbon Dioxide (22-30) mmol/L BUN (7-17) mg/dL Creatinine (0.52-1.04) mg/dL Glucose (74-99) mg/dL POC Glucose (mg/dL) 121 H (75-99) mg/dL Calcium (8.4-10.2) mg/dL Magnesium (1.6-2.3) mg/dL AST (14-36) U/L Alkaline Phosphatase (38-126) U/L Troponin I (0.000-0.034) ng/mL Total Protein (6.3-8.2) g/dL Albumin (3.5-5.0) g/dL Microbiology - Last 24 Hours (Table) 11/11/21 09:03 Blood Culture - Preliminary Blood No Growth after 24 hours Assessment and Plan Assessment: Impression: Acute hypoxic respiratory failure, multifactorial secondary to: Cardiac arrest, witnessed pea, requiring CPR of 12 minutes until return of spontaneous circulation. Acute diastolic congestive heart failure Possible aspiration pneumonia Recent hospitalization for diastolic congestive heart failure discharged on 10/13/2021 History of severe aortic stenosis and previous aortic valve replacement History of coronary artery disease with previous PCI stenting Type 2 diabetes. History of underlying COPD presently inactive. Hypothyroidism. Chronic back pain and spinal stenosis. Generalized anxiety disorder severe protein calorie malnutrition, BMI of 16.6. Possible anoxic brain injury secondary to cardiac arrest. And prolonged CPR. Recommendation: Continue ventilatory support. Continue cardiac medications. Continue antibiotics and bronchodilators. Decrease FiO2 to 40%. Enteral feeding/nutritional support. Hemodynamic support if needed/pressors. Daily assessment of mental status off sedation and assessment for potential weaning Continue GI and DVT prophylaxis. Antibiotics in the form of Zosyn for presumptive aspiration pneumonia Prognosis is extremely poor and guarded. Critical care time is over 30 minutes. Time with Patient: Greater than 30
[2021-11-12] MEDS: CISATRACURIUM 200 MG in SODIUM CHLORIDE 0.9% 180 ML IV SCH (16:02)
[2021-11-12 18:44] LABS: Glucose,Whole Blood 168 mg/dL (75-99)
[2021-11-12] MEDS: ACETAMINOPHEN TAB 325 MG TAB PO PRN (18:47)
[2021-11-12] MEDS: QUEtiapine 50 MG TAB PO SCH (21:16)
[2021-11-12 23:12] LABS: Glucose,Whole Blood 149 mg/dL (75-99)
--- NOTE | 2021-11-13 00:48 | P.CNNES ---
History of Present Illness Consult date: 11/12/21 Requesting physician: Amaury Coronel Reason for Consult: Brain injury/cardiac arrest History of Present Illness: Patient is a 60-year-old female came to the hospital yesterday at 8:36 AM by ambulance for evaluation of difficulty breathing that has been going on for 2 hours prior to the EMS arrival. Patient had been having some difficulty breathing on and off all day the day prior. The morning of admission, the breathing got worse. Patient had stopped smoking about 5 weeks ago. Patient has been coughing and it does hurt her to take deep breath. She was otherwise alert and oriented 4 very anxious. Patient's vitals at the scene was blood pressure 208/106, pulse rate 108, respiration 24 saturation 94%. Patient has previous history of severe aortic stenosis with previous history of aortic valve replacement and evidence of restenosis of the bioprosthetic aortic valve, chronic CHF with systolic dysfunction. He also has hypertension, diabetes 2, which is poorly controlled, CAD, hypothyroidism, tobacco use, a nxiety depression, chronic back pain. Patient in the ER was placed on BiPAP support, started her on Lasix, nebulizer treatments. She was awaiting transfer to monitored bed, when patient apparently developed respiratory arrest followed by cardiac arrest in PEA at 2 pm on the same dose of arrival 11/11/2021. Patient was emergently intubated. ACLS was administered with CPR, no defibrillation shocks were administered. ROSC was achieved after 12-15 minutes. Patient was admitted to the intensive care unit. Patient's most recent blood test shows WBC 21.1, hemoglobin 10.3, with elevated MCV 103.3 and platelets 277. ABG with pH 7.32, pCO2 55, saturation 89.9%. Electrolytes are normal, BUN 32, creatinine 1.21. AST is mildly elevated 56, ALT 33. Her hemoglobin A1c 6.2 on 07/13/2018. Ortiz virus PCR negative. Patient's troponin is mildly elevated 0.149. Patient's 2-D echo shows normal left ventricular size. Moderate concentric LVH. Left ventricular systolic function is mild to moderately impaired with EF between 40-45%. Basal inferior, mid inferior, mid inferoseptal LV wall motion is hypokinetic. Left atrium is severely dilated. There is mild to moderate stenosis of the bioprosthetic aortic valve. Mitral valve events are mildly thickened. Large pleural effusion. No pericardial effusion. Patient's was present at the time of this evaluation. He states that cholo frankel has been losing weight and muscle mass. Sometimes she walks, but most of the time she uses a walker for last 2 years. She does fall a lot. Review of Systems ROS unobtainable: due to endotracheal tube, due to mental status Past Medical History Past Medical History: COPD Additional Past Medical History / Comment(s): HX MIGRAINES., CHRONIC BACK PAIN, DDD, SPINAL STENOSIS., STATES PAIN RADIATES TO LEFT HIP AND DOWN BOTH LEGS., MILD COPD-NO RX, DENIES DIABETES-STATES BORDERLINE IN THE PAST., KIDNEY DISEASE STAGE 3, USES ROLLING WALKER. Last Myocardial Infarction Date:: 2007 History of Any Multi-Drug Resistant Organisms: Other MDRO Past Surgical History: Back Surgery, Cardiac Valve Replacement, Cholecystectomy, Heart Catheterization With Stent, Tubal Ligation Additional Past Surgical History / Comment(s): aortic valve replacement, 4 lower back surgeries, left carotid endarterectomy, disk replaced in neck, total 4 cardiac stents Past Anesthesia/Blood Transfusion Reactions: Postoperative Nausea & Vomiting (PONV) Date of Last Stent Placement:: 01/2015 Past Psychological History: Anxiety, Bipolar, Depression Smoking Status: Current every day smoker - Past Family History Mother Family Medical History: Deep Vein Thrombosis (DVT) Additional Family Medical History / Comment(s): Blood clots in legs Father Family Medical History: Coronary Artery Disease (CAD) Additional Family Medical History / Comment(s): heart valve replacement, Medications and Allergies Home Medications Medication Instructions Recorded Confirmed Type buPROPion HCL [Wellbutrin XL] 300 mg PO QAM 04/10/14 11/11/21 History Levothyroxine Sodium [Synthroid] 100 mcg PO DAILY 07/13/18 11/11/21 History lamoTRIgine 200 mg PO BID 07/13/18 11/11/21 History Aspirin 81 mg PO DAILY #30 chew 07/14/18 11/11/21 Rx oxyCODONE-APAP 10-325MG [Percocet 1 tab PO Q6H PRN 01/02/21 11/11/21 History 10-325 mg] Atorvastatin [Lipitor] 40 mg PO DAILY 30 Days #30 tab 10/12/21 11/11/21 Rx Furosemide [Lasix] 40 mg PO DAILY 30 Days #30 tab 10/12/21 11/11/21 Rx Metoprolol Tartrate [Lopressor] 12.5 mg PO BID 30 Days #60 tab 10/12/21 11/11/21 Rx Nicotine 21Mg/24Hr Patch [Habitrol] 1 patch TRANSDERM DAILY #20 patch 10/12/21 11/11/21 Rx Potassium Chloride ER [K-Dur 10] 10 meq PO DAILY #30 tab 10/12/21 11/11/21 Rx QUEtiapine FUMARATE [SEROquel] 150 mg PO HS #15 tab 10/12/21 11/11/21 Rx Albuterol Inhaler [Ventolin Hfa 1 - 2 puff INHALATION RT-QID PRN 11/11/21 11/11/21 History Inhaler] Albuterol Nebulized [Ventolin 2.5 mg INHALATION RT-QID PRN 11/11/21 11/11/21 History Nebulized] Ipratropium-Albuterol Nebulize 3 ml INHALATION RT-QID 11/11/21 11/11/21 History [Duoneb 0.5 mg-3 mg/3 ml Soln] Nitroglycerin Sl Tabs [Nitrostat] 0.4 mg SUBLINGUAL Q5M PRN 11/11/21 11/11/21 History Allergies Allergy/AdvReac Type Severity Reaction Status Date / Time NSAIDS (Non-Steroidal Allergy Rash/Hives, Verified 11/11/21 10:24 Anti-Inflamma N/V codeine AdvReac nausea and Verified 11/11/21 10:24 "shakes" Physical Examination - Vital Signs Vital Signs: Vital Signs Temp Pulse Resp BP Pulse Ox 11/12/21 15:41 90 11/12/21 15:29 97 11/12/21 14:30 94 36 H 165/88 98 11/12/21 14:00 83 34 H 153/84 98 11/12/21 13:30 84 33 H 153/84 98 11/12/21 13:00 84 35 H 97 11/12/21 12:30 86 35 H 97 11/12/21 12:00 100.9 F H 92 37 H 95 11/12/21 11:47 87 11/12/21 11:38 88 11/12/21 11:30 87 37 H 97 11/12/21 11:00 91 35 H 97 11/12/21 10:30 105 H 32 H 96 02/10/22 10:00 104 H 32 H 97 11/12/21 09:30 104 H 32 H 96 11/12/21 09:00 104 H 32 H 142/98 96 11/12/21 08:30 102 H 32 H 96 11/12/21 08:00 99.9 F H 103 H 32 H 143/100 96 11/12/21 07:46 99 11/12/21 07:38 102 H 11/12/21 07:30 102 H 32 H 95 11/12/21 07:00 101 H 32 H 94 L 11/12/21 06:30 101 H 32 H 94 L 11/12/21 06:00 101 H 32 H 94 L 11/12/21 05:30 100 32 H 93 L 11/12/21 05:00 99 32 H 96 11/12/21 04:30 98 32 H 143/100 94 L 11/12/21 04:00 98.2 F 98 32 H 95 11/12/21 03:30 97 32 H 98 11/12/21 03:00 96 32 H 97 11/12/21 02:30 95 32 H 98 11/12/21 02:00 94 32 H 97 11/12/21 01:30 93 32 H 97 11/12/21 01:00 92 32 H 99 11/12/21 00:30 91 32 H 99 11/12/21 00:01 99.2 F 90 32 H 99 11/12/21 00:00 99.8 F H 90 32 H 98 11/11/21 23:30 87 32 H 100 11/11/21 23:00 87 32 H 100 11/11/21 22:30 87 32 H 100 11/11/21 22:00 95 32 H 93 L 11/11/21 21:30 105 H 33 H 96 11/11/21 21:00 105 H 33 H 97 11/11/21 20:34 99 11/11/21 20:30 103 H 32 H 97 11/11/21 20:18 105 H 11/11/21 20:00 98.2 F 105 H 26 H 96 11/11/21 19:30 105 H 31 H 146/104 94 L 11/11/21 19:00 105 H 21 99 11/11/21 18:30 104 H 32 H 148/104 98 11/11/21 18:00 102 H 32 H 139/98 96 11/11/21 17:30 99 32 H 139/98 96 Intake and Output 11/12/21 11/12/21 11/12/21 06:59 14:59 22:59 Intake Total 361.234 167.058 78.384 Output Total 230 Balance 131.234 167.058 78.384 Intake: IV 180 Sodium Chloride 0.9% 1, 180 000 ml @ 20 mls/hr IV . Q24H [facility] Rx#:[id number] Intake, IV Titration 181.234 167.058 78.384 Amount Cisatracurium 200 mg In 91.987 Sodium Chloride 0.9% 180 ml @ 2 MCG/KG/MIN 5.443 mls/hr IV .Q24H [facility] Rx#: [id number] Heparin Sod,Pork in 0.45% 85.751 78.384 NaCl 25,000 unit In 0.45 % NaCl 1 250ml.bag @ 12 UNITS/KG/HR 5.443 mls/hr IV .Q24H [facility] Rx#: [id number] propofoL 1,000 mg In 95.483 75.071 Empty Bag 1 bag @ Titrate IV .Q0M [facility] Rx#: [id number] Output: Urine 230 Other: Voiding Method Indwelling Catheter Indwelling Catheter Indwelling Catheter Weight 45.359 kg ABP, PAP, CO, CI - Last 8 Hours Arterial Blood Pressure 167/100 Arterial Blood Pressure 133/81 Arterial Blood Pressure 129/78 Arterial Blood Pressure 124/77 Arterial Blood Pressure 127/80 Arterial Blood Pressure 154/97 Arterial Blood Pressure 139/90 Arterial Blood Pressure 140/89 Arterial Blood Pressure 142/86 Arterial Blood Pressure 138/87 Arterial Blood Pressure 133/82 Patient is an elderly female, appears somewhat cachectic, decreased muscle mass all over. Patient is intubated and sedated on propofol 45 mcg/kg/m. Patient also on Zosyn and heparin IV. Speech, language functions cannot be assessed. On cranial examination, pupils are round and reacting to light, visual latif ca nnot be tested, oculocephalics are absent. Corneals are absent. Patient does have a gag and cough reflexes on suctioning. She does breathe over the ventilator, when she is suctioned. Otherwise not breathing over the vent. Muscle strength cannot be tested. Patient does not respond to painful stimuli. Deep tendon reflexes are absent and plantars are flat. Sensory patient does not respond to painful stimuli. Cerebellar function and gait cannot be checked. On general examination, there is no carotid bruit or murmur, S1-S2 audible. Abdomen is soft nontender. No peripheral edema. No cyanosis. Patient is somewhat cachectic. Results - Laboratory Findings CBC and BMP: 11/14/21 05:00 11/14/21 12:45 Abnormal Lab Findings: Abnormal Labs 11/11/21 11/11/21 11/11/21 09:03 09:03 09:03 WBC RBC 3.36 L Hgb 10.8 L Hct MCV 101.9 H MCHC Neutrophils # 8.1 H Lymphocytes # 0.8 L APTT 21.3 L D-Dimer 4.50 H ABG pH ABG pCO2 ABG pO2 ABG HCO3 ABG Total CO2 ABG O2 Saturation Sodium 135 L Carbon Dioxide BUN 24 H Creatinine Glucose 230 H POC Glucose (mg/dL) Calcium Magnesium AST 90 H ALT 37 H Alkaline Phosphatase 407 H Troponin I Total Protein Albumin 3.2 L 11/11/21 11/11/21 11/11/21 09:03 14:25 14:25 WBC 12.8 H RBC 3.11 L Hgb 10.1 L Hct 33.4 L MCV 107.6 H D MCHC 30.1 L Neutrophils # 11.9 H Lymphocytes # 0.5 L APTT D-Dimer ABG pH ABG pCO2 ABG pO2 ABG HCO3 ABG Total CO2 ABG O2 Saturation Sodium 136 L Carbon Dioxide 21 L BUN 24 H Creatinine Glucose 382 H POC Glucose (mg/dL) Calcium 7.5 L Magnesium 2.5 H AST 68 H ALT Alkaline Phosphatase 310 H Troponin I 0.149 H* Total Protein 5.8 L Albumin 2.7 L 11/11/21 11/11/21 11/11/21 14:52 14:54 15:59 WBC RBC Hgb Hct MCV MCHC Neutrophils # Lymphocytes # APTT D-Dimer ABG pH 7.19 L* ABG pCO2 72 H* ABG pO2 73 L ABG HCO3 27 H ABG Total CO2 30 H ABG O2 Saturation 88.6 L Sodium Carbon Dioxide BUN Creatinine Glucose POC Glucose (mg/dL) 359 H Calcium Magnesium AST ALT Alkaline Phosphatase Troponin I 0.132 H* Total Protein Albumin 11/11/21 11/12/2111/12/22 19:47 00:04 05:00 WBC 21.1 H RBC 3.11 L Hgb 10.3 L Hct 32.1 L MCV 103.3 H MCHC Neutrophils # 19.0 H Lymphocytes # 0.9 L APTT D-Dimer ABG pH ABG pCO2 ABG pO2 ABG HCO3 ABG Total CO2 ABG O2 Saturation Sodium Carbon Dioxide BUN Creatinine Glucose POC Glucose (mg/dL) 288 H 153 H Calcium Magnesium AST ALT Alkaline Phosphatase Troponin I Total Protein Albumin 11/12/21 11/12/21 11/12/21 05:00 05:00 05:42 WBC RBC Hgb Hct MCV MCHC Neutrophils # Lymphocytes # APTT 33.2 H D-Dimer ABG pH 7.32 L ABG pCO2 55 H ABG pO2 64 L ABG HCO3 28 H ABG Total CO2 30 H ABG O2 Saturation 89.9 L Sodium Carbon Dioxide BUN 32 H Creatinine 1.21 H Glucose 140 H POC Glucose (mg/dL) Calcium Magnesium AST 56 H ALT Alkaline Phosphatase 256 H Troponin I Total Protein Albumin 3.1 L 11/12/21 11/12/21 11/12/21 06:20 11:07 14:52 WBC RBC Hgb Hct MCV MCHC Neutrophils # Lymphocytes # APTT 34.6 H D-Dimer ABG pH ABG pCO2 ABG pO2 ABG HCO3 ABG Total CO2 ABG O2 Saturation Sodium Carbon Dioxide BUN Creatinine Glucose POC Glucose (mg/dL) 141 H 121 H Calcium Magnesium AST ALT Alkaline Phosphatase Troponin I Total Protein Albumin Assessment and Plan Assessment: * Status post cardiopulmonary arrest with downtime of about 12-15 minutes. * Patient with possible anoxic encephalopathy on top of underlying toxic metabolic encephalopathy. * Ventilator-dependent respiratory failure * Probable sepsis, high temperature, leukocytosis. * Non-STEMI * History of aortic stenosis with previous history of aortic valve replacement and evidence of restenosis of the bioprosthetic aortic valve. * CHF * Diabetes * Hypertension * CAD * Anemia * Mild to moderate renal insufficiency * Mildly elevated liver enzyme, improving. * History of tobacco use * Protein calorie malnutrition. Plan: * EEG to evaluate for degree of encephalopathy * Computed tomography scan of the head, evaluate for cerebral edema, rule out other structural abnormalities. * We will try to reexamine patient in the morning with decreased sedation. Per nurse report, when she decreases sedation, patient have nonpurposeful minimal movement of extremities. * We will follow clinically as well. * Other medical management as per IM/critical care/cardiology. * Discussed with patient's in detail. * Thank you for the consult.
--- NOTE | 2021-11-13 01:48 | P.PN ---
Subjective Progress Note Date: 11/12/21 Patient is 60-year-old female came in with comments of shortness of breath patient has a history of severe aortic stenosis patient had any of around 50- 55%. Patient had bilateral pleural effusions and pulmonary edema on the CT angios the chest. Patient was started on BiPAP. Patient was receiving IV fl uids to discuss reviewed and the patient was started on IV Lasix patient had bilateral pleural effusions patient had a recent hospitalization for which patient underwent thoracentesis. Patient does have history of smoking does have history of COPD. Shortly after my evaluation patient decompensated cold blue was called patient was subsequently intubated and transferred to ICU. ABG was opted at that time which showed hypercapnia. Pulmonary was consulted. 11/12/2021 Patient is seen and evaluated in the ICU continues on mechanical ventilation and sedation and being closely monitored. Pulmonary and cardiology following. Current FiO2 is 40% with a PEEP of 5 and patient continues on Nimbex with attempts at weaning. Chest x-ray today shows stable small to moderate sized left pleural effusion and stable diffuse central right lung edema and/or infiltrates with no significant change from previous day. Patient had a 2-D echo done which shows moderate concentric left ventricular hypertrophy with overall LV systolic function is mildly to moderately impaired with an EF of 40- 45% with mild to moderate stenosis of the bioprosthetic aortic valve and mild mitral tricuspid regurgitation present along with moderate pulmonary hypertension noted. Blood cultures thus far noted to be negative and patient is maintained on IV antibiotics in the form of Zosyn and will continue. Patient continues on sedation of propofol. Patient will also continue with IV Lasix twice daily and will continue with sliding scale per protocol for elevated blood sugars. Dietitian consulted to initiate tube feedings. REVIEW OF SYSTEMS: Unable to obtain due to her clinical condition Labs: WBC is 21.1, hemoglobin is 10.3, platelets are 277, sodium is 139, potassium 4.8, BUN 32, creatinine 1.21, calcium 8.4 Active Medications Albuterol Sulfate (Albuterol Hfa Inhaler) 2 puff INHALATION RT-QID PRN PRN Reason: Shortness Of Breath Albuterol Sulfate (Albuterol Nebulized 2.5 Mg/3 Ml) 2.5 mg INHALATION RT-QID PRN PRN Reason: Shortness Of Breath Albuterol/Ipratropium (Ipratropium-Albuterol 3 Ml Neb) 3 ml INHALATION RT-QID [facility] Last Admin: 11/12/21 15:29 Dose: 3 ml Documented by: Aspirin (Aspirin 81 Mg) 81 mg PO DAILY [facility] Last Admin: 11/12/21 09:39 Dose: 81 mg Documented by: Atorvastatin Calcium (Atorvastatin 40 Mg Tab) 40 mg PO DAILY [facility] Last Admin: 11/12/21 09:39 Dose: 40 mg Documented by: Bupropion HCl (Bupropion Xl 300 Mg Tab.Er.24h) 300 mg PO QAM [facility] Last Admin: 11/12/21 09:39 Dose: 300 mg Documented by: Chlorhexidine Gluconate (Chlorhexidine Gluconate 15 Ml Cup) 15 ml MUCOUS MEM BID [facility] Last Admin: 11/12/21 09:41 Dose: 15 ml Documented by: Furosemide (Furosemide 10 Mg/Ml 4 Ml Vial) 40 mg IV BID [facility] Last Admin: 11/12/21 09:40 Dose: 40 mg Documented by: Heparin Sodium (Porcine) (Heparin Sodium 1,000 Un/Ml (10ml Vl)) 0 unit IV PER PROTOCOL PRN; Protocol PRN Reason: Low PTT Last Admin: 11/12/21 16:03 Dose: 2,250 unit Documented by: Heparin Sodium/Sodium Chloride (25,000 unit/ Sodium Chloride) 250 mls @ 5.443 mls/hr IV .Q24H [facility]; Protocol Last Titration: 11/12/21 16:04 Dose: 21 units/kg/hr, 9.525 mls/hr Documented by: Propofol 1,000 mg/ IV Solution 100 mls @ 0 mls/hr IV .Q0M [facility]; Protocol Last Admin: 11/12/21 09:39 Dose: 50 mcg/kg/min, 13.608 mls/hr Documented by: Cisatracurium Besylate 200 mg/ (Sodium Chloride) 200 mls @ 5.443 mls/hr IV .Q24H [facility]; Protocol Last Admin: 11/12/21 16:02 Dose: Not Given Documented by: Piperacillin Sod/Tazobactam (Sod 3.375 gm/ Sodium Chloride) 100 mls @ 25 mls/hr IVPB Q12H [facility] Last Admin: 11/12/21 11:30 Dose: 25 mls/hr Documented by: Insulin Aspart (Insulin Aspart (Novolog) 100 Unit/Ml Vial) 0 unit SQ Q6HR [facility]; Protocol Lamotrigine (Lamotrigine 100 Mg Tab) 200 mg PO BID [facility] Last Admin: 11/12/21 09:40 Dose: 200 mg Documented by: Levothyroxine Sodium (Levothyroxine 100 Mcg Tab) 100 mcg PO DAILY@0630 [facility] Last Admin: 11/12/21 06:12 Dose: 100 mcg Documented by: Metoprolol Tartrate (Metoprolol Tartrate 12.5 Mg Tab) 12.5 mg PO BID [facility] Last Admin: 11/12/21 09:39 Dose: 12.5 mg Documented by: Nicotine (Nicotine 21mg/24hr Patch) 1 patch TRANSDERM DAILY [facility] Last Admin: 11/12/21 09:40 Dose: 1 patch Documented by: Oxycodone/Acetaminophen (Oxycodone-Apap 10-325mg 1 Each Tab) 1 each PO Q6H PRN PRN Reason: Pain Pantoprazole Sodium (Pantoprazole 40 Mg/10 Ml Vial) 40 mg IVP DAILY [facility] Last Admin: 11/12/21 09:40 Dose: 40 mg Documented by: Potassium Chloride (Potassium Chloride Er 10 Meq Tab.Er.Prt) 10 meq PO DAILY [facility] Last Admin: 11/12/21 09:40 Dose: 10 meq Documented by: Quetiapine Fumarate (Quetiapine 50 Mg Tab) 150 mg PO HS [facility] Last Admin: 11/11/21 23:16 Dose: 150 mg Documented by: Sodium Chloride (Sodium Chloride 0.9% Flush 10 Ml Syringe) 10 ml IV Q12HR [facility] Sodium Chloride (Sodium Chloride 0.9% Flush 10 Ml Syringe) 10 ml IV DIRECTED PRN PRN Reason: FLUSH PHYSICAL EXAMINATION: GENERAL: Patient is currently on mechanical ventilation and intubated and sedated. cachetic FiO2 is 40% with a PEEP of 5. Thin built. HEENT: Pupils are round and equally reacting to light. EOMI. No scleral icterus. No conjunctival pallor. Normocephalic, atraumatic. No pharyngeal erythema. No thyromegaly. CARDIOVASCULAR: S1 and S2 present. No rubs, or gallops. Patient has a systolic murmur PULMONARY: Diffuse bilateral rhonchi as well as wheezing and crackles noted ABDOMEN: Soft, nontender, nondistended, normoactive bowel sounds. No palpable organomegaly. MUSCULOSKELETAL: No joint swelling or deformity. EXTREMITIES: No cyanosis, clubbing, or pedal edema. NEUROLOGICAL: unable to assess as patient is sedated. SKIN: No rashes. Assessment and plan: -Acute hypoxic respiratory failure as well as hypercapnic respiratory failure secondary to congestive heart failure exacerbation and a component of COPD exacerbation as well respectively. Patient was continued on BiPAP later was intubated. Patient has significantly elevated BNP, patient was started on IV Lasix -Status post cardiac respiratory arrest with pulseless electrical activity with 15 minutes of CPR and ROSC obtained -congestive heart failure chronic diastolic dysfunction with acute exacerbation -Severity aortic stenosis -Mild elevation of troponin secondary to CHF -History of coronary artery disease with stenting in the past -Hyperlipidemia -Diabetes mellitus -COPD with acute exacerbation -Hypothyroidism -Chronic back pain with spinal stenosis -Depression -Cachexia secondary to chronic smoking history patient presently doesn't smoke quit about a month ago. -Chronic kidney disease stage II secondary to diabetic nephropathy -Hyperlipidemia -DVT prophylaxis: Presently IV heparin once cardio evaluates probably can be transitioned to subcutaneous heparin -Full code Plan: Recommend to continue with current medications. Patient per nursing staff is having some intermittent temps and will add tylenol. Patient to continue on Zosyn. Attempting to wean Nimbex to assess mentation with pulmonary and cardiology following. Patient continues on IV lasix. Recommend to continue to monitor accuchecks and continue sliding scale. Recommend repeat labs and chest xray in the am. Prognosis is guarded. Objective - Vital Signs Vital signs: Vital Signs Temp 98.2 F 11/12/21 04:00 Pulse 99 11/12/21 07:46 Resp 32 H 11/12/21 07:00 BP 143/100 11/12/21 04:30 Pulse Ox 94 L 11/12/21 07:00 Intake & Output 11/11/21 11/12/21 11/12/21 18:59 06:59 18:59 Intake Total 484.965 167.058 Output Total 1999 320 Balance -1977.229 164.965 167.058 Weight 45.359 kg 45.359 kg Intake: IV 240 Sodium Chloride 0.9% 1, 240 000 ml @ 20 mls/hr IV . Q24H [facility] Rx#:[id number] Intake, IV Titration 77 244.965 167.058 Amount Cisatracurium 200 mg In 91.987 Sodium Chloride 0.9% 180 ml @ 2 MCG/KG/MIN 5.443 mls/hr IV .Q24H [facility] Rx#: [id number] Heparin Sod,Pork in 0.45% 19.051 85.751 NaCl 25,000 unit In 0.45 % NaCl 1 250ml.bag @ 12 UNITS/KG/HR 5.443 mls/hr IV .Q24H [facility] Rx#: [id number] propofoL 1,000 mg In 3.720 159.214 75.071 Empty Bag 1 bag @ Titrate IV .Q0M [facility] Rx#: [id number] Output: Urine 2000 320 Other: Voiding Method Indwelling Catheter ABP, PAP, CO, CI - Last Documented Arterial Blood Pressure 137/84 - Labs CBC & Chem 7: 11/12/21 05:00 11/12/21 05:00 Labs: Abnormal Lab Results - Last 24 Hours (Table) 11/11/21 11/11/21 11/11/21 Range/Units 14:25 14:25 14:52 WBC 12.8 H (3.8-10.6) k/uL RBC 3.11 L (3.80-5.40) m/uL Hgb 10.1 L (11.4-16.0) gm/dL Hct 33.4 L (34.0-46.0) % MCV 107.6 H D (80.0-100.0) fL MCHC 30.1 L (31.0-37.0) g/dL Neutrophils # 11.9 H (1.3-7.7) k/uL Lymphocytes # 0.5 L (1.0-4.8) k/uL APTT (22.0-30.0) sec ABG pH (7.35-7.45) ABG pCO2 (35-45) mmHg ABG pO2 (83-108) mmHg ABG HCO3 (21-25) mmol/L ABG Total CO2 (19-24) mmol/L ABG O2 Saturation (94-97) % Sodium 136 L (137-145) mmol/L Carbon Dioxide 21 L (22-30) mmol/L BUN 24 H (7-17) mg/dL Creatinine (0.52-1.04) mg/dL Glucose 382 H (74-99) mg/dL POC Glucose (mg/dL) (75-99) mg/dL Calcium 7.5 L (8.4-10.2) mg/dL Magnesium 2.5 H (1.6-2.3) mg/dL AST 68 H (14-36) U/L Alkaline Phosphatase 310 H (38-126) U/L Troponin I 0.132 H* (0.000-0.034) ng/mL Total Protein 5.8 L (6.3-8.2) g/dL Albumin 2.7 L (3.5-5.0) g/dL 11/11/21 11/11/21 11/11/21 Range/Units 14:54 15:59 19:47 WBC (3.8-10.6) k/uL RBC (3.80-5.40) m/uL Hgb (11.4-16.0) gm/dL Hct (34.0-46.0) % MCV (80.0-100.0) fL MCHC (31.0-37.0) g/dL Neutrophils # (1.3-7.7) k/uL Lymphocytes # (1.0-4.8) k/uL APTT (22.0-30.0) sec ABG pH 7.19 L* (7.35-7.45) ABG pCO2 72 H* (35-45) mmHg ABG pO2 73 L (83-108) mmHg ABG HCO3 27 H (21-25) mmol/L ABG Total CO2 30 H (19-24) mmol/L ABG O2 Saturation 88.6 L (94-97) % Sodium (137-145) mmol/L Carbon Dioxide (22-30) mmol/L BUN (7-17) mg/dL Creatinine (0.52-1.04) mg/dL Glucose (74-99) mg/dL POC Glucose (mg/dL) 359 H 288 H (75-99) mg/dL Calcium (8.4-10.2) mg/dL Magnesium (1.6-2.3) mg/dL AST (14-36) U/L Alkaline Phosphatase (38-126) U/L Troponin I (0.000-0.034) ng/mL Total Protein (6.3-8.2) g/dL Albumin (3.5-5.0) g/dL 11/12/21 11/12/21 11/12/21 Range/Units 00:04 05:00 05:00 WBC 21.1 H (3.8-10.6) k/uL RBC 3.11 L (3.80-5.40) m/uL Hgb 10.3 L (11.4-16.0) gm/dL Hct 32.1 L (34.0-46.0) % MCV 103.3 H (80.0-100.0) fL MCHC (31.0-37.0) g/dL Neutrophils # 19.0 H (1.3-7.7) k/uL Lymphocytes # 0.9 L (1.0-4.8) k/uL APTT (22.0-30.0) sec ABG pH (7.35-7.45) ABG pCO2 (35-45) mmHg ABG pO2 (83-108) mmHg ABG HCO3 (21-25) mmol/L ABG Total CO2 (19-24) mmol/L ABG O2 Saturation (94-97) % Sodium (137-145) mmol/L Carbon Dioxide (22-30) mmol/L BUN 32 H (7-17) mg/dL Creatinine 1.21 H (0.52-1.04) mg/dL Glucose 140 H (74-99) mg/dL POC Glucose (mg/dL) 153 H (75-99) mg/dL Calcium (8.4-10.2) mg/dL Magnesium (1.6-2.3) mg/dL AST 56 H (14-36) U/L Alkaline Phosphatase 256 H (38-126) U/L Troponin I (0.000-0.034) ng/mL Total Protein (6.3-8.2) g/dL Albumin 3.1 L (3.5-5.0) g/dL 11/12/21 11/12/21 11/12/21 Range/Units 05:00 05:42 06:20 WBC (3.8-10.6) k/uL RBC (3.80-5.40) m/uL Hgb (11.4-16.0) gm/dL Hct (34.0-46.0) % MCV (80.0-100.0) fL MCHC (31.0-37.0) g/dL Neutrophils # (1.3-7.7) k/uL Lymphocytes # (1.0-4.8) k/uL APTT 33.2 H (22.0-30.0) sec ABG pH 7.32 L (7.35-7.45) ABG pCO2 55 H (35-45) mmHg ABG pO2 64 L (83-108) mmHg ABG HCO3 28 H (21-25) mmol/L ABG Total CO2 30 H (19-24) mmol/L ABG O2 Saturation 89.9 L (94-97) % Sodium (137-145) mmol/L Carbon Dioxide (22-30) mmol/L BUN (7-17) mg/dL Creatinine (0.52-1.04) mg/dL Glucose (74-99) mg/dL POC Glucose (mg/dL) 141 H (75-99) mg/dL Calcium (8.4-10.2) mg/dL Magnesium (1.6-2.3) mg/dL AST (14-36) U/L Alkaline Phosphatase (38-126) U/L Troponin I (0.000-0.034) ng/mL Total Protein (6.3-8.2) g/dL Albumin (3.5-5.0) g/dL 11/12/21 Range/Units 11:07 WBC (3.8-10.6) k/uL RBC (3.80-5.40) m/uL Hgb (11.4-16.0) gm/dL Hct (34.0-46.0) % MCV (80.0-100.0) fL MCHC (31.0-37.0) g/dL Neutrophils # (1.3-7.7) k/uL Lymphocytes # (1.0-4.8) k/uL APTT (22.0-30.0) sec ABG pH (7.35-7.45) ABG pCO2 (35-45) mmHg ABG pO2 (83-108) mmHg ABG HCO3 (21-25) mmol/L ABG Total CO2 (19-24) mmol/L ABG O2 Saturation (94-97) % Sodium (137-145) mmol/L Carbon Dioxide (22-30) mmol/L BUN (7-17) mg/dL Creatinine (0.52-1.04) mg/dL Glucose (74-99) mg/dL POC Glucose (mg/dL) 121 H (75-99) mg/dL Calcium (8.4-10.2) mg/dL Magnesium (1.6-2.3) mg/dL AST (14-36) U/L Alkaline Phosphatase (38-126) U/L Troponin I (0.000-0.034) ng/mL Total Protein (6.3-8.2) g/dL Albumin (3.5-5.0) g/dL Microbiology - Last 24 Hours (Table) 11/11/21 09:03 Blood Culture - Preliminary Blood No Growth after 24 hours
[2021-11-13 05:06] LABS: Basophils % (A) 0 %; Eosinophils % (A) 0 %; HCT 27.5 % (34.0-46.0); HGB 8.9 gm/dL (11.4-16.0); Lymphocytes # (A) 1.3 k/uL (1.0-4.8); Lymphocytes % (A) 11 %; MCH 32.3 pg (25.0-35.0); MCHC 32.4 g/dL (31.0-37.0); MCV 99.9 fL (80.0-100.0); Mean Platelet Volume 8.6; Monocytes # (A) 0.9 k/uL (0-1.0); Monocytes % (A) 7 %; Neutrophils # (A) 9.8 k/uL (1.3-7.7); Neutrophils % (A) 80 %; Platelet Count 226 k/uL (150-450); RBC 2.76 m/uL (3.80-5.40); RDW 13.6 % (11.5-15.5); WBC 12.3 k/uL (3.8-10.6)
[2021-11-13 05:30] LABS: Albumin 2.6 g/dL (3.5-5.0); Calcium 8.3 mg/dL (8.4-10.2); Total Bilirubin 0.6 mg/dL (0.2-1.3); Total Protein 5.8 g/dL (6.3-8.2)
[2021-11-13 05:30] LABS: Glucose,Whole Blood 161 mg/dL (75-99)
[2021-11-13] MEDS: INSULIN ASPART (NovoLOG) 100 UNIT/ML VIAL SQ SCH ×4 (05:36→23:44)
[2021-11-13] MEDS: LEVOTHYROXINE 100 MCG TAB PO SCH (05:36)
[2021-11-13 05:39] LABS: ABG HCO3 28 mmol/L (21-25); ABG Oxygen Saturation 99.2 % (94-97); ABG PCO2 38 mmHg (35-45); ABG PH 7.47 (7.35-7.45); ABG PO2 135 mmHg (83-108); Allen Test Performed? Yes
[2021-11-13 06:04] LABS: Potassium 2.7 mmol/L (3.5-5.1)
[2021-11-13] MEDS: IPRATROPIUM-ALBUTEROL 3 ML NEB INHALATION SCH ×4 (07:40→21:09)
[2021-11-13] MEDS ORDERED: Potassium Replacement Protocol 1 EACH MISC MISCELLANE PRN (08:01)
--- NOTE | 2021-11-13 08:19 | XR ---
EXAMINATION TYPE: XR chest 1V portable DATE OF EXAM: 11/13/2021 COMPARISON: 11/12/2021 HISTORY: SOB, Follow Up FINDINGS: Indwelling tubes and catheters are unchanged. No change in bibasilar opacities. Stable appearance of the cardio-mediastinal structures at this time. Pleural effusion unchanged. IMPRESSION: 1. Stable portable chest. Clinical correlation and follow up until resolution is recommended.
[2021-11-13] MEDS: POTASSIUM CHLORIDE ER 10 MEQ TAB.ER.PRT PO SCH (09:12)
--- NOTE | 2021-11-13 09:18 | P.PN ---
Subjective HISTORY OF PRESENTING ILLNESS This is a pleasant 60-year-old female past medical history significant for coronary artery disease status post PCI mid RCA in 2007, PCI to the distal RCA in 2014, severe aortic stenosis status post aortic valve replacement in 2016 with restenosis, hypertension, hyperlipidemia, type 2 diabetes, chronic nicotine dependence, COPD, left-sided carotid endarterectomy, hypothyroidism. She follows in the office with Dr. Elena. Patient has had a number of admissions to the hospital for heart failure as well as COPD exacerbation over the last 2 months. She presented to 06/22/2022 secondary to worsening shortness breath which started the day before as well as reported chest heaviness and 8 out of 10. Patient is currently intubated and sedated and history is supplied by chart. There is apparently no recent fevers, chills however did have a dry cough. She did had prior thoracentesis last admission which was felt related to her heart failure. She had a CTA performed which showed no pulmonary embolism with moderate left and small to moderate right pleural effusion with atelectasis. There is also a report of anasarca and patchy groundglass opacities and correlate for heart failure versus pulmonary edema. There is also mediastinal hilar and abdominal lymphadenopathy. Patient was admitted and placed on BiPAP however apparently decompensated with worsening respiratory distress and bradycardi and loss of pulses and CPR was performed for approximately 15 minutes without any VT noted and eventual ROSC. Patient was having a hard time oxygenating and therefore was paralyzed and on ventilator. Currently on 45% FiO2. Blood work initially showed white blood cell count 9.8, hemoglobin 10.8, d-dimer 4.5, sodium 135, BUN 24, creatinine 0.86, AST 90, ALT 37, troponin 0.149, 0.132, albumin 3.2, proBNP 30,100. Last echo from 10/01/2021 showed EF 55-60%, severe stenosis of the bioprosthetic aortic valve with a mean gradient of 46, mild aortic regurgitation, mild mitral regurgitation, mild tricuspid regurgitation with a small generalized pericardial effusion and a large pleural effusion. Last Cardiac Catheterization 11/2015 revealed normal EF, 20% mid LAD, 100% distal circumflex, 30% mid RCA, right dominant, severe aortic stenosis 11/13 Patient seen and examined. Patient remains intubated on 40% FiO2 with a PEEP of 5. No further bradycardia noted. Potassium extremely low at 2.7 this morning and replaced repeat 3.1. Hemoglobin downtrending 10.8 on admission and currently 8.9. Echo shows EF 40-45% with inferior hypokinesis. There is mention of mild to moderate bioprosthetic aortic valve stenosis however may be component of low-flow gradient. There is a large pleural effusion with mention of fibrin noted in the pleural effusion. RVSP of 50.8. REVIEW OF SYSTEMS At the time of my exam: Unable to obtain secondary to sedation, paralyzed PHYSICAL EXAMINATION Vital signs reviewed. CONSTITUTIONAL: No apparent distress, sedated and paralyzed on vent, frail HEENT: Head is normocephalic. Pupils are equal, round. Sclerae anicteric. Mucous membranes of the mouth are moist. No JVD. No carotid bruit. CHEST EXAMINATION: Lungs are clear to auscultation. No chest wall tenderness is noted on palpation or with deep breathing. HEART EXAMINATION: Regular rate and rhythm. S1, S2 heard. +3/6 murmur, no gallops or rub. ABDOMEN: Soft, nontender. Positive bowel sounds. EXTREMITIES: 2+ peripheral pulses, no lower extremity edema and no calf tenderness. NEUROLOGIC EXAMINATION: Patient is sedated and ventilated ASSESSMENT 1. Status post cardiac arrest for approximately 15 minutes with bradycardia. Suspect pulmonary etiology with worsening pulmonary status area 2. Acute on chronic respiratory failure likely component of heart failure with chronic COPD component as well as 3. Acute on chronic diastolic heart failure 4. Severe bioprosthetic aortic valve stenosis 5. Non-STEMI possible type II mechanism related to heart failure, hypoxia however new inferior hypokinesis concerning for Type I etiology 6. Coronary artery disease with prior history of PCI 7. Prior small generalized pericardial effusion 8. Bilateral pleural effusions status post previous thoracentesis 9. Hilar adenopathy, no obvious infectious symptoms recently 10. Tobacco abuse 11. Frailty 12. Protein calorie malnutrition 13. Inferior hypokinesis 14. New mild cardiomyopathy EF 40-45% with inferior hypokinesis PLAN Continue with IV diuretics however somewhat decreased urine output and creatinine still going up somewhat however acute kidney injury likely related to ATN from cardiac arrest. Patient does have new cardiomyopathy with EF 40-45% with inferior hypokinesis and patient was having some chest pain prior to arrival and there is a consideration of type I myocardial infarction. Continue with aspirin and heparin drip and await neurologic status. Pending neurologic recovery likely ischemic workup with either stress test or heart catheterization. We will repeat an EKG and repeat troponin to continue to trend. Echo showing mild to moderate bioprosthetic stenosis however may be component of low-flow low gradient. Prognosis guarded. Objective - Vital Signs Vital signs: Vital Signs Temp 97.6 F 11/13/21 04:00 Pulse 67 11/13/21 07:00 Resp 33 H 11/13/21 07:00 BP 195/108 11/12/21 21:00 Pulse Ox 100 11/13/21 07:00 Intake & Output 11/12/21 11/13/21 11/13/21 18:59 06:59 18:59 Intake Total 635.442 792.153 50 Output Total 820 1465 40 Balance -184.558 -672.847 10 Weight 45.359 kg 47.1 kg Intake: IV 280 360 30 0.9 KVO 180 360 30 Piperacillin-Tazobactam 3 100 .375 gm In Sodium Chloride 0.9% 100 ml @ 25 mls/hr IVPB Q12H [facility] Rx# :[id number] Intake, IV Titration 345.442 222.153 Amount Cisatracurium 200 mg In 91.987 Sodium Chloride 0.9% 180 ml @ 2 MCG/KG/MIN 5.443 mls/hr IV .Q24H [facility] Rx#: [id number] Heparin Sod,Pork in 0.45% 78.384 85.865 NaCl 25,000 unit In 0.45 % NaCl 1 250ml.bag @ 12 UNITS/KG/HR 5.443 mls/hr IV .Q24H [facility] Rx#: [id number] propofoL 1,000 mg In 175.071 136.288 Empty Bag 1 bag @ Titrate IV .Q0M [facility] Rx#: [id number] Tube Feeding 10 150 20 Other 60 Output: Urine 820 1465 40 Other: Voiding Method Indwelling Catheter Indwelling Catheter ABP, PAP, CO, CI - Last Documented Arterial Blood Pressure 119/70 - Labs CBC & Chem 7: 11/13/21 04:35 11/13/21 06:15 Labs: Abnormal Lab Results - Last 24 Hours (Table) 11/12/21 11/12/21 11/12/21 Range/Units 11:07 14:52 18:41 WBC (3.8-10.6) k/uL RBC (3.80-5.40) m/uL Hgb (11.4-16.0) gm/dL Hct (34.0-46.0) % Neutrophils # (1.3-7.7) k/uL APTT 34.6 H (22.0-30.0) sec ABG pH (7.35-7.45) ABG pO2 (83-108) mmHg ABG HCO3 (21-25) mmol/L ABG O2 Saturation (94-97) % Potassium (3.5-5.1) mmol/L BUN (7-17) mg/dL Creatinine (0.52-1.04) mg/dL Glucose (74-99) mg/dL POC Glucose (mg/dL) 121 H 168 H (75-99) mg/dL Calcium (8.4-10.2) mg/dL AST (14-36) U/L Alkaline Phosphatase (38-126) U/L Total Protein (6.3-8.2) g/dL Albumin (3.5-5.0) g/dL 11/12/21 11/12/21 11/13/21 Range/Units 22:05 23:11 04:35 WBC 12.3 H (3.8-10.6) k/uL RBC 2.76 L (3.80-5.40) m/uL Hgb 8.9 L (11.4-16.0) gm/dL Hct 27.5 L (34.0-46.0) % Neutrophils # 9.8 H (1.3-7.7) k/uL APTT 47.9 H (22.0-30.0) sec ABG pH (7.35-7.45) ABG pO2 (83-108) mmHg ABG HCO3 (21-25) mmol/L ABG O2 Saturation (94-97) % Potassium (3.5-5.1) mmol/L BUN (7-17) mg/dL Creatinine (0.52-1.04) mg/dL Glucose (74-99) mg/dL POC Glucose (mg/dL) 149 H (75-99) mg/dL Calcium (8.4-10.2) mg/dL AST (14-36) U/L Alkaline Phosphatase (38-126) U/L Total Protein (6.3-8.2) g/dL Albumin (3.5-5.0) g/dL 11/13/21 11/13/21 11/13/21 Range/Units 04:35 04:35 05:27 WBC (3.8-10.6) k/uL RBC (3.80-5.40) m/uL Hgb (11.4-16.0) gm/dL Hct (34.0-46.0) % Neutrophils # (1.3-7.7) k/uL APTT 41.2 H (22.0-30.0) sec ABG pH (7.35-7.45) ABG pO2 (83-108) mmHg ABG HCO3 (21-25) mmol/L ABG O2 Saturation (94-97) % Potassium 2.7 L* (3.5-5.1) mmol/L BUN 47 H (7-17) mg/dL Creatinine 1.35 H (0.52-1.04) mg/dL Glucose 161 H (74-99) mg/dL POC Glucose (mg/dL) 161 H (75-99) mg/dL Calcium 8.3 L (8.4-10.2) mg/dL AST 45 H (14-36) U/L Alkaline Phosphatase 167 H (38-126) U/L Total Protein 5.8 L (6.3-8.2) g/dL Albumin 2.6 L (3.5-5.0) g/dL 11/13/21 11/13/21 Range/Units 05:45 06:15 WBC (3.8-10.6) k/uL RBC (3.80-5.40) m/uL Hgb (11.4-16.0) gm/dL Hct (34.0-46.0) % Neutrophils # (1.3-7.7) k/uL APTT (22.0-30.0) sec ABG pH 7.47 H (7.35-7.45) ABG pO2 135 H (83-108) mmHg ABG HCO3 28 H (21-25) mmol/L ABG O2 Saturation 99.2 H (94-97) % Potassium 3.1 L (3.5-5.1) mmol/L BUN (7-17) mg/dL Creatinine (0.52-1.04) mg/dL Glucose (74-99) mg/dL POC Glucose (mg/dL) (75-99) mg/dL Calcium (8.4-10.2) mg/dL AST (14-36) U/L Alkaline Phosphatase (38-126) U/L Total Protein (6.3-8.2) g/dL Albumin (3.5-5.0) g/dL Microbiology - Last 24 Hours (Table) 11/11/21 09:03 Blood Culture - Preliminary Blood No Growth after 24 hours
[2021-11-13] MEDS: lamoTRIgine 100 MG TAB PO SCH ×2 (09:19→20:02)
[2021-11-13] MEDS: POTASSIUM BICARBONATE/CIT AC 20 MEQ TABLET.EFF NG-TUBE SCH ×4 (09:19→19:09)
[2021-11-13] MEDS: CHLORHEXIDINE GLUCONATE 15 ML CUP MUCOUS MEM SCH ×2 (09:20→20:02)
[2021-11-13] MEDS: ATORVASTATIN 40 MG TAB PO SCH (09:20)
[2021-11-13] MEDS: METOPROLOL TARTRATE 12.5 MG TAB PO SCH ×2 (09:20→20:02)
[2021-11-13] MEDS: FUROSEMIDE 10 MG/ML 4 ML VIAL IV SCH (09:20)
[2021-11-13] MEDS: ASPIRIN 81 MG PO SCH (09:20)
[2021-11-13] MEDS: PANTOPRAZOLE 40 MG/10 ML VIAL IVP SCH (09:22)
[2021-11-13] MEDS: buPROPion XL 300 MG TAB.ER.24H PO SCH (10:28)
[2021-11-13] MEDS: PIPERACILLIN-TAZOBACTAM 3.375 GM in SODIUM CHLORIDE 0.9% 100 ML IVPB SCH (11:12)
[2021-11-13 11:35] LABS: Glucose,Whole Blood 179 mg/dL (75-99)
--- NOTE | 2021-11-13 12:04 | EEG ---
ELECTROENCEPHALOGRAM REPORT DATE OF SERVICE: 11/13/2021 PREAMBLE: This is a 60-year-old female with cardiac arrest. This study is performed to evaluate for any encephalopathy, rule out epileptiform activity. Patient is comatose. EEG FINDINGS: This is a 21-channel digital EEG recorded with video component, utilizing 10/20 international system with referential and bipolar montages. Background consists of poorly developed and regulated, severely suppressed, low voltage generalized 1 to 2 hertz delta activity seen in bihemispheric region. Background does not seem to be reactive to passive eye opening or closing or to photic stimulation. Occasional bursts of single sharp waves were seen occasionally during this study. No electrographic seizure was recorded. IMPRESSION: This is a severely abnormal EEG due to background suppression and diffuse slowing. This is suggestive of generalized cerebral dysfunction, consistent with her history of anoxic encephalopathy. Very occasional bursts of single sharp waves were seen; however, no electrographic seizure was recorded. Clinical correlation recommended. IRENE / JACOBO: [id number] / MTDD
--- NOTE | 2021-11-13 13:10 | CT ---
EXAMINATION TYPE: CT brain wo con DATE OF EXAM: 11/13/2021 COMPARISON: 04/17/2015 HISTORY: cardiac arrest CT DLP: 1054.[address] of the brain was performed. The ventricles, basal cisterns and sulci overlying the cerebral convexities demonstrate mild enlargem ent. There is no evidence for intracranial hemorrhage or sulcal effacement. There is decreased attenuation about the periventricular white matter and deep white matter of both c erebral hemispheres, compatible with chronic small vessel ischemia. Differential diagnosis does inclu de demyelination. No mass effects are seen.No midline shift. Osseous calvarium is intact. If symptoms persist consider MRI. IMPRESSION: 1. Age related atrophic and chronic small vessel ischemic change without acute intracranial process s een at this time.
[2021-11-13] MEDS: NICOTINE 21MG/24HR PATCH TRANSDERM SCH (13:26)
--- NOTE | 2021-11-13 13:31 | P.PN ---
Subjective Progress Note Date: 11/13/21 Principal diagnosis: This is a 60-year-old white female patient with known extensive cardiac history including severe aortic stenosis with previous history of aortic valve replaceme nt and evidence of restenosis of the bioprosthetic aortic valve, chronic CHF with systolic dysfunction although her most recent echocardiogram showed improved left ventricular systolic function with an EF of 55-60%. Other medical history includes hypertension, diabetes with this type II, poorly controlled, coronary artery disease with previous stent placement, hypothyroidism, ongoing nicotine dependence, anxiety, depression, chronic back pain. Patient was recently hospitalized for acute exacerbation of CHF, bilateral pleural effusions status post thoracentesis of the left lung, pleural fluid was not sent for analysis, although was suspected to be transudate. She was discharged on 10/13/2021 in stable but guarded condition in view of her multiple comorbidities. 11/11/2021 patient was brought in by EMS to the emergency department for evaluation of worsening shortness of breath since yesterday, chest heaviness as severe as 8 out of 10. There were no reported fever, chills, no sweats. Patient apparently did endorse a dry cough. Patient took 4 breathing treatments at home without significant relief. She was brought to the ER, she was noted to be desaturating, and was noted to be diaphoretic. Her chest x-ray showed developing interstitial pulmonary edema, small to moderate left pleural effusion with adjacent atelectasis and/or consolidation. CTA chest showed no evidence of a large central or lobar branch pulmonary embolus, no definite pulmonary embolus in the upper or mid lungs. Segmental and more distal branches of the lower lungs were nondiagnostic. There was moderate left and small to moderate right pleural effusion with adjacent atelectasis. There was marked generalized anasarca, pulmonary arterial hypertension, patchy groundglass opacities correlate for CHF and developing pulmonary edema. There was a suggestion of underlying mediastinal hilar and upper abdominal lymphadenopathy, with a 3 months follow-up CT recommendation. Admission blood work showed white blood cell count 9.8, hemoglobin was 10.8, d-dimer is 4.5, electrolytes and renal profile were unremarkable on admission, proBNP was 30,100, troponin was 0.149, AST was 90, ALT was 37, alk phos was 407, COVID-19 PCR was negative, RSV and influenza screens were also negative. Patient was placed on BiPAP support, she was started on IV Lasix, nebulized bronchodilators, and she was awaiting a bed on monitored bed on 3 S. a short while later she suffered a cardiac arrest, with a bradycardia and PEA, she was emergently intubated, ACLS was administered with CPR, no defibrillation shocks were administered please refer to the code sheet, ROSC was achieved after 15 minutes, patient was admitted to the intensive care unit. Reevaluated today on 11/12/2021, patient remains in the ICU, intubated and mechanically ventilated. She is now on assist control rate of 32, tidal volume 325, FiO2 40% and PEEP of 5. ABG showed a pO2 of 64 pCO2 55 pH of 7.32. Patient is on propofol at 50 mcg/kg/m, which is also on Nimbex at 2 mcg/kg/m, I recommended stopping the Nimbex. And hopefully we could assess her mental status today. As the patient sustained a cardiac arrest and she may have sustained anoxic brain injury. Her WBC count today is 21.1 hemoglobin is 10.3 electrolytes are normal renal profile showed a BUN of 32 creatinine 1.21. Patient is sedated, and I plan to hold sedation today, and assess mental status off propofol and off Nimbex. Chest x-ray continues to show pulmonary edema, and possibly some component of pneumonia and I'm recommending adding Zosyn as the patient may have sustained some aspiration. Will also start enteral feeding on this patient today. On 11/13/2021 patient is seen in follow-up in the intensive care unit, she remains intubated and mechanically ventilated, on assist control mode of ventilation with a rate of 32, tidal volume 325, FiO2 of 40% and PEEP of 5, this morning's blood gas shows pO2 of 135, a CO2 of 38, and pH of 7.47 this was done on the above-mentioned ventilator settings and FiO2 of 40%. Her peak airway pressure is 22, and plateau is 17. Today's chest x-ray showing no change in bibasilar opacities compared to yesterday, pleural effusion on the left, relatively stable compared to yesterday's exam, but overall chest x-ray findings show improved aeration compared chest x-ray on admission. Patient is currently on 0.9 normal saline at a rate of 30 mL per hour, Diprivan and is at 20 mics per kilo per minute, heparin infusion at weight-based protocol. Patient is in sinus mechanism with a rate of 65 BPM, her echocardiogram from 11/12/2021 showed mild to moderate impairment of left ventricular systolic function and EF of 40-45%, m ild regurgitation of the bioprosthetic aortic valve, and mild to moderate stenosis of the bioprosthetic aortic valve, mild MR, mild TR, moderate pulmonary hypertension with right-sided pressure of 50.8 mmHg. Patient is not requiring any vasopressor support. She is not requiring any paralytics, she is on minimal sedation, yesterday she was given a sedation holiday however she did not follow any command, she was extremely agitated, with increased shortness of breath and subsequently she had to be re-sedated. Brain CT has been completed however the report is not available to us, neurology has been consulted, EEG is pending for today. Patient had febrile episodes yesterday, and the T-max in the last 24 hours was 103.1F. She is afebrile today, we added Zosyn for empiric antibiotic coverage. Blood cultures have been sent, showing no growth at the 48 hour aneta, we'll repeat cultures and send a sputum culture, pro-calcitonin level is pending. Patient has been started on tube feedings, and currently receiving vital high-protein at goal. Today's labs have been reviewed, white blood cell count is improving, is down to 12.3, hemoglobin is 8.9, sodium is 141, potassium is 3.1 this is being corrected per protocol, chloride is 105, CO2 is 28, B1 is 47 and creatinine is 1.35. Troponin peaked at 0.373. Patient has remained on IV Lasix 40 mg twice daily, she is maintaining negative fluid balance, -857 mL over last 24 hours, chest x-ray findings have significantly improved since admi ssion. Today's renal profile is slightly worse than yesterday and the day before, and IV Lasix can be cut back to once a day Objective - Vital Signs Vital signs: Vital Signs Temp 98.6 F 11/13/21 08:00 Pulse 71 11/13/21 11:28 Resp 28 H 11/13/21 11:00 BP 171/82 11/13/21 11:00 Pulse Ox 100 11/13/21 11:00 Intake & Output 11/12/21 11/13/2111/13/22 18:59 06:59 18:59 Intake Total 635.442 792.153 307.717 Output Total 820 1465 365 Balance -184.558 -672.847 -57.283 Weight 45.359 kg 47.1 kg 47.1 kg Intake: IV 280 360 150 0.9 KVO 180 360 150 Piperacillin-Tazobactam 3 100 .375 gm In Sodium Chloride 0.9% 100 ml @ 25 mls/hr IVPB Q12H [facility] Rx# :[id number] Intake, IV Titration 345.442 222.153 57.717 Amount Cisatracurium 200 mg In 91.987 Sodium Chloride 0.9% 180 ml @ 2 MCG/KG/MIN 5.443 mls/hr IV .Q24H [facility] Rx#: [id number] Heparin Sod,Pork in 0.45% 78.384 85.865 NaCl 25,000 unit In 0.45 % NaCl 1 250ml.bag @ 12 UNITS/KG/HR 5.443 mls/hr IV .Q24H [facility] Rx#: [id number] propofoL 1,000 mg In 175.071 136.288 57.717 Empty Bag 1 bag @ Titrate IV .Q0M [facility] Rx#: [id number] Tube Feeding 10 150 100 Other 60 Output: Urine 820 1465 365 Other: Voiding Method Indwelling Catheter Indwelling Catheter Indwelling Catheter ABP, PAP, CO, CI - Last Documented Arterial Blood Pressure 121/68 - Exam GENERAL EXAM: Intubated, sedated, cachectic 60-year-old white female, on assist control mode of ventilation with FiO2 40% and PEEP of 5 and patient has been off paralytics for the last 24 hours, she is on minimal sedation with Diprivan at 20 mics per kilo per minute, synchronous with the ventilator, tolerating it well HEAD: Normocephalic/atraumatic. EYES: Normal reaction of pupils, equal size. Conjunctiva pink, sclera white. NOSE: Clear with pink turbinates. THROAT: No erythema or exudates. NECK: No masses, no JVD, no thyroid enlargement, no adenopathy. CHEST: No chest wall deformity. Symmetrical expansion. LUNGS: Equal air entry with diffuse crackles CVS: Regular rate and rhythm, normal S1 and S2, no gallops, no murmurs, no rubs ABDOMEN: Soft, nontender. No hepatosplenomegaly, normal bowel sounds, no guarding or rigidity. EXTREMITIES: No clubbing, no edema, no cyanosis, 2+ pulses and upper and lower extremities. MUSCULOSKELETAL: Muscle strength and tone normal. SPINE: No scoliosis or deformity SKIN: No rashes CENTRAL NERVOUS SYSTEM: Intubated, and sedated No focal deficits, tone is normal in all 4 extremities. - Labs CBC & Chem 7: 11/13/21 04:35 11/13/21 06:15 Labs: Abnormal Lab Results - Last 24 Hours (Table) 11/12/21 11/12/21 11/12/21 Range/Units 14:52 18:41 22:05 WBC (3.8-10.6) k/uL RBC (3.80-5.40) m/uL Hgb (11.4-16.0) gm/dL Hct (34.0-46.0) % Neutrophils # (1.3-7.7) k/uL APTT 34.6 H 47.9 H (22.0-30.0) sec ABG pH (7.35-7.45) ABG pO2 (83-108) mmHg ABG HCO3 (21-25) mmol/L ABG O2 Saturation (94-97) % Potassium (3.5-5.1) mmol/L BUN (7-17) mg/dL Creatinine (0.52-1.04) mg/dL Glucose (74-99) mg/dL POC Glucose (mg/dL) 168 H (75-99) mg/dL Calcium (8.4-10.2) mg/dL AST (14-36) U/L Alkaline Phosphatase (38-126) U/L Troponin I (0.000-0.034) ng/mL Total Protein (6.3-8.2) g/dL Albumin (3.5-5.0) g/dL 11/12/21 11/13/21 11/13/21 Range/Units 23:11 04:35 04:35 WBC 12.3 H (3.8-10.6) k/uL RBC 2.76 L (3.80-5.40) m/uL Hgb 8.9 L (11.4-16.0) gm/dL Hct 27.5 L (34.0-46.0) % Neutrophils # 9.8 H (1.3-7.7) k/uL APTT (22.0-30.0) sec ABG pH (7.35-7.45) ABG pO2 (83-108) mmHg ABG HCO3 (21-25) mmol/L ABG O2 Saturation (94-97) % Potassium 2.7 L* (3.5-5.1) mmol/L BUN 47 H (7-17) mg/dL Creatinine 1.35 H (0.52-1.04) mg/dL Glucose 161 H (74-99) mg/dL POC Glucose (mg/dL) 149 H (75-99) mg/dL Calcium 8.3 L (8.4-10.2) mg/dL AST 45 H (14-36) U/L Alkaline Phosphatase 167 H (38-126) U/L Troponin I (0.000-0.034) ng/mL Total Protein 5.8 L (6.3-8.2) g/dL Albumin 2.6 L (3.5-5.0) g/dL 11/13/21 11/13/21 11/13/21 Range/Units 04:35 05:27 05:45 WBC (3.8-10.6) k/uL RBC (3.80-5.40) m/uL Hgb (11.4-16.0) gm/dL Hct (34.0-46.0) % Neutrophils # (1.3-7.7) k/uL APTT 41.2 H (22.0-30.0) sec ABG pH 7.47 H (7.35-7.45) ABG pO2 135 H (83-108) mmHg ABG HCO3 28 H (21-25) mmol/L ABG O2 Saturation 99.2 H (94-97) % Potassium (3.5-5.1) mmol/L BUN (7-17) mg/dL Creatinine (0.52-1.04) mg/dL Glucose (74-99) mg/dL POC Glucose (mg/dL) 161 H (75-99) mg/dL Calcium (8.4-10.2) mg/dL AST (14-36) U/L Alkaline Phosphatase (38-126) U/L Troponin I (0.000-0.034) ng/mL Total Protein (6.3-8.2) g/dL Albumin (3.5-5.0) g/dL 11/13/21 11/13/21 11/13/21 Range/Units 06:15 09:45 11:34 WBC (3.8-10.6) k/uL RBC (3.80-5.40) m/uL Hgb (11.4-16.0) gm/dL Hct (34.0-46.0) % Neutrophils # (1.3-7.7) k/uL APTT (22.0-30.0) sec ABG pH (7.35-7.45) ABG pO2 (83-108) mmHg ABG HCO3 (21-25) mmol/L ABG O2 Saturation (94-97) % Potassium 3.1 L (3.5-5.1) mmol/L BUN (7-17) mg/dL Creatinine (0.52-1.04) mg/dL Glucose (74-99) mg/dL POC Glucose (mg/dL) 179 H (75-99) mg/dL Calcium (8.4-10.2) mg/dL AST (14-36) U/L Alkaline Phosphatase (38-126) U/L Troponin I 0.373 H* (0.000-0.034) ng/mL Total Protein (6.3-8.2) g/dL Albumin (3.5-5.0) g/dL Microbiology - Last 24 Hours (Table) 11/11/21 09:03 Blood Culture - Preliminary Blood No Growth after 48 hours Assessment and Plan Plan: Assessment: #1. Acute cardiac arrest, PEA, witnessed, of unknown etiology, possibly related to acute decompensated CHF with diastolic dysfunction, and acute on chronic hypoxic respiratory failure, with return of spontaneous circulation after 15 minutes of ACLS interventions. Patient was intubated and placed on mechanical ventilator on 11/11/2021. COVID-19 PCR is negative, proBNP was significantly elevated at 30,100 on admission, chest x-ray is consistent with changes of pulmonary edema, bilateral pleural effusions, right greater than left. CTA chest showed no evidence of a large central pulmonary embolism. #2. Febrile episodes, rule out possibility of aspiration pneumonia, patient is covered with Zosyn empirically, sputum and blood cultures are pending, procalcitonin level is pending. Currently fever has improved #3. Possible anoxic brain injury secondary to cardiac arrest and prolonged CPR #4. Recent hospitalization for acute exacerbation of diastolic CHF, discharged home on 10/13/2021 #5. Severe aortic stenosis, with previous history of aortic valve replacement and recent echocardiogram showed restenosis of the bioprosthetic aortic valve. There was a significant peak and mean gradient of 72 and 42 respectively the most recent echocardiogram. On most current echocardiogram from 11/12/2021 there was mild to moderate stenosis of the bioprosthetic aortic valve, and mild regurgitation of the same valve. #6. Abnormal troponin related to acute exacerbation of CHF, expected to rise related to acute cardiac arrest #7. History of CAD with previous PCI stenting #8. Hyperlipidemia #9. Diabetes mellitus type 2 #10. COPD #11. History of nicotine dependence #12. Hypothyroidism #13. Chronic back pain and spinal stenosis #14. Elevated d-dimer, with no CTA evidence of a large central pulmonary embolism #15. Anxiety/depression #16. Cachexia #17. Chronic stage III kidney disease Plan: Chest x-ray has been reviewed, blood gases and lab work has been reviewed We'll drop FiO2 down to 35%, respiratory rate down to 28, flow down to 55 L/m We will wake patient up, and assess mental status She did not tolerate sedation holiday yesterday, She was extremely agitated but not following any purposeful commands Continue with diuretics, we will decrease the dose down to once daily, continue with empiric antibiotics We'll send sputum culture, protein Level Is 30 Pending, Blood Cultures Have Been Negative Neurology has been consulted, brain CT completed but report has not been read yet, EEG has been completed please refer to the report Continue nutritional support Cardiology and neurology [facility] Overall prognosis is guarded She remains on heparin, we can switch the patient to prophylactic anticoagulation if to cardiology decides to stop the heparin infusion Most recent echocardiogram reviewed Today's labs reviewed We'll continue to follow her clinical course closely We spoke to the family yesterday including her and her son We updated them on her condition, her oxygenation and chest x-ray findings have significantly improved Possibility of aspiration although possible, seems to be less likely in view of rapid improvement of her chest x-ray findings and oxygenation with diuretics We'll continue with empiric antibiotic coverage I performed a history & physical examination of the patient and discussed their management with my nurse practitioner, Jennifer Craft. I reviewed the nurse practitioner's note and agree with the documented findings and plan of care. Lung sounds are positive for dim breath sounds throughout the lung latif. The findings and the impression was discussed with the patient. I attest to the documentation by the nurse practitioner. Time with Patient: Greater than 30
--- NOTE | 2021-11-13 14:46 | P.PN ---
Subjective Progress Note Date: 11/13/21 Patient is 60-year-old female came in with comments of shortness of breath patient has a history of severe aortic stenosis patient had any of around 50- 55%. Patient had bilateral pleural effusions and pulmonary edema on the CT angios the chest. Patient was started on BiPAP. Patient was receiving IV fl uids to discuss reviewed and the patient was started on IV Lasix patient had bilateral pleural effusions patient had a recent hospitalization for which patient underwent thoracentesis. Patient does have history of smoking does have history of COPD. Shortly after my evaluation patient decompensated cold blue was called patient was subsequently intubated and transferred to ICU. ABG was opted at that time which showed hypercapnia. Pulmonary was consulted. 11/12/2021 Patient is seen and evaluated in the ICU continues on mechanical ventilation and sedation and being closely monitored. Pulmonary and cardiology following. Current FiO2 is 40% with a PEEP of 5 and patient continues on Nimbex with attempts at weaning. Chest x-ray today shows stable small to moderate sized left pleural effusion and stable diffuse central right lung edema and/or infiltrates with no significant change from previous day. Patient had a 2-D echo done which shows moderate concentric left ventricular hypertrophy with overall LV systolic function is mildly to moderately impaired with an EF of 40- 45% with mild to moderate stenosis of the bioprosthetic aortic valve and mild mitral tricuspid regurgitation present along with moderate pulmonary hypertension noted. Blood cultures thus far noted to be negative and patient is maintained on IV antibiotics in the form of Zosyn and will continue. Patient continues on sedation of propofol. Patient will also continue with IV Lasix twice daily and will continue with sliding scale per protocol for elevated blood sugars. Dietitian consulted to initiate tube feedings. 11/13/2021 Patient is seen and evaluated continues to be closely monitored in the ICU with multiple medical consultations following. Patient continues on mechanical ventilation with an FiO2 of 40% and PEEP of 5. Patient is off paralytics and attempting sedation holiday to assess mentation. Neurology was consulted and EEG was done showing an abnormal EEG due to background suppression and diffuse slowing suggestive of generalized cerebral dysfunction consistent with her history of anoxic encephalopathy with very occasional bursts of single sharp waves that were seen however no electrographic seizures were recorded. Patient underwent brain CT as well showing age-related atrophic and chronic small vessel ischemic changes without acute intracranial process seen at this time. Chest x- ray today shows stable portable chest with continued pleural effusion unchanged from previous. Patient was maintained on IV Lasix 40 mg twice daily and showing a slight increase in kidney functions and will decrease the dose to Lasix 40 mg daily. Per nursing staff patient did not tolerate sedation holiday yesterday as she woke up but was extremely agitated and restless with worsening shortness of breath and not following commands. Cardiology also following and patient is maintained on IV heparin for elevated troponins possible and STEMI status post cardiac arrest and will likely need to transition over to oral anticoagulant. Patient was spiking fevers last night although no reports of fevers today and will continue on IV hepatic cyst in the form of Zosyn and sputum cultures will be obtained. Blood cultures thus far remain negative. WBC today is 12.3. Potassium slightly low at 3.1 and will replace per protocol and recommend repeat labs REVIEW OF SYSTEMS: Unable to obtain due to her clinical condition Labs: WBC is 12.3, hgb is 8.9, plt 226, sodium is 141, potassium is 3.1, bun 47, creat is 1.35, calcium 8.3, trop is 0.373 Active Medications Acetaminophen (Acetaminophen Tab 325 Mg Tab) 650 mg PO Q6HR PRN PRN Reason: Fever and/ or Pain Last Admin: 11/12/21 18:47 Dose: 650 mg Documented by: Albuterol Sulfate (Albuterol Hfa Inhaler) 2 puff INHALATION RT-QID PRN PRN Reason: Shortness Of Breath Albuterol Sulfate (Albuterol Nebulized 2.5 Mg/3 Ml) 2.5 mg INHALATION RT-QID PRN PRN Reason: Shortness Of Breath Albuterol/Ipratropium (Ipratropium-Albuterol 3 Ml Neb) 3 ml INHALATION RT-QID [facility] Last Admin: 11/13/21 11:10 Dose: 3 ml Documented by: Aspirin (Aspirin 81 Mg) 81 mg PO DAILY [facility] Last Admin: 11/13/21 09:20 Dose: 81 mg Documented by: Atorvastatin Calcium (Atorvastatin 40 Mg Tab) 40 mg PO DAILY [facility] Last Admin: 11/13/21 09:20 Dose: 40 mg Documented by: Bupropion HCl (Bupropion Xl 300 Mg Tab.Er.24h) 300 mg PO QAM [facility] Last Admin: 11/13/21 10:28 Dose: Not Given Documented by: Chlorhexidine Gluconate (Chlorhexidine Gluconate 15 Ml Cup) 15 ml MUCOUS MEM BID [facility] Last Admin: 11/13/21 09:20 Dose: 15 ml Documented by: Furosemide (Furosemide 10 Mg/Ml 4 Ml Vial) 40 mg IV BID [facility] Last Admin: 11/13/21 09:20 Dose: 40 mg Documented by: Heparin Sodium (Porcine) (Heparin Sodium 1,000 Un/Ml (10ml Vl)) 0 unit IV PER PROTOCOL PRN; Protocol PRN Reason: Low PTT Last Admin: 11/12/21 16:03 Dose: 2,250 unit Documented by: Heparin Sodium/Sodium Chloride (25,000 unit/ Sodium Chloride) 250 mls @ 5.443 mls/hr IV .Q24H [facility]; Protocol Last Titration: 11/13/21 05:22 Dose: Infused Documented by: Propofol 1,000 mg/ IV Solution 100 mls @ 0 mls/hr IV .Q0M [facility]; Protocol Last Titration: 11/13/21 10:29 Dose: 15 mcg/kg/min, 4.239 mls/hr Documented by: Cisatracurium Besylate 200 mg/ (Sodium Chloride) 200 mls @ 5.443 mls/hr IV .Q24H [facility]; Protocol Last Admin: 11/12/21 16:02 Dose: Not Given Documented by: Piperacillin Sod/Tazobactam (Sod 3.375 gm/ Sodium Chloride) 100 mls @ 25 mls/hr IVPB Q12H [facility] Stop: 11/13/21 14:00 Last Admin: 11/13/21 11:12 Dose: 25 mls/hr Documented by: Piperacillin Sod/Tazobactam (Sod 3.375 gm/ Sodium Chloride) 100 mls @ 25 mls/hr IVPB Q8H [facility] Insulin Aspart (Insulin Aspart (Novolog) 100 Unit/Ml Vial) 0 unit SQ Q6HR [facility]; Protocol Last Admin: 11/13/21 05:36 Dose: 1 unit Documented by: Lamotrigine (Lamotrigine 100 Mg Tab) 200 mg PO BID [facility] Last Admin: 11/13/21 09:19 Dose: 200 mg Documented by: Levothyroxine Sodium (Levothyroxine 100 Mcg Tab) 100 mcg PO DAILY@0630 [facility] Last Admin: 11/13/21 05:36 Dose: 100 mcg Documented by: Metoprolol Tartrate (Metoprolol Tartrate 12.5 Mg Tab) 12.5 mg PO BID [facility] Last Admin: 11/13/21 09:20 Dose: 12.5 mg Documented by: Miscellaneous Information (Potassium Replacement Protocol 1 Each Misc) 1 each MISCELLANE DAILY PRN; Protocol PRN Reason: Per Protocol Nicotine (Nicotine 21mg/24hr Patch) 1 patch TRANSDERM DAILY [facility] Last Admin: 11/12/21 09:40 Dose: 1 patch Documented by: Oxycodone/Acetaminophen (Oxycodone-Apap 10-325mg 1 Each Tab) 1 each PO Q6H PRN PRN Reason: Pain Pantoprazole Sodium (Pantoprazole 40 Mg/10 Ml Vial) 40 mg IVP DAILY [facility] Last Admin: 11/13/21 09:22 Dose: 40 mg Documented by: Potassium Chloride (Potassium Chloride Er 10 Meq Tab.Er.Prt) 10 meq PO DAILY [facility] Last Admin: 11/13/21 09:12 Dose: Not Given Documented by: Quetiapine Fumarate (Quetiapine 50 Mg Tab) 150 mg PO HS [facility] Last Admin: 11/12/21 21:16 Dose: 150 mg Documented by: Sodium Chloride (Sodium Chloride 0.9% Flush 10 Ml Syringe) 10 ml IV Q12HR [facility] Last Admin: 11/13/21 09:22 Dose: 10 ml Documented by: Sodium Chloride (Sodium Chloride 0.9% Flush 10 Ml Syringe) 10 ml IV DIRECTED PRN PRN Reason: FLUSH PHYSICAL EXAMINATION: GENERAL: Patient is currently on mechanical ventilation and intubated and sedated. cachetic FiO2 is 40% with a PEEP of 5. Thin built. Temp is 98.6F, pulse is 65, respirations are 32, blood pressure 108/61, oxygen saturation is 100% on 40% FiO2. HEENT: Pupils are round and equally reacting to light. EOMI. No scleral icterus. No conjunctival pallor. Normocephalic, atraumatic. No pharyngeal erythema. No thyromegaly. CARDIOVASCULAR: S1 and S2 muffled PULMONARY: Diffuse bilateral rhonchi as well as wheezing and crackles noted ABDOMEN: Soft, nontender, nondistended, normoactive bowel sounds. No palpable organomegaly. MUSCULOSKELETAL: No joint swelling or deformity. EXTREMITIES: No cyanosis, clubbing, or pedal edema. NEUROLOGICAL: unable to assess as patient is sedated. SKIN: No rashes. Assessment and plan: -Acute hypoxic respiratory failure as well as hypercapnic respiratory failure secondary to congestive heart failure exacerbation and a component of COPD exacerbation as well respectively, requiring mechanical ventilation -Possible aspiration pneumonia -Fevers possibly secondary to above -Status post cardiac respiratory arrest with pulseless electrical activity with 15 minutes of CPR and ROSC obtained -Possible anoxic brain injury secondary to cardiac arrest and prolonged CPR -congestive heart failure chronic diastolic dysfunction with acute exacerbation -Severe aortic stenosis -Acute kidney injury, most likely prerenal secondary to diuretic use -Mild elevation of troponin secondary to CHF -NSTEMI -History of coronary artery disease with stenting in the past -Hyperlipidemia -Diabetes mellitus -COPD with acute exacerbation -Hypothyroidism -Chronic back pain with spinal stenosis -Depression -Cachexia secondary to chronic smoking history patient presently doesn't smoke quit about a month ago. -Chronic kidney disease stage II secondary to diabetic nephropathy -Hyperlipidemia -DVT prophylaxis: IV heparin -Full code Plan: Recommend to continue with current medications. Patient will continue on IV Zosyn empirically as patient was spiking temps throughout the night with a T-max of 103.. Sputum cultures obtained and pending and cultures thus far have been negative. Per nursing staff attempting sedation holiday and patient is off paralytics although does not tolerate holiday very well and continues to be agitated and restless and needing re-sedation. 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 Patient underwent EEG and CT of the brain with neurology following as mentioned previously. Chest x-ray today continues with pleural effusion although slight improvement as mentioned previously. Recommend continue with close monitoring of chest x-ray daily and repeat labs. Potassium was slightly low and will replace per protocol and repeat labs. Patient continues on IV heparin with cardiology following as well for an STEMI and cardiac arrest with ROSC. Ronak mmend to continue to monitor accuchecks and continue sliding scale. Due to multiple complex medical issues, prognosis is guarded. Family will like to continue with full CODE STATUS at this time. Recommend repeat labs and chest xray in the am. Objective - Vital Signs Vital signs: Vital Signs Temp 97.6 F 11/13/21 04:00 Pulse 67 11/13/21 07:00 Resp 33 H 11/13/21 07:00 BP 195/108 11/12/21 21:00 Pulse Ox 100 11/13/21 07:00 Intake & Output 11/12/21 11/13/21 11/13/21 18:59 06:59 18:59 Intake Total 635.442 792.153 50 Output Total 820 1465 40 Balance -184.558 -672.847 10 Weight 45.359 kg 47.1 kg Intake: IV 280 360 30 0.9 KVO 180 360 30 Piperacillin-Tazobactam 3 100 .375 gm In Sodium Chloride 0.9% 100 ml @ 25 mls/hr IVPB Q12H [facility] Rx# :[id number] Intake, IV Titration 345.442 222.153 Amount Cisatracurium 200 mg In 91.987 Sodium Chloride 0.9% 180 ml @ 2 MCG/KG/MIN 5.443 mls/hr IV .Q24H [facility] Rx#: [id number] Heparin Sod,Pork in 0.45% 78.384 85.865 NaCl 25,000 unit In 0.45 % NaCl 1 250ml.bag @ 12 UNITS/KG/HR 5.443 mls/hr IV .Q24H [facility] Rx#: [id number] propofoL 1,000 mg In 175.071 136.288 Empty Bag 1 bag @ Titrate IV .Q0M [facility] Rx#: [id number] Tube Feeding 10 150 20 Other 60 Output: Urine 820 1465 40 Other: Voiding Method Indwelling Catheter Indwelling Catheter ABP, PAP, CO, CI - Last Documented Arterial Blood Pressure 119/70 - Labs CBC & Chem 7: 11/13/21 04:35 11/13/21 06:15 Labs: Abnormal Lab Results - Last 24 Hours (Table) 11/12/21 11/12/21 11/12/21 Range/Units 11:07 14:52 18:41 WBC (3.8-10.6) k/uL RBC (3.80-5.40) m/uL Hgb (11.4-16.0) gm/dL Hct (34.0-46.0) % Neutrophils # (1.3-7.7) k/uL APTT 34.6 H (22.0-30.0) sec ABG pH (7.35-7.45) ABG pO2 (83-108) mmHg ABG HCO3 (21-25) mmol/L ABG O2 Saturation (94-97) % Potassium (3.5-5.1) mmol/L BUN (7-17) mg/dL Creatinine (0.52-1.04) mg/dL Glucose (74-99) mg/dL POC Glucose (mg/dL) 121 H 168 H (75-99) mg/dL Calcium (8.4-10.2) mg/dL AST (14-36) U/L Alkaline Phosphatase (38-126) U/L Total Protein (6.3-8.2) g/dL Albumin (3.5-5.0) g/dL 11/12/21 11/12/21 11/13/21 Range/Units 22:05 23:11 04:35 WBC 12.3 H (3.8-10.6) k/uL RBC 2.76 L (3.80-5.40) m/uL Hgb 8.9 L (11.4-16.0) gm/dL Hct 27.5 L (34.0-46.0) % Neutrophils # 9.8 H (1.3-7.7) k/uL APTT 47.9 H (22.0-30.0) sec ABG pH (7.35-7.45) ABG pO2 (83-108) mmHg ABG HCO3 (21-25) mmol/L ABG O2 Saturation (94-97) % Potassium (3.5-5.1) mmol/L BUN (7-17) mg/dL Creatinine (0.52-1.04) mg/dL Glucose (74-99) mg/dL POC Glucose (mg/dL) 149 H (75-99) mg/dL Calcium (8.4-10.2) mg/dL AST (14-36) U/L Alkaline Phosphatase (38-126) U/L Total Protein (6.3-8.2) g/dL Albumin (3.5-5.0) g/dL 11/13/21 11/13/21 11/13/21 Range/Units 04:35 04:35 05:27 WBC (3.8-10.6) k/uL RBC (3.80-5.40) m/uL Hgb (11.4-16.0) gm/dL Hct (34.0-46.0) % Neutrophils # (1.3-7.7) k/uL APTT 41.2 H (22.0-30.0) sec ABG pH (7.35-7.45) ABG pO2 (83-108) mmHg ABG HCO3 (21-25) mmol/L ABG O2 Saturation (94-97) % Potassium 2.7 L* (3.5-5.1) mmol/L BUN 47 H (7-17) mg/dL Creatinine 1.35 H (0.52-1.04) mg/dL Glucose 161 H (74-99) mg/dL POC Glucose (mg/dL) 161 H (75-99) mg/dL Calcium 8.3 L (8.4-10.2) mg/dL AST 45 H (14-36) U/L Alkaline Phosphatase 167 H (38-126) U/L Total Protein 5.8 L (6.3-8.2) g/dL Albumin 2.6 L (3.5-5.0) g/dL 11/13/21 11/13/21 Range/Units 05:45 06:15 WBC (3.8-10.6) k/uL RBC (3.80-5.40) m/uL Hgb (11.4-16.0) gm/dL Hct (34.0-46.0) % Neutrophils # (1.3-7.7) k/uL APTT (22.0-30.0) sec ABG pH 7.47 H (7.35-7.45) ABG pO2 135 H (83-108) mmHg ABG HCO3 28 H (21-25) mmol/L ABG O2 Saturation 99.2 H (94-97) % Potassium 3.1 L (3.5-5.1) mmol/L BUN (7-17) mg/dL Creatinine (0.52-1.04) mg/dL Glucose (74-99) mg/dL POC Glucose (mg/dL) (75-99) mg/dL Calcium (8.4-10.2) mg/dL AST (14-36) U/L Alkaline Phosphatase (38-126) U/L Total Protein (6.3-8.2) g/dL Albumin (3.5-5.0) g/dL Microbiology - Last 24 Hours (Table) 11/11/21 09:03 Blood Culture - Preliminary Blood No Growth after 24 hours
[2021-11-13] MEDS: HEPARIN SOD,PORK IN 0.45% NACL 25,000 UNIT in 0.45% NACL 1 250ML.BAG IV SCH (16:13)
[2021-11-13] MEDS: HEPARIN SODIUM 1,000 UN/ML (10ML VL) IV PRN (16:15)
[2021-11-13] MEDS: ACETAMINOPHEN TAB 325 MG TAB PO PRN (16:21)
[2021-11-13] MEDS: HYDROmorphone 1 MG/ML 1 ML SYRINGE IVP PRN ×2 (16:26→20:06)
[2021-11-13 18:17] LABS: Glucose,Whole Blood 180 mg/dL (75-99)
[2021-11-13] MEDS ORDERED: PIPERACILLIN-TAZOBACTAM 3.375 GM in SODIUM CHLORIDE 0.9% 100 ML IVPB SCH (19:00)
[2021-11-13] MEDS: QUEtiapine 50 MG TAB PO SCH (20:02)
[2021-11-13 23:41] LABS: Glucose,Whole Blood 229 mg/dL (75-99)
[2021-11-14] MEDS ORDERED: PIPERACILLIN-TAZOBACTAM 3.375 GM in SODIUM CHLORIDE 0.9% 100 ML IVPB SCH (03:00)
[2021-11-14] MEDS: PIPERACILLIN-TAZOBACTAM 3.375 GM in SODIUM CHLORIDE 0.9% 100 ML IVPB SCH ×3 (04:55→19:56)
[2021-11-14 05:37] LABS: Basophils % (A) 0 %; Eosinophils # (A) 0.1 k/uL (0-0.7); Eosinophils % (A) 1 %; HCT 26.8 % (34.0-46.0); HGB 8.6 gm/dL (11.4-16.0); Lymphocytes # (A) 1.3 k/uL (1.0-4.8); Lymphocytes % (A) 12 %; MCH 32.8 pg (25.0-35.0); MCHC 32.2 g/dL (31.0-37.0); MCV 101.7 fL (80.0-100.0); Macrocytosis Slight; Mean Platelet Volume 8.6; Monocytes # (A) 0.8 k/uL (0-1.0); Monocytes % (A) 7 %; Neutrophils # (A) 8.5 k/uL (1.3-7.7); Neutrophils % (A) 78 %; Platelet Count 208 k/uL (150-450); RBC 2.63 m/uL (3.80-5.40); RDW 13.9 % (11.5-15.5)
[2021-11-14 05:48] LABS: Glucose,Whole Blood 208 mg/dL (75-99)
[2021-11-14 06:05] LABS: Albumin 2.5 g/dL (3.5-5.0); Calcium 7.9 mg/dL (8.4-10.2); Potassium 3.2 mmol/L (3.5-5.1); Total Bilirubin 0.5 mg/dL (0.2-1.3); Total Protein 5.5 g/dL (6.3-8.2)
[2021-11-14 06:05] LABS: ABG Base Excess 9.8 mmol/L; ABG HCO3 33 mmol/L (21-25); ABG Oxygen Saturation 97.9 % (94-97); ABG PCO2 45 mmHg (35-45); ABG PH 7.48 (7.35-7.45); ABG PO2 112 mmHg (83-108); ABG TCO2 35 mmol/L (19-24); Allen Test Performed? Yes
[2021-11-14] MEDS: INSULIN ASPART (NovoLOG) 100 UNIT/ML VIAL SQ SCH ×3 (06:10→18:46)
[2021-11-14] MEDS: LEVOTHYROXINE 100 MCG TAB PO SCH (06:10)
[2021-11-14] MEDS: POTASSIUM BICARBONATE/CIT AC 20 MEQ TABLET.EFF NG-TUBE SCH ×2 (06:34→10:11)
--- NOTE | 2021-11-14 07:03 | XR ---
EXAMINATION TYPE: XR chest 1V portable DATE OF EXAM: 11/14/2021 5:41 AM COMPARISON:Chest radiograph from one day prior. TECHNIQUE: XR chest 1V portable Frontal view of the chest. CLINICAL INDICATION:Female, 60 years old with history of Tube placement; FINDINGS: Lungs/Pleura: There is no evidence of focal consolidation, or pneumothorax. Blunting of left costoph renic angle. Pulmonary vascularity: Unremarkable. Heart/mediastinum: Cardiomediastinal silhouette is unremarkable. Musculoskeletal: No acute osseous pathology. Lower cervical spine and lumbar fusion hardware. [place] e sternotomy wires are noted and stable. Other findings: None Lines/Tubes: Endotracheal tube with distal tip 4.5 cm above the ranjit Nasogastric tube with its distal tip and side-port projecting under the diaphragm. Right-sided PICC line with distal tip at the cavoatrial junction. IMPRESSION: 1. Stable support lines and tubes. 2. Trace left effusion.
[2021-11-14] MEDS: IPRATROPIUM-ALBUTEROL 3 ML NEB INHALATION SCH ×4 (07:33→22:05)
[2021-11-14] MEDS: NICOTINE 21MG/24HR PATCH TRANSDERM SCH (10:10)
[2021-11-14] MEDS: CHLORHEXIDINE GLUCONATE 15 ML CUP MUCOUS MEM SCH ×2 (10:10→19:56)
[2021-11-14] MEDS: FUROSEMIDE 10 MG/ML 4 ML VIAL IV SCH (10:11)
[2021-11-14] MEDS: PANTOPRAZOLE 40 MG/10 ML VIAL IVP SCH (10:11)
[2021-11-14] MEDS: lamoTRIgine 100 MG TAB PO SCH ×2 (10:11→19:56)
[2021-11-14] MEDS: ATORVASTATIN 40 MG TAB PO SCH (10:11)
[2021-11-14] MEDS: buPROPion XL 300 MG TAB.ER.24H PO SCH (10:11)
[2021-11-14] MEDS: POTASSIUM CHLORIDE ER 10 MEQ TAB.ER.PRT PO SCH (10:12)
[2021-11-14] MEDS: METOPROLOL TARTRATE 12.5 MG TAB PO SCH ×2 (10:12→19:56)
[2021-11-14] MEDS: ASPIRIN 81 MG PO SCH (10:14)
--- NOTE | 2021-11-14 11:37 | P.PN ---
Subjective Progress Note Date: 11/14/21 Principal diagnosis: Acute hypoxic reported failure and cardiac arrest This is a 60-year-old white female patient with known extensive cardiac history including severe aortic stenosis with previous history of aortic valve replacement and evidence of restenosis of the bioprosthetic aortic valve, chronic CHF with systolic dysfunction although her most recent echocardiogram showed improved left ventricular systolic function with an EF of 55-60%. Other medical history includes hypertension, diabetes with this type II, poorly controlled, coronary artery disease with previous stent placement, hypothyroidism, ongoing nicotine dependence, anxiety, depression, chronic back pain. Patient was recently hospitalized for acute exacerbation of CHF, bilateral pleural effusions status post thoracentesis of the left lung, pleural fluid was not sent for analysis, although was suspected to be transudate. She was discharged on 10/13/2021 in stable but guarded condition in view of her multiple comorbidities. 11/11/2021 patient was brought in by EMS to the emergency department for evaluation of worsening shortness of breath since yesterday, chest heaviness as severe as 8 out of 10. There were no reported fever, chills, no sweats. Patient apparently did endorse a dry cough. Patient took 4 breathing treatments at home without significant relief. She was brought to the ER, she was noted to be desaturating, and was noted to be diaphoretic. Her chest x-ray showed developing interstitial pulmonary edema, small to moderate left pleural effusion with adjacent atelectasis and/or consolidation. CTA chest showed no evidence of a large central or lobar branch pulmonary embolus, no definite pulmonary embolus in the upper or mid lungs. Segmental and more distal branches of the lower lungs were nondiagnostic. There was moderate left and small to moderate right pleural effusion with adjacent atelectasis. There was marked generalized anasarca, pulmonary arterial hypertension, patchy groundglass opacities correlate for CHF and developing pulmonary edema. There was a suggestion of underlying mediastinal hilar and upper abdominal lymphadenopathy, with a 3 months follow-up CT recommendation. Admission blood work showed white blood cell count 9.8, hemoglobin was 10.8, d-dimer is 4.5, electrolytes and renal profile were unremarkable on admission, proBNP was 30,100, troponin was 0.149, AST was 90, ALT was 37, alk phos was 407, COVID-19 PCR was negative, RSV and influenza screens were also negative. Patient was placed on BiPAP support, she was started on IV Lasix, nebulized bronchodilators, and she was awaiting a bed on monitored bed on 3 S. a short while later she suffered a cardiac arrest, with a bradycardia and PEA, she was emergently intubated, ACLS was administered with CPR, no defibrillation shocks were administered please refer to the code sheet, ROSC was achieved after 15 minutes, patient was admitted to the intensive care unit. Reevaluated today on 11/12/2021, patient remains in the ICU, intubated and mechanically ventilated. She is now on assist control rate of 32, tidal volume 325, FiO2 40% and PEEP of 5. ABG showed a pO2 of 64 pCO2 55 pH of 7.32. Patient is on propofol at 50 mcg/kg/m, which is also on Nimbex at 2 mcg/kg/m, I recommended stopping the Nimbex. And hopefully we could assess her mental status today. As the patient sustained a cardiac arrest and she may have sustained anoxic brain injury. Her WBC count today is 21.1 hemoglobin is 10.3 electrolytes are normal renal profile showed a BUN of 32 creatinine 1.21. Patient is sedated, and I plan to hold sedation today, and assess mental status off propofol and off Nimbex. Chest x-ray continues to show pulmonary edema, and possibly some component of pneumonia and I'm recommending adding Zosyn as the patient may have sustained some aspiration. Will also start enteral feeding on this patient today. Reevaluated today on 11/14/2021, patient remains in the ICU, intubated mechanically ventilated, and she seems to be encephalopathic, no significant neurological improvement noted in the last few days. Her EEG is consistent with anoxic brain injury/encephalopathy. Her CT of the brain is nondiagnostic. Patient remains on assist control rate of 28th of volume of 325 FiO2 35% and PEEP of 5. ABG today showed a pO2 of 112 pCO2 45 pH of 7.45. WBC count is 11 hemoglobin 8.6 hematocrit 26.8. Electrolytes are normal BUN is 47 creatinine is 1.23, improving. Chest x-ray is showing improvement in her interstitial edema continues to have a small left pleural effusion which seems to be chronic. Patient remains on heparin for what seems to be non-ST elevation myocardial infarction. Patient is on propofol, and I plan to reassess today on lower dose of propofol, or maybe off propofol if we can take her off completely. Yesterday the patient went off propofol completely, however she was getting more agitated and restless, remained unresponsive, did not follow any instructions, and she was quite tachycardic and tachypneic and hypertensive, hence she had to be pl aced back on propofol yesterday. Will try the same today if possible. Objective - Vital Signs Vital signs: Vital Signs Temp 99.9 F H 11/14/21 08:00 Pulse 71 11/14/21 11:21 Resp 28 H 11/14/21 10:00 BP 135/87 11/14/21 09:30 Pulse Ox 100 11/14/21 10:00 Intake & Output 11/13/21 11/14/21 11/14/21 18:59 06:59 18:59 Intake Total 798.955 9631.469 141.81 Output Total 1270 445 30 Balance -509.826 688.469 111.81 Weight 47.1 kg 48.8 kg Intake: IV 360 460 30 0.9 KVO 360 360 30 Piperacillin-Tazobactam 3 100 .375 gm In Sodium Chloride 0.9% 100 ml @ 25 mls/hr IVPB Q12H [facility] Rx# :[id number] Intake, IV Titration 100.174 78.469 64.81 Amount Heparin Sod,Pork in 0.45% 0.174 NaCl 25,000 unit In 0.45 % NaCl 1 250ml.bag @ 12 UNITS/KG/HR 5.443 mls/hr IV .Q24H [facility] Rx#: [id number] propofoL 1,000 mg In 100.000 78.469 64.81 Empty Bag 1 bag @ Titrate IV .Q0M [facility] Rx#: [id number] Tube Feeding 270 505 47 Other 30 90 Output: Urine 1270 445 30 Other: Voiding Method Indwelling Catheter Indwelling Catheter ABP, PAP, CO, CI - Last Documented Arterial Blood Pressure 122/71 - Exam GENERAL EXAM: Revealed a 60-year-old female cachectic, intubated, sedated, not paralyzed. HEAD: Atraumatic, normocephalic. Endotracheal tube and orogastric tube are intact. EYES: Normal reaction of pupils, equal size. Conjunctiva pink, sclera white. NOSE: Clear with pink turbinates. THROAT: No erythema or exudates. NECK: No masses, no JVD, no thyroid enlargement, no adenopathy. CHEST:. Symmetrical expansion. LUNGS: Rhonchi bilaterally. CVS: Normal S1 and S2, no S3 gallop. ABDOMEN: Nontender no megaly no rebound. EXTREMITIES: No clubbing, no edema, no cyanosis, 2+ pulses and upper and lower extremities. SKIN: No rashes CENTRAL NERVOUS SYSTEM: Not assessed, patient is sedated and intubated. - Labs CBC & Chem 7: 11/14/21 05:00 11/14/21 05:00 Labs: Abnormal Lab Results - Last 24 Hours (Table) 11/13/21 11/13/21 11/13/21 Range/Units 04:35 11:34 13:50 WBC (3.8-10.6) k/uL RBC (3.80-5.40) m/uL Hgb (11.4-16.0) gm/dL Hct (34.0-46.0) % MCV (80.0-100.0) fL Neutrophils # (1.3-7.7) k/uL APTT 35.1 H (22.0-30.0) sec ABG pH (7.35-7.45) ABG pO2 (83-108) mmHg ABG HCO3 (21-25) mmol/L ABG Total CO2 (19-24) mmol/L ABG O2 Saturation (94-97) % Potassium (3.5-5.1) mmol/L Carbon Dioxide (22-30) mmol/L BUN (7-17) mg/dL Creatinine (0.52-1.04) mg/dL Glucose (74-99) mg/dL POC Glucose (mg/dL) 179 H (75-99) mg/dL Calcium (8.4-10.2) mg/dL AST (14-36) U/L ALT (4-34) U/L Alkaline Phosphatase (38-126) U/L Total Protein (6.3-8.2) g/dL Albumin (3.5-5.0) g/dL Procalcitonin 9.23 H (0.02-0.09) ng/mL 11/13/21 11/13/21 11/13/21 Range/Units 13:50 18:15 22:08 WBC (3.8-10.6) k/uL RBC (3.80-5.40) m/uL Hgb (11.4-16.0) gm/dL Hct (34.0-46.0) % MCV (80.0-100.0) fL Neutrophils # (1.3-7.7) k/uL APTT 47.8 H (22.0-30.0) sec ABG pH (7.35-7.45) ABG pO2 (83-108) mmHg ABG HCO3 (21-25) mmol/L ABG Total CO2 (19-24) mmol/L ABG O2 Saturation (94-97) % Potassium 3.1 L (3.5-5.1) mmol/L Carbon Dioxide (22-30) mmol/L BUN (7-17) mg/dL Creatinine (0.52-1.04) mg/dL Glucose (74-99) mg/dL POC Glucose (mg/dL) 180 H (75-99) mg/dL Calcium (8.4-10.2) mg/dL AST (14-36) U/L ALT (4-34) U/L Alkaline Phosphatase (38-126) U/L Total Protein (6.3-8.2) g/dL Albumin (3.5-5.0) g/dL Procalcitonin (0.02-0.09) ng/mL 11/13/21 11/14/21 11/14/21 Range/Units 23:40 05:00 05:00 WBC 11.0 H (3.8-10.6) k/uL RBC 2.63 L (3.80-5.40) m/uL Hgb 8.6 L (11.4-16.0) gm/dL Hct 26.8 L (34.0-46.0) % MCV 101.7 H (80.0-100.0) fL Neutrophils # 8.5 H (1.3-7.7) k/uL APTT (22.0-30.0) sec ABG pH (7.35-7.45) ABG pO2 (83-108) mmHg ABG HCO3 (21-25) mmol/L ABG Total CO2 (19-24) mmol/L ABG O2 Saturation (94-97) % Potassium 3.2 L (3.5-5.1) mmol/L Carbon Dioxide 32 H (22-30) mmol/L BUN 47 H (7-17) mg/dL Creatinine 1.23 H (0.52-1.04) mg/dL Glucose 197 H (74-99) mg/dL POC Glucose (mg/dL) 229 H (75-99) mg/dL Calcium 7.9 L (8.4-10.2) mg/dL AST 87 H (14-36) U/L ALT 40 H (4-34) U/L Alkaline Phosphatase 224 H (38-126) U/L Total Protein 5.5 L (6.3-8.2) g/dL Albumin 2.5 L (3.5-5.0) g/dL Procalcitonin (0.02-0.09) ng/mL 11/14/21 11/14/21 11/14/21 Range/Units 05:00 05:37 05:47 WBC (3.8-10.6) k/uL RBC (3.80-5.40) m/uL Hgb (11.4-16.0) gm/dL Hct (34.0-46.0) % MCV (80.0-100.0) fL Neutrophils # (1.3-7.7) k/uL APTT 44.2 H (22.0-30.0) sec ABG pH 7.48 H (7.35-7.45) ABG pO2 112 H (83-108) mmHg ABG HCO3 33 H (21-25) mmol/L ABG Total CO2 35 H (19-24) mmol/L ABG O2 Saturation 97.9 H (94-97) % Potassium (3.5-5.1) mmol/L Carbon Dioxide (22-30) mmol/L BUN (7-17) mg/dL Creatinine (0.52-1.04) mg/dL Glucose (74-99) mg/dL POC Glucose (mg/dL) 208 H (75-99) mg/dL Calcium (8.4-10.2) mg/dL AST (14-36) U/L ALT (4-34) U/L Alkaline Phosphatase (38-126) U/L Total Protein (6.3-8.2) g/dL Albumin (3.5-5.0) g/dL Procalcitonin (0.02-0.09) ng/mL Microbiology - Last 24 Hours (Table) 11/11/21 09:03 Blood Culture - Preliminary Blood No Growth after 72 hours Assessment and Plan Assessment: Impression: Acute hypoxic respiratory failure, multifactorial secondary to: Cardiac arrest, witnessed pea, requiring CPR of 12 minutes until return of spontaneous circulation. Acute diastolic congestive heart failure, acute non-ST elevation myocardial infarction Possible aspiration pneumonia Recent hospitalization for diastolic congestive heart failure discharged on 10/13/2021 History of severe aortic stenosis and previous aortic valve replacement History of coronary artery disease with previous PCI stenting Type 2 diabetes. History of underlying COPD presently inactive. Hypothyroidism. Chronic back pain and spinal stenosis. Generalized anxiety disorder severe protein calorie malnutrition, BMI of 16.6. Possible anoxic brain injury secondary to cardiac arrest. And prolonged CPR. Unremarkable CT of the brain but the patient has quite abnormal EEG. Recommendation: Continue ventilatory support. Daily assessment of mental status off sedation if possible. Or at least on a lower dose of sedation. Continue heparin as per cardiology. Continue antibiotics and bronchodilators. Continue the same ventilator settings with assist control rate of 28 tidal volume 325 FiO2 35% and PEEP of 5 Enteral feeding/nutritional support. Daily assessment of mental status off sedation and assessment for potential weaning Continue GI and DVT prophylaxis. Continue Zosyn empirically Prognosis is extremely poor and guarded. Results of the EEG are consistent with anoxic brain injury. Critical care time is over 30 minutes. Time with Patient: Greater than 30
[2021-11-14 12:10] LABS: Glucose,Whole Blood 225 mg/dL (75-99)
[2021-11-14] MEDS: HEPARIN SOD,PORK IN 0.45% NACL 25,000 UNIT in 0.45% NACL 1 250ML.BAG IV SCH (12:45)
--- NOTE | 2021-11-14 13:31 | P.PN ---
Subjective HISTORY OF PRESENTING ILLNESS This is a pleasant 60-year-old female past medical history significant for coronary artery disease status post PCI mid RCA in 2007, PCI to the distal RCA in 2014, severe aortic stenosis status post aortic valve replacement in 2016 with restenosis, hypertension, hyperlipidemia, type 2 diabetes, chronic nicotine dependence, COPD, left-sided carotid endarterectomy, hypothyroidism. She follows in the office with Dr. Elena. Patient has had a number of admissions to the hospital for heart failure as well as COPD exacerbation over the last 2 months. She presented to 06/22/2022 secondary to worsening shortness breath which started the day before as well as reported chest heaviness and 8 out of 10. Patient is currently intubated and sedated and history is supplied by chart. There is apparently no recent fevers, chills however did have a dry cough. She did had prior thoracentesis last admission which was felt related to her heart failure. She had a CTA performed which showed no pulmonary embolism with moderate left and small to moderate right pleural effusion with atelectasis. There is also a report of anasarca and patchy groundglass opacities and correlate for heart failure versus pulmonary edema. There is also mediastinal hilar and abdominal lymphadenopathy. Patient was admitted and placed on BiPAP however apparently decompensated with worsening respiratory distress and bradycardi and loss of pulses and CPR was performed for approximately 15 minutes without any VT noted and eventual ROSC. Patient was having a hard time oxygenating and therefore was paralyzed and on ventilator. Currently on 45% FiO2. Blood work initially showed white blood cell count 9.8, hemoglobin 10.8, d-dimer 4.5, sodium 135, BUN 24, creatinine 0.86, AST 90, ALT 37, troponin 0.149, 0.132, albumin 3.2, proBNP 30,100. Last echo from 10/01/2021 showed EF 55-60%, severe stenosis of the bioprosthetic aortic valve with a mean gradient of 46, mild aortic regurgitation, mild mitral regurgitation, mild tricuspid regurgitation with a small generalized pericardial effusion and a large pleural effusion. Last Cardiac Catheterization 11/2015 revealed normal EF, 20% mid LAD, 100% distal circumflex, 30% mid RCA, right dominant, severe aortic stenosis 11/13 Patient seen and examined. Patient remains intubated on 40% FiO2 with a PEEP of 5. No further bradycardia noted. Potassium extremely low at 2.7 this morning and replaced repeat 3.1. Hemoglobin downtrending 10.8 on admission and currently 8.9. Echo shows EF 40-45% with inferior hypokinesis. There is mention of mild to moderate bioprosthetic aortic valve stenosis however may be component of low-flow gradient. There is a large pleural effusion with mention of fibrin noted in the pleural effusion. RVSP of 50.8. 11/14 Patient seen and examined. Patient was transitioned to Lasix 40 mg IV once a day today. Remains intubated and sedated on ventilator. Currently on 35% FiO2 with a PEEP of 5. Creatinine stabilized currently down somewhat to 1.2 today. Hypokalemia noted. Per nursing propofol has been weaned however patient not to much neurologically more than breathing over the vent REVIEW OF SYSTEMS At the time of my exam: Unable to obtain secondary to sedation, paralyzed PHYSICAL EXAMINATION Vital signs reviewed. CONSTITUTIONAL: No apparent distress, sedated and paralyzed on vent, frail HEENT: Head is normocephalic. Pupils are equal, round. Sclerae anicteric. Mucous membranes of the mouth are moist. No JVD. No carotid bruit. CHEST EXAMINATION: Lungs are clear to auscultation. No chest wall tenderness is noted on palpation or with deep breathing. HEART EXAMINATION: Regular rate and rhythm. S1, S2 heard. +3/6 murmur, no gallops or rub. ABDOMEN: Soft, nontender. Positive bowel sounds. EXTREMITIES: 2+ peripheral pulses, no lower extremity edema and no calf tenderness. NEUROLOGIC EXAMINATION: Patient is sedated and ventilated ASSESSMENT 1. Status post cardiac arrest for approximately 15 minutes with bradycardia. Suspect pulmonary etiology with worsening pulmonary status area 2. Acute on chronic respiratory failure likely component of heart failure with chronic COPD component as well as 3. Acute on chronic diastolic heart failure 4. Severe bioprosthetic aortic valve stenosis 5. Non-STEMI possible type II mechanism related to heart failure, hypoxia however new inferior hypokinesis concerning for Type I etiology 6. Coronary artery disease with prior history of PCI 7. Prior small generalized pericardial effusion 8. Bilateral pleural effusions status post previous thoracentesis 9. Hilar adenopathy, no obvious infectious symptoms recently 10. Tobacco abuse 11. Frailty 12. Protein calorie malnutrition 13. Inferior hypokinesis 14. New mild cardiomyopathy EF 40-45% with inferior hypokinesis PLAN Patient does have new cardiomyopathy with EF 40-45% with inferior hypokinesis and patient was having some chest pain prior to arrival and there is a consideration of type I myocardial infarction. Continue with aspirin and heparin drip and await neurologic status. Pending neurologic recovery likely ischemic workup with either stress test or heart catheterization. Patient blood pressure appears stable and currently respiratory status somewhat stable. Continue to await any neurologic recovery from her cardiac arrest. Further recommendations to follow. Objective - Vital Signs Vital signs: Vital Signs Temp 99.7 F H 11/14/21 12:00 Pulse 78 11/14/21 12:00 Resp 29 H 11/14/21 12:00 BP 129/81 11/14/21 12:00 Pulse Ox 99 11/14/21 12:00 Intake & Output 11/13/21 11/14/21 11/14/21 18:59 06:59 18:59 Intake Total 322.753 2322.469 891.700 Output Total 2516 548 4739 Balance -509.826 688.469 -478.300 Weight 47.1 kg 48.8 kg Intake: IV 360 460 230 0.9 KVO 360 360 180 Piperacillin-Tazobactam 3 100 50 .375 gm In Sodium Chloride 0.9% 100 ml @ 25 mls/hr IVPB Q12H [facility] Rx# :[id number] Intake, IV Titration 100.174 78.469 319.700 Amount Heparin Sod,Pork in 0.45% 0.174 232.659 NaCl 25,000 unit In 0.45 % NaCl 1 250ml.bag @ 12 UNITS/KG/HR 5.443 mls/hr IV .Q24H [facility] Rx#: [id number] propofoL 1,000 mg In 100.000 78.469 87.041 Empty Bag 1 bag @ Titrate IV .Q0M [facility] Rx#: [id number] Tube Feeding 270 505 282 Other 30 90 60 Output: Urine 4044 689 4576 Other: Voiding Method Indwelling Catheter Indwelling Catheter Indwelling Catheter ABP, PAP, CO, CI - Last Documented Arterial Blood Pressure 128/76 - Labs CBC & Chem 7: 11/14/21 05:00 11/14/21 05:00 Labs: Abnormal Lab Results - Last 24 Hours (Table) 11/13/21 11/13/21 11/13/21 Range/Units 04:35 13:50 13:50 WBC (3.8-10.6) k/uL RBC (3.80-5.40) m/uL Hgb (11.4-16.0) gm/dL Hct (34.0-46.0) % MCV (80.0-100.0) fL Neutrophils # (1.3-7.7) k/uL APTT 35.1 H (22.0-30.0) sec ABG pH (7.35-7.45) ABG pO2 (83-108) mmHg ABG HCO3 (21-25) mmol/L ABG Total CO2 (19-24) mmol/L ABG O2 Saturation (94-97) % Potassium 3.1 L (3.5-5.1) mmol/L Carbon Dioxide (22-30) mmol/L BUN (7-17) mg/dL Creatinine (0.52-1.04) mg/dL Glucose (74-99) mg/dL POC Glucose (mg/dL) (75-99) mg/dL Calcium (8.4-10.2) mg/dL AST (14-36) U/L ALT (4-34) U/L Alkaline Phosphatase (38-126) U/L Total Protein (6.3-8.2) g/dL Albumin (3.5-5.0) g/dL Procalcitonin 9.23 H (0.02-0.09) ng/mL 11/13/21 11/13/21 11/13/21 Range/Units 18:15 22:08 23:40 WBC (3.8-10.6) k/uL RBC (3.80-5.40) m/uL Hgb (11.4-16.0) gm/dL Hct (34.0-46.0) % MCV (80.0-100.0) fL Neutrophils # (1.3-7.7) k/uL APTT 47.8 H (22.0-30.0) sec ABG pH (7.35-7.45) ABG pO2 (83-108) mmHg ABG HCO3 (21-25) mmol/L ABG Total CO2 (19-24) mmol/L ABG O2 Saturation (94-97) % Potassium (3.5-5.1) mmol/L Carbon Dioxide (22-30) mmol/L BUN (7-17) mg/dL Creatinine (0.52-1.04) mg/dL Glucose (74-99) mg/dL POC Glucose (mg/dL) 180 H 229 H (75-99) mg/dL Calcium (8.4-10.2) mg/dL AST (14-36) U/L ALT (4-34) U/L Alkaline Phosphatase (38-126) U/L Total Protein (6.3-8.2) g/dL Albumin (3.5-5.0) g/dL Procalcitonin (0.02-0.09) ng/mL 11/14/21 11/14/21 11/14/21 Range/Units 05:00 05:00 05:00 WBC 11.0 H (3.8-10.6) k/uL RBC 2.63 L (3.80-5.40) m/uL Hgb 8.6 L (11.4-16.0) gm/dL Hct 26.8 L (34.0-46.0) % MCV 101.7 H (80.0-100.0) fL Neutrophils # 8.5 H (1.3-7.7) k/uL APTT 44.2 H (22.0-30.0) sec ABG pH (7.35-7.45) ABG pO2 (83-108) mmHg ABG HCO3 (21-25) mmol/L ABG Total CO2 (19-24) mmol/L ABG O2 Saturation (94-97) % Potassium 3.2 L (3.5-5.1) mmol/L Carbon Dioxide 32 H (22-30) mmol/L BUN 47 H (7-17) mg/dL Creatinine 1.23 H (0.52-1.04) mg/dL Glucose 197 H (74-99) mg/dL POC Glucose (mg/dL) (75-99) mg/dL Calcium 7.9 L (8.4-10.2) mg/dL AST 87 H (14-36) U/L ALT 40 H (4-34) U/L Alkaline Phosphatase 224 H (38-126) U/L Total Protein 5.5 L (6.3-8.2) g/dL Albumin 2.5 L (3.5-5.0) g/dL Procalcitonin (0.02-0.09) ng/mL 11/14/21 11/14/21 11/14/21 Range/Units 05:37 05:47 11:58 WBC (3.8-10.6) k/uL RBC (3.80-5.40) m/uL Hgb (11.4-16.0) gm/dL Hct (34.0-46.0) % MCV (80.0-100.0) fL Neutrophils # (1.3-7.7) k/uL APTT (22.0-30.0) sec ABG pH 7.48 H (7.35-7.45) ABG pO2 112 H (83-108) mmHg ABG HCO3 33 H (21-25) mmol/L ABG Total CO2 35 H (19-24) mmol/L ABG O2 Saturation 97.9 H (94-97) % Potassium (3.5-5.1) mmol/L Carbon Dioxide (22-30) mmol/L BUN (7-17) mg/dL Creatinine (0.52-1.04) mg/dL Glucose (74-99) mg/dL POC Glucose (mg/dL) 208 H 225 H (75-99) mg/dL Calcium (8.4-10.2) mg/dL AST (14-36) U/L ALT (4-34) U/L Alkaline Phosphatase (38-126) U/L Total Protein (6.3-8.2) g/dL Albumin (3.5-5.0) g/dL Procalcitonin (0.02-0.09) ng/mL Microbiology - Last 24 Hours (Table) 11/11/21 09:03 Blood Culture - Preliminary Blood No Growth after 72 hours
--- NOTE | 2021-11-14 17:07 | P.PN ---
Subjective Progress Note Date: 11/14/21 *Live* [facility] [address] [place], [place] [address] Progress Note - SOAP Patient Name: Yaz Lawson Date of : 1960 Patient Status: Inpatient Attending Provider: Denisse May Date: 11/13/21 09:14 Initialization Date: 11/13/21 09:14 Subjective Progress Note Date: 11/13/21 Patient is 60-year-old female came in with comments of shortness of breath patient has a history of severe aortic stenosis patient had any of around 50- 55%. Patient had bilateral pleural effusions and pulmonary edema on the CT angios the chest. Patient was started on BiPAP. Patient was receiving IV fluids to discuss reviewed and the patient was started on IV Lasix patient had bilateral pleural effusions patient had a recent hospitalization for which patient underwent thoracentesis. Patient does have history of smoking does have history of COPD. Shortly after my evaluation patient decompensated cold blue was called patient was subsequently intubated and transferred to ICU. ABG was opted at that time which showed hypercapnia. Pulmonary was consulted. 11/12/2021 Patient is seen and evaluated in the ICU continues on mechanical ventilation and sedation and being closely monitored. Pulmonary and cardiology following. Current FiO2 is 40% with a PEEP of 5 and patient continues on Nimbex with attempts at weaning. Chest x-ray today shows stable small to moderate sized left pleural effusion and stable diffuse central right lung edema and/or infiltrates with no significant change from previous day. Patient had a 2-D echo done which shows moderate concentric left ventricular hypertrophy with overall LV systolic function is mildly to moderately impaired with an EF of 40- 45% with mild to moderate stenosis of the bioprosthetic aortic valve and mild mitral tricuspid regurgitation present along with moderate pulmonary hyp ertension noted. Blood cultures thus far noted to be negative and patient is maintained on IV antibiotics in the form of Zosyn and will continue. Patient continues on sedation of propofol. Patient will also continue with IV Lasix twice daily and will continue with sliding scale per protocol for elevated blood sugars. Dietitian consulted to initiate tube feedings. 11/13/2021 Patient is seen and evaluated continues to be closely monitored in the ICU with multiple medical consultations following. Patient continues on mechanical ventilation with an FiO2 of 40% and PEEP of 5. Patient is off paralytics and attempting sedation holiday to assess mentation. Neurology was consulted and EEG was done showing an abnormal EEG due to background suppression and diffuse slowing suggestive of generalized cerebral dysfunction consistent with her history of anoxic encephalopathy with very occasional bursts of single sharp waves that were seen however no electrographic seizures were recorded. Patient underwent brain CT as well showing age-related atrophic and chronic small vessel ischemic changes without acute intracranial process seen at this time. Chest x- ray today shows stable portable chest with continued pleural effusion unchanged from previous. Patient was maintained on IV Lasix 40 mg twice daily and showing a slight increase in kidney functions and will decrease the dose to Lasix 40 mg daily. Per nursing staff patient did not tolerate sedation holiday yesterday as she woke up but was extremely agitated and restless with worsening shortness of breath and not following commands. Cardiology also following and patient is maintained on IV heparin for elevated troponins possible and STEMI status post cardiac arrest and will likely need to transition over to oral anticoagulant. Patient was spiking fevers last night although no reports of fevers today and will continue on IV hepatic cyst in the form of Zosyn and sputum cultures will be obtained. Blood cultures thus far remain negative. WBC today is 12.3. Potassium slightly low at 3.1 and will replace per protocol and recommend repeat labs 11/14/2021 The patient continues to be mechanically ventilated. Patient did not have any significant neurological improvement at this time. EEG shows features of anoxic brain injury or encephalopathy. Dr. Berger is following the patient closely. When settings are noted. Chest x-ray showed interstitial edema and some pleural effusion also. Patient is on no multiple medications. Overall prognosis guarded because of the above-mentioned multiple medical issues. REVIEW OF SYSTEMS: Unable to obtain due to her clinical condition Labs: WBC is 12.3, hgb is 8.9, plt 226, sodium is 141, potassium is 3.1, bun 47, creat is 1.35, calcium 8.3, trop is 0.373 Active Medications Acetaminophen (Acetaminophen Tab 325 Mg Tab) 650 mg PO Q6HR PRN PRN Reason: Fever and/ or Pain Last Admin: 11/12/21 18:47 Dose: 650 mg Documented by: Albuterol Sulfate (Albuterol Hfa Inhaler) 2 puff INHALATION RT-QID PRN PRN Reason: Shortness Of Breath Albuterol Sulfate (Albuterol Nebulized 2.5 Mg/3 Ml) 2.5 mg INHALATION RT-QID PRN PRN Reason: Shortness Of Breath Albuterol/Ipratropium (Ipratropium-Albuterol 3 Ml Neb) 3 ml INHALATION RT-QID [facility] Last Admin: 11/13/21 11:10 Dose: 3 ml Documented by: Aspirin (Aspirin 81 Mg) 81 mg PO DAILY [facility] Last Admin: 11/13/21 09:20 Dose: 81 mg Documented by: Atorvastatin Calcium (Atorvastatin 40 Mg Tab) 40 mg PO DAILY [facility] Last Admin: 11/13/21 09:20 Dose: 40 mg Documented by: Bupropion HCl (Bupropion Xl 300 Mg Tab.Er.24h) 300 mg PO QAM [facility] Last Admin: 11/13/21 10:28 Dose: Not Given Documented by: Chlorhexidine Gluconate (Chlorhexidine Gluconate 15 Ml Cup) 15 ml MUCOUS MEM BID [facility] Last Admin: 11/13/21 09:20 Dose: 15 ml Documented by: Furosemide (Furosemide 10 Mg/Ml 4 Ml Vial) 40 mg IV BID [facility] Last Admin: 11/13/21 09:20 Dose: 40 mg Documented by: Heparin Sodium (Porcine) (Heparin Sodium 1,000 Un/Ml (10ml Vl)) 0 unit IV PER PROTOCOL PRN; Protocol PRN Reason: Low PTT Last Admin: 11/12/21 16:03 Dose: 2,250 unit Documented by: Heparin Sodium/Sodium Chloride (25,000 unit/ Sodium Chloride) 250 mls @ 5.443 mls/hr IV .Q24H [facility]; Protocol Last Titration: 11/13/21 05:22 Dose: Infused Documented by: Propofol 1,000 mg/ IV Solution 100 mls @ 0 mls/hr IV .Q0M [facility]; Protocol Last Titration: 11/13/21 10:29 Dose: 15 mcg/kg/min, 4.239 mls/hr Documented by: Cisatracurium Besylate 200 mg/ (Sodium Chloride) 200 mls @ 5.443 mls/hr IV .Q24H [facility]; Protocol Last Admin: 11/12/21 16:02 Dose: Not Given Documented by: Piperacillin Sod/Tazobactam (Sod 3.375 gm/ Sodium Chloride) 100 mls @ 25 mls/hr IVPB Q12H [facility] Stop: 11/13/21 14:00 Last Admin: 11/13/21 11:12 Dose: 25 mls/hr Documented by: Piperacillin Sod/Tazobactam (Sod 3.375 gm/ Sodium Chloride) 100 mls @ 25 mls/hr IVPB Q8H [facility] Insulin Aspart (Insulin Aspart (Novolog) 100 Unit/Ml Vial) 0 unit SQ Q6HR [facility]; Protocol Last Admin: 11/13/21 05:36 Dose: 1 unit Documented by: Lamotrigine (Lamotrigine 100 Mg Tab) 200 mg PO BID [facility] Last Admin: 11/13/21 09:19 Dose: 200 mg Documented by: Levothyroxine Sodium (Levothyroxine 100 Mcg Tab) 100 mcg PO DAILY@0630 [facility] Last Admin: 11/13/21 05:36 Dose: 100 mcg Documented by: Metoprolol Tartrate (Metoprolol Tartrate 12.5 Mg Tab) 12.5 mg PO BID [facility] Last Admin: 11/13/21 09:20 Dose: 12.5 mg Documented by: Miscellaneous Information (Potassium Replacement Protocol 1 Each Misc) 1 each MISCELLANE DAILY PRN; Protocol PRN Reason: Per Protocol Nicotine (Nicotine 21mg/24hr Patch) 1 patch TRANSDERM DAILY [facility] Last Admin: 11/12/21 09:40 Dose: 1 patch Documented by: Oxycodone/Acetaminophen (Oxycodone-Apap 10-325mg 1 Each Tab) 1 each PO Q6H PRN PRN Reason: Pain Pantoprazole Sodium (Pantoprazole 40 Mg/10 Ml Vial) 40 mg IVP DAILY [facility] Last Admin: 11/13/21 09:22 Dose: 40 mg Documented by: Potassium Chloride (Potassium Chloride Er 10 Meq Tab.Er.Prt) 10 meq PO DAILY [facility] Last Admin: 11/13/21 09:12 Dose: Not Given Documented by: Quetiapine Fumarate (Quetiapine 50 Mg Tab) 150 mg PO HS [facility] Last Admin: 11/12/21 21:16 Dose: 150 mg Documented by: Sodium Chloride (Sodium Chloride 0.9% Flush 10 Ml Syringe) 10 ml IV Q12HR [facility] Last Admin: 11/13/21 09:22 Dose: 10 ml Documented by: Sodium Chloride (Sodium Chloride 0.9% Flush 10 Ml Syringe) 10 ml IV DIRECTED PRN PRN Reason: FLUSH PHYSICAL EXAMINATION: GENERAL: Patient is currently on mechanical ventilation and intubated and sedated. cachetic FiO2 is 40% with a PEEP of 5. Thin built. Temp is 98.6F, pulse is 65, respirations are 32, blood pressure 108/61, oxygen saturation is 100% on 40% FiO2. HEENT: Pupils are round and equally reacting to light. EOMI. No scleral icterus. No conjunctival pallor. Normocephalic, atraumatic. No pharyngeal erythema. No thyromegaly. CARDIOVASCULAR: S1 and S2 muffled PULMONARY: Diffuse bilateral rhonchi as well as wheezing and crackles noted ABDOMEN: Soft, nontender, nondistended, normoactive bowel sounds. No palpable organomegaly. MUSCULOSKELETAL: No joint swelling or deformity. EXTREMITIES: No cyanosis, clubbing, or pedal edema. NEUROLOGICAL: unable to assess as patient is sedated. SKIN: No rashes. Assessment and plan: -Acute hypoxic respiratory failure as well as hypercapnic respiratory failure secondary to congestive heart failure exacerbation and a component of COPD exacerbation as well respectively, requiring mechanical ventilation -Possible aspiration pneumonia -Fevers possibly secondary to above -Status post cardiac respiratory arrest with pulseless electrical activity with 15 minutes of CPR and ROSC obtained -Possible anoxic brain injury secondary to cardiac arrest and prolonged CPR -congestive heart failure chronic diastolic dysfunction with acute exacerbation -Severe aortic stenosis -Acute kidney injury, most likely prerenal secondary to diuretic use -Mild elevation of troponin secondary to CHF -NSTEMI -History of coronary artery disease with stenting in the past -Hyperlipidemia -Diabetes mellitus -COPD with acute exacerbation -Hypothyroidism -Chronic back pain with spinal stenosis -Depression -Cachexia secondary to chronic smoking history patient presently doesn't smoke quit about a month ago. -Chronic kidney disease stage II secondary to diabetic nephropathy -Hyperlipidemia -DVT prophylaxis: IV heparin -Full code Plan: Recommend to continue with current medications. Patient will continue on IV Zosyn empirically as patient was spiking temps throughout the night with a T-max of 103.. Sputum cultures obtained and pending and cultures thus far have been negative. Per nursing staff attempting sedation holiday and patient is off paralytics although does not tolerate holiday very well and continues to be agitated and restless and needing re-sedation. Pulmonary sealer aircraft following closely and will continue with holidays of sedation to assess mentation. Patient underwent EEG and CT of the brain with neurology following as mentioned previously. Chest x-ray today continues with pleural effusion although slight improvement as mentioned previously. Recommend continue with close monitoring of chest x-ray daily and repeat labs. Potassium was slightly low and will replace per protocol and repeat labs. Patient continues on IV heparin with cardiology following as well for an STEMI and cardiac arrest with ROSC. Recommend to continue to monitor accuchecks and continue sliding scale. Due to multiple complex medical issues, prognosis is guarded. Family will like to continue with full CODE STATUS at this time. Recommend repeat labs and chest xray in the am. Objective - Vital Signs Vital signs: Vital Signs Temp 97.6 F 11/13/21 04:00 Pulse 67 11/13/21 07:00 Resp 33 H 11/13/21 07:00 BP 195/108 11/12/21 21:00 Pulse Ox 100 11/13/21 07:00 Intake & Output 11/12/21 11/13/21 11/13/21 18:59 06:59 18:59 Intake Total 635.442 792.153 50 Output Total 820 1465 40 Balance -184.558 -672.847 10 Weight 45.359 kg 47.1 kg Intake: IV 280 360 30 0.9 KVO 180 360 30 Piperacillin-Tazobactam 3 100 .375 gm In Sodium Chloride 0.9% 100 ml @ 25 mls/hr IVPB Q12H [facility] Rx# :[id number] Intake, IV Titration 345.442 222.153 Amount Cisatracurium 200 mg In 91.987 Sodium Chloride 0.9% 180 ml @ 2 MCG/KG/MIN 5.443 mls/hr IV .Q24H [facility] Rx#: [id number] Heparin Sod,Pork in 0.45% 78.384 85.865 NaCl 25,000 unit In 0.45 % NaCl 1 250ml.bag @ 12 UNITS/KG/HR 5.443 mls/hr IV .Q24H [facility] Rx#: [id number] propofoL 1,000 mg In 175.071 136.288 Empty Bag 1 bag @ Titrate IV .Q0M [facility] Rx#: [id number] Tube Feeding 10 150 20 Other 60 Output: Urine 820 1465 40 Other: Voiding Method Indwelling Catheter Indwelling Catheter ABP, PAP, CO, CI - Last Documented Arterial Blood Pressure 119/70 - Labs Objective - Vital Signs Vital signs: Vital Signs Temp 99.7 F H 11/14/21 12:00 Pulse 72 11/14/21 15:32 Resp 28 H 11/14/21 15:00 BP 134/85 11/14/21 15:00 Pulse Ox 97 11/14/21 15:00 Intake & Output 11/13/21 11/14/21 11/14/21 18:59 06:59 18:59 Intake Total 836.917 7392.469 891.700 Output Total 8448 461 9337 Balance -509.826 688.469 -478.300 Weight 47.1 kg 48.8 kg Intake: IV 360 460 230 0.9 KVO 360 360 180 Piperacillin-Tazobactam 3 100 50 .375 gm In Sodium Chloride 0.9% 100 ml @ 25 mls/hr IVPB Q12H [facility] Rx# :[id number] Intake, IV Titration 100.174 78.469 319.700 Amount Heparin Sod,Pork in 0.45% 0.174 232.659 NaCl 25,000 unit In 0.45 % NaCl 1 250ml.bag @ 12 UNITS/KG/HR 5.443 mls/hr IV .Q24H [facility] Rx#: [id number] propofoL 1,000 mg In 100.000 78.469 87.041 Empty Bag 1 bag @ Titrate IV .Q0M [facility] Rx#: [id number] Tube Feeding 270 505 282 Other 30 90 60 Output: Urine 8530 034 4968 Other: Voiding Method Indwelling Catheter Indwelling Catheter Indwelling Catheter ABP, PAP, CO, CI - Last Documented Arterial Blood Pressure 127/73 - Labs CBC & Chem 7: 11/14/21 05:00 11/14/21 12:45 Labs: Abnormal Lab Results - Last 24 Hours (Table) 11/13/21 11/13/21 11/13/21 Range/Units 04:35 18:15 22:08 WBC (3.8-10.6) k/uL RBC (3.80-5.40) m/uL Hgb (11.4-16.0) gm/dL Hct (34.0-46.0) % MCV (80.0-100.0) fL Neutrophils # (1.3-7.7) k/uL APTT 47.8 H (22.0-30.0) sec ABG pH (7.35-7.45) ABG pO2 (83-108) mmHg ABG HCO3 (21-25) mmol/L ABG Total CO2 (19-24) mmol/L ABG O2 Saturation (94-97) % Potassium (3.5-5.1) mmol/L Carbon Dioxide (22-30) mmol/L BUN (7-17) mg/dL Creatinine (0.52-1.04) mg/dL Glucose (74-99) mg/dL POC Glucose (mg/dL) 180 H (75-99) mg/dL Calcium (8.4-10.2) mg/dL AST (14-36) U/L ALT (4-34) U/L Alkaline Phosphatase (38-126) U/L Total Protein (6.3-8.2) g/dL Albumin (3.5-5.0) g/dL Procalcitonin 9.23 H (0.02-0.09) ng/mL 11/13/21 11/14/21 11/14/21 Range/Units 23:40 05:00 05:00 WBC 11.0 H (3.8-10.6) k/uL RBC 2.63 L (3.80-5.40) m/uL Hgb 8.6 L (11.4-16.0) gm/dL Hct 26.8 L (34.0-46.0) % MCV 101.7 H (80.0-100.0) fL Neutrophils # 8.5 H (1.3-7.7) k/uL APTT (22.0-30.0) sec ABG pH (7.35-7.45) ABG pO2 (83-108) mmHg ABG HCO3 (21-25) mmol/L ABG Total CO2 (19-24) mmol/L ABG O2 Saturation (94-97) % Potassium 3.2 L (3.5-5.1) mmol/L Carbon Dioxide 32 H (22-30) mmol/L BUN 47 H (7-17) mg/dL Creatinine 1.23 H (0.52-1.04) mg/dL Glucose 197 H (74-99) mg/dL POC Glucose (mg/dL) 229 H (75-99) mg/dL Calcium 7.9 L (8.4-10.2) mg/dL AST 87 H (14-36) U/L ALT 40 H (4-34) U/L Alkaline Phosphatase 224 H (38-126) U/L Total Protein 5.5 L (6.3-8.2) g/dL Albumin 2.5 L (3.5-5.0) g/dL Procalcitonin (0.02-0.09) ng/mL 11/14/21 11/14/21 11/14/21 Range/Units 05:00 05:37 05:47 WBC (3.8-10.6) k/uL RBC (3.80-5.40) m/uL Hgb (11.4-16.0) gm/dL Hct (34.0-46.0) % MCV (80.0-100.0) fL Neutrophils # (1.3-7.7) k/uL APTT 44.2 H (22.0-30.0) sec ABG pH 7.48 H (7.35-7.45) ABG pO2 112 H (83-108) mmHg ABG HCO3 33 H (21-25) mmol/L ABG Total CO2 35 H (19-24) mmol/L ABG O2 Saturation 97.9 H (94-97) % Potassium (3.5-5.1) mmol/L Carbon Dioxide (22-30) mmol/L BUN (7-17) mg/dL Creatinine (0.52-1.04) mg/dL Glucose (74-99) mg/dL POC Glucose (mg/dL) 208 H (75-99) mg/dL Calcium (8.4-10.2) mg/dL AST (14-36) U/L ALT (4-34) U/L Alkaline Phosphatase (38-126) U/L Total Protein (6.3-8.2) g/dL Albumin (3.5-5.0) g/dL Procalcitonin (0.02-0.09) ng/mL 11/14/21 Range/Units 11:58 WBC (3.8-10.6) k/uL RBC (3.80-5.40) m/uL Hgb (11.4-16.0) gm/dL Hct (34.0-46.0) % MCV (80.0-100.0) fL Neutrophils # (1.3-7.7) k/uL APTT (22.0-30.0) sec ABG pH (7.35-7.45) ABG pO2 (83-108) mmHg ABG HCO3 (21-25) mmol/L ABG Total CO2 (19-24) mmol/L ABG O2 Saturation (94-97) % Potassium (3.5-5.1) mmol/L Carbon Dioxide (22-30) mmol/L BUN (7-17) mg/dL Creatinine (0.52-1.04) mg/dL Glucose (74-99) mg/dL POC Glucose (mg/dL) 225 H (75-99) mg/dL Calcium (8.4-10.2) mg/dL AST (14-36) U/L ALT (4-34) U/L Alkaline Phosphatase (38-126) U/L Total Protein (6.3-8.2) g/dL Albumin (3.5-5.0) g/dL Procalcitonin (0.02-0.09) ng/mL Microbiology - Last 24 Hours (Table) 11/11/21 09:03 Blood Culture - Preliminary Blood No Growth after 72 hours
[2021-11-14] MEDS: ACETAMINOPHEN TAB 325 MG TAB PO PRN (18:40)
[2021-11-14 18:43] LABS: Glucose,Whole Blood 249 mg/dL (75-99)
[2021-11-14] MEDS: QUEtiapine 50 MG TAB PO SCH (19:56)
--- NOTE | 2021-11-15 00:08 | P.PN ---
Subjective Progress Note Date: 11/13/21 Patient was seen for a follow-up. Patient is currently on sedation with propofol 45 g. Per nursing report, when the sedation is decreased, patient starts yawning, or biting on the ET tube. She does breathe over the ventilator. Otherwise no purposeful movement of the extremities. She does not open her eyes. Continues to be comatose. Objective - Vital Signs Vital signs: Vital Signs Temp 101.9 F H 11/14/21 20:00 Pulse 74 11/14/21 22:18 Resp 28 H 11/14/21 22:00 BP 78/61 11/14/21 22:00 Pulse Ox 97 11/14/21 22:00 Intake & Output 11/14/21 11/14/21 11/15/21 06:59 18:59 06:59 Intake Total 7146.789 4429.700 184 Output Total 445 2395 120 Balance 688.469 -1098.300 64 Weight 48.8 kg Intake: IV 460 370 60 0.9 KVO 360 270 60 Piperacillin-Tazobactam 3 100 100 .375 gm In Sodium Chloride 0.9% 100 ml @ 25 mls/hr IVPB Q12H [facility] Rx# :[id number] Intake, IV Titration 78.469 319.700 Amount Heparin Sod,Pork in 0.45% 232.659 NaCl 25,000 unit In 0.45 % NaCl 1 250ml.bag @ 12 UNITS/KG/HR 5.443 mls/hr IV .Q24H [facility] Rx#: [id number] propofoL 1,000 mg In 78.469 87.041 Empty Bag 1 bag @ Titrate IV .Q0M [facility] Rx#: [id number] Tube Feeding 505 517 94 Other 90 90 30 Output: Urine 445 2395 120 Other: Voiding Method Indwelling Catheter Indwelling Catheter Indwelling Catheter ABP, PAP, CO, CI - Last Documented Arterial Blood Pressure 25/25 - Exam Patient is sedated at this time. Patient is comatose. Patient sometimes yawns. The sedation was decreased down to 10 g, and patient started becoming tachypneic and started biting on the ET tube. Sedation was brought back to 45 g. Patient's pupils are round and reacting. Oculocephalics are slightly present. Corneals minimally present. Patient does not respond to painful s timuli. She does not have a gag or cough at this time likely due to being on sedation. Patient is areflexic. - Labs CBC & Chem 7: 11/14/21 05:00 11/14/21 12:45 Labs: Abnormal Lab Results - Last 24 Hours (Table) 11/14/21 11/14/21 11/14/21 Range/Units 05:00 05:00 05:00 WBC 11.0 H (3.8-10.6) k/uL RBC 2.63 L (3.80-5.40) m/uL Hgb 8.6 L (11.4-16.0) gm/dL Hct 26.8 L (34.0-46.0) % MCV 101.7 H (80.0-100.0) fL Neutrophils # 8.5 H (1.3-7.7) k/uL APTT 44.2 H (22.0-30.0) sec ABG pH (7.35-7.45) ABG pO2 (83-108) mmHg ABG HCO3 (21-25) mmol/L ABG Total CO2 (19-24) mmol/L ABG O2 Saturation (94-97) % Potassium 3.2 L (3.5-5.1) mmol/L Carbon Dioxide 32 H (22-30) mmol/L BUN 47 H (7-17) mg/dL Creatinine 1.23 H (0.52-1.04) mg/dL Glucose 197 H (74-99) mg/dL POC Glucose (mg/dL) (75-99) mg/dL Calcium 7.9 L (8.4-10.2) mg/dL AST 87 H (14-36) U/L ALT 40 H (4-34) U/L Alkaline Phosphatase 224 H (38-126) U/L Total Protein 5.5 L (6.3-8.2) g/dL Albumin 2.5 L (3.5-5.0) g/dL 11/14/21 11/14/21 11/14/21 Range/Units 05:37 05:47 11:58 WBC (3.8-10.6) k/uL RBC (3.80-5.40) m/uL Hgb (11.4-16.0) gm/dL Hct (34.0-46.0) % MCV (80.0-100.0) fL Neutrophils # (1.3-7.7) k/uL APTT (22.0-30.0) sec ABG pH 7.48 H (7.35-7.45) ABG pO2 112 H (83-108) mmHg ABG HCO3 33 H (21-25) mmol/L ABG Total CO2 35 H (19-24) mmol/L ABG O2 Saturation 97.9 H (94-97) % Potassium (3.5-5.1) mmol/L Carbon Dioxide (22-30) mmol/L BUN (7-17) mg/dL Creatinine (0.52-1.04) mg/dL Glucose (74-99) mg/dL POC Glucose (mg/dL) 208 H 225 H (75-99) mg/dL Calcium (8.4-10.2) mg/dL AST (14-36) U/L ALT (4-34) U/L Alkaline Phosphatase (38-126) U/L Total Protein (6.3-8.2) g/dL Albumin (3.5-5.0) g/dL 11/14/21 Range/Units 18:41 WBC (3.8-10.6) k/uL RBC (3.80-5.40) m/uL Hgb (11.4-16.0) gm/dL Hct (34.0-46.0) % MCV (80.0-100.0) fL Neutrophils # (1.3-7.7) k/uL APTT (22.0-30.0) sec ABG pH (7.35-7.45) ABG pO2 (83-108) mmHg ABG HCO3 (21-25) mmol/L ABG Total CO2 (19-24) mmol/L ABG O2 Saturation (94-97) % Potassium (3.5-5.1) mmol/L Carbon Dioxide (22-30) mmol/L BUN (7-17) mg/dL Creatinine (0.52-1.04) mg/dL Glucose (74-99) mg/dL POC Glucose (mg/dL) 249 H (75-99) mg/dL Calcium (8.4-10.2) mg/dL AST (14-36) U/L ALT (4-34) U/L Alkaline Phosphatase (38-126) U/L Total Protein (6.3-8.2) g/dL Albumin (3.5-5.0) g/dL Microbiology - Last 24 Hours (Table) 11/14/21 11:00 Sputum Culture - Preliminary Sputum 11/11/21 09:03 Blood Culture - Preliminary Blood No Growth after 72 hours Assessment and Plan Assessment: * Status post cardiopulmonary arrest with downtime of about 12-15 minutes. 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 Patient continues to be comatose with GCS of 3. * Ventilator-dependent respiratory failure * Probable sepsis, high temperature, leukocytosis. * Non-STEMI * History of aortic stenosis with previous history of aortic valve replacement and evidence of restenosis of the bioprosthetic aortic valve. * CHF * Diabetes * Hypertension * CAD * Anemia * Mild to moderate renal insufficiency * Mildly elevated liver enzyme, improving. * History of tobacco use * Protein calorie malnutrition. Plan: * Patient continues to be comatose, 48 hours post cardiac arrest. No significant clinical improvement noticed. * EEG was performed, which revealed severely abnormal EEG due to background suppression and diffuse slowing. This is suggestive of generalized cerebral dysfunction, consistent with her history of anoxic encephalopathy. Very occasional burst of single sharp waves were seen. However no electrographic seizure was recorded. Clinical correlation recommended. Patient not showing any signs of seizure activity. * Computed tomography scan of head revealed age-related atrophic and chronic small vessel ischemic change without acute intracranial process seen at this time. I personally reviewed computed tomography scan of the head, and now show showed pictures on the computer to the patient's . On just looking at computed tomography scan from today, the report is okay. However when compared to computed tomography scan of head from 05/31/2017, there is definitely some degree of generalized cerebral edema. There is slight eff acement of sulci as compared to the previous computed tomography scan. * At present patient is sedated with propofol. However when the sedation was decreased, there was no significant clinical improvement except the patient yawning and biting on the ET tube. Continues to be comatose. This pertains poor prognosis for meaningful recovery. I relayed overall prognosis to the patient's . Patient's 's brother was also present today. All of their questions were answered.
[2021-11-15] MEDS: INSULIN ASPART (NovoLOG) 100 UNIT/ML VIAL SQ SCH ×4 (00:21→18:04)
[2021-11-15 00:22] LABS: Glucose,Whole Blood 164 mg/dL (75-99)
--- NOTE | 2021-11-15 01:48 | P.PN ---
Subjective Progress Note Date: 11/14/21 Patient was seen for a follow-up. Patient is currently on sedation with propofol 20 mcg/g/min. Per nursing report, when the sedation is decreased, patient starts yawning, or biting on the ET tube. She does breathe over the ventilator. She does have a gag and cough. Otherwise no purposeful movement of the extremities. She does not open her eyes. Continues to be comatose. Objective - Vital Signs Vital signs: Vital Signs Temp 100.2 F H 11/15/21 00:00 Pulse 77 11/15/21 00:00 Resp 28 H 11/15/21 00:00 BP 96/66 11/15/21 00:00 Pulse Ox 98 11/15/21 00:00 Intake & Output 11/14/21 11/14/21 11/15/21 06:59 18:59 06:59 Intake Total 3442.428 3117.700 516.15 Output Total 445 2395 260 Balance 688.469 -1098.300 256.15 Weight 48.8 kg Intake: IV 460 370 150 0.9 KVO 360 270 150 Piperacillin-Tazobactam 3 100 100 .375 gm In Sodium Chloride 0.9% 100 ml @ 25 mls/hr IVPB Q12H [facility] Rx# :[id number] Intake, IV Titration 78.469 319.700 71.15 Amount Heparin Sod,Pork in 0.45% 232.659 NaCl 25,000 unit In 0.45 % NaCl 1 250ml.bag @ 12 UNITS/KG/HR 5.443 mls/hr IV .Q24H [facility] Rx#: [id number] propofoL 1,000 mg In 78.469 87.041 71.15 Empty Bag 1 bag @ Titrate IV .Q0M [facility] Rx#: [id number] Tube Feeding 505 517 235 Other 90 90 60 Output: Urine 445 2395 260 Other: Voiding Method Indwelling Catheter Indwelling Catheter Indwelling Catheter ABP, PAP, CO, CI - Last Documented Arterial Blood Pressure 111/63 - Exam Patient is sedated at this time. Patient is comatose. Patient sometimes yawns. The sedation was decreased down to 10 g, and patient started becoming tachypneic and started biting on the ET tube. Sedation was brought back to 20 micrograms per kilogram per minute. Patient's pupils are round and reacting. Oculocephalics are slightly present. Corneals minimally present. Patient does not respond to painful stimuli. She does not have a gag or cough at this time likely due to being on sedation. Patient is areflexic. - Labs CBC & Chem 7: 11/14/21 05:00 11/14/21 12:45 Labs: Abnormal Lab Results - Last 24 Hours (Table) 11/14/21 11/14/21 11/14/21 Range/Units 05:00 05:00 05:00 WBC 11.0 H (3.8-10.6) k/uL RBC 2.63 L (3.80-5.40) m/uL Hgb 8.6 L (11.4-16.0) gm/dL Hct 26.8 L (34.0-46.0) % MCV 101.7 H (80.0-100.0) fL Neutrophils # 8.5 H (1.3-7.7) k/uL APTT 44.2 H (22.0-30.0) sec ABG pH (7.35-7.45) ABG pO2 (83-108) mmHg ABG HCO3 (21-25) mmol/L ABG Total CO2 (19-24) mmol/L ABG O2 Saturation (94-97) % Potassium 3.2 L (3.5-5.1) mmol/L Carbon Dioxide 32 H (22-30) mmol/L BUN 47 H (7-17) mg/dL Creatinine 1.23 H (0.52-1.04) mg/dL Glucose 197 H (74-99) mg/dL POC Glucose (mg/dL) (75-99) mg/dL Calcium 7.9 L (8.4-10.2) mg/dL AST 87 H (14-36) U/L ALT 40 H (4-34) U/L Alkaline Phosphatase 224 H (38-126) U/L Total Protein 5.5 L (6.3-8.2) g/dL Albumin 2.5 L (3.5-5.0) g/dL 11/14/21 11/14/21 11/14/21 Range/Units 05:37 05:47 11:58 WBC (3.8-10.6) k/uL RBC (3.80-5.40) m/uL Hgb (11.4-16.0) gm/dL Hct (34.0-46.0) % MCV (80.0-100.0) fL Neutrophils # (1.3-7.7) k/uL APTT (22.0-30.0) sec ABG pH 7.48 H (7.35-7.45) ABG pO2 112 H (83-108) mmHg ABG HCO3 33 H (21-25) mmol/L ABG Total CO2 35 H (19-24) mmol/L ABG O2 Saturation 97.9 H (94-97) % Potassium (3.5-5.1) mmol/L Carbon Dioxide (22-30) mmol/L BUN (7-17) mg/dL Creatinine (0.52-1.04) mg/dL Glucose (74-99) mg/dL POC Glucose (mg/dL) 208 H 225 H (75-99) mg/dL Calcium (8.4-10.2) mg/dL AST (14-36) U/L ALT (4-34) U/L Alkaline Phosphatase (38-126) U/L Total Protein (6.3-8.2) g/dL Albumin (3.5-5.0) g/dL 11/14/21 11/15/21 Range/Units 18:41 00:19 WBC (3.8-10.6) k/uL RBC (3.80-5.40) m/uL Hgb (11.4-16.0) gm/dL Hct (34.0-46.0) % MCV (80.0-100.0) fL Neutrophils # (1.3-7.7) k/uL APTT (22.0-30.0) sec ABG pH (7.35-7.45) ABG pO2 (83-108) mmHg ABG HCO3 (21-25) mmol/L ABG Total CO2 (19-24) mmol/L ABG O2 Saturation (94-97) % Potassium (3.5-5.1) mmol/L Carbon Dioxide (22-30) mmol/L BUN (7-17) mg/dL Creatinine (0.52-1.04) mg/dL Glucose (74-99) mg/dL POC Glucose (mg/dL) 249 H 164 H (75-99) mg/dL Calcium (8.4-10.2) mg/dL AST (14-36) U/L ALT (4-34) U/L Alkaline Phosphatase (38-126) U/L Total Protein (6.3-8.2) g/dL Albumin (3.5-5.0) g/dL Microbiology - Last 24 Hours (Table) 11/14/21 11:00 Sputum Culture - Preliminary Sputum 11/11/21 09:03 Blood Culture - Preliminary Blood No Growth after 72 hours Assessment and Plan Assessment: * Status post cardiopulmonary arrest with downtime of about 12-15 minutes. 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 Patient continues to be comatose with GCS of 3. * Ventilator-dependent respiratory failure * Probable sepsis, high temperature, leukocytosis. * Non-STEMI * History of aortic stenosis with previous history of aortic valve replacement and evidence of restenosis of the bioprosthetic aortic valve. * CHF * Diabetes * Hypertension * CAD * Anemia * Mild to moderate renal insufficiency * Mildly elevated liver enzyme, improving. * History of tobacco use * Protein calorie malnutrition. Plan: * Patient continues to be comatose, 72 hours post cardiac arrest. No significant clinical improvement noticed. * EEG was performed, which revealed severely abnormal EEG due to background suppression and diffuse slowing. This is suggestive of generalized cerebral dysfunction, consistent with her history of anoxic encephalopathy. Very occasional burst of single sharp waves were seen. However no electrographic seizure was recorded. Clinical correlation recommended. Patient not showing any signs of seizure activity. * Computed tomography scan of head revealed age-related atrophic and chronic small vessel ischemic change without acute intracranial process seen at this time. I personally reviewed computed tomography scan of the head, and now show showed pictures on the computer to the patient's . On just looking at computed tomography scan from today, the report is okay. However when compared to computed tomography scan of head from 05/31/2017, there is definitely some degree of generalized cerebral edema. There is slight effacement of sulci as compared to the previous computed tomography scan. * At present patient is sedated with propofol. However when the sedation was decreased, there was no significant clinical improvement except the patient yawning and biting on the ET tube. Continues to be comatose. This pertains poor prognosis for meaningful recovery. * Supportive care
[2021-11-15 05:44] LABS: ABG HCO3 35 mmol/L (21-25); ABG Oxygen Saturation 95.7 % (94-97); ABG PCO2 41 mmHg (35-45); ABG PH 7.54 (7.35-7.45); ABG PO2 76 mmHg (83-108); ABG TCO2 36 mmol/L (19-24); Allen Test Performed? Yes
[2021-11-15] MEDS: ACETAMINOPHEN TAB 325 MG TAB PO PRN (05:44)
[2021-11-15 05:45] LABS: Basophils % (A) 0 %; Eosinophils # (A) 0.1 k/uL (0-0.7); Eosinophils % (A) 1 %; HCT 28.4 % (34.0-46.0); HGB 9.1 gm/dL (11.4-16.0); Lymphocytes # (A) 1.3 k/uL (1.0-4.8); Lymphocytes % (A) 12 %; MCH 32.9 pg (25.0-35.0); MCHC 32.1 g/dL (31.0-37.0); MCV 102.5 fL (80.0-100.0); Macrocytosis Slight; Mean Platelet Volume 9.4; Monocytes # (A) 0.7 k/uL (0-1.0); Monocytes % (A) 6 %; Neutrophils # (A) 8.7 k/uL (1.3-7.7); Neutrophils % (A) 79 %; Platelet Count 241 k/uL (150-450); RBC 2.77 m/uL (3.80-5.40); RDW 13.9 % (11.5-15.5)
[2021-11-15] MEDS: PIPERACILLIN-TAZOBACTAM 3.375 GM in SODIUM CHLORIDE 0.9% 100 ML IVPB SCH ×3 (05:45→20:49)
[2021-11-15 05:52] LABS: Albumin 2.9 g/dL (3.5-5.0); Calcium 8.5 mg/dL (8.4-10.2); Potassium 3.3 mmol/L (3.5-5.1); Total Bilirubin 0.6 mg/dL (0.2-1.3); Total Protein 6.4 g/dL (6.3-8.2)
[2021-11-15 05:58] LABS: Glucose,Whole Blood 222 mg/dL (75-99)
[2021-11-15] MEDS: POTASSIUM BICARBONATE/CIT AC 20 MEQ TABLET.EFF NG-TUBE SCH ×2 (06:43→10:03)
[2021-11-15] MEDS: LEVOTHYROXINE 100 MCG TAB PO SCH (06:43)
[2021-11-15] MEDS: HEPARIN SODIUM 1,000 UN/ML (10ML VL) IV PRN (06:55)
--- NOTE | 2021-11-15 08:21 | XR ---
EXAMINATION TYPE: XR chest 1V portable DATE OF EXAM: 11/15/2021 COMPARISON: 11/14/2021 INDICATION: Tube placement TECHNIQUE: Single frontal view of the chest is obtained. FINDINGS: The heart size is normal. The pulmonary vasculature is prominent. Mild right lower lobe infiltrate is present. This is an interval finding. Small left pleural effusion remains present. Right pleural effusion may be present. The endotracheal tube tip is above ranjit. Nasogastric tube transverses the thorax. Right central minnie ous catheter tip is within the proximal right atrium. Sternotomy wires from prior cardiac valve surge ry are evident. IMPRESSION: 1. Developing right lower lobe infiltrate. 2. Small pleural effusions. 3. Lines and catheters discussed above
[2021-11-15] MEDS: IPRATROPIUM-ALBUTEROL 3 ML NEB INHALATION SCH ×4 (08:31→20:32)
[2021-11-15] MEDS: NICOTINE 21MG/24HR PATCH TRANSDERM SCH (09:59)
[2021-11-15] MEDS: CHLORHEXIDINE GLUCONATE 15 ML CUP MUCOUS MEM SCH ×2 (10:01→20:48)
[2021-11-15] MEDS: POTASSIUM CHLORIDE ER 10 MEQ TAB.ER.PRT PO SCH (10:01)
[2021-11-15] MEDS: METOPROLOL TARTRATE 12.5 MG TAB PO SCH ×2 (10:01→20:48)
[2021-11-15] MEDS: FUROSEMIDE 10 MG/ML 4 ML VIAL IV SCH (10:02)
[2021-11-15] MEDS: PANTOPRAZOLE 40 MG/10 ML VIAL IVP SCH (10:02)
[2021-11-15] MEDS: ASPIRIN 81 MG PO SCH (10:02)
[2021-11-15] MEDS: ATORVASTATIN 40 MG TAB PO SCH (10:02)
[2021-11-15] MEDS: buPROPion XL 300 MG TAB.ER.24H PO SCH (10:02)
[2021-11-15] MEDS: lamoTRIgine 100 MG TAB PO SCH ×2 (10:13→20:49)
--- NOTE | 2021-11-15 11:06 | P.PN ---
Subjective Progress Note Date: 11/15/21 Principal diagnosis: Acute hypoxic reported failure and cardiac arrest This is a 60-year-old white female patient with known extensive cardiac history including severe aortic stenosis with previous history of aortic valve replacement and evidence of restenosis of the bioprosthetic aortic valve, chronic CHF with systolic dysfunction although her most recent echocardiogram showed improved left ventricular systolic function with an EF of 55-60%. Other medical history includes hypertension, diabetes with this type II, poorly controlled, coronary artery disease with previous stent placement, hypothyroidism, ongoing nicotine dependence, anxiety, depression, chronic back pain. Patient was recently hospitalized for acute exacerbation of CHF, bilateral pleural effusions status post thoracentesis of the left lung, pleural fluid was not sent for analysis, although was suspected to be transudate. She was discharged on 10/13/2021 in stable but guarded condition in view of her multiple comorbidities. 11/11/2021 patient was brought in by EMS to the emergency department for evaluation of worsening shortness of breath since yesterday, chest heaviness as severe as 8 out of 10. There were no reported fever, chills, no sweats. Patient apparently did endorse a dry cough. Patient took 4 breathing treatments at home without significant relief. She was brought to the ER, she was noted to be desaturating, and was noted to be diaphoretic. Her chest x-ray showed developing interstitial pulmonary edema, small to moderate left pleural effusion with adjacent atelectasis and/or consolidation. CTA chest showed no evidence of a large central or lobar branch pulmonary embolus, no definite pulmonary embolus in the upper or mid lungs. Segmental and more distal branches of the lower lungs were nondiagnostic. There was moderate left and small to moderate right pleural effusion with adjacent atelectasis. There was marked generalized anasarca, pulmonary arterial hypertension, patchy groundglass opacities correlate for CHF and developing pulmonary edema. There was a suggestion of underlying mediastinal hilar and upper abdominal lymphadenopathy, with a 3 months follow-up CT recommendation. Admission blood work showed white blood cell count 9.8, hemoglobin was 10.8, d-dimer is 4.5, electrolytes and renal profile were unremarkable on admission, proBNP was 30,100, troponin was 0.149, AST was 90, ALT was 37, alk phos was 407, COVID-19 PCR was negative, RSV and influenza screens were also negative. Patient was placed on BiPAP support, she was started on IV Lasix, nebulized bronchodilators, and she was awaiting a bed on monitored bed on 3 S. a short while later she suffered a cardiac arrest, with a bradycardia and PEA, she was emergently intubated, ACLS was administered with CPR, no defibrillation shocks were administered please refer to the code sheet, ROSC was achieved after 15 minutes, patient was admitted to the intensive care unit. Reevaluated today on 11/12/2021, patient remains in the ICU, intubated and mechanically ventilated. She is now on assist control rate of 32, tidal volume 325, FiO2 40% and PEEP of 5. ABG showed a pO2 of 64 pCO2 55 pH of 7.32. Patient is on propofol at 50 mcg/kg/m, which is also on Nimbex at 2 mcg/kg/m, I recommended stopping the Nimbex. And hopefully we could assess her mental status today. As the patient sustained a cardiac arrest and she may have sustained anoxic brain injury. Her WBC count today is 21.1 hemoglobin is 10.3 electrolytes are normal renal profile showed a BUN of 32 creatinine 1.21. Patient is sedated, and I plan to hold sedation today, and assess mental status off propofol and off Nimbex. Chest x-ray continues to show pulmonary edema, and possibly some component of pneumonia and I'm recommending adding Zosyn as the patient may have sustained some aspiration. Will also start enteral feeding on this patient today. Reevaluated today on 11/14/2021, patient remains in the ICU, intubated mechanically ventilated, and she seems to be encephalopathic, no significant neurological improvement noted in the last few days. Her EEG is consistent with anoxic brain injury/encephalopathy. Her CT of the brain is nondiagnostic. Patient remains on assist control rate of 28th of volume of 325 FiO2 35% and PEEP of 5. ABG today showed a pO2 of 112 pCO2 45 pH of 7.45. WBC count is 11 hemoglobin 8.6 hematocrit 26.8. Electrolytes are normal BUN is 47 creatinine is 1.23, improving. Chest x-ray is showing improvement in her interstitial edema continues to have a small left pleural effusion which seems to be chronic. Patient remains on heparin for what seems to be non-ST elevation myocardial infarction. Patient is on propofol, and I plan to reassess today on lower dose of propofol, or maybe off propofol if we can take her off completely. Yesterday the patient went off propofol completely, however she was getting more agitated and restless, remained unresponsive, did not follow any instructions, and she was quite tachycardic and tachypneic and hypertensive, hence she had to be pl aced back on propofol yesterday. Will try the same today if possible. Reevaluated today on 11/15/2021, remains in the ICU, intubated and mechanically ventilated. Patient is on assist control rate of 28, volume 325 FiO2 40% PEEP of 5. ABG showed a pO2 of 76 pCO2 41 pH of 7.54, hence no changes were made in her ventilator settings. Chest x-ray is showing worsening right lower lobe consolidation/pneumonia, I am suspecting that the patient may have had aspiration pneumonia. Patient is still unresponsive to any stimuli in spite of being off sedation. Yesterday she was off sedation for a long enough time, and no purposeful movement was noted, which is consistent with the fact that the patient may have sustained severe anoxic brain injury as noted on the EEG. Patient is on propofol at 30 mcg/kg/m, she is receiving heparin, remains on Zosyn empirically. She is also on enteral feeding vital AF up to goal. Electrolytes are normal renal profile is normal CBC is showing WBC count of 11 hemoglobin of 9.7. PTT is 37. Objective - Vital Signs Vital signs: Vital Signs Temp 100.2 F H 11/15/21 04:00 Pulse 96 11/15/21 08:40 Resp 22 11/15/21 07:00 BP 153/98 11/15/21 07:00 Pulse Ox 93 L 11/15/21 07:00 Intake & Output 11/14/21 11/15/21 11/15/21 18:59 06:59 18:59 Intake Total 2074.988 1213.782 Output Total 2395 800 Balance -1098.300 490.782 Weight 49 kg Intake: IV 370 360 0.9 KVO 270 360 Piperacillin-Tazobactam 3 100 .375 gm In Sodium Chloride 0.9% 100 ml @ 25 mls/hr IVPB Q12H [facility] Rx# :[id number] Intake, IV Titration 319.700 276.782 Amount Heparin Sod,Pork in 0.45% 232.659 205.632 NaCl 25,000 unit In 0.45 % NaCl 1 250ml.bag @ 12 UNITS/KG/HR 5.443 mls/hr IV .Q24H [facility] Rx#: [id number] propofoL 1,000 mg In 87.041 71.15 Empty Bag 1 bag @ Titrate IV .Q0M [facility] Rx#: [id number] Tube Feeding 517 564 Other 90 90 Output: Urine 2395 800 Other: Voiding Method Indwelling Catheter Indwelling Catheter # Bowel Movements 3 ABP, PAP, CO, CI - Last Documented Arterial Blood Pressure 110/65 - Exam GENERAL EXAM: Revealed a 60-year-old female cachectic, intubated, sedated, on propofol. HEAD: Atraumatic, normocephalic. Endotracheal tube and orogastric tube are intact. EENT: PERRLA, EOMI, anicteric, no neck masses, no JVD, no stridor. CHEST:. Symmetrical expansion. LUNGS: Crackles at the bases, especially at the right base. No wheezing. CVS: Irregular irregular rhythm. Normal S1 and S2, no S3 gallop. ABDOMEN: Nontender no megaly no rebound. EXTREMITIES: No clubbing, no edema, no cyanosis, 2+ pulses and upper and lower extremities. SKIN: No rashes CENTRAL NERVOUS SYSTEM: Not assessed, patient is sedated and intubated. However off sedation yesterday, patient has no purposeful movement or responses. - Labs CBC & Chem 7: 11/15/21 05:25 11/15/21 05:25 Labs: Abnormal Lab Results - Last 24 Hours (Table) 11/14/21 11/14/21 11/15/21 Range/Units 11:58 18:41 00:19 WBC (3.8-10.6) k/uL RBC (3.80-5.40) m/uL Hgb (11.4-16.0) gm/dL Hct (34.0-46.0) % MCV (80.0-100.0) fL Neutrophils # (1.3-7.7) k/uL APTT (22.0-30.0) sec ABG pH (7.35-7.45) ABG pO2 (83-108) mmHg ABG HCO3 (21-25) mmol/L ABG Total CO2 (19-24) mmol/L Potassium (3.5-5.1) mmol/L Carbon Dioxide (22-30) mmol/L BUN (7-17) mg/dL Creatinine (0.52-1.04) mg/dL Glucose (74-99) mg/dL POC Glucose (mg/dL) 225 H 249 H 164 H (75-99) mg/dL AST (14-36) U/L ALT (4-34) U/L Alkaline Phosphatase (38-126) U/L Albumin (3.5-5.0) g/dL 11/15/21 11/15/21 11/15/21 Range/Units 05:25 05:25 05:25 WBC 11.0 H (3.8-10.6) k/uL RBC 2.77 L (3.80-5.40) m/uL Hgb 9.1 L (11.4-16.0) gm/dL Hct 28.4 L (34.0-46.0) % MCV 102.5 H (80.0-100.0) fL Neutrophils # 8.7 H (1.3-7.7) k/uL APTT 37.3 H (22.0-30.0) sec ABG pH (7.35-7.45) ABG pO2 (83-108) mmHg ABG HCO3 (21-25) mmol/L ABG Total CO2 (19-24) mmol/L Potassium 3.3 L (3.5-5.1) mmol/L Carbon Dioxide 34 H (22-30) mmol/L BUN 36 H (7-17) mg/dL Creatinine 1.10 H (0.52-1.04) mg/dL Glucose 211 H (74-99) mg/dL POC Glucose (mg/dL) (75-99) mg/dL AST 99 H (14-36) U/L ALT 47 H (4-34) U/L Alkaline Phosphatase 217 H (38-126) U/L Albumin 2.9 L (3.5-5.0) g/dL 11/15/21 11/15/21 Range/Units 05:37 05:56 WBC (3.8-10.6) k/uL RBC (3.80-5.40) m/uL Hgb (11.4-16.0) gm/dL Hct (34.0-46.0) % MCV (80.0-100.0) fL Neutrophils # (1.3-7.7) k/uL APTT (22.0-30.0) sec ABG pH 7.54 H (7.35-7.45) ABG pO2 76 L (83-108) mmHg ABG HCO3 35 H (21-25) mmol/L ABG Total CO2 36 H (19-24) mmol/L Potassium (3.5-5.1) mmol/L Carbon Dioxide (22-30) mmol/L BUN (7-17) mg/dL Creatinine (0.52-1.04) mg/dL Glucose (74-99) mg/dL POC Glucose (mg/dL) 222 H (75-99) mg/dL AST (14-36) U/L ALT (4-34) U/L Alkaline Phosphatase (38-126) U/L Albumin (3.5-5.0) g/dL Microbiology - Last 24 Hours (Table) 11/14/21 11:00 Gram Stain - Preliminary Sputum Sputum Culture - Preliminary 11/11/21 09:03 Blood Culture - Preliminary Blood No Growth after 72 hours Assessment and Plan Assessment: Impression: Acute hypoxic respiratory failure, multifactorial. Cardiac arrest, status post CPR for 12 minutes. Acute diastolic congestive heart failure, acute non-ST elevation myocardial infarction Possible aspiration pneumonia patient had worsening chest x-ray today. Recent hospitalization for diastolic congestive heart failure discharged on 10/13/2021 History of severe aortic stenosis and previous aortic valve replacement History of coronary artery disease with previous PCI stenting Type 2 diabetes. History of underlying COPD presently inactive. Hypothyroidism. Chronic back pain and spinal stenosis. Generalized anxiety disorder severe protein calorie malnutrition, BMI of 16.6. Possible anoxic brain injury secondary to cardiac arrest. And prolonged CPR. Unremarkable CT of the brain but the patient has quite abnormal EEG. Recommendation: Continue ventilatory support. No changes made and vent settings today, patient is on assist control rate of 28 tidal volume 325 FiO2 40% and PEEP of 5 We'll try to hold sedation again and assess mental status off sedation Continue heparin as per cardiology. Continue antibiotics and bronchodilators. Patient is on Zosyn. Enteral feeding/nutritional support. Continue GI and DVT prophylaxis. Prognosis is extremely poor and guarded. Results of the EEG are consistent with anoxic brain injury. Family was made aware of her overall prognostic picture, considering possibly comfort care measures early next week Critical care time is over 30 minutes. Time with Patient: Greater than 30
--- NOTE | 2021-11-15 11:42 | XR ---
EXAMINATION TYPE: XR abdomen 1V DATE OF EXAM: 11/15/2021 COMPARISON: 06/23/2018 INDICATION: Nasogastric tube insertion TECHNIQUE: Single view abdomen with mobile apparatus supine view FINDINGS: The image is somewhat overpenetrated. Nasogastric tube tip is in the left upper quadrant of the abdomen. Fecal debris is within the colon. Psoas margins are well visualized. Hepatomegaly may be present. Post surgical changes are through the upper and mid lumbar spine. Small left pleural effusion is present. IMPRESSION: 1. Nasogastric tube tip within the left upper quadrant abdomen. 2. Small left pleural effusion. 3. There may be some fecal retention.
[2021-11-15 11:44] LABS: Glucose,Whole Blood 212 mg/dL (75-99)
[2021-11-15 12:25] LABS: Glucose,Whole Blood 211 mg/dL (75-99)
--- NOTE | 2021-11-15 12:35 | P.PN ---
Subjective HISTORY OF PRESENTING ILLNESS This is a pleasant 60-year-old female past medical history significant for coronary artery disease status post PCI mid RCA in 2007, PCI to the distal RCA in 2014, severe aortic stenosis status post aortic valve replacement in 2016 with restenosis, hypertension, hyperlipidemia, type 2 diabetes, chronic nicotine dependence, COPD, left-sided carotid endarterectomy, hypothyroidism. She follows in the office with Dr. Elena. Patient has had a number of admissions to the hospital for heart failure as well as COPD exacerbation over the last 2 months. She presented to 06/22/2022 secondary to worsening shortness breath which started the day before as well as reported chest heaviness and 8 out of 10. Patient is currently intubated and sedated and history is supplied by chart. There is apparently no recent fevers, chills however did have a dry cough. She did had prior thoracentesis last admission which was felt related to her heart failure. She had a CTA performed which showed no pulmonary embolism with moderate left and small to moderate right pleural effusion with atelectasis. There is also a report of anasarca and patchy groundglass opacities and correlate for heart failure versus pulmonary edema. There is also mediastinal hilar and abdominal lymphadenopathy. Patient was admitted and placed on BiPAP however apparently decompensated with worsening respiratory distress and bradycardi and loss of pulses and CPR was performed for approximately 15 minutes without any VT noted and eventual ROSC. Patient was having a hard time oxygenating and therefore was paralyzed and on ventilator. Currently on 45% FiO2. Blood work initially showed white blood cell count 9.8, hemoglobin 10.8, d-dimer 4.5, sodium 135, BUN 24, creatinine 0.86, AST 90, ALT 37, troponin 0.149, 0.132, albumin 3.2, proBNP 30,100. Last echo from 10/01/2021 showed EF 55-60%, severe stenosis of the bioprosthetic aortic valve with a mean gradient of 46, mild aortic regurgitation, mild mitral regurgitation, mild tricuspid regurgitation with a small generalized pericardial effusion and a large pleural effusion. Last Cardiac Catheterization 11/2015 revealed normal EF, 20% mid LAD, 100% distal circumflex, 30% mid RCA, right dominant, severe aortic stenosis 11/13 Patient seen and examined. Patient remains intubated on 40% FiO2 with a PEEP of 5. No further bradycardia noted. Potassium extremely low at 2.7 this morning and replaced repeat 3.1. Hemoglobin downtrending 10.8 on admission and currently 8.9. Echo shows EF 40-45% with inferior hypokinesis. There is mention of mild to moderate bioprosthetic aortic valve stenosis however may be component of low-flow gradient. There is a large pleural effusion with mention of fibrin noted in the pleural effusion. RVSP of 50.8. 11/14 Patient seen and examined. Patient was transitioned to Lasix 40 mg IV once a day today. Remains intubated and sedated on ventilator. Currently on 35% FiO2 with a PEEP of 5. Creatinine stabilized currently down somewhat to 1.2 today. Hypokalemia noted. Per nursing propofol has been weaned however patient not to much neurologically more than breathing over the vent 11/15 Patient seen and examined. Patient's blood pressures from her left radial arterial line have been running higher than her left brachial blood pressure cu ff readings by about 30 mmHg systolic. She remains on ventilator with a FiO2 40% and PEEP of 5. Blood pressures predominantly elevated with a map of the proximal 0.95. Blood work fairly stable with creatinine improved to 1.1 today. Patient with approximately -500 mL over last 24 hours. She was transitioned to Lasix 40 mg IV daily yesterday. REVIEW OF SYSTEMS At the time of my exam: Unable to obtain secondary to sedation, paralyzed PHYSICAL EXAMINATION Vital signs reviewed. CONSTITUTIONAL: No apparent distress, sedated and paralyzed on vent, frail HEENT: Head is normocephalic. Pupils are equal, round. Sclerae anicteric. Mucous membranes of the mouth are moist. No JVD. No carotid bruit. CHEST EXAMINATION: Lungs are clear to auscultation. No chest wall tenderness is noted on palpation or with deep breathing. HEART EXAMINATION: Regular rate and rhythm. S1, S2 heard. +3/6 murmur, no gallops or rub. ABDOMEN: Soft, nontender. Positive bowel sounds. EXTREMITIES: 2+ peripheral pulses, no lower extremity edema and no calf tenderness. NEUROLOGIC EXAMINATION: Patient is sedated and ventilated ASSESSMENT 1. Status post cardiac arrest for approximately 15 minutes with bradycardia. S uspect pulmonary etiology with worsening pulmonary status area 2. Acute on chronic respiratory failure likely component of heart failure with chronic COPD component as well as 3. Acute on chronic diastolic heart failure 4. Severe bioprosthetic aortic valve stenosis 5. Non-STEMI possible type II mechanism related to heart failure, hypoxia however new inferior hypokinesis concerning for Type I etiology 6. Coronary artery disease with prior history of PCI 7. Prior small generalized pericardial effusion 8. Bilateral pleural effusions status post previous thoracentesis 9. Hilar adenopathy, no obvious infectious symptoms recently 10. Tobacco abuse 11. Frailty 12. Protein calorie malnutrition 13. Inferior hypokinesis 14. New mild cardiomyopathy EF 40-45% with inferior hypokinesis PLAN Patient does have new cardiomyopathy with EF 40-45% with inferior hypokinesis and patient was having some chest pain prior to arrival and there is a consideration of type I myocardial infarction. Continue with aspirin and heparin drip and await neurologic status. Pending neurologic recovery likely ischemic workup with either stress test or heart catheterization. Patient blood pressure appears stable and currently respiratory status somewhat stable. Continue to await any neurologic recovery from her cardiac arrest. We will add losartan 25 mg daily and monitor blood pressure closely. Suspect brachial cuff more accurate with possibility of vasoconstriction around the radial site causing increased pressures compared to brachial. Further recommendations to follow. Objective - Vital Signs Vital signs: Vital Signs Temp 100.2 F H 11/15/21 04:00 Pulse 79 11/15/21 12:23 Resp 22 11/15/21 07:00 BP 153/98 11/15/21 07:00 Pulse Ox 93 L 11/15/21 07:00 Intake & Output 11/14/21 11/15/21 11/15/21 18:59 06:59 18:59 Intake Total 5594.005 2641.782 Output Total 2395 800 Balance -1098.300 490.782 Weight 49 kg Intake: IV 370 360 0.9 KVO 270 360 Piperacillin-Tazobactam 3 100 .375 gm In Sodium Chloride 0.9% 100 ml @ 25 mls/hr IVPB Q12H [facility] Rx# :[id number] Intake, IV Titration 319.700 276.782 Amount Heparin Sod,Pork in 0.45% 232.659 205.632 NaCl 25,000 unit In 0.45 % NaCl 1 250ml.bag @ 12 UNITS/KG/HR 5.443 mls/hr IV .Q24H [facility] Rx#: [id number] propofoL 1,000 mg In 87.041 71.15 Empty Bag 1 bag @ Titrate IV .Q0M [facility] Rx#: [id number] Tube Feeding 517 564 Other 90 90 Output: Urine 2395 800 Other: Voiding Method Indwelling Catheter Indwelling Catheter # Bowel Movements 3 ABP, PAP, CO, CI - Last Documented Arterial Blood Pressure 110/65 - Labs CBC & Chem 7: 11/15/21 05:25 11/15/21 05:25 Labs: Abnormal Lab Results - Last 24 Hours (Table) 11/14/21 11/15/21 11/15/21 Range/Units 18:41 00:19 05:25 WBC (3.8-10.6) k/uL RBC (3.80-5.40) m/uL Hgb (11.4-16.0) gm/dL Hct (34.0-46.0) % MCV (80.0-100.0) fL Neutrophils # (1.3-7.7) k/uL APTT 37.3 H (22.0-30.0) sec ABG pH (7.35-7.45) ABG pO2 (83-108) mmHg ABG HCO3 (21-25) mmol/L ABG Total CO2 (19-24) mmol/L Potassium (3.5-5.1) mmol/L Carbon Dioxide (22-30) mmol/L BUN (7-17) mg/dL Creatinine (0.52-1.04) mg/dL Glucose (74-99) mg/dL POC Glucose (mg/dL) 249 H 164 H (75-99) mg/dL AST (14-36) U/L ALT (4-34) U/L Alkaline Phosphatase (38-126) U/L Albumin (3.5-5.0) g/dL 11/15/21 11/15/21 11/15/21 Range/Units 05:25 05:25 05:37 WBC 11.0 H (3.8-10.6) k/uL RBC 2.77 L (3.80-5.40) m/uL Hgb 9.1 L (11.4-16.0) gm/dL Hct 28.4 L (34.0-46.0) % MCV 102.5 H (80.0-100.0) fL Neutrophils # 8.7 H (1.3-7.7) k/uL APTT (22.0-30.0) sec ABG pH 7.54 H (7.35-7.45) ABG pO2 76 L (83-108) mmHg ABG HCO3 35 H (21-25) mmol/L ABG Total CO2 36 H (19-24) mmol/L Potassium 3.3 L (3.5-5.1) mmol/L Carbon Dioxide 34 H (22-30) mmol/L BUN 36 H (7-17) mg/dL Creatinine 1.10 H (0.52-1.04) mg/dL Glucose 211 H (74-99) mg/dL POC Glucose (mg/dL) (75-99) mg/dL AST 99 H (14-36) U/L ALT 47 H (4-34) U/L Alkaline Phosphatase 217 H (38-126) U/L Albumin 2.9 L (3.5-5.0) g/dL 11/15/21 11/15/21 11/15/21 Range/Units 05:56 11:43 12:23 WBC (3.8-10.6) k/uL RBC (3.80-5.40) m/uL Hgb (11.4-16.0) gm/dL Hct (34.0-46.0) % MCV (80.0-100.0) fL Neutrophils # (1.3-7.7) k/uL APTT (22.0-30.0) sec ABG pH (7.35-7.45) ABG pO2 (83-108) mmHg ABG HCO3 (21-25) mmol/L ABG Total CO2 (19-24) mmol/L Potassium (3.5-5.1) mmol/L Carbon Dioxide (22-30) mmol/L BUN (7-17) mg/dL Creatinine (0.52-1.04) mg/dL Glucose (74-99) mg/dL POC Glucose (mg/dL) 222 H 212 H 211 H (75-99) mg/dL AST (14-36) U/L ALT (4-34) U/L Alkaline Phosphatase (38-126) U/L Albumin (3.5-5.0) g/dL Microbiology - Last 24 Hours (Table) 11/11/21 09:03 Blood Culture - Preliminary Blood No Growth after 96 hours 11/14/21 11:00 Gram Stain - Preliminary Sputum Sputum Culture - Preliminary
[2021-11-15] MEDS: HEPARIN SOD,PORK IN 0.45% NACL 25,000 UNIT in 0.45% NACL 1 250ML.BAG IV SCH (13:03)
[2021-11-15] MEDS: LOSARTAN 25 MG TAB PO SCH (13:04)
[2021-11-15 17:52] LABS: Glucose,Whole Blood 231 mg/dL (75-99)
--- NOTE | 2021-11-15 18:22 | P.PN ---
Subjective Progress Note Date: 11/15/21 *Live* [facility] [address] [place], [place] [address] Progress Note - SOAP Patient Name: Yaz Lawsno Date of : 1960 Patient Status: Inpatient Attending Provider: Denisse Mya Date: 11/13/21 09:14 Initialization Date: 11/13/21 09:14 Subjective Progress Note Date: 11/13/21 Patient is 60-year-old female came in with comments of shortness of breath patient has a history of severe aortic stenosis patient had any of around 50- 55%. Patient had bilateral pleural effusions and pulmonary edema on the CT angios the chest. Patient was started on BiPAP. Patient was receiving IV fluids to discuss reviewed and the patient was started on IV Lasix patient had bilateral pleural effusions patient had a recent hospitalization for which patient underwent thoracentesis. Patient does have history of smoking does have history of COPD. Shortly after my evaluation patient decompensated cold blue was called patient was subsequently intubated and transferred to ICU. ABG was opted at that time which showed hypercapnia. Pulmonary was consulted. 11/12/2021 Patient is seen and evaluated in the ICU continues on mechanical ventilation and sedation and being closely monitored. Pulmonary and cardiology following. Current FiO2 is 40% with a PEEP of 5 and patient continues on Nimbex with attempts at weaning. Chest x-ray today shows stable small to moderate sized left pleural effusion and stable diffuse central right lung edema and/or infiltrates with no significant change from previous day. Patient had a 2-D echo done which shows moderate concentric left ventricular hypertrophy with overall LV systolic function is mildly to moderately impaired with an EF of 40- 45% with mild to moderate stenosis of the bioprosthetic aortic valve and mild mitral tricuspid regurgitation present along with moderate pulmonary hyp ertension noted. Blood cultures thus far noted to be negative and patient is maintained on IV antibiotics in the form of Zosyn and will continue. Patient continues on sedation of propofol. Patient will also continue with IV Lasix twice daily and will continue with sliding scale per protocol for elevated blood sugars. Dietitian consulted to initiate tube feedings. 11/13/2021 Patient is seen and evaluated continues to be closely monitored in the ICU with multiple medical consultations following. Patient continues on mechanical ventilation with an FiO2 of 40% and PEEP of 5. Patient is off paralytics and attempting sedation holiday to assess mentation. Neurology was consulted and EEG was done showing an abnormal EEG due to background suppression and diffuse slowing suggestive of generalized cerebral dysfunction consistent with her history of anoxic encephalopathy with very occasional bursts of single sharp waves that were seen however no electrographic seizures were recorded. Patient underwent brain CT as well showing age-related atrophic and chronic small vessel ischemic changes without acute intracranial process seen at this time. Chest x- ray today shows stable portable chest with continued pleural effusion unchanged from previous. Patient was maintained on IV Lasix 40 mg twice daily and showing a slight increase in kidney functions and will decrease the dose to Lasix 40 mg daily. Per nursing staff patient did not tolerate sedation holiday yesterday as she woke up but was extremely agitated and restless with worsening shortness of breath and not following commands. Cardiology also following and patient is maintained on IV heparin for elevated troponins possible and STEMI status post cardiac arrest and will likely need to transition over to oral anticoagulant. Patient was spiking fevers last night although no reports of fevers today and will continue on IV hepatic cyst in the form of Zosyn and sputum cultures will be obtained. Blood cultures thus far remain negative. WBC today is 12.3. Potassium slightly low at 3.1 and will replace per protocol and recommend repeat labs 11/14/2021 The patient continues to be mechanically ventilated. Patient did not have any significant neurological improvement at this time. EEG shows features of anoxic brain injury or encephalopathy. Dr. Berger is following the patient closely. When settings are noted. Chest x-ray showed interstitial edema and some pleural effusion also. Patient is on no multiple medications. Overall prognosis guarded because of the above-mentioned multiple medical issues. 2019 This 60-year-old woman admitted acute hypoxic respiratory failure after cardiac arrest is being closely monitored in ICU. Chest x-ray showed significant right lower pneumonia. Aspiration pneumonia is suspected. Broad-spectrum IV antibiotic stent recommended. Previous cerebrovascular also also ordered. Chest x-ray as well as reviewed personally by me.. Patient continues to be unresponsive. REVIEW OF SYSTEMS: Unable to obtain due to her clinical condition Labs: WBC is 12.3, hgb is 8.9, plt 226, sodium is 141, potassium is 3.1, bun 47, creat is 1.35, calcium 8.3, trop is 0.373 Active Medications Acetaminophen (Acetaminophen Tab 325 Mg Tab) 650 mg PO Q6HR PRN PRN Reason: Fever and/ or Pain Last Admin: 11/12/21 18:47 Dose: 650 mg Documented by: Albuterol Sulfate (Albuterol Hfa Inhaler) 2 puff INHALATION RT-QID PRN PRN Reason: Shortness Of Breath Albuterol Sulfate (Albuterol Nebulized 2.5 Mg/3 Ml) 2.5 mg INHALATION RT-QID PRN PRN Reason: Shortness Of Breath Albuterol/Ipratropium (Ipratropium-Albuterol 3 Ml Neb) 3 ml INHALATION RT-QID [facility] Last Admin: 11/13/21 11:10 Dose: 3 ml Documented by: Aspirin (Aspirin 81 Mg) 81 mg PO DAILY [facility] Last Admin: 11/13/21 09:20 Dose: 81 mg Documented by: Atorvastatin Calcium (Atorvastatin 40 Mg Tab) 40 mg PO DAILY [facility] Last Admin: 11/13/21 09:20 Dose: 40 mg Documented by: Bupropion HCl (Bupropion Xl 300 Mg Tab.Er.24h) 300 mg PO QAM [facility] Last Admin: 11/13/21 10:28 Dose: Not Given Documented by: Chlorhexidine Gluconate (Chlorhexidine Gluconate 15 Ml Cup) 15 ml MUCOUS MEM BID [facility] Last Admin: 11/13/21 09:20 Dose: 15 ml Documented by: Furosemide (Furosemide 10 Mg/Ml 4 Ml Vial) 40 mg IV BID [facility] Last Admin: 11/13/21 09:20 Dose: 40 mg Documented by: Heparin Sodium (Porcine) (Heparin Sodium 1,000 Un/Ml (10ml Vl)) 0 unit IV PER PROTOCOL PRN; Protocol PRN Reason: Low PTT Last Admin: 11/12/21 16:03 Dose: 2,250 unit Documented by: Heparin Sodium/Sodium Chloride (25,000 unit/ Sodium Chloride) 250 mls @ 5.443 mls/hr IV .Q24H [facility]; Protocol Last Titration: 11/13/21 05:22 Dose: Infused Documented by: Propofol 1,000 mg/ IV Solution 100 mls @ 0 mls/hr IV .Q0M [facility]; Protocol Last Titration: 11/13/21 10:29 Dose: 15 mcg/kg/min, 4.239 mls/hr Documented by: Cisatracurium Besylate 200 mg/ (Sodium Chloride) 200 mls @ 5.443 mls/hr IV .Q24H [facility]; Protocol Last Admin: 11/12/21 16:02 Dose: Not Given Documented by: Piperacillin Sod/Tazobactam (Sod 3.375 gm/ Sodium Chloride) 100 mls @ 25 mls/hr IVPB Q12H [facility] Stop: 11/13/21 14:00 Last Admin: 11/13/21 11:12 Dose: 25 mls/hr Documented by: Piperacillin Sod/Tazobactam (Sod 3.375 gm/ Sodium Chloride) 100 mls @ 25 mls/hr IVPB Q8H [facility] Insulin Aspart (Insulin Aspart (Novolog) 100 Unit/Ml Vial) 0 unit SQ Q6HR [facility]; Protocol Last Admin: 11/13/21 05:36 Dose: 1 unit Documented by: Lamotrigine (Lamotrigine 100 Mg Tab) 200 mg PO BID [facility] Last Admin: 11/13/21 09:19 Dose: 200 mg Documented by: Levothyroxine Sodium (Levothyroxine 100 Mcg Tab) 100 mcg PO DAILY@0630 [facility] Last Admin: 11/13/21 05:36 Dose: 100 mcg Documented by: Metoprolol Tartrate (Metoprolol Tartrate 12.5 Mg Tab) 12.5 mg PO BID [facility] Last Admin: 11/13/21 09:20 Dose: 12.5 mg Documented by: Miscellaneous Information (Potassium Replacement Protocol 1 Each Misc) 1 each MISCELLANE DAILY PRN; Protocol PRN Reason: Per Protocol Nicotine (Nicotine 21mg/24hr Patch) 1 patch TRANSDERM DAILY [facility] Last Admin: 11/12/21 09:40 Dose: 1 patch Documented by: Oxycodone/Acetaminophen (Oxycodone-Apap 10-325mg 1 Each Tab) 1 each PO Q6H PRN PRN Reason: Pain Pantoprazole Sodium (Pantoprazole 40 Mg/10 Ml Vial) 40 mg IVP DAILY [facility] Last Admin: 11/13/21 09:22 Dose: 40 mg Documented by: Potassium Chloride (Potassium Chloride Er 10 Meq Tab.Er.Prt) 10 meq PO DAILY [facility] Last Admin: 11/13/21 09:12 Dose: Not Given Documented by: Quetiapine Fumarate (Quetiapine 50 Mg Tab) 150 mg PO HS [facility] Last Admin: 11/12/21 21:16 Dose: 150 mg Documented by: Sodium Chloride (Sodium Chloride 0.9% Flush 10 Ml Syringe) 10 ml IV Q12HR [facility] Last Admin: 11/13/21 09:22 Dose: 10 ml Documented by: Sodium Chloride (Sodium Chloride 0.9% Flush 10 Ml Syringe) 10 ml IV DIRECTED PRN PRN Reason: FLUSH PHYSICAL EXAMINATION: GENERAL: Patient is currently on mechanical ventilation and intubated and sedated. cachetic FiO2 is 40% with a PEEP of 5. Thin built. Temp is 98.6F, pulse is 65, respirations are 32, blood pressure 108/61, oxygen saturation is 100% on 40% FiO2. HEENT: Pupils are round and equally reacting to light. EOMI. No scleral icterus. No conjunctival pallor. Normocephalic, atraumatic. No pharyngeal erythema. No thyromegaly. CARDIOVASCULAR: S1 and S2 muffled PULMONARY: Diffuse bilateral rhonchi as well as wheezing and crackles noted ABDOMEN: Soft, nontender, nondistended, normoactive bowel sounds. No palpable organomegaly. MUSCULOSKELETAL: No joint swelling or deformity. EXTREMITIES: No cyanosis, clubbing, or pedal edema. NEUROLOGICAL: unable to assess as patient is sedated. SKIN: No rashes. Assessment and plan: -Acute hypoxic respiratory failure as well as hypercapnic respiratory failure secondary to congestive heart failure exacerbation and a component of COPD exacerbation as well respectively, requiring mechanical ventilation -Possible aspiration pneumonia -Fevers possibly secondary to above -Status post cardiac respiratory arrest with pulseless electrical activity with 15 minutes of CPR and ROSC obtained -Possible anoxic brain injury secondary to cardiac arrest and prolonged CPR -congestive heart failure chronic diastolic dysfunction with acute exacerbation -Severe aortic stenosis -Acute kidney injury, most likely prerenal secondary to diuretic use -Mild elevation of troponin secondary to CHF -NSTEMI -History of coronary artery disease with stenting in the past -Hyperlipidemia -Diabetes mellitus -COPD with acute exacerbation -Hypothyroidism -Chronic back pain with spinal stenosis -Depression -Cachexia secondary to chronic smoking history patient presently doesn't smoke quit about a month ago. -Chronic kidney disease stage II secondary to diabetic nephropathy -Hyperlipidemia -DVT prophylaxis: IV heparin -Full code Plan: Recommend to continue with current medications. Patient will continue on IV Zosyn empirically as patient was spiking temps throughout the night with a T-max of 103.. Sputum cultures obtained and pending and cultures thus far have been negative. Per nursing staff attempting sedation holiday and patient is off paralytics although does not tolerate holiday very well and continues to be agitated and restless and needing re-sedation. Pulmonary roll contour grinder following closely and will continue with holidays of sedation to assess mentation. Patient underwent EEG and CT of the brain with neurology following as mentioned previously. Chest x-ray today continues with pleural effusion although slight improvement as mentioned previously. Recommend continue with close monitoring of chest x-ray daily and repeat labs. Potassium was slightly low and will replace per protocol and repeat labs. Patient continues on IV heparin with cardiology following as well for an STEMI and cardiac arrest with ROSC. Recommend to continue to monitor accuchecks and continue sliding scale. Due to multiple complex medical issues, prognosis is guarded. Family will like to continue with full CODE STATUS at this time. Recommend repeat labs and chest xray in the am. As mentioned earlier patient's left for significant pneumonic process. Continue current medications from mechanical ventilation and bronchodilators and as well as antibiotics. Objective - Vital Signs Vital signs: Vital Signs Temp 97.6 F 11/13/21 04:00 Pulse 67 11/13/21 07:00 Resp 33 H 11/13/21 07:00 BP 195/108 11/12/21 21:00 Pulse Ox 100 11/13/21 07:00 Intake & Output 11/12/21 11/13/21 11/13/21 18:59 06:59 18:59 Intake Total 635.442 792.153 50 Output Total 820 1465 40 Balance -184.558 -672.847 10 Weight 45.359 kg 47.1 kg Intake: IV 280 360 30 0.9 KVO 180 360 30 Piperacillin-Tazobactam 3 100 .375 gm In Sodium Chloride 0.9% 100 ml @ 25 mls/hr IVPB Q12H [facility] Rx# :[id number] Intake, IV Titration 345.442 222.153 Amount Cisatracurium 200 mg In 91.987 Sodium Chloride 0.9% 180 ml @ 2 MCG/KG/MIN 5.443 mls/hr IV .Q24H [facility] Rx#: [id number] Heparin Sod,Pork in 0.45% 78.384 85.865 NaCl 25,000 unit In 0.45 % NaCl 1 250ml.bag @ 12 UNITS/KG/HR 5.443 mls/hr IV .Q24H [facility] Rx#: [id number] propofoL 1,000 mg In 175.071 136.288 Empty Bag 1 bag @ Titrate IV .Q0M [facility] Rx#: [id number] Tube Feeding 10 150 20 Other 60 Output: Urine 820 1465 40 Other: Voiding Method Indwelling Catheter Indwelling Catheter ABP, PAP, CO, CI - Last Documented Arterial Blood Pressure 119/70 - Labs Objective - Vital Signs Vital signs: Vital Signs Temp 98.5 F 11/15/21 16:00 Pulse 101 H 11/15/21 17:00 Resp 40 H 11/15/21 17:00 BP 156/111 11/15/21 17:00 Pulse Ox 92 L 11/15/21 17:00 Intake & Output 11/14/21 11/15/21 11/15/21 18:59 06:59 18:59 Intake Total 9756.545 5975.782 482.368 Output Total 2395 800 2260 Balance -1098.300 490.782 -1777.632 Weight 49 kg Intake: IV 370 360 180 0.9 KVO 270 360 180 Piperacillin-Tazobactam 3 100 .375 gm In Sodium Chloride 0.9% 100 ml @ 25 mls/hr IVPB Q12H [facility] Rx# :[id number] Intake, IV Titration 319.700 276.782 44.368 Amount Heparin Sod,Pork in 0.45% 232.659 205.632 44.368 NaCl 25,000 unit In 0.45 % NaCl 1 250ml.bag @ 12 UNITS/KG/HR 5.443 mls/hr IV .Q24H [facility] Rx#: [id number] propofoL 1,000 mg In 87.041 71.15 Empty Bag 1 bag @ Titrate IV .Q0M [facility] Rx#: [id number] Tube Feeding 517 564 168 Other 90 90 90 Output: Urine 2395 800 2260 Other: Voiding Method Indwelling Catheter Indwelling Catheter Indwelling Catheter # Bowel Movements 3 1 ABP, PAP, CO, CI - Last Documented Arterial Blood Pressure 159/94 - Labs CBC & Chem 7: 11/15/21 05:25 11/15/21 12:25 Labs: Abnormal Lab Results - Last 24 Hours (Table) 11/14/21 11/15/21 11/15/21 Range/Units 18:41 00:19 05:25 WBC (3.8-10.6) k/uL RBC (3.80-5.40) m/uL Hgb (11.4-16.0) gm/dL Hct (34.0-46.0) % MCV (80.0-100.0) fL Neutrophils # (1.3-7.7) k/uL APTT 37.3 H (22.0-30.0) sec ABG pH (7.35-7.45) ABG pO2 (83-108) mmHg ABG HCO3 (21-25) mmol/L ABG Total CO2 (19-24) mmol/L Potassium (3.5-5.1) mmol/L Carbon Dioxide (22-30) mmol/L BUN (7-17) mg/dL Creatinine (0.52-1.04) mg/dL Glucose (74-99) mg/dL POC Glucose (mg/dL) 249 H 164 H (75-99) mg/dL AST (14-36) U/L ALT (4-34) U/L Alkaline Phosphatase (38-126) U/L Albumin (3.5-5.0) g/dL 11/15/21 11/15/21 11/15/21 Range/Units 05:25 05:25 05:37 WBC 11.0 H (3.8-10.6) k/uL RBC 2.77 L (3.80-5.40) m/uL Hgb 9.1 L (11.4-16.0) gm/dL Hct 28.4 L (34.0-46.0) % MCV 102.5 H (80.0-100.0) fL Neutrophils # 8.7 H (1.3-7.7) k/uL APTT (22.0-30.0) sec ABG pH 7.54 H (7.35-7.45) ABG pO2 76 L (83-108) mmHg ABG HCO3 35 H (21-25) mmol/L ABG Total CO2 36 H (19-24) mmol/L Potassium 3.3 L (3.5-5.1) mmol/L Carbon Dioxide 34 H (22-30) mmol/L BUN 36 H (7-17) mg/dL Creatinine 1.10 H (0.52-1.04) mg/dL Glucose 211 H (74-99) mg/dL POC Glucose (mg/dL) (75-99) mg/dL AST 99 H (14-36) U/L ALT 47 H (4-34) U/L Alkaline Phosphatase 217 H (38-126) U/L Albumin 2.9 L (3.5-5.0) g/dL 11/15/21 11/15/21 11/15/21 Range/Units 05:56 11:43 12:23 WBC (3.8-10.6) k/uL RBC (3.80-5.40) m/uL Hgb (11.4-16.0) gm/dL Hct (34.0-46.0) % MCV (80.0-100.0) fL Neutrophils # (1.3-7.7) k/uL APTT (22.0-30.0) sec ABG pH (7.35-7.45) ABG pO2 (83-108) mmHg ABG HCO3 (21-25) mmol/L ABG Total CO2 (19-24) mmol/L Potassium (3.5-5.1) mmol/L Carbon Dioxide (22-30) mmol/L BUN (7-17) mg/dL Creatinine (0.52-1.04) mg/dL Glucose (74-99) mg/dL POC Glucose (mg/dL) 222 H 212 H 211 H (75-99) mg/dL AST (14-36) U/L ALT (4-34) U/L Alkaline Phosphatase (38-126) U/L Albumin (3.5-5.0) g/dL 11/15/21 11/15/21 Range/Units 12:25 17:50 WBC (3.8-10.6) k/uL RBC (3.80-5.40) m/uL Hgb (11.4-16.0) gm/dL Hct (34.0-46.0) % MCV (80.0-100.0) fL Neutrophils # (1.3-7.7) k/uL APTT 44.3 H (22.0-30.0) sec ABG pH (7.35-7.45) ABG pO2 (83-108) mmHg ABG HCO3 (21-25) mmol/L ABG Total CO2 (19-24) mmol/L Potassium (3.5-5.1) mmol/L Carbon Dioxide (22-30) mmol/L BUN (7-17) mg/dL Creatinine (0.52-1.04) mg/dL Glucose (74-99) mg/dL POC Glucose (mg/dL) 231 H (75-99) mg/dL AST (14-36) U/L ALT (4-34) U/L Alkaline Phosphatase (38-126) U/L Albumin (3.5-5.0) g/dL Microbiology - Last 24 Hours (Table) 11/11/21 09:03 Blood Culture - Preliminary Blood No Growth after 96 hours 11/14/21 11:00 Gram Stain - Preliminary Sputum Sputum Culture - Preliminary
[2021-11-15] MEDS: QUEtiapine 50 MG TAB PO SCH (20:49)
[2021-11-15] MEDS: NOREPINEPHRINE 4 MG in SODIUM CHLORIDE 0.9% 250 ML IV SCH (21:45)
[2021-11-16] MEDS: INSULIN ASPART (NovoLOG) 100 UNIT/ML VIAL SQ SCH ×3 (02:21→12:16)
[2021-11-16 02:22] LABS: Glucose,Whole Blood 261 mg/dL (75-99)
[2021-11-16] MEDS: ACETAMINOPHEN TAB 325 MG TAB PO PRN (05:31)
[2021-11-16] MEDS: NOREPINEPHRINE 4 MG in SODIUM CHLORIDE 0.9% 250 ML IV SCH (05:32)
[2021-11-16] MEDS: PIPERACILLIN-TAZOBACTAM 3.375 GM in SODIUM CHLORIDE 0.9% 100 ML IVPB SCH ×2 (05:33→13:10)
[2021-11-16] MEDS: LEVOTHYROXINE 100 MCG TAB PO SCH (05:36)
[2021-11-16 05:46] LABS: Glucose,Whole Blood 242 mg/dL (75-99)
[2021-11-16 06:14] LABS: ABG Base Excess 9.9 mmol/L; ABG HCO3 34 mmol/L (21-25); ABG Oxygen Saturation 95.9 % (94-97); ABG PCO2 47 mmHg (35-45); ABG PH 7.46 (7.35-7.45); ABG PO2 86 mmHg (83-108); ABG TCO2 35 mmol/L (19-24); Allen Test Performed? Yes
--- NOTE | 2021-11-16 08:10 | P.PN ---
Subjective Progress Note Date: 11/15/21 This is a telemedicine neurology follow performed today on 11/15/2021. Patient was seen for a follow-up. Patient's sedation was turned off about an hour ago. Patient is not showing any significant clinical improvement. She is only gagging and coughing and sometimes yawns. No opening eyes, or following commands. Otherwise no purposeful movement of the extremities. She does not open her eyes. Continues to be comatose. Objective - Vital Signs Vital signs: Vital Signs Temp 103.8 F H 11/16/21 04:00 Pulse 111 H 11/16/21 07:30 Resp 37 H 11/16/21 07:30 BP 133/92 11/16/21 07:30 Pulse Ox 96 11/16/21 07:30 Intake & Output 11/15/21 11/16/21 11/16/21 18:59 06:59 18:59 Intake Total 916.804 5419.041 Output Total 2320 580 Balance -1679.673 867.041 Weight 47.7 kg Intake: IV 210 360 0.9 KVO 210 360 Intake, IV Titration 125.327 273.041 Amount Heparin Sod,Pork in 0.45% 44.368 NaCl 25,000 unit In 0.45 % NaCl 1 250ml.bag @ 12 UNITS/KG/HR 5.443 mls/hr IV .Q24H [facility] Rx#: [id number] Norepinephrine 4 mg In 254.000 Sodium Chloride 0.9% 250 ml @ 0.05 MCG/KG/MIN 9. 335 mls/hr IV .Q24H [facility] Rx#:[id number] propofoL 1,000 mg In 80.959 19.041 Empty Bag 1 bag @ Titrate IV .Q0M [facility] Rx#: [id number] Tube Feeding 215 564 Other 90 250 Output: Urine 2320 580 Other: Voiding Method Indwelling Catheter Indwelling Catheter # Bowel Movements 1 ABP, PAP, CO, CI - Last Documented Arterial Blood Pressure 139/81 - Exam Patient off sedation for last 1 hour. Patient is comatose. Patient's pupils are round and reacting. Oculocephalics are slightly present. Corneals minimally present. Patient does not respond to painful stimuli. She does have a gag reflex. Patient is areflexic. Patient appears somewhat cachectic. - Labs CBC & Chem 7: 11/15/21 05:25 02/13/22 12:25 Labs: Abnormal Lab Results - Last 24 Hours (Table) 11/15/21 11/15/21 11/15/21 Range/Units 11:43 12:23 12:25 APTT 44.3 H (22.0-30.0) sec ABG pH (7.35-7.45) ABG pCO2 (35-45) mmHg ABG HCO3 (21-25) mmol/L ABG Total CO2 (19-24) mmol/L POC Glucose (mg/dL) 212 H 211 H (75-99) mg/dL 11/15/21 11/16/21 11/16/21 Range/Units 17:50 02:20 05:10 APTT 50.5 H (22.0-30.0) sec ABG pH (7.35-7.45) ABG pCO2 (35-45) mmHg ABG HCO3 (21-25) mmol/L ABG Total CO2 (19-24) mmol/L POC Glucose (mg/dL) 231 H 261 H (75-99) mg/dL 11/16/21 11/16/21 Range/Units 05:44 06:11 APTT (22.0-30.0) sec ABG pH 7.46 H (7.35-7.45) ABG pCO2 47 H (35-45) mmHg ABG HCO3 34 H (21-25) mmol/L ABG Total CO2 35 H (19-24) mmol/L POC Glucose (mg/dL) 242 H (75-99) mg/dL Microbiology - Last 24 Hours (Table) 11/11/21 09:03 Blood Culture - Preliminary Blood No Growth after 96 hours 11/14/21 11:00 Gram Stain - Preliminary Sputum Sputum Culture - Preliminary Assessment and Plan Assessment: * Status post cardiopulmonary arrest with downtime of about 12-15 minutes. 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 Patient continues to be comatose with GCS of 3. * Ventilator-dependent respiratory failure * Probable sepsis, high temperature, leukocytosis. * Non-STEMI * History of aortic stenosis with previous history of aortic valve replacement and evidence of restenosis of the bioprosthetic aortic valve. * CHF * Diabetes * Hypertension * CAD * Anemia * Mild to moderate renal insufficiency * Mildly elevated liver enzyme, improving. * History of tobacco use * Protein calorie malnutrition. Plan: * Patient continues to be comatose, 93 hours post cardiac arrest. No significant clinical improvement noticed. * EEG was performed, which revealed severely abnormal EEG due to background suppression and diffuse slowing. This is suggestive of generalized cerebral dysfunction, consistent with her history of anoxic encephalopathy. Very occasional burst of single sharp waves were seen. However no electrographic seizure was recorded. Clinical correlation recommended. Patient not showing any signs of seizure activity. * Computed tomography scan of head revealed age-related atrophic and chronic small vessel ischemic change without acute intracranial process seen at this time. I personally reviewed computed tomography scan of the head, and now show showed pictures on the computer to the patient's . On just looking at computed tomography scan from today, the report is okay. However when compared to computed tomography scan of head from 05/31/2017, there is definitely some degree of generalized cerebral edema. There is slight effacement of sulci as compared to the previous computed tomography scan. * Patient has been off sedation for last 1 hour. Stay off sedation, if possible. * Per nurse report, family considering comfort care in the morning. * Dr. Tyree Mccann Will resume neurology service in the morning.
--- NOTE | 2021-11-16 08:33 | XR ---
EXAMINATION TYPE: XR chest 1V portable DATE OF EXAM: 11/16/2021 COMPARISON: X-ray dated 11/15/2021 HISTORY: Tube placement TECHNIQUE: Single frontal view of the chest is obtained. FINDINGS: The previously described subtle infiltration of the right lower lung zone is slightly more prominent today, please correlate clinically. Persistent left-sided pleural effusion with stable questionable r ight-sided pleural effusion. Unchanged remainder of the lungs. An endotracheal is seen with the tip is about 2.7 cm proximal to the ranjit. NG tube is seen with the tip is inferior to the diaphragm. A central venous line with the tip is seen at the superior aspect of the right atrium. No other significant change from the previous x-ray. IMPRESSION: Slightly more prominent right lower lung zone infiltration as described above, please correlate clini lisette. Other findings as described above.
[2021-11-16] MEDS: NICOTINE 21MG/24HR PATCH TRANSDERM SCH (08:38)
[2021-11-16] MEDS: buPROPion XL 300 MG TAB.ER.24H PO SCH (08:38)
[2021-11-16] MEDS: FUROSEMIDE 10 MG/ML 4 ML VIAL IV SCH (08:38)
[2021-11-16] MEDS: METOPROLOL TARTRATE 12.5 MG TAB PO SCH (08:38)
[2021-11-16] MEDS: CHLORHEXIDINE GLUCONATE 15 ML CUP MUCOUS MEM SCH (08:38)
[2021-11-16] MEDS: LOSARTAN 25 MG TAB PO SCH (08:38)
[2021-11-16] MEDS: lamoTRIgine 100 MG TAB PO SCH (08:39)
[2021-11-16] MEDS: ASPIRIN 81 MG PO SCH (08:39)
[2021-11-16] MEDS: POTASSIUM CHLORIDE ER 10 MEQ TAB.ER.PRT PO SCH (08:39)
[2021-11-16] MEDS: ATORVASTATIN 40 MG TAB PO SCH (08:39)
[2021-11-16] MEDS: IPRATROPIUM-ALBUTEROL 3 ML NEB INHALATION SCH ×2 (09:22→11:15)
[2021-11-16] MEDS: PANTOPRAZOLE 40 MG/10 ML VIAL IVP SCH (09:45)
[2021-11-16] MEDS: HEPARIN SOD,PORK IN 0.45% NACL 25,000 UNIT in 0.45% NACL 1 250ML.BAG IV SCH (09:46)
--- NOTE | 2021-11-16 11:01 | P.PN ---
Subjective Progress Note Date: 11/16/21 Principal diagnosis: This is a 60-year-old white female patient with known extensive cardiac history including severe aortic stenosis with previous history of aortic valve replaceme nt and evidence of restenosis of the bioprosthetic aortic valve, chronic CHF with systolic dysfunction although her most recent echocardiogram showed improved left ventricular systolic function with an EF of 55-60%. Other medical history includes hypertension, diabetes with this type II, poorly controlled, coronary artery disease with previous stent placement, hypothyroidism, ongoing nicotine dependence, anxiety, depression, chronic back pain. Patient was recently hospitalized for acute exacerbation of CHF, bilateral pleural effusions status post thoracentesis of the left lung, pleural fluid was not sent for analysis, although was suspected to be transudate. She was discharged on 10/13/2021 in stable but guarded condition in view of her multiple comorbidities. 11/11/2021 patient was brought in by EMS to the emergency department for evaluation of worsening shortness of breath since yesterday, chest heaviness as severe as 8 out of 10. There were no reported fever, chills, no sweats. Patient apparently did endorse a dry cough. Patient took 4 breathing treatments at home without significant relief. She was brought to the ER, she was noted to be desaturating, and was noted to be diaphoretic. Her chest x-ray showed developing interstitial pulmonary edema, small to moderate left pleural effusion with adjacent atelectasis and/or consolidation. CTA chest showed no evidence of a large central or lobar branch pulmonary embolus, no definite pulmonary embolus in the upper or mid lungs. Segmental and more distal branches of the lower lungs were nondiagnostic. There was moderate left and small to moderate right pleural effusion with adjacent atelectasis. There was marked generalized anasarca, pulmonary arterial hypertension, patchy groundglass opacities correlate for CHF and developing pulmonary edema. There was a suggestion of underlying mediastinal hilar and upper abdominal lymphadenopathy, with a 3 months follow-up CT recommendation. Admission blood work showed white blood cell count 9.8, hemoglobin was 10.8, d-dimer is 4.5, electrolytes and renal profile were unremarkable on admission, proBNP was 30,100, troponin was 0.149, AST was 90, ALT was 37, alk phos was 407, COVID-19 PCR was negative, RSV and influenza screens were also negative. Patient was placed on BiPAP support, she was started on IV Lasix, nebulized bronchodilators, and she was awaiting a bed on monitored bed on 3 S. a short while later she suffered a cardiac arrest, with a bradycardia and PEA, she was emergently intubated, ACLS was administered with CPR, no defibrillation shocks were administered please refer to the code sheet, ROSC was achieved after 15 minutes, patient was admitted to the intensive care unit. Reevaluated today on 11/12/2021, patient remains in the ICU, intubated and mechanically ventilated. She is now on assist control rate of 32, tidal volume 325, FiO2 40% and PEEP of 5. ABG showed a pO2 of 64 pCO2 55 pH of 7.32. Patient is on propofol at 50 mcg/kg/m, which is also on Nimbex at 2 mcg/kg/m, I recommended stopping the Nimbex. And hopefully we could assess her mental status today. As the patient sustained a cardiac arrest and she may have sustained anoxic brain injury. Her WBC count today is 21.1 hemoglobin is 10.3 electrolytes are normal renal profile showed a BUN of 32 creatinine 1.21. Patient is sedated, and I plan to hold sedation today, and assess mental status off propofol and off Nimbex. Chest x-ray continues to show pulmonary edema, and possibly some component of pneumonia and I'm recommending adding Zosyn as the patient may have sustained some aspiration. Will also start enteral feeding on this patient today. On 11/13/2021 patient is seen in follow-up in the intensive care unit, she remains intubated and mechanically ventilated, on assist control mode of ventilation with a rate of 32, tidal volume 325, FiO2 of 40% and PEEP of 5, this morning's blood gas shows pO2 of 135, a CO2 of 38, and pH of 7.47 this was done on the above-mentioned ventilator settings and FiO2 of 40%. Her peak airway pressure is 22, and plateau is 17. Today's chest x-ray showing no change in bibasilar opacities compared to yesterday, pleural effusion on the left, relatively stable compared to yesterday's exam, but overall chest x-ray findings show improved aeration compared chest x-ray on admission. Patient is currently on 0.9 normal saline at a rate of 30 mL per hour, Diprivan and is at 20 mics per kilo per minute, heparin infusion at weight-based protocol. Patient is in sinus mechanism with a rate of 65 BPM, her echocardiogram from 11/12/2021 showed mild to moderate impairment of left ventricular systolic function and EF of 40-45%, m ild regurgitation of the bioprosthetic aortic valve, and mild to moderate stenosis of the bioprosthetic aortic valve, mild MR, mild TR, moderate pulmonary hypertension with right-sided pressure of 50.8 mmHg. Patient is not requiring any vasopressor support. She is not requiring any paralytics, she is on minimal sedation, yesterday she was given a sedation holiday however she did not follow any command, she was extremely agitated, with increased shortness of breath and subsequently she had to be re-sedated. Brain CT has been completed however the report is not available to us, neurology has been consulted, EEG is pending for today. Patient had febrile episodes yesterday, and the T-max in the last 24 hours was 103.1F. She is afebrile today, we added Zosyn for empiric antibiotic coverage. Blood cultures have been sent, showing no growth at the 48 hour aneta, we'll repeat cultures and send a sputum culture, pro-calcitonin level is pending. Patient has been started on tube feedings, and currently receiving vital high-protein at goal. Today's labs have been reviewed, white blood cell count is improving, is down to 12.3, hemoglobin is 8.9, sodium is 141, potassium is 3.1 this is being corrected per protocol, chloride is 105, CO2 is 28, B1 is 47 and creatinine is 1.35. Troponin peaked at 0.373. Patient has remained on IV Lasix 40 mg twice daily, she is maintaining negative fluid balance, -857 mL over last 24 hours, chest x-ray findings have significantly improved since admi ssion. Today's renal profile is slightly worse than yesterday and the day before, and IV Lasix can be cut back to once a day On the 11/16/2021 patient seen in follow-up in the intensive care unit, she remains intubated, and sedated, on assist control mode of ventilation with a rate of 28, tidal vital 325, FiO2 40% and PEEP of 5. This point blood gas shows pO2 of 86, pCO2 of 47, and pH of 7.46, this morning's chest x-ray shows slightly more prominent right lower lung infiltration, persistent left-sided pleural effusion was stable questionable right-sided pleural effusion. ET tube 12.7 cm above the ranjit. Patient is currently on 0.9 normal saline every to 30 mL per hour, Diprivan and is at 20 mics per kilo per minute, heparin infusion per weight-based protocol. She is receiving tube feedings with the vital 8 at 47 with a goal of 47 and standing water flushes. Her CBC and CMP are still pending this morning, x-rays labs have been reviewed, white blood cell count is 11 which is stable compared the day before, hemoglobin is 9.1, platelet count is 241, sodium was 142, potassium 3.8, chloride is 103, B1 is 36 creatinine is 1.1, her pro-calcitonin level was elevated at 9.23 possibly related to aspiration pneumonia, patient remains on Zosyn for antibiotic coverage. Her sputum culture showed Kirti albicans, blood culture has shown no growth. Patient remains on daily dose of IV Lasix 40 mg, and she is in -812 mL net fluid balance over the last 24 hours. Patient was given a sedation holiday yesterday, she was only gagging and coughing and sometimes yawning however not opening her eyes or following any purposeful commands and not having any purposeful movement of the extremities. She continued to be comatose. Patient was not responding to painful stimuli, she did have a gag reflex, corneals were minimally present. Neurology service is following, and patient is suspected to have anoxic encephalopathy on top of underlying toxic metabolic encephalopathy. In view of evidence of anoxic brain injury and lack of neurological improvement, patient's CODE STATUS has been discussed with the patient's family. At this time the family is planning on coming in today with an intent of removing the patient off the ventilator and making her comfortable. Objective - Vital Signs Vital signs: Vital Signs Temp 102.2 F H 11/16/21 09:30 Pulse 89 11/16/21 09:30 Resp 28 H 11/16/21 09:30 BP 136/96 11/16/21 09:30 Pulse Ox 98 11/16/21 09:30 Intake & Output 11/15/21 11/16/21 11/16/21 18:59 06:59 18:59 Intake Total 258.689 6701.041 801.576 Output Total 2320 580 150 Balance -1679.673 867.041 651.576 Weight 47.7 kg Intake: IV 210 360 100 0.9 KVO 210 360 Piperacillin-Tazobactam 3 100 .375 gm In Sodium Chloride 0.9% 100 ml @ 25 mls/hr IVPB Q12H [facility] Rx# :[id number] Intake, IV Titration 125.327 273.041 457.576 Amount Heparin Sod,Pork in 0.45% 44.368 250 NaCl 25,000 unit In 0.45 % NaCl 1 250ml.bag @ 12 UNITS/KG/HR 5.443 mls/hr IV .Q24H [facility] Rx#: [id number] Norepinephrine 4 mg In 254.000 183.579 Sodium Chloride 0.9% 250 ml @ 0.05 MCG/KG/MIN 9. 335 mls/hr IV .Q24H [facility] Rx#:[id number] propofoL 1,000 mg In 80.959 19.041 23.997 Empty Bag 1 bag @ Titrate IV .Q0M [facility] Rx#: [id number] Tube Feeding 215 564 94 Other 90 250 150 Output: Urine 2320 580 150 Other: Voiding Method Indwelling Catheter Indwelling Catheter Indwelling Catheter # Bowel Movements 1 ABP, PAP, CO, CI - Last Documented Arterial Blood Pressure 128/72 - Exam GENERAL EXAM: Intubated, sedated, cachectic 60-year-old white female, on assist control mode of ventilation with FiO2 40% and PEEP of 5 and patient has been off paralytics for the last 24 hours, she is on minimal sedation with Diprivan at 20 mics per kilo per minute, synchronous with the ventilator, tolerating it well HEAD: Normocephalic/atraumatic. EYES: Normal reaction of pupils, equal size. Conjunctiva pink, sclera white. NOSE: Clear with pink turbinates. THROAT: No erythema or exudates. NECK: No masses, no JVD, no thyroid enlargement, no adenopathy. CHEST: No chest wall deformity. Symmetrical expansion. LUNGS: Equal air entry with diffuse crackles CVS: Regular rate and rhythm, normal S1 and S2, no gallops, no murmurs, no rubs ABDOMEN: Soft, nontender. No hepatosplenomegaly, normal bowel sounds, no guar ding or rigidity. EXTREMITIES: No clubbing, no edema, no cyanosis, 2+ pulses and upper and lower extremities. MUSCULOSKELETAL: Muscle strength and tone normal. SPINE: No scoliosis or deformity SKIN: No rashes CENTRAL NERVOUS SYSTEM: Intubated, and sedated No focal deficits, tone is normal in all 4 extremities. - Labs CBC & Chem 7: 11/15/21 05:25 11/15/21 12:25 Labs: Abnormal Lab Results - Last 24 Hours (Table) 11/15/21 11/15/21 11/15/21 Range/Units 11:43 12:23 12:25 APTT 44.3 H (22.0-30.0) sec ABG pH (7.35-7.45) ABG pCO2 (35-45) mmHg ABG HCO3 (21-25) mmol/L ABG Total CO2 (19-24) mmol/L POC Glucose (mg/dL) 212 H 211 H (75-99) mg/dL 11/15/21 11/16/21 11/16/21 Range/Units 17:50 02:20 05:10 APTT 50.5 H (22.0-30.0) sec ABG pH (7.35-7.45) ABG pCO2 (35-45) mmHg ABG HCO3 (21-25) mmol/L ABG Total CO2 (19-24) mmol/L POC Glucose (mg/dL) 231 H 261 H (75-99) mg/dL 11/16/21 11/16/21 Range/Units 05:44 06:11 APTT (22.0-30.0) sec ABG pH 7.46 H (7.35-7.45) ABG pCO2 47 H (35-45) mmHg ABG HCO3 34 H (21-25) mmol/L ABG Total CO2 35 H (19-24) mmol/L POC Glucose (mg/dL) 242 H (75-99) mg/dL Microbiology - Last 24 Hours (Table) 11/14/21 11:00 Gram Stain - Preliminary Sputum Sputum Culture - Preliminary Kirti albicans 11/11/21 09:03 Blood Culture - Preliminary Blood No Growth after 96 hours Assessment and Plan Plan: Assessment: #1. Acute cardiac arrest, PEA, witnessed, of unknown etiology, possibly related to acute decompensated CHF with diastolic dysfunction, and acute on chronic hypoxic respiratory failure, with return of spontaneous circulation after 15 minutes of ACLS interventions. Patient was intubated and placed on mechanical ventilator on 11/11/2021. COVID-19 PCR is negative, proBNP was significantly elevated at 30,100 on admission, chest x-ray is consistent with changes of pulmonary edema, bilateral pleural effusions, right greater than left. CTA chest showed no evidence of a large central pulmonary embolism. #2. Probable anoxic encephalopathy related to acute cardiac arrest. Patient continues to be comatose, and has not shown any purposeful activity and has not followed any command off sedation #3. Febrile episodes, rule out possibility of aspiration pneumonia, patient is covered with Zosyn empirically, sputum and blood cultures are pending, proca lcitonin level is pending. Currently fever has improved #4. Possible anoxic brain injury secondary to cardiac arrest and prolonged CPR #5. Recent hospitalization for acute exacerbation of diastolic CHF, discharged home on 10/13/2021 #6. Severe aortic stenosis, with previous history of aortic valve replacement and recent echocardiogram showed restenosis of the bioprosthetic aortic valve. There was a significant peak and mean gradient of 72 and 42 respectively the most recent echocardiogram. On most current echocardiogram from 11/12/2021 there was mild to moderate stenosis of the bioprosthetic aortic valve, and mild regurgitation of the same valve. #7. Abnormal troponin related to acute exacerbation of CHF, expected to rise related to acute cardiac arrest #8. History of CAD with previous PCI stenting #9. Hyperlipidemia #10. Diabetes mellitus type 2 #11. COPD #12. History of nicotine dependence #13. Hypothyroidism #14. Chronic back pain and spinal stenosis #15. Elevated d-dimer, with no CTA evidence of a large central pulmonary embolism #16. Anxiety/depression #17. Cachexia #18. Chronic stage III kidney disease Plan: Chest x-ray has been reviewed, blood gases and lab work has been reviewed Patient was given another sedation holiday yesterday, and did not follow any purposeful command, remains comatose At this time she continues on empiric antibiotics, diuretics, She remains on nutritional support She has not shown improvement in neurological response She is suspected to have severe anoxic brain injury At this time the patient's family is expected to come in and they have voiced their intent to remove the patient off the ventilator and making her comfortable today Until then we'll continue with supportive care measures I performed a history & physical examination of the patient and discussed their management with my nurse practitioner, Jennifer Craft. I reviewed the nurse practitioner's note and agree with the documented findings and plan of care. Lung sounds are positive for dim breath sounds throughout the lung latif. The findings and the impression was discussed with the patient. I attest to the documentation by the nurse practitioner. Time with Patient: Greater than 30
[2021-11-16 12:13] LABS: Glucose,Whole Blood 267 mg/dL (75-99)
[2021-11-16] MEDS: HYDROmorphone 1 MG/ML 1 ML SYRINGE IVP PRN (13:09)
[2021-11-16 14:00] VITALS: BMI 17.4
[2021-11-16 14:06] VITALS: TEMP 99
[2021-11-16] MEDS ORDERED: MORPHINE SULFATE 4 MG/ML SYRINGE IV PRN (14:23)
[2021-11-16] MEDS ORDERED: ATROPINE OPHTH SOLN 1% 5ML BTL SUBLINGUAL PRN (14:23)
[2021-11-16] MEDS ORDERED: ONDANSETRON 4 MG/2 ML VIAL IVP PRN (14:23)
[2021-11-16] MEDS ORDERED: LORazepam 2 MG/ML INJ IV PRN (14:23)
[2021-11-16] MEDS ORDERED: MORPHINE SULFATE (100 MG/2 ML) 100 MG in SODIUM CHLORIDE 0.9% 100 ML IV SCH (14:30)
--- NOTE | 2021-11-16 15:48 | P.PN ---
Subjective Progress Note Date: 11/16/21 Patient is 60-year-old female came in with comments of shortness of breath patient has a history of severe aortic stenosis patient had any of around 50- 55%. Patient had bilateral pleural effusions and pulmonary edema on the CT angios the chest. Patient was started on BiPAP. Patient was receiving IV fl uids to discuss reviewed and the patient was started on IV Lasix patient had bilateral pleural effusions patient had a recent hospitalization for which patient underwent thoracentesis. Patient does have history of smoking does have history of COPD. Shortly after my evaluation patient decompensated cold blue was called patient was subsequently intubated and transferred to ICU. ABG was opted at that time which showed hypercapnia. Pulmonary was consulted. 11/12/2021 Patient is seen and evaluated in the ICU continues on mechanical ventilation and sedation and being closely monitored. Pulmonary and cardiology following. Current FiO2 is 40% with a PEEP of 5 and patient continues on Nimbex with attempts at weaning. Chest x-ray today shows stable small to moderate sized left pleural effusion and stable diffuse central right lung edema and/or infiltrates with no significant change from previous day. Patient had a 2-D echo done which shows moderate concentric left ventricular hypertrophy with overall LV systolic function is mildly to moderately impaired with an EF of 40- 45% with mild to moderate stenosis of the bioprosthetic aortic valve and mild mitral tricuspid regurgitation present along with moderate pulmonary hypertension noted. Blood cultures thus far noted to be negative and patient is maintained on IV antibiotics in the form of Zosyn and will continue. Patient continues on sedation of propofol. Patient will also continue with IV Lasix twice daily and will continue with sliding scale per protocol for elevated blood sugars. Dietitian consulted to initiate tube feedings. 11/13/2021 Patient is seen and evaluated continues to be closely monitored in the ICU with multiple medical consultations following. Patient continues on mechanical ventilation with an FiO2 of 40% and PEEP of 5. Patient is off paralytics and attempting sedation holiday to assess mentation. Neurology was consulted and EEG was done showing an abnormal EEG due to background suppression and diffuse slowing suggestive of generalized cerebral dysfunction consistent with her history of anoxic encephalopathy with very occasional bursts of single sharp waves that were seen however no electrographic seizures were recorded. Patient underwent brain CT as well showing age-related atrophic and chronic small vessel ischemic changes without acute intracranial process seen at this time. Chest x- ray today shows stable portable chest with continued pleural effusion unchanged from previous. Patient was maintained on IV Lasix 40 mg twice daily and showing a slight increase in kidney functions and will decrease the dose to Lasix 40 mg daily. Per nursing staff patient did not tolerate sedation holiday yesterday as she woke up but was extremely agitated and restless with worsening shortness of breath and not following commands. Cardiology also following and patient is maintained on IV heparin for elevated troponins possible and STEMI status post cardiac arrest and will likely need to transition over to oral anticoagulant. Patient was spiking fevers last night although no reports of fevers today and will continue on IV hepatic cyst in the form of Zosyn and sputum cultures will be obtained. Blood cultures thus far remain negative. WBC today is 12.3. Potassium slightly low at 3.1 and will replace per protocol and recommend repeat labs 11/16/2021 Patient is seen in the ICU continues on mechanical ventilation with an FiO2 of 40% and PEEP is 5. Multiple medical consultations including cardiology and pulmonary asphalt heater operator following including neurology and patient was evaluated by neurology patient's CODE STATUS was addressed making the patient no code and consideration of possible comfort measures being had. Patient most likely suspected to have anoxic encephalopathy and also underlying toxic metabolic encephalopathy and has made no progression and improvement. Chest x-ray this morning showed slightly more prominent right lower lung zone infiltration along with persistent left-sided pleural effusion with stable questionable right-sided pleural effusion with no significant changes from previous x-ray. REVIEW OF SYSTEMS: Unable to obtain due to her clinical condition and patient remains on mechanical ventilation and intubated and sedated Active Medications Acetaminophen (Acetaminophen Tab 325 Mg Tab) 650 mg PO Q6HR PRN PRN Reason: Fever and/ or Pain Last Admin: 11/16/21 05:31 Dose: 650 mg Documented by: Albuterol Sulfate (Albuterol Hfa Inhaler) 2 puff INHALATION RT-QID PRN PRN Reason: Shortness Of Breath Albuterol Sulfate (Albuterol Nebulized 2.5 Mg/3 Ml) 2.5 mg INHALATION RT-QID PRN PRN Reason: Shortness Of Breath Atropine Sulfate (Atropine Ophth Soln 1% 5ml Btl) 2 drops SUBLINGUAL Q4HR PRN PRN Reason: Excess Secretions Hydromorphone HCl (Hydromorphone 1 Mg/Ml 1 Ml Syringe) 1 mg IVP Q3HR PRN PRN Reason: Moderate to Severe Pain Last Admin: 11/16/21 13:09 Dose: 1 mg Documented by: Morphine Sulfate 100 mg/ (Sodium Chloride) 102 mls @ 1.02 mls/hr IV .Q24H [facility]; Protocol Last Admin: 11/16/21 14:46 Dose: 1 mg/hr, 1.02 mls/hr Documented by: Lorazepam (Lorazepam 2 Mg/Ml Inj) 1 mg IV Q2H PRN PRN Reason: Anxiety Morphine Sulfate (Morphine Sulfate 4 Mg/Ml Syringe) 4 mg IV Q15M PRN PRN Reason: Breakthrough Pain Ondansetron HCl (Ondansetron 4 Mg/2 Ml Vial) 4 mg IVP Q8HR PRN PRN Reason: Nausea/emesis PHYSICAL EXAMINATION: GENERAL: Patient is currently on mechanical ventilation and intubated and sedated. cachetic FiO2 is 40% with a PEEP of 5. Thin built. HEENT: Pupils are round and equally reacting to light. EOMI. No scleral icterus. No conjunctival pallor. Normocephalic, atraumatic. No pharyngeal erythema. No thyromegaly. CARDIOVASCULAR: S1 and S2 muffled PULMONARY: Diffuse bilateral rhonchi as well as wheezing and crackles noted ABDOMEN: Soft, nontender, nondistended, normoactive bowel sounds. No palpable organomegaly. MUSCULOSKELETAL: No joint swelling or deformity. EXTREMITIES: No cyanosis, clubbing, or pedal edema. NEUROLOGICAL: unable to assess as patient is sedated. SKIN: No rashes. Assessment and plan: -Acute hypoxic respiratory failure as well as hypercapnic respiratory failure secondary to congestive heart failure exacerbation and a component of COPD ex acerbation as well respectively, requiring mechanical ventilation -Possible aspiration pneumonia -Fevers possibly secondary to above -Status post cardiac respiratory arrest with pulseless electrical activity with 15 minutes of CPR and ROSC obtained -Possible anoxic brain injury secondary to cardiac arrest and prolonged CPR -congestive heart failure chronic diastolic dysfunction with acute exacerbation -Severe aortic stenosis -Acute kidney injury, most likely prerenal secondary to diuretic use -Mild elevation of troponin secondary to CHF -NSTEMI -History of coronary artery disease with stenting in the past -Hyperlipidemia -Diabetes mellitus -COPD with acute exacerbation -Hypothyroidism -Chronic back pain with spinal stenosis -Depression -Cachexia secondary to chronic smoking history patient presently doesn't smoke quit about a month ago. 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 Patient's chest x-ray reviewed as mentioned previously and has been evaluated by neurology and is followed by cardiology and pulmonary asphalt heater operator. Lengthy discussion was had with the family and CODE STATUS was addressed and changed to no code and plans are for possible comfort measures this afternoon. Patient with multiple complex medical issues and overall prognosis is extremely poor and guarded. Recommend close monitoring and comfort measures per the request of the family. Again overall prognosis is extremely poor. Objective - Vital Signs Vital signs: Vital Signs Temp 103.3 F H 11/16/21 09:00 Pulse 110 H 11/16/21 09:00 Resp 40 H 11/16/21 09:00 BP 131/101 11/16/21 08:30 Pulse Ox 96 11/16/21 09:00 Intake & Output 11/15/21 11/16/21 11/16/21 18:59 06:59 18:59 Intake Total 391.592 7346.041 546.567 Output Total 2320 580 150 Balance -1679.673 867.041 396.567 Weight 47.7 kg Intake: IV 210 360 100 0.9 KVO 210 360 Piperacillin-Tazobactam 3 100 .375 gm In Sodium Chloride 0.9% 100 ml @ 25 mls/hr IVPB Q12H [facility] Rx# :[id number] Intake, IV Titration 125.327 273.041 202.567 Amount Heparin Sod,Pork in 0.45% 44.368 NaCl 25,000 unit In 0.45 % NaCl 1 250ml.bag @ 12 UNITS/KG/HR 5.443 mls/hr IV .Q24H [facility] Rx#: [id number] Norepinephrine 4 mg In 254.000 183.579 Sodium Chloride 0.9% 250 ml @ 0.05 MCG/KG/MIN 9. 335 mls/hr IV .Q24H [facility] Rx#:[id number] propofoL 1,000 mg In 80.959 19.041 18.988 Empty Bag 1 bag @ Titrate IV .Q0M [facility] Rx#: [id number] Tube Feeding 215 564 94 Other 90 250 150 Output: Urine 2320 580 150 Other: Voiding Method Indwelling Catheter Indwelling Catheter # Bowel Movements 1 ABP, PAP, CO, CI - Last Documented Arterial Blood Pressure 142/80 - Labs CBC & Chem 7: 11/15/21 05:25 11/15/21 12:25 Labs: Abnormal Lab Results - Last 24 Hours (Table) 11/15/21 11/15/21 11/15/21 Range/Units 11:43 12:23 12:25 APTT 44.3 H (22.0-30.0) sec ABG pH (7.35-7.45) ABG pCO2 (35-45) mmHg ABG HCO3 (21-25) mmol/L ABG Total CO2 (19-24) mmol/L POC Glucose (mg/dL) 212 H 211 H (75-99) mg/dL 11/15/21 11/16/21 11/16/21 Range/Units 17:50 02:20 05:10 APTT 50.5 H (22.0-30.0) sec ABG pH (7.35-7.45) ABG pCO2 (35-45) mmHg ABG HCO3 (21-25) mmol/L ABG Total CO2 (19-24) mmol/L POC Glucose (mg/dL) 231 H 261 H (75-99) mg/dL 11/16/21 11/16/21 Range/Units 05:44 06:11 APTT (22.0-30.0) sec ABG pH 7.46 H (7.35-7.45) ABG pCO2 47 H (35-45) mmHg ABG HCO3 34 H (21-25) mmol/L ABG Total CO2 35 H (19-24) mmol/L POC Glucose (mg/dL) 242 H (75-99) mg/dL Microbiology - Last 24 Hours (Table) 11/11/21 09:03 Blood Culture - Preliminary Blood No Growth after 96 hours 11/14/21 11:00 Gram Stain - Preliminary Sputum Sputum Culture - Preliminary
[2021-11-16 19:29] VITALS: BP 146/97; PULSE 94; RESP 15
--- NOTE | 2021-11-17 16:03 | P.DS ---
Providers Date of admission: 11/11/21 13:43 Expected date of discharge: 11/17/21 Attending physician: Denisse May Consults: 11/11/21 14:16 Consult Physician Routine Consulting Provider: Amaury Coronel Consult Reason/Comments: respiratory Arrest/intubation Do you want consulting provider notified?: Yes 11/11/21 16:12 Consult Physician Routine Consulting Provider: Rosalino Dougherty Consult Reason/Comments: cardiac arrest, acute CHF exac Do you want consulting provider notified?: Yes 11/12/21 15:28 Consult Physician Routine Consulting Provider: Cee Gutierrez Consult Reason/Comments: brain injury/cardiac arrest Do you want consulting provider notified?: Yes Primary care physician: Lizy Soliman Hospital Course: Preliminary cause of Chronic obstructive pulmonary disease Final diagnosis -Acute hypoxic respiratory failure as well as hypercapnic respiratory failure secondary to congestive heart failure exacerbation and a component of COPD exacerbation as well respectively, requiring mechanical ventilation -Possible aspiration pneumonia -Fevers possibly secondary to above -Status post cardiac respiratory arrest with pulseless electrical activity with 15 minutes of CPR and ROSC obtained -Possible anoxic brain injury secondary to cardiac arrest and prolonged CPR -congestive heart failure chronic diastolic dysfunction with acute exacerbation -Severe aortic stenosis -Acute kidney injury, most likely prerenal secondary to diuretic use -Mild elevation of troponin secondary to CHF -NSTEMI -History of coronary artery disease with stenting in the past -Hyperlipidemia -Diabetes mellitus -COPD with acute exacerbation -Hypothyroidism -Chronic back pain with spinal stenosis -Depression -Cachexia secondary to chronic smoking history patient presently doesn't smoke quit about a month ago. 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 According to nursing documentation time of was 2234 Hospital course This is a 60-year-old female who was brought to the emergency room via EMS with shortness of breath that had been worsening and found to have bilateral pleural effusions with pulmonary edema and started on BiPAP patient continued to decompensate and went into CODE BLUE cardiac arrest and CPR initiated with return of spontaneous circulation and patient was intubated and sent to ICU for close monitoring. Patient was treated with IV Lasix along with breathing inhalational treatments and continued on mechanical ventilation with attempts at weaning although unsuccessful and neurology evaluated the patient and patient most likely suspected to have anoxic encephalopathy on top of underlying toxic metabolic encephalopathy with no improvement in mentation and unable to wean from the vent. Lengthy discussion was had with the family members who would like to proceed with comfort measures and patient was placed on comfort measures only and CODE STATUS was changed to no code. Patient on 11/16/2021 at 2235. Please refer to previous dictations and other consultation notes for further HPI. Patient Condition at Discharge: Poor Plan - Discharge Summary Discharge Rx Participant: No New Discharge Prescriptions: No Action buPROPion HCL [Wellbutrin XL] 300 mg PO QAM Levothyroxine Sodium [Synthroid] 100 mcg PO DAILY lamoTRIgine 200 mg PO BID Aspirin 81 mg PO DAILY #30 chew Nicotine 21Mg/24Hr Patch [Habitrol] 1 patch TRANSDERM DAILY #20 patch Furosemide [Lasix] 40 mg PO DAILY 30 Days #30 tab Atorvastatin [Lipitor] 40 mg PO DAILY 30 Days #30 tab QUEtiapine FUMARATE [SEROquel] 150 mg PO HS #15 tab oxyCODONE-APAP 10-325MG [Percocet 10-325 mg] 1 tab PO Q6H PRN PRN Reason: Pain Metoprolol Tartrate [Lopressor] 12.5 mg PO BID 30 Days #60 tab Potassium Chloride ER [K-Dur 10] 10 meq PO DAILY #30 tab Nitroglycerin Sl Tabs [Nitrostat] 0.4 mg SUBLINGUAL Q5M PRN PRN Reason: Chest Pain Albuterol Inhaler [Ventolin Hfa Inhaler] 1 - 2 puff INHALATION RT-QID PRN PRN Reason: Shortness Of Breath Ipratropium-Albuterol Nebulize [Duoneb 0.5 mg-3 mg/3 ml Soln] 3 ml INHALATION RT-QID Albuterol Nebulized [Ventolin Nebulized] 2.5 mg INHALATION RT-QID PRN PRN Reason: Shortness Of Breath Discharge Medication List buPROPion HCL [Wellbutrin XL] 300 mg PO QAM 04/10/14 [History] Levothyroxine Sodium [Synthroid] 100 mcg PO DAILY 07/13/18 [History] lamoTRIgine 200 mg PO BID 07/13/18 [History] Aspirin 81 mg PO DAILY #30 chew 07/14/18 [Rx] oxyCODONE-APAP 10-325MG [Percocet 10-325 mg] 1 tab PO Q6H PRN 01/02/21 [History] Atorvastatin [Lipitor] 40 mg PO DAILY 30 Days #30 tab 10/12/21 [Rx] Furosemide [Lasix] 40 mg PO DAILY 30 Days #30 tab 10/12/21 [Rx] Metoprolol Tartrate [Lopressor] 12.5 mg PO BID 30 Days #60 tab 10/12/21 [Rx] Nicotine 21Mg/24Hr Patch [Habitrol] 1 patch TRANSDERM DAILY #20 patch 10/12/21 [Rx] Potassium Chloride ER [K-Dur 10] 10 meq PO DAILY #30 tab 10/12/21 [Rx] QUEtiapine FUMARATE [SEROquel] 150 mg PO HS #15 tab 10/12/21 [Rx] Albuterol Inhaler [Ventolin Hfa Inhaler] 1 - 2 puff INHALATION RT-QID PRN 11/11/21 [History] Albuterol Nebulized [Ventolin Nebulized] 2.5 mg INHALATION RT-QID PRN 11/11/21 [ History] Ipratropium-Albuterol Nebulize [Duoneb 0.5 mg-3 mg/3 ml Soln] 3 ml INHALATION RT-QID 11/11/21 [History] Nitroglycerin Sl Tabs [Nitrostat] 0.4 mg SUBLINGUAL Q5M PRN 11/11/21 [History] Follow up Appointment(s)/Referral(s): Lizy Soliman DO [Primary Care Provider] - 1-2 days [facility], [NON-STAFF] - 1 Week Discharge Disposition: - Preliminary Cause of Preliminary Cause of : COPD
== END 2021-11-16 22:35 | disposition expired ==
LOC: EC 08:36 → 3SCARD 13:43 → 2SICU 14:44
PROVIDERS: ADMIT Internal Medicine; ATTEND Internal Medicine
PROC: 5A1955Z Respiratory Ventilation, Greater than 96 Consecutive Hours (ICD-10-PCS; principal; 2021-11-11)
PROC: 03HY32Z Insertion of Monitoring Device into Upper Artery, Percutaneous Approach (ICD-10-PCS; 2021-11-11)
PROC: 4A133B1 Monitoring of Arterial Pressure, Peripheral, Percutaneous Approach (ICD-10-PCS; 2021-11-11)
PROC: 4A133J1 Monitoring of Arterial Pulse, Peripheral, Percutaneous Approach (ICD-10-PCS; 2021-11-11)
PROC: 02H633Z Insertion of Infusion Device into Right Atrium, Percutaneous Approach (ICD-10-PCS; 2021-11-11)
PROC: 0BH17EZ Insertion of Endotracheal Airway into Trachea, Via Natural or Artificial Opening (ICD-10-PCS; 2021-11-11)
PROC: 5A12012 Performance of Cardiac Output, Single, Manual (ICD-10-PCS; 2021-11-11)
PROC: 0D9670Z Drainage of Stomach with Drainage Device, Via Natural or Artificial Opening (ICD-10-PCS; 2021-11-11)
DX: I13.0 Hypertensive heart and chronic kidney disease with heart failure and stage 1 through stage 4 chronic kidney disease, or unspecified chronic kidney disease (principal); I21.4 Non-ST elevation (NSTEMI) myocardial infarction; E43 Unspecified severe protein-calorie malnutrition; G92.8 Other toxic encephalopathy; I50.43 Acute on chronic combined systolic (congestive) and diastolic (congestive) heart failure; J80 Acute respiratory distress syndrome; J69.0 Pneumonitis due to inhalation of food and vomit; A41.9 Sepsis, unspecified organism; N17.0 Acute kidney failure with tubular necrosis; Z68.1 Body mass index [BMI] 19.9 or less, adult; G93.1 Anoxic brain damage, not elsewhere classified; J44.1 Chronic obstructive pulmonary disease with (acute) exacerbation; J98.11 Atelectasis; T82.857A Stenosis of other cardiac prosthetic devices, implants and grafts, initial encounter; Z99.11 Dependence on respirator [ventilator] status; I42.9 Cardiomyopathy, unspecified; Z51.5 Encounter for palliative care; Z66 Do not resuscitate; Z20.822 Contact with and (suspected) exposure to COVID-19; D64.9 Anemia, unspecified; E03.9 Hypothyroidism, unspecified; N18.30 Chronic kidney disease, stage 3 unspecified; E11.22 Type 2 diabetes mellitus with diabetic chronic kidney disease; E78.5 Hyperlipidemia, unspecified; E87.6 Hypokalemia; F17.200 Nicotine dependence, unspecified, uncomplicated; F31.9 Bipolar disorder, unspecified; F41.1 Generalized anxiety disorder; F41.8 Other specified anxiety disorders; G89.29 Other chronic pain; I25.10 Atherosclerotic heart disease of native coronary artery without angina pectoris; I25.2 Old myocardial infarction; I27.21 Secondary pulmonary arterial hypertension; I08.2 Rheumatic disorders of both aortic and tricuspid valves; I46.2 Cardiac arrest due to underlying cardiac condition; M48.00 Spinal stenosis, site unspecified; Y83.1 Surgical operation with implant of artificial internal device as the cause of abnormal reaction of the patient, or of later complication, without mention of misadventure at the time of the procedure; T50.2X5A Adverse effect of carbonic-anhydrase inhibitors, benzothiadiazides and other diuretics, initial encounter; Z79.82 Long term (current) use of aspirin; Z79.890 Hormone replacement therapy; Z79.899 Other long term (current) drug therapy; Z82.49 Family history of ischemic heart disease and other diseases of the circulatory system; Z95.3 Presence of xenogenic heart valve
CPT/HCPCS: 36415; 70450; 71045; 71046; 71275; 74018; 80053; 82805; 83605; 83735; 83880; 84132; 84145; 84484; 85025; 85379; 85610; 85730; 87040; 87070; 87205; 87636; 93005; 93306; 94002; 94003; 94640; 94660; 95822; 96361; 96374; 96375; 96376; 99291